=== PATIENT | female | born 1950 | race Caucasian/White ===

== ENCOUNTER 2016-10-03 21:43 | Inpatient (IN) | payer MEDICARE, MEDICAID ==
--- NOTE | 2016-10-03 21:50 | ED Physician Chart ---
Chief Complaint/HPI - Patient Information Date Seen:: 10/03/16 Time Seen:: 21:46 Chief Complaint:: congestion History of Present Illness:: 65-year-old female brought in by EMS with apparent worsening, constant, moderate to severe, respiratory congestion with associated shortness of breath 2 days. Historian:: Patient, EMS Review:: Nurse's Note Reviewed, EMS run form Reviewed Review of Systems - Review of Systems Other: Complete system review otherwise unremarkable except as noted in HPI. Past Medical History - Past Medical History Past Medical History: Asthma/COPD Family History: None Social History: Non Smoker, No Alcohol, No Drug Use, Care Facility Psychiatricy History: Schizophrenia Medication: Reviewed Physical Exam - Physical Examination Other:: INITIAL VITAL SIGNS: Reviewed by me GENERAL: Alert and interactive. No acute distress HEAD: Head is normocephalic and atraumatic EYES: EOMI. . No scleral icterus. No conjunctival injection ENT: Moist mucous membranes. NECK: Supple. No masses. Full range of motion RESPIRATORY: Slight tachypnea. Bibasilar rales and bilateral wheezing. CV: Regular rate and rhythm. No murmurs, rubs, or gallops ABDOMEN: Soft, non-distended, non-tender. No guarding. No rebound. No masses. EXTREMITIES: No deformity. No cyanosis. No edema. SKIN: Warm and dry. No obvious rashes. NEUROLOGIC: Alert and oriented. Face is symmetric. Speech is normal. Moves all extremities equally. Motor and sensory distally intact. Labs/Radiology/EKG Results - Lab Results Results: Lab Results 10/03/16 10/03/16 10/03/16 Range/Units 22:25 22:25 22:25 WBC 8.2 (4.8-10.8) Th/cmm RBC 4.03 (3.80-5.10) Mil/cmm Hgb 12.9 (11.7-15.5) gm/dL Hct 36.9 (35.0-45.0) % MCV 91.6 (81-100) fl MCH 31.9 H (27.0-31.0) pg MCHC Differential 34.9 (28.0-36.0) pg RDW 13.0 (11.5-20.0) % Plt Count 201 (150-400) Th/cmm MPV 7.1 fl PT 9.2 L (9.5-11.5) SECONDS INR 0.93 (0.5-1.4) PTT (Actin FS) 22.0 L (26.0-38.0) SECONDS Sodium 128 L (136-145) mEq/L Potassium 3.7 (3.5-5.1) mEq/L Chloride 92 L (98-107) mEq/L Carbon Dioxide 29.2 (21.0-31.0) mEq/L Anion Gap 10.5 (7.0-16.0) BUN 9 (7-25) mg/dL Creatinine 0.7 (0.6-1.2) mg/dL Est GFR ( Amer) > 60.0 (>90) ml/min Est GFR (Non-Af Amer) > 60.0 ml/min BUN/Creatinine Ratio 12.9 Glucose 167 H (70-105) mg/dL Whole Bld Lactic Acid (0.60-2.00) mmol/L Calcium 9.1 (8.6-10.3) mg/dL Total Bilirubin 0.4 (0.3-1.0) mg/dL AST 13 (13-39) U/L ALT 16 (7-52) U/L Alkaline Phosphatase 65 (34-104) U/L Total Protein 6.5 (6.0-8.3) gm/dL Albumin 4.0 (3.7-5.3) gm/dL Globulin 2.5 gm/dL Albumin/Globulin Ratio 1.6 (1.0-1.8) 10/03/ Range/Units 22:25 WBC (4.8-10.8) Th/cmm RBC (3.80-5.10) Mil/cmm Hgb (11.7-15.5) gm/dL Hct (35.0-45.0) % MCV (81-100) fl MCH (27.0-31.0) pg MCHC Differential (28.0-36.0) pg RDW (11.5-20.0) % Plt Count (150-400) Th/cmm MPV fl PT (9.5-11.5) SECONDS INR (0.5-1.4) PTT (Actin FS) (26.0-38.0) SECONDS Sodium (136-145) mEq/L Potassium (3.5-5.1) mEq/L Chloride (98-107) mEq/L Carbon Dioxide (21.0-31.0) mEq/L Anion Gap (7.0-16.0) BUN (7-25) mg/dL Creatinine (0.6-1.2) mg/dL Est GFR ( Amer) (>90) ml/min Est GFR (Non-Af Amer) ml/min BUN/Creatinine Ratio Glucose (70-105) mg/dL Whole Bld Lactic Acid 2.97 H* (0.60-2.00) mmol/L Calcium (8.6-10.3) mg/dL Total Bilirubin (0.3-1.0) mg/dL AST (13-39) U/L ALT (7-52) U/L Alkaline Phosphatase (34-104) U/L Total Protein (6.0-8.3) gm/dL Albumin (3.7-5.3) gm/dL Globulin gm/dL Albumin/Globulin Ratio (1.0-1.8) - Radiology Results Results: Single AP VIEW Portable Chest X-ray was interpreted independently and contemporaneously by Hannah Candelaria MD: No cardiomegaly Normal mediastinum Bilateral lower lobe infiltrates No pneumothorax No soft tissue or bony abnormalities - EKG Interpretations Comments:: 12-lead EKG Interpretation by Hannah Candelaria MD: Normal Sinus Rhythm with ventricular rate of 97 beats per minute Normal axis Normal intervals No acute ST or T wave changes. No obvious STEMI Assessment - Assessment General Assessment: Critical Care Time: 30 minutes Treatments/Evaluations: Close monitoring and treatment of unstable vital signs, cardiorespiratory, and neurologic status, while maintaining tight balance of fluid, respiratory, and cardiac interventions. This time includes discussing the case with the patient and the patient's family. This time does not include all procedures stated elsewhere in this record. This time also includes reviewing old records, labs and radiological studies. This time includes examining and re-examining the patient. Additionally, this time also includes arranging care with admitting and consulting physicians. Critical Care Time: 30 minutes Excludes all billable procedures: Yes This condition life threatening/high prob of deterioration: Yes ED Septic Shock - . Is Septic Shock (SBP<90, OR Lactate>4 mmol\L) present?: No Reassessment (Disposition) - Reassessment Reassessment:: Patient has sepsis with bilateral lower lobe pneumonia. She arrived tachypneic And with bibasilar rales and bilateral wheezing. There was critical care time on this patient of 30 minutes. This does not include any billable procedures. Patient was placed on continuous albuterol nebulizer. Work of breathing did improve. She received IV Solu-Medrol as well. Respiration rate improved greatly. Discussed the case with the admitting physician who presents to good understanding of the case and will admit the patient for further workup and treatment. Reassessment Condition:: Improved - Diagnosis Diagnosis:: Sepsis, COPD exacerbation - Patient Disposition Discharge/Transfer:: Acute Care w/in this hosp Admitting Medical Physician:: Ollie Pate Time:: 23:12 Condition at Disposition:: Stable ED Discharge Plan - Patient Disposition Admit/Discharge/Transfer: Acute Care w/in this hosp Condition at Disposition: Stable
[2016-10-03] MEDS ORDERED: Sodium Chloride 0.9% 1,000 ML IV ONE (21:54)
[2016-10-03] MEDS ORDERED: Albuterol/Ipratropium Neb 3 ML AERS HHN ONE ×2 (21:54→22:12)
[2016-10-03] MEDS ORDERED: Azithromycin 500 MG in Sodium Chloride 0.9% 250 ML IV ONE (21:54)
[2016-10-03] MEDS ORDERED: cefTRIAXone 1 GM in Sodium Chloride 0.9% 50 ML IV ONE (21:54)
[2016-10-03 22:45] LABS: HEMATOCRIT 36.9 % (35.0-45.0); HEMOGLOBIN 12.9 gm/dL (11.7-15.5); MEAN CELL VOLUME 91.6 fl (81-100); MEAN CORPUSCULAR HEMOGLOBIN 31.9 pg (27.0-31.0); MEAN CORPUSCULAR HGB CONC 34.9 pg (28.0-36.0); MEAN PLATELET VOLUME 7.1 fl; PLATELET COUNT 201 Th/cmm (150-400); RED BLOOD COUNT 4.03 Mil/cmm (3.80-5.10); WHITE BLOOD COUNT 8.2 Th/cmm (4.8-10.8)
[2016-10-03] MEDS ORDERED: Albuterol Nebulizer 2.5mg/3mL HHN STA (22:46)
[2016-10-03 22:50] LABS: INR 0.93 (0.5-1.4); PROTHROMBIN TIME (TEST) 9.2 SECONDS (9.5-11.5)
[2016-10-03] MEDS ORDERED: Albuterol Nebulizer 2.5mg/3mL HHN ONE (22:51)
[2016-10-03 22:54] LABS: ALB/GLOB RATIO 1.6 (1.0-1.8); ALKALINE PHOSPHATASE 65 U/L (34-104); ANION GAP 10.5 (7.0-16.0); BILIRUBIN,TOTAL 0.4 mg/dL (0.3-1.0); BUN - UREA NITROGEN 9 mg/dL (7-25); BUN/CREATININE RATIO 12.9; CALCIUM SERUM 9.1 mg/dL (8.6-10.3); CARBON DIOXIDE 29.2 mEq/L (21.0-31.0); CHLORIDE 92 mEq/L (98-107); CREATININE - SERUM 0.7 mg/dL (0.6-1.2); GLUCOSE 167 mg/dL (70-105); POTASSIUM SERUM 3.7 mEq/L (3.5-5.1); SGOT 13 U/L (13-39); SGPT/ALT 16 U/L (7-52); SODIUM SERUM 128 mEq/L (136-145)
[2016-10-03] MEDS ORDERED: HYDROmorphone 1 mg/mL 1mL Syr IVP STA (23:29)
[2016-10-03] MEDS ORDERED: HYDROmorphone 1 mg/mL 1mL Syr ONE (23:30)
[2016-10-04 01:15] LABS: BAND NEUTROPHILE 4 % (0-10); EOSINOPHIL 1 % (0-5); NEUTROPHILS 83 % (40-80); PLATELET ESTIMATE ADEQUATE (NORMAL); TOTAL CELLS COUNTED 100
[2016-10-04 01:41] LABS: URINE BILIRUBIN NEGATIVE (NEGATIVE); URINE BLOOD NEGATIVE (NEGATIVE); URINE COLOR YELLOW; URINE GLUCOSE (UA) 100 mg/dL (NEGATIVE); URINE KETONE NEGATIVE (NEGATIVE); URINE PROTEIN NEGATIVE (NEGATIVE); URINE UROBILINOGEN 0.2 E.U./dL (0.2 - 1.0)
[2016-10-04 01:43] LABS: URINE BACTERIA NONE SEEN /hpf (NONE SEEN); URINE EPITHELIAL CELLS NONE SEEN /lpf (FEW); URINE RBC 0-2 /hpf (0-5); URINE WBC 0-2 /hpf (0-5)
[2016-10-04] MEDS: D5-0.9%NS 1,000 ML IV SCH ×2 (01:55→21:09)
[2016-10-04] MEDS: Ipratropium Neb 0.5 mg/2.5 mL UD IH PRN ×4 (02:04→23:33)
[2016-10-04] MEDS: Albuterol Nebulizer 2.5mg/3mL IH PRN ×4 (02:04→23:33)
--- NOTE | 2016-10-04 02:06 | Admit Criteria Form ---
Admit Criteria Forms - Admit Criteria Diagnosis: SEPSIS and OTHER FEBRILE ILLNESS, W/O FOCAL INFECTION Clinical Indications for Admission to Inpatient Care ( Place 'X' for any and all applicable criteria): Admission is indicated for ANY ONE of the following (1)(2)(3)(4): [ ] I. Bacteremia [ X]II. Suspected or identified specific infection requiring hospitalization (eg, meningitis, endocarditis) [ ]III. Hemodynamic instability [ ]IV. Altered mental status [ ]V. Failure or unavailability of outpatient antimicrobial treatment [ ]. Hypoxemia [ ]VII. Seizures [ ]VIII. High-risk febrile neutropenia [ ]IX. Need for parenteral antibiotic in patient who is likely to abuse vascular access device (eg, injection drug user) [A](7) [ ]X. Temperature greater than 104.9 degrees F (40.5 degrees C) (oral) [ ]XI. Inpatient admission required rather than observation care because of ANY ONE of the following: [ ]1) Specific infection identified that is too severe for outpatient treatment or observation care trial [ ]2) Metabolic disorder (eg, hypoglycemia, hyperglycemia, metabolic acidosis) that is severe or persistent [ ]3) Temperature greater than 103.1 degrees F (39.5 degrees C) ( oral) that is not responsive to observation care treatment [ ]4) IV fluid to replace significant ongoing (eg, for over 24 hours) losses (> 3 L/m2 per day) [ ]5) Supplemental oxygen or respiratory treatments for over 24 hours that is performable only in acute inpatient setting [ ]6) Parenteral nutrition regimen need that must be implemented on inpatient basis [ ]7) Strict or protective (eg, laminar flow) isolation [ ]8) Other condition, treatment or monitoring requiring inpatient admission Extended stay beyond goal length of stay may be needed for(1)(3) [ ]a) Sepsis or septic shock(22) [ ]b) Positive blood cultures [ ]c) Insufficient oral intake [ ]d) High-risk febrile neutropenia(29)(30) [ ]e) Continued fever and clinical instability [ ]f) Clinically active comorbid illness (e.g,heart failure, renal failure , diabetes) The original [facility] content created by Yvette Adams has been revised. The portions of the content which have been revised are identified through the use of italic text or in bold, and [employer] has neither reviewed nor approved the modified material. All other unmodified content is copyright [facility]. Please see references footnoted in the original [facility] edition 2016 Admit Criteria Met?: Yes
[2016-10-04] MEDS: methylPREDNISolone SS 40 mg Vial IVP SCH ×3 (04:55→20:28)
[2016-10-04] MEDS ORDERED: Ipratropium Neb 0.5 mg/2.5 mL UD IH SCH (09:00)
[2016-10-04] MEDS ORDERED: Albuterol Nebulizer 2.5mg/3mL IH SCH (09:00)
[2016-10-04] MEDS: Pantoprazole 40 mg EC Tab PO SCH ×2 (09:18→16:05)
--- NOTE | 2016-10-04 09:42 | Diagnostic Imaging Report ---
CHEST X-RAY: AP view INDICATION: pain COMPARISON: None FINDINGS: Chronic COPD lung changes are seen with no focal consolidation pleural effusions. Heart size is normal. There is probable minimal atherosclerosis of the aortic arch. Postsurgical changes of the lower cervical spine are noted. IMPRESSION: Chronic COPD lung changes with no focal consolidation identified.
[2016-10-04] MEDS: Albuterol Nebulizer 2.5mg/3mL HHN SCH ×3 (10:49→18:28)
[2016-10-04] MEDS: Ipratropium Neb 0.5 mg/2.5 mL UD HHN SCH ×3 (10:49→18:28)
--- NOTE | 2016-10-04 13:53 | Diagnostic Imaging Report ---
CT Chest without IV contrast HISTORY: Mass COMPARISON: Chest x-ray 10/03/2016. Technique: Axial images were obtained from the base of the neck to the upper abdomen without IV contrast. Multiplanar reconstructions were made. Total DLP to 25 CTD I 6.2 Findings: Postsurgical changes of lower cervical spine are noted. Assessment of the mediastinum is limited due to lack of IV contrast. No evidence of mediastinal lymphadenopathy. The ascending aorta measures up to 3.2 cm. No evidence of an aneurysm. Heart size is normal. Mild atherosclerosis is noted. Trace pericardial fluid is noted. A small hiatal hernia is noted. The lung charles demonstrate mild chronic lung changes with atelectatic changes of the right lung right lower lobe including passive atelectasis and minimal consolidation in the right lung base. Focal consolidative changes of the lingula are also seen with areas of bronchiectasis. Scarring of the lung apices is noted. No discrete mass lesion identified. The upper abdomen demonstrates evidence of prior cholecystectomy. Mild degenerative changes of the spine are noted. IMPRESSION: Mild chronic lung changes and possible COPD. There is focal consolidative change and bronchiectasis involving the left lingula. Findings may be due to atelectasis versus pneumonia versus chronic inflammatory process. Neoplastic process is less likely. Short-term 3 month follow-up may be obtained for further assessment/monitoring. Additional right basal atelectatic changes including passive right basal atelectasis. Small hiatal hernia. Postsurgical changes of the lower cervical spine.
[2016-10-04] MEDS: guaiFENesin 200 MG/10 ML UDC PO PRN (14:40)
[2016-10-04] MEDS ORDERED: Magnesium Hydroxide (MOM) 30 mL UDC PO PRN (15:31)
[2016-10-04] MEDS ORDERED: DEXTROMETHORPHAN HBR PO PRN (15:31)
[2016-10-04] MEDS ORDERED: Maalox 30 mL Cup PO PRN (15:31)
[2016-10-04] MEDS ORDERED: Non-Formulary Item 1 EA (Melatonin [Melatonin] 6 MG) PO PRN (15:31)
[2016-10-04] MEDS: Hydrocodone/APAP 5mg/325mg Tab PO PRN (16:05)
[2016-10-04] MEDS ORDERED: [UNRECOGNIZED DRUG - OTHER] INH SCH (21:00)
[2016-10-04] MEDS ORDERED: BUDESONIDE INH SCH (21:00)
[2016-10-04] MEDS ORDERED: FORMOTEROL FUMARATE INH SCH (21:00)
[2016-10-05] MEDS: Hydrocodone/APAP 5mg/325mg Tab PO PRN ×4 (02:12→21:11)
[2016-10-05] MEDS: Ipratropium Neb 0.5 mg/2.5 mL UD IH PRN (03:10)
[2016-10-05] MEDS: Albuterol Nebulizer 2.5mg/3mL IH PRN ×2 (03:10→08:44)
[2016-10-05] MEDS: Albuterol Nebulizer 2.5mg/3mL HHN SCH ×4 (06:39→19:07)
[2016-10-05] MEDS: Ipratropium Neb 0.5 mg/2.5 mL UD HHN SCH ×4 (06:40→19:07)
--- NOTE | 2016-10-05 07:27 | History & Physical ---
CHIEF COMPLAINT: Increasing shortness of breath and wheezing. HISTORY OF PRESENT ILLNESS: This is a 65-year-old female with history of COPD, mental illness, obesity, schizoaffective disorder, noncompliance, chronic low back pain, who was admitted from nursing facility secondary to increasing shortness of breath. The patient was just recently discharged from ____ acute care, but complaining now of difficulty breathing. The patient was seen in the ER and admitted for further management. PAST MEDICAL HISTORY: As mentioned in the History of Present Illness. PAST SURGICAL HISTORY: Status post neck surgery. ALLERGIES: LEVAQUIN, ____ PENICILLIN. MEDICATIONS: Dextromethorphan, Tylenol, Soma, MS Contin, Paragon, Colace, lorazepam, ____, Singulair, Protonix, Ambien, prednisone, ____. FAMILY HISTORY: Noncontributory. SOCIAL HISTORY: The patient is an avid smoker, nondrinker and no intravenous drug use. The patient is from care home. REVIEW OF SYSTEMS: GENERAL: The patient is complaining of not feeling well. HEENT: No blurred vision. LUNGS: The patient has COPD. Denies asthma. The patient is a chronic smoker. HEART: No hypertension or coronary artery disease. ABDOMEN: No nausea, vomiting or abdominal pain. GENITOURINARY: The patient denies any increased frequency or dysuria. NEUROLOGIC: No headache, seizure or syncope. EXTREMITIES: Complaining of back pain. PSYCHIATRIC: Stable. PHYSICAL EXAMINATION: VITAL SIGNS: Blood pressure 146/____, ____, pulse 105, respirations 17. GENERAL: An elderly female, appears her stated age. NECK: Supple. No mass. LUNGS: Equal breath sounds with few rhonchi and wheezing. HEART: Regular rate and rhythm without appreciable murmur. ABDOMEN: Soft and nontender. EXTREMITIES: No clubbing, cyanosis or edema. NEUROLOGIC: Limited, moving all 4 extremities. LABORATORY DATA: WBC 8____, hemoglobin 12, platelets ____, INR 0.93. Sodium 138, potassium 3.5, BUN 9, creatinine 0.7, lactic acid 3.07 and 2.9. Blood sugar 167. Urine negative. ASSESSMENT: 1. Sepsis. 2. Acute chronic obstructive pulmonary disease exacerbation. 3. Pneumonia. 4. Schizoaffective disorder. 5. Obesity. 6. Chronic low back pain. 7. Elevated lactic acid. PLAN: We will continue the patient on oxygen and bronchodilator treatments and IV Solu-Medrol. Pulmonary has been consulted. We will reconcile the patient's medication. We will continue to monitor the patient closely. ____ has been ordered as well as blood culture. JOB# [id number]
[2016-10-05] MEDS: Pantoprazole 40 mg EC Tab PO SCH ×2 (08:36→17:08)
[2016-10-05] MEDS ORDERED: Pantoprazole 40 mg EC Tab PO SCH (09:00)
[2016-10-05 09:29] LABS: HCO3 33.5 mmol/L (20.0-26.0); pH 7.51 (7.35-7.45)
[2016-10-05 09:30] LABS: ABG SOURCE Arterial; ALLEN TEST YES; BE(B) 9.5 mmol/L (-3.0-3.0); FIO2 32
--- NOTE | 2016-10-05 12:22 | Internal Medicine Prog Note ---
Internal Medicine Subjective - Subjective Service Date: 10/05/16 (patient c/o difficulty expectorating phlegm she states its too thick to expectorate. ) Patient seen and examined:: with staff Patient is:: awake Per staff patient is:: no adverse event Internal Medicine Objective - Results Result Diagrams: 10/03/16 22:25 10/03/16 22:25 Recent Labs: Laboratory Last Values WBC 8.2 Th/cmm (4.8-10.8) 10/03/16 22: RBC 4.03 Mil/cmm (3.80-5.10) 10/03/16 22: Hgb 12.9 gm/dL (11.7-15.5) 10/03/16: Hct 36.9 % (35.0-45.0) 10/03/16 22: MCV 91.6 fl (81-100) 10/03/16 22: MCH 31.9 pg (27.0-31.0) H 10/03/16: MCHC Differential 34.9 pg (28.0-36.0) 10/03/16 22: RDW 13.0 % (11.5-20.0) 10/03/16 22: Plt Count 201 Th/cmm (150-400) 10/03/16 22: MPV 7.1 fl 10/03/16 22:25 Band Neutrophils % 4 % (0-10) 10/03/16 22: Neutrophils (Manual) 83 % (40-80) H 10/03/16 22:25 Lymphocytes 8 % (20-50) L 10/03/16 22:25 Monocytes 4 % (2-10) 10/03/16 22:25 Eosinophils 1 % (0-5) 10/03/16 22:25 Platelet Estimate ADEQUATE (NORMAL) 10/03/16 22: PT 9.2 SECONDS (9.5-11.5) L 10/03/16 22:25 INR 0.93 (0.5-1.4) 10/03/16 22:25 PTT (Actin FS) 22.0 SECONDS (26.0-38.0) L 10/03/16 22:25 Specimen Source Arterial 10/05/16 09:10 Sample Site Right Radial 10/05/16 09:10 pH 7.51 (7.35-7.45) H 10/05/16 09:10 pCO2 42.0 mmHg (35.0-45.0) 10/05/16 09:10 pO2 72.0 mmHg (80.0-100.0) L 10/05/16 09:10 HCO3 33.5 mmol/L (20.0-26.0) H 10/05/16 09:10 Base Excess 9.5 mmol/L (-3.0-3.0) H 10/05/16 09:10 O2 Saturation 96.0 % (92.0-100.0) 10/05/16 09:10 Evan Test YES 10/05/16 09:10 Vent Rate NA 10/05/16 09:10 Inspired O2 32 10/05/16 09:10 Tidal Volume NA 10/05/16 09:10 PEEP NA 10/05/16 09:10 Pressure (ins/psv/peep) NA 10/05/16 09:10 Critical Value E.SHEPARD 10/05/16 09:10 Sodium 128 mEq/L (136-145) L 10/03/16 22:25 Potassium 3.7 mEq/L (3.5-5.1) 10/03/16 22:25 Chloride 92 mEq/L (98-107) L 10/03/16 22:25 Carbon Dioxide 29.2 mEq/L (21.0-31.0) 10/03/16 22:25 Anion Gap 10.5 (7.0-16.0) 10/03/16 22:25 BUN 9 mg/dL (7-25) 10/03/16 22:25 Creatinine 0.7 mg/dL (0.6-1.2) 10/03/16 22:25 Est GFR ( Amer) > 60.0 ml/min (>90) 10/03/16 22:25 Est GFR (Non-Af Amer) > 60.0 ml/min 10/03/16 22:25 BUN/Creatinine Ratio 12.9 10/03/16 22:25 Glucose 167 mg/dL (70-105) H 10/03/16 22:25 Whole Bld Lactic Acid 3.07 mmol/L (0.60-2.00) H* 10/04/16 01:40 Calcium 9.1 mg/dL (8.6-10.3) 10/03/16 22:25 Total Bilirubin 0.4 mg/dL (0.3-1.0) 10/03/16 22:25 AST 13 U/L (13-39) 10/03/16 22:25 ALT 16 U/L (7-52) 10/03/16 22:25 Alkaline Phosphatase 65 U/L (34-104) 10/03/16 22:25 B-Natriuretic Peptide 11.7 pg/mL (5.0-100.0) 10/03/16 22:25 Total Protein 6.5 gm/dL (6.0-8.3) 10/03/16 22:25 Albumin 4.0 gm/dL (3.7-5.3) 10/03/16 22:25 Globulin 2.5 gm/dL 10/03/16 22:25 Albumin/Globulin Ratio 1.6 (1.0-1.8) 10/03/16 22:25 Urine Source CLEAN CATCH 10/04/16 00:30 Urine Color YELLOW 10/04/16 00:30 Urine Clarity CLEAR (CLEAR) 10/04/16 00:30 Urine pH 6.0 10/04/16 00:30 Ur Specific Halls 1.78230 (1.005-1.030) L 10/04/16 00:30 Urine Protein NEGATIVE mg/dL (NEGATIVE) 10/04/16 00:30 Urine Glucose (UA) 100 mg/dL (NEGATIVE) H 10/04/16 00:30 Urine Ketones NEGATIVE mg/dL (NEGATIVE) 10/04/16 00:30 Urine Blood NEGATIVE (NEGATIVE) 10/04/16 00:30 Urine Nitrate NEGATIVE (NEGATIVE) 10/04/16 00:30 Urine Bilirubin NEGATIVE (NEGATIVE) 10/04/16 00:30 Urine Urobilinogen 0.2 E.U./dL (0.2 - 1.0) 10/04/16 00:30 Ur Leukocyte Esterase NEGATIVE (NEGATIVE) 10/04/16 00:30 Urine RBC 0-2 /hpf (0-5) 10/04/16 00:30 Urine WBC 0-2 /hpf (0-5) 10/04/16 00:30 Ur Epithelial Cells NONE SEEN /lpf (FEW) 10/04/16 00:30 Urine Bacteria NONE SEEN /hpf (NONE SEEN) 10/04/16 00:30 - Physical Exam Vitals and I&O: Vital Signs Temp 98.5 F 10/05/16 12:08 Pulse 99 10/05/16 12:08 Resp 20 10/05/16 12:08 BP 136/66 10/05/16 12:08 Pulse Ox 99 10/05/16 12:08 Intake & Output 10/04/16 10/05/16 10/05/16 18:59 06:59 18:59 Intake Total 1500 600 Balance 1500 600 Intake: Intake, IV Amount 1000 D5-0.9%Ns 1,000 ml @ 80 1000 mls/hr IV .[id number] [facility] Rx #:[id number] Oral 500 600 Other: # Voids 4 2 # Bowel Movements 1 Stool Characteristics Soft Formed Active Medications: Current Medications Acetaminophen (Tylenol) 650 mg PO Q4HR PRN PRN Reason: Fever >101 Stop: 12/03/16 15:30 Acetaminophen/Hydrocodone Bitart (Tracy 5mg/325mg) 1 tab PO QID PRN PRN Reason: Pain (Moderate) Stop: 12/03/16 16:59 Last Admin: 10/05/16 06:59 Dose: 1 tab Al Hydrox/Mg Hydrox/Simethicone (Maalox) 30 ml PO Q4HR PRN PRN Reason: GI DISTRESS Stop: 12/03/16 15:30 Albuterol Sulfate (Albuterol 2.5mg/3ml Neb Ud) 2.5 mg IH Q2HR PRN PRN Reason: Shortness of Breath or Wheeze Stop: 12/02/16 23:28 Last Admin: 10/05/16 08:44 Dose: 2.5 mg Albuterol Sulfate (Albuterol 2.5mg/3ml Neb Ud) 2.5 mg HHN QIDRT [facility] Stop: 12/03/16 10:59 Last Admin: 10/05/16 11:47 Dose: 2.5 mg Carisoprodol (Soma) 350 mg PO Q12HR PRN PRN Reason: Spasms Stop: 12/03/16 20:59 Last Admin: 10/05/16 08:36 Dose: 350 mg Cholecalciferol (Vitamin D3) 1,000 iu PO DAILY [facility] Stop: 12/04/16 08:59 Last Admin: 10/05/16 08:36 Dose: 1,000 iu Citalopram Hydrobromide (Celexa) 20 mg PO DAILY JOSEE PRN Reason: Protocol Stop: 12/04/16 08:59 Last Admin: 10/05/16 08:36 Dose: 20 mg Docusate Sodium (Colace) 250 mg PO DAILY [facility] Stop: 12/04/16 08:59 Last Admin: 10/05/16 08:36 Dose: 250 mg Gabapentin (Neurontin) 400 mg PO TID [facility] Stop: 12/03/16 20:59 Guaifenesin (Robitussin) 200 mg PO Q4HR PRN PRN Reason: Cough or Congestion Stop: 12/02/16 23:26 Last Admin: 10/04/16 14:40 Dose: 200 mg Heparin Sodium (Porcine) (Heparin) 5,000 units SUBQ Q12HR [facility] Stop: 12/03/16 08:59 Last Admin: 10/05/16 08:37 Dose: 5,000 units Dextrose/Sodium Chloride (D5-0.9%Ns) 1,000 mls @ 80 mls/hr IV .[id number] [facility] Stop: 12/02/16 23:29 Last Admin: 10/04/16 21:09 Dose: 80 mls/hr Ipratropium Manteo (Atrovent Neb 0.5mg/2.5ml) 0.5 mg IH Q2HR PRN PRN Reason: Shortness of Breath or Wheeze Stop: 12/02/16 23:28 Last Admin: 10/05/16 03:10 Dose: 0.5 mg Ipratropium [place] (Atrovent Neb 0.5mg/2.5ml) 0.5 mg HHN QIDRT [facility] Stop: 12/03/16 10:59 Last Admin: 10/05/16 11:48 Dose: 0.5 mg Lorazepam (Ativan) 1 mg PO Q6HR PRN; Protocol PRN Reason: Anxiety Stop: 12/03/16 15:30 Last Admin: 10/05/16 08:38 Dose: 1 mg Magnesium Hydroxide (Milk Of Magnesia) 30 ml PO HS PRN PRN Reason: Constipation Stop: 12/03/16 15:30 Methocarbamol (Robaxin) 500 mg PO BID [facility] Stop: 12/03/16 16:59 Last Admin: 10/05/16 08:37 Dose: 500 mg Methylprednisolone Sodium Succinate (Solu-Medrol) 80 mg IVP Q8HR [facility] Stop: 12/03/16 04:59 Last Admin: 10/04/16 20:28 Dose: 80 mg Montelukast Sodium (Singulair) 10 mg PO DAILY [facility] Stop: 12/03/16 08:59 Last Admin: 10/05/16 08:36 Dose: 10 mg Morphine Sulfate (Ms-Contin) 15 mg PO Q12HR [facility] Stop: 12/03/16 20:59 Last Admin: 10/05/16 08:36 Dose: 15 mg Nitroglycerin (Nitrostat) 0.4 mg SL Q5MIN [facility] Stop: 12/03/16 15:44 Ondansetron HCl (Zofran) 4 mg IV Q8H PRN PRN Reason: Nausea / Vomiting Stop: 12/02/16 23:26 Pantoprazole Sodium (Protonix) 40 mg PO BID [facility] Stop: 12/03/16 08:59 Last Admin: 10/05/16 08:36 Dose: 40 mg Prazosin HCl (Minipress) 1 mg PO HS [facility] Stop: 12/03/16 20:59 Last Admin: 10/04/16 20:27 Dose: 1 mg Pseudoephedrine HCl (Sudafed) 30 mg PO Q6HR PRN PRN Reason: Congestion Stop: 12/03/16 15:30 Risperidone (Risperdal) 3 mg PO BID [facility] PRN Reason: Protocol Stop: 12/03/16 16:59 Last Admin: 10/05/16 08:36 Dose: 3 mg Zolpidem Tartrate (Ambien) 10 mg PO HS PRN PRN Reason: Insomnia Stop: 12/02/16 23:25 Last Admin: 10/04/16 20:28 Dose: 10 mg General: alert HEENT: NC/AT, PERRLA Neck: Supple Lungs: congested, ronchi Cardiovascular: RRR, Normal S1, without murmur Abdomen: soft non-tender, non-distended Extremities: clear - Procedures Procedures: Procedures Procedure Code Date ANESTH INJEC PERIPH NERV 04.81 12/04/10 ANESTH INJECT-SPIN CANAL 03.91 02/21/12 CERVICAL SPINE X-RAY NEC 87.22 02/28/11 EPIDUROGRAPHY 61561 02/21/12 INJ FORAMEN EPIDURAL L/S 96405 12/04/10 INJ PARAVERT F JNT C/T 1 LEV 22009 02/28/11 INJ PARAVERT F JNT C/T 2 LEV 27199 02/28/11 INJ PARAVERT F JNT C/T 3 LEV 81155 02/28/11 INJECT SPINE CERV/THORACIC 89988 05/30/11 INJECT SPINE LUMBAR/SACRAL 03910 02/21/12 INJECT STEROID 99.23 02/21/12 INJECT/INFUSE NEC 99.29 02/28/11 INJECTION INTO JOINT 81.92 02/28/11 LUMBOSAC SPINE X-RAY NEC 87.24 02/21/12 MYELOGRAPHY NECK SPINE 45348 05/30/11 PERIPH NERVE INJECT NEC 04.89 12/04/10 SPINAL CANAL INJECT NEC 03.92 02/21/12 Internal Medicine Assmt/Plan - Assessment Assessment: 1. sepsis 2. acute copd exacerbation 3. pna 4. schizoaffective disorder 5. obesity 6. chronic low back pain 7. elevated lactic acid. - Plan Plan: continue ivabx add mucomyst bronchodilators cpt smoking cessation cbc/bmp in am monitor for fever
[2016-10-05] MEDS: methylPREDNISolone SS 40 mg Vial IVP SCH (13:09)
[2016-10-05] MEDS: Nicotine 21 mg/24 hr Tdm TD SCH (14:05)
[2016-10-05] MEDS ORDERED: HYDROmorphone 1 mg/mL 1mL Syr IVP ONE (14:48)
--- NOTE | 2016-10-05 15:03 | Consultation ---
Thank you very much Rio for this consultation. HISTORY OF PRESENT ILLNESS: This is a 65-year-old female with history of COPD, poor compliance, nicotine dependent. She was admitted recently and discharged from [facility]. The patient apparently continues to smoke, went back to nursing facility and came back for short of breath, congestion and wheezing. The patient continues to smoke while she was in the hospital despite multiple attempts to prevent her from smoking. The patient feels little bit better now. PAST MEDICAL HISTORY: As above. SOCIAL HISTORY: Again, smoking for over 40 years. REVIEW OF SYSTEMS: GENERAL: No weakness or fatigue. CARDIOVASCULAR: No chest pain. RESPIRATORY: Shortness of breath, cough, wheezing. PHYSICAL EXAMINATION: GENERAL: Awake, alert, not in acute distress. VITAL SIGNS: Temperature is 98.7, pulse 105, respirations 20, blood pressure 146/71, saturation 95%. HEENT: Atraumatic, normocephalic. Pupils are reactive to light and accommodation. Ears, nose and throat normal. NECK: Supple. No JVD. CHEST: Bilateral diffuse wheezing and rhonchi. HEART: Regular rate and rhythm. No murmurs. ABDOMEN: Soft. No tenderness. EXTREMITIES: No edema. CT, some atelectatic changes and chronic changes. LABORATORY DATA: WBC is 8.2, hemoglobin 12.9. Sodium is 128, potassium 3.7, creatinine 0.7. IMPRESSION: This is a 65-year-old female with chronic obstructive pulmonary disease exacerbation, acute bronchitis, early pneumonia. PLAN: 1. IV antibiotics. 2. Nebulizer treatment. 3. Pulmonary toilet. 4. The patient again advised to quit smoking completely, otherwise, her ____ deteriorate every time she comes back here. Thank you very much for this consultation. I will follow the patient with you. JOB# [id number]
[2016-10-06] MEDS: Hydrocodone/APAP 5mg/325mg Tab PO PRN ×3 (04:52→17:28)
[2016-10-06] MEDS: Albuterol Nebulizer 2.5mg/3mL HHN SCH ×4 (06:42→19:08)
[2016-10-06] MEDS: Ipratropium Neb 0.5 mg/2.5 mL UD HHN SCH ×4 (06:43→19:09)
[2016-10-06 07:08] LABS: HEMATOCRIT 34.9 % (35.0-45.0); HEMOGLOBIN 12.4 gm/dL (11.7-15.5); MEAN CORPUSCULAR HEMOGLOBIN 32.2 pg (27.0-31.0); MEAN CORPUSCULAR HGB CONC 35.4 pg (28.0-36.0); MEAN PLATELET VOLUME 7.2 fl; PLATELET COUNT 215 Th/cmm (150-400); RED BLOOD COUNT 3.84 Mil/cmm (3.80-5.10); RED CELL DISTRIBUTION WIDTH 13.1 % (11.5-20.0)
[2016-10-06 07:16] LABS: WHITE BLOOD COUNT 6.5 Th/cmm (4.8-10.8)
[2016-10-06 07:26] LABS: ANION GAP 7.2 (7.0-16.0); BUN - UREA NITROGEN 10 mg/dL (7-25); CALCIUM SERUM 9.4 mg/dL (8.6-10.3); CARBON DIOXIDE 30.7 mEq/L (21.0-31.0); CHLORIDE 101 mEq/L (98-107); CREATININE - SERUM 0.5 mg/dL (0.6-1.2); GLUCOSE 129 mg/dL (70-105); POTASSIUM SERUM 3.9 mEq/L (3.5-5.1); SODIUM SERUM 135 mEq/L (136-145)
[2016-10-06] MEDS: Pantoprazole 40 mg EC Tab PO SCH ×2 (08:57→16:24)
[2016-10-06] MEDS: Nicotine 21 mg/24 hr Tdm TD SCH (08:59)
[2016-10-06 09:07] LABS: BAND NEUTROPHILE 3 % (0-10); NEUTROPHILS 90 % (40-80); TOTAL CELLS COUNTED 100
[2016-10-06 09:08] LABS: PLATELET ESTIMATE ADEQUATE (NORMAL); PLATELET MORPHOLOGY NORMAL (NORMAL)
[2016-10-06] MEDS: guaiFENesin 200 MG/10 ML UDC PO PRN ×2 (11:15→21:04)
--- NOTE | 2016-10-06 14:46 | Internal Medicine Prog Note ---
Internal Medicine Subjective - Subjective Service Date: 10/06/16 Patient seen and examined:: with staff Patient is:: awake Patient Complaints of:: congestion Internal Medicine Objective - Results Result Diagrams: 10/06/16 06:15 10/06/16 06:15 Recent Labs: Laboratory Last Values WBC 6.5 Th/cmm (4.8-10.8) D 10/06/16 06:15 RBC 3.84 Mil/cmm (3.80-5.10) 10/06/16 06:15 Hgb 12.4 gm/dL (11.7-15.5) 10/06/16 06:15 Hct 34.9 % (35.0-45.0) L 10/06/16 06:15 MCV 91.0 fl (81-100) 10/06/16 06:15 MCH 32.2 pg (27.0-31.0) H 10/06/16 06:15 MCHC Differential 35.4 pg (28.0-36.0) 10/06/16 06:15 RDW 13.1 % (11.5-20.0) 10/06/16 06:15 Plt Count 215 Th/cmm (150-400) 10/06/16 06:15 MPV 7.2 fl 10/06/16 06:15 Band Neutrophils % 3 % (0-10) 10/06/16 06:15 Neutrophils (Manual) 90 % (40-80) H 10/06/16 06:15 Lymphocytes 4 % (20-50) L 10/06/16 06:15 Monocytes 3 % (2-10) 10/06/16 06:15 Eosinophils 1 % (0-5) 10/03/16 22:25 Platelet Estimate ADEQUATE (NORMAL) 10/06/16 06:15 Platelet Morphology NORMAL (NORMAL) 10/06/16 06:15 RBC Morph Micro Appear NORMAL (NORMAL) 10/06/16 06:15 PT 9.2 SECONDS (9.5-11.5) L 10/03/16 22:25 INR 0.93 (0.5-1.4) 10/03/16 22:25 PTT (Actin FS) 22.0 SECONDS (26.0-38.0) L 10/03/16 22:25 Specimen Source Arterial 10/05/16 09:10 Sample Site Right Radial 10/05/16 09:10 pH 7.51 (7.35-7.45) H 10/05/16 09:10 pCO2 42.0 mmHg (35.0-45.0) 10/05/16 09:10 pO2 72.0 mmHg (80.0-100.0) L 10/05/16 09:10 HCO3 33.5 mmol/L (20.0-26.0) H 10/05/16 09:10 Base Excess 9.5 mmol/L (-3.0-3.0) H 10/05/16 09:10 O2 Saturation 96.0 % (92.0-100.0) 10/05/16 09:10 Evan Test YES 10/05/16 09:10 Vent Rate NA 10/05/16 09:10 Inspired O2 32 10/05/16 09:10 Tidal Volume NA 10/05/16 09:10 PEEP NA 10/05/16 09:10 Pressure (ins/psv/peep) NA 10/05/16 09:10 Critical Value E.SHEPARD 10/05/16 09:10 Sodium 135 mEq/L (136-145) L 10/06/16 06:15 Potassium 3.9 mEq/L (3.5-5.1) 10/06/16 06:15 Chloride 101 mEq/L (98-107) 10/06/16 06:15 Carbon Dioxide 30.7 mEq/L (21.0-31.0) 10/06/16 06:15 Anion Gap 7.2 (7.0-16.0) 10/06/16 06:15 BUN 10 mg/dL (7-25) 10/06/16 06:15 Creatinine 0.5 mg/dL (0.6-1.2) L 10/06/16 06:15 Est GFR ( Amer) > 60.0 ml/min (>90) 10/06/16 06:15 Est GFR (Non-Af Amer) > 60.0 ml/min 10/06/16 06:15 BUN/Creatinine Ratio 20.0 10/06/16 06:15 Glucose 129 mg/dL (70-105) H 10/06/16 06:15 Whole Bld Lactic Acid 3.07 mmol/L (0.60-2.00) H* 10/04/16 01:40 Calcium 9.4 mg/dL (8.6-10.3) 10/06/16 06:15 Total Bilirubin 0.4 mg/dL (0.3-1.0) 10/03/16 22:25 AST 13 U/L (13-39) 10/03/16 22:25 ALT 16 U/L (7-52) 10/03/16 22:25 Alkaline Phosphatase 65 U/L (34-104) 10/03/16 22:25 B-Natriuretic Peptide 11.7 pg/mL (5.0-100.0) 10/03/16 22:25 Total Protein 6.5 gm/dL (6.0-8.3) 10/03/16 22:25 Albumin 4.0 gm/dL (3.7-5.3) 10/03/16 22:25 Globulin 2.5 gm/dL 10/03/16 22:25 Albumin/Globulin Ratio 1.6 (1.0-1.8) 10/03/16 22:25 Urine Source CLEAN CATCH 10/04/16 00:30 Urine Color YELLOW 10/04/16 00:30 Urine Clarity CLEAR (CLEAR) 10/04/16 00:30 Urine pH 6.0 10/04/16 00:30 Ur Specific [place] 1.49377 (1.005-1.030) L 10/04/16 00:30 Urine Protein NEGATIVE mg/dL (NEGATIVE) 10/04/16 00:30 Urine Glucose (UA) 100 mg/dL (NEGATIVE) H 10/04/16 00:30 Urine Ketones NEGATIVE mg/dL (NEGATIVE) 10/04/16 00:30 Urine Blood NEGATIVE (NEGATIVE) 10/04/16 00:30 Urine Nitrate NEGATIVE (NEGATIVE) 10/04/16 00:30 Urine Bilirubin NEGATIVE (NEGATIVE) 10/04/16 00:30 Urine Urobilinogen 0.2 E.U./dL (0.2 - 1.0) 10/04/16 00:30 Ur Leukocyte Esterase NEGATIVE (NEGATIVE) 10/04/16 00:30 Urine RBC 0-2 /hpf (0-5) 10/04/16 00:30 Urine WBC 0-2 /hpf (0-5) 10/04/16 00:30 Ur Epithelial Cells NONE SEEN /lpf (FEW) 10/04/16 00:30 Urine Bacteria NONE SEEN /hpf (NONE SEEN) 10/04/16 00:30 - Physical Exam Vitals and I&O: Vital Signs Temp 98.1 F 10/06/16 07:34 Pulse 74 10/06/16 11:19 Resp 20 10/06/16 11:19 BP 160/83 10/06/16 07:34 Pulse Ox 97 10/06/16 11:19 Intake & Output 10/05/16 10/06/16 10/06/16 18:59 06:59 18:59 Intake Total 1300 500 Balance 1300 500 Weight (lbs) 160 lb Intake: Oral 1300 500 Other: # Voids 4 3 # Bowel Movements 0 Active Medications: Current Medications Acetaminophen (Tylenol) 650 mg PO Q4HR PRN PRN Reason: Fever >101 Stop: 12/03/16 15:30 Acetaminophen/Hydrocodone Bitart ([place] 5mg/325mg) 1 tab PO QID PRN PRN Reason: Pain (Moderate) Stop: 12/03/16 16:59 Last Admin: 10/06/16 14:14 Dose: 1 tab Acetylcysteine (Mucomyst 10%) 2 ml HHN Q4HRT COUNTS INCLUDE 234 BEDS AT THE [facility] Stop: 12/04/16 14:59 Last Admin: 10/06/16 03:05 Dose: 2 ml Al Hydrox/Mg Hydrox/Simethicone (Maalox) 30 ml PO Q4HR PRN PRN Reason: GI DISTRESS Stop: 12/03/16 15:30 Albuterol Sulfate (Albuterol 2.5mg/3ml Neb Ud) 2.5 mg IH Q2HR PRN PRN Reason: Shortness of Breath or Wheeze Stop: 12/02/16 23:28 Last Admin: 10/05/16 08:44 Dose: 2.5 mg Albuterol Sulfate (Albuterol 2.5mg/3ml Neb Ud) 2.5 mg HHN QIDRT COUNTS INCLUDE 234 BEDS AT [facility] Stop: 12/03/16 10:59 Last Admin: 10/06/16 11:19 Dose: 2.5 mg Carisoprodol (Soma) 350 mg PO Q12HR PRN PRN Reason: Spasms Stop: 12/03/16 20:59 Last Admin: 10/06/16 08:58 Dose: 350 mg Cholecalciferol (Vitamin D3) 1,000 iu PO DAILY COUNTS INCLUDE 234 BEDS AT [facility] Stop: 12/04/16 08:59 Last Admin: 10/06/16 08:58 Dose: 1,000 iu Citalopram Hydrobromide (Celexa) 20 mg PO DAILY JOSEE PRN Reason: Protocol Stop: 12/04/16 08:59 Last Admin: 10/06/16 08:57 Dose: 20 mg Docusate Sodium (Colace) 250 mg PO DAILY COUNTS INCLUDE 234 BEDS AT [facility] Stop: 12/04/16 08:59 Last Admin: 10/06/16 08:57 Dose: 250 mg Gabapentin (Neurontin) 400 mg PO TID COUNTS INCLUDE 234 BEDS AT [facility] Stop: 12/03/16 20:59 Last Admin: 10/06/16 14:15 Dose: 400 mg Guaifenesin (Robitussin) 200 mg PO Q4HR PRN PRN Reason: Cough or Congestion Stop: 12/02/16 23:26 Last Admin: 10/06/16 11:15 Dose: 200 mg Heparin Sodium (Porcine) (Heparin) 5,000 units SUBQ Q12HR COUNTS INCLUDE 234 BEDS AT [facility] Stop: 12/03/16 08:59 Last Admin: 10/06/16 08:58 Dose: 5,000 units Ipratropium [place] (Atrovent Neb 0.5mg/2.5ml) 0.5 mg IH Q2HR PRN PRN Reason: Shortness of Breath or Wheeze Stop: 12/02/16 23:28 Last Admin: 10/05/16 03:10 Dose: 0.5 mg Ipratropium [place] (Atrovent Neb 0.5mg/2.5ml) 0.5 mg HHN QIDRT COUNTS INCLUDE 234 BEDS AT [facility] Stop: 12/03/16 10:59 Last Admin: 10/06/16 11:19 Dose: 0.5 mg Lorazepam (Ativan) 1 mg PO Q6HR PRN; Protocol PRN Reason: Anxiety Stop: 12/03/16 15:30 Last Admin: 10/06/16 11:15 Dose: 1 mg Magnesium Hydroxide (Milk Of Magnesia) 30 ml PO HS PRN PRN Reason: Constipation Stop: 12/03/16 15:30 Methocarbamol (Robaxin) 500 mg PO BID COUNTS INCLUDE 234 BEDS AT [facility] Stop: 12/03/16 16:59 Last Admin: 10/06/16 08:57 Dose: 500 mg Methylprednisolone Sodium Succinate (Solu-Medrol) 80 mg IVP Q6H COUNTS INCLUDE 234 BEDS AT [facility] Stop: 12/04/16 20:59 Last Admin: 10/06/16 11:15 Dose: 80 mg Montelukast Sodium (Singulair) 10 mg PO DAILY COUNTS INCLUDE 234 BEDS AT [facility] Stop: 12/03/16 08:59 Last Admin: 10/06/16 08:58 Dose: 10 mg Morphine Sulfate (Ms-Contin) 15 mg PO Q12HR COUNTS INCLUDE 234 BEDS AT [facility] Stop: 12/03/16 20:59 Last Admin: 10/06/16 08:58 Dose: 15 mg Nicotine (Nicotine Transdermal System) 21 mg TD DAILY COUNTS INCLUDE 234 BEDS AT [facility] Stop: 12/04/16 13:59 Last Admin: 10/06/16 08:59 Dose: 21 mg Nitroglycerin (Nitrostat) 0.4 mg SL Q5MIN COUNTS INCLUDE 234 BEDS AT [facility] Stop: 12/03/16 15:44 Ondansetron HCl (Zofran) 4 mg IV Q8H PRN PRN Reason: Nausea / Vomiting Stop: 12/02/16 23:26 Pantoprazole Sodium (Protonix) 40 mg PO BID COUNTS INCLUDE 234 BEDS AT [facility] Stop: 12/03/16 08:59 Last Admin: 10/06/16 08:57 Dose: 40 mg Prazosin HCl (Minipress) 1 mg PO HS COUNTS INCLUDE 234 BEDS AT [facility] Stop: 12/03/16 20:59 Last Admin: 10/05/16 20:24 Dose: 1 mg Pseudoephedrine HCl (Sudafed) 30 mg PO Q6HR PRN PRN Reason: Congestion Stop: 12/03/16 15:30 Risperidone (Risperdal) 3 mg PO BID COUNTS INCLUDE 234 BEDS AT [facility] PRN Reason: Protocol Stop: 12/03/16 16:59 Last Admin: 10/06/16 08:58 Dose: 3 mg Zolpidem Tartrate (Ambien) 10 mg PO HS PRN PRN Reason: Insomnia Stop: 12/02/16 23:25 Last Admin: 10/05/16 21:11 Dose: 10 mg General: alert HEENT: NC/AT, PERRLA Neck: Supple Lungs: wheezing, ronchi Cardiovascular: RRR, Normal S1, Normal S2, without murmur Abdomen: soft non-tender, non-distended, positive bowel sound Extremities: clear Neurological: no change - Procedures Procedures: Procedures Procedure Code Date ANESTH INJEC PERIPH NERV 04.81 12/04/10 ANESTH INJECT-SPIN CANAL 03.91 02/21/12 CERVICAL SPINE X-RAY NEC 87.22 02/28/11 EPIDUROGRAPHY 89340 02/21/12 INJ FORAMEN EPIDURAL L/S 48631 12/04/10 INJ PARAVERT F JNT C/T 1 LEV 56709 02/28/11 INJ PARAVERT F JNT C/T 2 LEV 68908 02/28/11 INJ PARAVERT F JNT C/T 3 LEV 03671 02/28/11 INJECT SPINE CERV/THORACIC 89186 05/30/11 INJECT SPINE LUMBAR/SACRAL 76269 02/21/12 INJECT STEROID 99.23 02/21/12 INJECT/INFUSE NEC 99.29 02/28/11 INJECTION INTO JOINT 81.92 02/28/11 LUMBOSAC SPINE X-RAY NEC 87.24 02/21/12 MYELOGRAPHY NECK SPINE 54329 05/30/11 PERIPH NERVE INJECT NEC 04.89 12/04/10 SPINAL CANAL INJECT NEC 03.92 02/21/12 Internal Medicine Assmt/Plan - Assessment Assessment: 1. sepsis 2. acute copd exacerbation 3. pna 4. schizoaffective disorder 5. obesity 6. chronic low back pain 7. elevated lactic acid. - Plan Plan: continue ivabx bronchodilators cpt smoking cessation f/u cxr monitor for fever
[2016-10-06] MEDS: Albuterol Nebulizer 2.5mg/3mL IH PRN (22:29)
[2016-10-06] MEDS: Ipratropium Neb 0.5 mg/2.5 mL UD IH PRN (22:30)
[2016-10-07] MEDS: Hydrocodone/APAP 5mg/325mg Tab PO PRN ×4 (00:57→17:04)
[2016-10-07] MEDS: Albuterol Nebulizer 2.5mg/3mL IH PRN ×3 (03:08→22:44)
[2016-10-07] MEDS: Ipratropium Neb 0.5 mg/2.5 mL UD IH PRN ×3 (03:09→22:45)
[2016-10-07] MEDS: guaiFENesin 200 MG/10 ML UDC PO PRN ×2 (05:42→17:04)
[2016-10-07] MEDS: Albuterol Nebulizer 2.5mg/3mL HHN SCH ×4 (06:33→19:22)
[2016-10-07] MEDS: Ipratropium Neb 0.5 mg/2.5 mL UD HHN SCH ×4 (06:33→19:23)
[2016-10-07 07:08] LABS: HEMOGLOBIN 12.6 gm/dL (11.7-15.5); MEAN CELL VOLUME 92.6 fl (81-100); MEAN CORPUSCULAR HEMOGLOBIN 32.3 pg (27.0-31.0); MEAN CORPUSCULAR HGB CONC 34.9 pg (28.0-36.0); MEAN PLATELET VOLUME 7.2 fl; PLATELET COUNT 232 Th/cmm (150-400); RED BLOOD COUNT 3.89 Mil/cmm (3.80-5.10)
[2016-10-07 07:32] LABS: ANION GAP 9.1 (7.0-16.0); BUN - UREA NITROGEN 15 mg/dL (7-25); CALCIUM SERUM 9.4 mg/dL (8.6-10.3); CARBON DIOXIDE 29.2 mEq/L (21.0-31.0); CHLORIDE 99 mEq/L (98-107); CREATININE - SERUM 0.6 mg/dL (0.6-1.2); GLUCOSE 132 mg/dL (70-105); POTASSIUM SERUM 3.3 mEq/L (3.5-5.1); SODIUM SERUM 134 mEq/L (136-145)
[2016-10-07] MEDS: Nicotine 21 mg/24 hr Tdm TD SCH (08:35)
[2016-10-07] MEDS: Pantoprazole 40 mg EC Tab PO SCH ×2 (08:38→17:04)
[2016-10-07 10:26] LABS: BAND NEUTROPHILE 4 % (0-10); NEUTROPHILS 86 % (40-80); TOTAL CELLS COUNTED 100
[2016-10-07 10:27] LABS: PLATELET ESTIMATE ADEQUATE (NORMAL); PLATELET MORPHOLOGY NORMAL (NORMAL)
--- NOTE | 2016-10-07 10:48 | Diagnostic Imaging Report ---
History: Chest pain and cough Comparison: 10/03/2016 Findings: Heart size is borderline. The aorta is tortuous. There is infiltrate in the right lower lung zone. Impression: Compared to previous exam there is some infiltrate developing in the right lower lobe.
--- NOTE | 2016-10-07 17:39 | Internal Medicine Prog Note ---
Internal Medicine Subjective - Subjective Service Date: 10/07/16 Patient seen and examined:: with staff Patient is:: awake Per staff patient is:: no adverse event Internal Medicine Objective - Results Result Diagrams: 10/07/16 06:15 10/07/16 06:15 Recent Labs: Laboratory Last Values WBC 14.0 Th/cmm (4.8-10.8) H D 10/07/16 06:15 RBC 3.89 Mil/cmm (3.80-5.10) 10/07/16 06:15 Hgb 12.6 gm/dL (11.7-15.5) 10/07/16 06:15 Hct 36.0 % (35.0-45.0) 10/07/16 06:15 MCV 92.6 fl (81-100) 10/07/16 06:15 MCH 32.3 pg (27.0-31.0) H 10/07/16 06:15 MCHC Differential 34.9 pg (28.0-36.0) 10/07/16 06:15 RDW 13.0 % (11.5-20.0) 10/07/16 06:15 Plt Count 232 Th/cmm (150-400) 10/07/16 06:15 MPV 7.2 fl 10/07/16 06:15 Band Neutrophils % 4 % (0-10) 10/07/16 06:15 Neutrophils (Manual) 86 % (40-80) H 10/07/16 06:15 Lymphocytes 5 % (20-50) L 10/07/16 06:15 Monocytes 5 % (2-10) 10/07/16 06:15 Eosinophils 1 % (0-5) 10/03/16 22:25 Platelet Estimate ADEQUATE (NORMAL) 10/07/16 06:15 Platelet Morphology NORMAL (NORMAL) 10/07/16 06:15 RBC Morph Micro Appear NORMAL (NORMAL) 10/07/16 06:15 PT 9.2 SECONDS (9.5-11.5) L 10/03/16 22:25 INR 0.93 (0.5-1.4) 10/03/16 22:25 PTT (Actin FS) 22.0 SECONDS (26.0-38.0) L 10/03/16 22:25 Specimen Source Arterial 10/05/16 09:10 Sample Site Right Radial 10/05/16 09:10 pH 7.51 (7.35-7.45) H 10/05/16 09:10 pCO2 42.0 mmHg (35.0-45.0) 10/05/16 09:10 pO2 72.0 mmHg (80.0-100.0) L 10/05/16 09:10 HCO3 33.5 mmol/L (20.0-26.0) H 10/05/16 09:10 Base Excess 9.5 mmol/L (-3.0-3.0) H 10/05/16 09:10 O2 Saturation 96.0 % (92.0-100.0) 10/05/16 09:10 Evan Test YES 10/05/16 09:10 Vent Rate NA 10/05/16 09:10 Inspired O2 32 10/05/16 09:10 Tidal Volume NA 10/05/16 09:10 PEEP NA 10/05/16 09:10 Pressure (ins/psv/peep) NA 10/05/16 09:10 Critical Value E.SHEPARD 10/05/16 09:10 Sodium 134 mEq/L (136-145) L 10/07/16 06:15 Potassium 3.3 mEq/L (3.5-5.1) L 10/07/16 06:15 Chloride 99 mEq/L (98-107) 10/07/16 06:15 Carbon Dioxide 29.2 mEq/L (21.0-31.0) 10/07/16 06:15 Anion Gap 9.1 (7.0-16.0) 10/07/16 06:15 BUN 15 mg/dL (7-25) 10/07/16 06:15 Creatinine 0.6 mg/dL (0.6-1.2) 10/07/16 06:15 Est GFR ( Amer) > 60.0 ml/min (>90) 10/07/16 06:15 Est GFR (Non-Af Amer) > 60.0 ml/min 10/07/16 06:15 BUN/Creatinine Ratio 25.0 10/07/16 06:15 Glucose 132 mg/dL (70-105) H 10/07/16 06:15 Whole Bld Lactic Acid 0.80 mmol/L (0.60-2.00) 10/07/16 06:15 Calcium 9.4 mg/dL (8.6-10.3) 10/07/16 06:15 Total Bilirubin 0.4 mg/dL (0.3-1.0) 10/03/16 22:25 AST 13 U/L (13-39) 10/03/16 22:25 ALT 16 U/L (7-52) 10/03/16 22:25 Alkaline Phosphatase 65 U/L (34-104) 10/03/16 22:25 B-Natriuretic Peptide 11.7 pg/mL (5.0-100.0) 10/03/16 22:25 Total Protein 6.5 gm/dL (6.0-8.3) 10/03/16 22:25 Albumin 4.0 gm/dL (3.7-5.3) 10/03/16 22:25 Globulin 2.5 gm/dL 10/03/16 22:25 Albumin/Globulin Ratio 1.6 (1.0-1.8) 10/03/16 22:25 Urine Source CLEAN CATCH 10/04/16 00:30 Urine Color YELLOW 10/04/16 00:30 Urine Clarity CLEAR (CLEAR) 10/04/16 00:30 Urine pH 6.0 10/04/16 00:30 Ur Specific [place] 1.52954 (1.005-1.030) L 10/04/16 00:30 Urine Protein NEGATIVE mg/dL (NEGATIVE) 10/04/16 00:30 Urine Glucose (UA) 100 mg/dL (NEGATIVE) H 10/04/16 00:30 Urine Ketones NEGATIVE mg/dL (NEGATIVE) 10/04/16 00:30 Urine Blood NEGATIVE (NEGATIVE) 10/04/16 00:30 Urine Nitrate NEGATIVE (NEGATIVE) 10/04/16 00:30 Urine Bilirubin NEGATIVE (NEGATIVE) 10/04/16 00:30 Urine Urobilinogen 0.2 E.U./dL (0.2 - 1.0) 10/04/16 00:30 Ur Leukocyte Esterase NEGATIVE (NEGATIVE) 10/04/16 00:30 Urine RBC 0-2 /hpf (0-5) 10/04/16 00:30 Urine WBC 0-2 /hpf (0-5) 10/04/16 00:30 Ur Epithelial Cells NONE SEEN /lpf (FEW) 10/04/16 00:30 Urine Bacteria NONE SEEN /hpf (NONE SEEN) 10/04/16 00:30 - Physical Exam Vitals and I&O: Vital Signs Temp 97.3 F 10/07/16 16:00 Pulse 79 10/07/16 17:03 Resp 17 10/07/16 16:00 BP 130/78 10/07/16 17:03 Pulse Ox 96 10/07/16 16:00 Intake & Output 10/06/16 10/07/16 10/07/16 18:59 06:59 18:59 Intake Total 500 Balance 500 Weight (lbs) 160 lb Intake: Oral 500 Other: # Voids 3 Stool Characteristics Soft Formed Active Medications: Current Medications Acetaminophen (Tylenol) 650 mg PO Q4HR PRN PRN Reason: Fever >101 Stop: 12/03/16 15:30 Last Admin: 10/07/16 07:01 Dose: 650 mg Acetaminophen/Hydrocodone Bitart ([place] 5mg/325mg) 1 tab PO QID PRN PRN Reason: Pain (Moderate) Stop: 12/03/16 16:59 Last Admin: 10/07/16 17:04 Dose: 1 tab Acetylcysteine (Mucomyst 10%) 2 ml HHN Q4HRT JOSEE Stop: 12/04/16 14:59 Last Admin: 10/07/16 15:35 Dose: 2 ml Al Hydrox/Mg Hydrox/Simethicone (Maalox) 30 ml PO Q4HR PRN PRN Reason: GI DISTRESS Stop: 12/03/16 15:30 Albuterol Sulfate (Albuterol 2.5mg/3ml Neb Ud) 2.5 mg IH Q2HR PRN PRN Reason: Shortness of Breath or Wheeze Stop: 12/02/16 23:28 Last Admin: 10/07/16 09:29 Dose: 2.5 mg Albuterol Sulfate (Albuterol 2.5mg/3ml Neb Ud) 2.5 mg HHN QIDRT [facility] Stop: 12/03/16 10:59 Last Admin: 10/07/16 15:30 Dose: 2.5 mg Carisoprodol (Soma) 350 mg PO Q12HR PRN PRN Reason: Spasms Stop: 12/03/16 20:59 Last Admin: 10/07/16 08:58 Dose: 350 mg Cholecalciferol (Vitamin D3) 1,000 iu PO DAILY [facility] Stop: 12/04/16 08:59 Last Admin: 10/07/16 08:38 Dose: 1,000 iu Citalopram Hydrobromide (Celexa) 20 mg PO DAILY JOSEE PRN Reason: Protocol Stop: 12/04/16 08:59 Last Admin: 10/07/16 08:38 Dose: 20 mg Docusate Sodium (Colace) 250 mg PO DAILY [facility] Stop: 12/04/16 08:59 Last Admin: 10/07/16 08:38 Dose: 250 mg Gabapentin (Neurontin) 400 mg PO TID [facility] Stop: 12/03/16 20:59 Last Admin: 10/07/16 14:27 Dose: 400 mg Guaifenesin (Robitussin) 200 mg PO Q4HR PRN PRN Reason: Cough or Congestion Stop: 12/02/16 23:26 Last Admin: 10/07/16 17:04 Dose: 200 mg Heparin Sodium (Porcine) (Heparin) 5,000 units SUBQ Q12HR [facility] Stop: 12/03/16 08:59 Last Admin: 10/07/16 08:40 Dose: 5,000 units Ipratropium [place] (Atrovent Neb 0.5mg/2.5ml) 0.5 mg IH Q2HR PRN PRN Reason: Shortness of Breath or Wheeze Stop: 12/02/16 23:28 Last Admin: 10/07/16 09:29 Dose: 0.5 mg Ipratropium [place] (Atrovent Neb 0.5mg/2.5ml) 0.5 mg HHN QIDRT [facility] Stop: 12/03/16 10:59 Last Admin: 10/07/16 15:30 Dose: 0.5 mg Lorazepam (Ativan) 1 mg PO Q6HR PRN; Protocol PRN Reason: Anxiety Stop: 12/03/16 15:30 Last Admin: 10/07/16 12:05 Dose: 1 mg Magnesium Hydroxide (Milk Of Magnesia) 30 ml PO HS PRN PRN Reason: Constipation Stop: 12/03/16 15:30 Methocarbamol (Robaxin) 500 mg PO BID [facility] Stop: 12/03/16 16:59 Last Admin: 10/07/16 17:04 Dose: 500 mg Methylprednisolone Sodium Succinate (Solu-Medrol) 80 mg IVP Q6H [facility] Stop: 12/04/16 20:59 Last Admin: 10/07/16 17:06 Dose: 80 mg Montelukast Sodium (Singulair) 10 mg PO DAILY [facility] Stop: 12/03/16 08:59 Last Admin: 10/07/16 08:38 Dose: 10 mg Morphine Sulfate (Ms-Contin) 15 mg PO Q12HR [facility] Stop: 12/03/16 20:59 Last Admin: 10/07/16 08:37 Dose: 15 mg Nicotine (Nicotine Transdermal System) 21 mg TD DAILY [facility] Stop: 12/04/16 13:59 Last Admin: 10/07/16 08:35 Dose: 21 mg Nitroglycerin (Nitrostat) 0.4 mg SL Q5MIN [facility] Stop: 12/03/16 15:44 Last Admin: 10/07/16 17:03 Dose: Not Given Ondansetron HCl (Zofran) 4 mg IV Q8H PRN PRN Reason: Nausea / Vomiting Stop: 12/02/16 23:26 Pantoprazole Sodium (Protonix) 40 mg PO BID [facility] Stop: 12/03/16 08:59 Last Admin: 10/07/16 17:04 Dose: 40 mg Prazosin HCl (Minipress) 1 mg PO HS [facility] Stop: 12/03/16 20:59 Last Admin: 10/06/16 20:24 Dose: 1 mg Pseudoephedrine HCl (Sudafed) 30 mg PO Q6HR PRN PRN Reason: Congestion Stop: 12/03/16 15:30 Last Admin: 10/07/16 05:41 Dose: 30 mg Risperidone (Risperdal) 3 mg PO BID [facility] PRN Reason: Protocol Stop: 12/03/16 16:59 Last Admin: 10/07/16 17:04 Dose: 3 mg Zolpidem Tartrate (Ambien) 10 mg PO HS PRN PRN Reason: Insomnia Stop: 12/02/16 23:25 Last Admin: 10/06/16 21:04 Dose: 10 mg General: alert HEENT: NC/AT, PERRLA Neck: Supple Lungs: congested Cardiovascular: Normal S1, Normal S2, without murmur Abdomen: soft non-tender, non-distended Extremities: clear - Procedures Procedures: Procedures Procedure Code Date ANESTH INJEC PERIPH NERV 81 12/04/10 ANESTH INJECT-SPIN CANAL 03.91 02/21/12 CERVICAL SPINE X-RAY NEC 87.22 02/28/11 EPIDUROGRAPHY 55388 02/21/12 INJ FORAMEN EPIDURAL L/S 20372 12/04/10 INJ PARAVERT F JNT C/T 1 LEV 95626 02/28/11 INJ PARAVERT F JNT C/T 2 LEV 06501 02/28/11 INJ PARAVERT F JNT C/T 3 LEV 54466 02/28/11 INJECT SPINE CERV/THORACIC 87509 05/30/11 INJECT SPINE LUMBAR/SACRAL 07801 02/21/12 INJECT STEROID 99.23 02/21/12 INJECT/INFUSE NEC 99.29 02/28/11 INJECTION INTO JOINT 81.92 02/28/11 LUMBOSAC SPINE X-RAY NEC 87.24 02/21/12 MYELOGRAPHY NECK SPINE 68014 05/30/11 PERIPH NERVE INJECT NEC 04.89 12/04/10 SPINAL CANAL INJECT NEC 03.92 02/21/12 Internal Medicine Assmt/Plan - Assessment Assessment: 1. sepsis 2. acute copd exacerbation 3. pna 4. schizoaffective disorder 5. obesity 6. chronic low back pain 7. elevated lactic acid. - Plan Plan: continue ivabx bronchodilators cpt smoking cessation monitor for fever
--- NOTE | 2016-10-08 01:23 | Admit Criteria Form ---
Admit Criteria Forms - Admit Criteria Admit Criteria Met?: Yes
[2016-10-08] MEDS: Ipratropium Neb 0.5 mg/2.5 mL UD IH PRN (02:32)
[2016-10-08] MEDS: Albuterol Nebulizer 2.5mg/3mL IH PRN (02:32)
[2016-10-08] MEDS: Hydrocodone/APAP 5mg/325mg Tab PO PRN ×2 (06:16→12:43)
[2016-10-08] MEDS: Albuterol Nebulizer 2.5mg/3mL HHN SCH ×2 (06:54→11:15)
[2016-10-08] MEDS: Ipratropium Neb 0.5 mg/2.5 mL UD HHN SCH ×2 (06:54→11:15)
[2016-10-08] MEDS: Nicotine 21 mg/24 hr Tdm TD SCH (08:22)
[2016-10-08] MEDS: Pantoprazole 40 mg EC Tab PO SCH (08:24)
[2016-10-08] MEDS ORDERED: Potassium Chloride 20 mEq ER Tab PO ONE (11:47)
--- NOTE | 2016-10-08 11:55 | Internal Medicine Prog Note ---
Internal Medicine Subjective - Subjective Service Date: 10/08/16 (dc summary [id number]) Internal Medicine Objective - Results Result Diagrams: 10/07/16 06:15 10/07/16 06:15 Recent Labs: Laboratory Last Values WBC 14.0 Th/cmm (4.8-10.8) H D 10/07/16 06:15 RBC 3.89 Mil/cmm (3.80-5.10) 10/07/16 06:15 Hgb 12.6 gm/dL (11.7-15.5) 10/07/16 06:15 Hct 36.0 % (35.0-45.0) 10/07/16 06:15 MCV 92.6 fl (81-100) 10/07/16 06:15 MCH 32.3 pg (27.0-31.0) H 10/07/16 06:15 MCHC Differential 34.9 pg (28.0-36.0) 10/07/16 06:15 RDW 13.0 % (11.5-20.0) 10/07/16 06:15 Plt Count 232 Th/cmm (150-400) 10/07/16 06:15 MPV 7.2 fl 10/07/16 06:15 Band Neutrophils % 4 % (0-10) 10/07/16 06:15 Neutrophils (Manual) 86 % (40-80) H 10/07/16 06:15 Lymphocytes 5 % (20-50) L 10/07/16 06:15 Monocytes 5 % (2-10) 10/07/16 06:15 Eosinophils 1 % (0-5) 10/03/16 22:25 Platelet Estimate ADEQUATE (NORMAL) 10/07/16 06:15 Platelet Morphology NORMAL (NORMAL) 10/07/16 06:15 RBC Morph Micro Appear NORMAL (NORMAL) 10/07/16 06:15 PT 9.2 SECONDS (9.5-11.5) L 10/03/16 22:25 INR 0.93 (0.5-1.4) 10/03/16 22:25 PTT (Actin FS) 22.0 SECONDS (26.0-38.0) L 10/03/16 22:25 Specimen Source Arterial 10/05/16 09:10 Sample Site Right Radial 10/05/16 09:10 pH 7.51 (7.35-7.45) H 10/05/16 09:10 pCO2 42.0 mmHg (35.0-45.0) 10/05/16 09:10 pO2 72.0 mmHg (80.0-100.0) L 10/05/16 09:10 HCO3 33.5 mmol/L (20.0-26.0) H 10/05/16 09:10 Base Excess 9.5 mmol/L (-3.0-3.0) H 10/05/16 09:10 O2 Saturation 96.0 % (92.0-100.0) 10/05/16 09:10 Evan Test YES 10/05/16 09:10 Vent Rate NA 10/05/16 09:10 Inspired O2 32 10/05/16 09:10 Tidal Volume NA 10/05/16 09:10 PEEP NA 10/05/16 09:10 Pressure (ins/psv/peep) NA 10/05/16 09:10 Critical Value E.SHEPARD 10/05/16 09:10 Sodium 134 mEq/L (136-145) L 10/07/16 06:15 Potassium 3.3 mEq/L (3.5-5.1) L 10/07/16 06:15 Chloride 99 mEq/L (98-107) 10/07/16 06:15 Carbon Dioxide 29.2 mEq/L (21.0-31.0) 10/07/16 06:15 Anion Gap 9.1 (7.0-16.0) 10/07/16 06:15 BUN 15 mg/dL (7-25) 10/07/16 06:15 Creatinine 0.6 mg/dL (0.6-1.2) 10/07/16 06:15 Est GFR ( Amer) > 60.0 ml/min (>90) 10/07/16 06:15 Est GFR (Non-Af Amer) > 60.0 ml/min 10/07/16 06:15 BUN/Creatinine Ratio 25.0 10/07/16 06:15 Glucose 132 mg/dL (70-105) H 10/07/16 06:15 Whole Bld Lactic Acid 0.80 mmol/L (0.60-2.00) 10/07/16 06:15 Calcium 9.4 mg/dL (8.6-10.3) 10/07/16 06:15 Total Bilirubin 0.4 mg/dL (0.3-1.0) 10/03/16 22:25 AST 13 U/L (13-39) 10/03/16 22:25 ALT 16 U/L (7-52) 10/03/16 22:25 Alkaline Phosphatase 65 U/L (34-104) 10/03/16 22:25 B-Natriuretic Peptide 11.7 pg/mL (5.0-100.0) 10/03/16 22:25 Total Protein 6.5 gm/dL (6.0-8.3) 10/03/16 22:25 Albumin 4.0 gm/dL (3.7-5.3) 10/03/16 22:25 Globulin 2.5 gm/dL 10/03/16 22:25 Albumin/Globulin Ratio 1.6 (1.0-1.8) 10/03/16 22:25 Urine Source CLEAN CATCH 10/04/16 00:30 Urine Color YELLOW 10/04/16 00:30 Urine Clarity CLEAR (CLEAR) 10/04/16 00:30 Urine pH 6.0 10/04/16 00:30 Ur Specific [place] 1.80298 (1.005-1.030) L 10/04/16 00:30 Urine Protein NEGATIVE mg/dL (NEGATIVE) 10/04/16 00:30 Urine Glucose (UA) 100 mg/dL (NEGATIVE) H 10/04/16 00:30 Urine Ketones NEGATIVE mg/dL (NEGATIVE) 10/04/16 00:30 Urine Blood NEGATIVE (NEGATIVE) 10/04/16 00:30 Urine Nitrate NEGATIVE (NEGATIVE) 10/04/16 00:30 Urine Bilirubin NEGATIVE (NEGATIVE) 10/04/16 00:30 Urine Urobilinogen 0.2 E.U./dL (0.2 - 1.0) 10/04/16 00:30 Ur Leukocyte Esterase NEGATIVE (NEGATIVE) 10/04/16 00:30 Urine RBC 0-2 /hpf (0-5) 10/04/16 00:30 Urine WBC 0-2 /hpf (0-5) 10/04/16 00:30 Ur Epithelial Cells NONE SEEN /lpf (FEW) 10/04/16 00:30 Urine Bacteria NONE SEEN /hpf (NONE SEEN) 10/04/16 00:30 - Physical Exam Vitals and I&O: Vital Signs Temp 97.4 F 10/08/16 04:00 Pulse 94 10/08/16 11:15 Resp 18 10/08/16 11:15 BP 121/67 10/08/16 04:00 Pulse Ox 93 10/08/16 11:15 Intake & Output 10/07/16 10/08/16 10/08/16 18:59 06:59 18:59 Intake Total 600 240 Balance 600 240 Intake: Oral 600 240 Other: # Voids 3 4 # Bowel Movements 1 Stool Characteristics Soft Formed Active Medications: Current Medications Acetaminophen (Tylenol) 650 mg PO Q4HR PRN PRN Reason: Fever >101 Stop: 12/03/16 15:30 Last Admin: 10/07/16 07:01 Dose: 650 mg Acetaminophen/Hydrocodone Bitart ([place] 5mg/325mg) 1 tab PO QID PRN PRN Reason: Pain (Moderate) Stop: 12/03/16 16:59 Last Admin: 10/08/16 06:16 Dose: 1 tab Acetylcysteine (Mucomyst 10%) 2 ml HHN Q4HRT [facility] Stop: 12/04/16 14:59 Last Admin: 10/08/16 11:15 Dose: 2 ml Al Hydrox/Mg Hydrox/Simethicone (Maalox) 30 ml PO Q4HR PRN PRN Reason: GI DISTRESS Stop: 12/03/16 15:30 Albuterol Sulfate (Albuterol 2.5mg/3ml Neb Ud) 2.5 mg IH Q2HR PRN PRN Reason: Shortness of Breath or Wheeze Stop: 12/02/16 23:28 Last Admin: 10/08/16 02:32 Dose: 2.5 mg Albuterol Sulfate (Albuterol 2.5mg/3ml Neb Ud) 2.5 mg HHN QIDRT [facility] Stop: 12/03/16 10:59 Last Admin: 10/08/16 11:15 Dose: 2.5 mg Carisoprodol (Soma) 350 mg PO Q12HR PRN PRN Reason: Spasms Stop: 12/03/16 20:59 Last Admin: 10/07/16 23:23 Dose: 350 mg Cholecalciferol (Vitamin D3) 1,000 iu PO DAILY [facility] Stop: 12/04/16 08:59 Last Admin: 10/08/16 08:24 Dose: 1,000 iu Citalopram Hydrobromide (Celexa) 20 mg PO DAILY JOSEE PRN Reason: Protocol Stop: 12/04/16 08:59 Last Admin: 10/08/16 08:24 Dose: 20 mg Docusate Sodium (Colace) 250 mg PO DAILY [facility] Stop: 12/04/16 08:59 Last Admin: 10/08/16 08:24 Dose: 250 mg Gabapentin (Neurontin) 400 mg PO TID [facility] Stop: 12/03/16 20:59 Last Admin: 10/08/16 08:24 Dose: 400 mg Guaifenesin (Robitussin) 200 mg PO Q4HR PRN PRN Reason: Cough or Congestion Stop: 12/02/16 23:26 Last Admin: 10/07/16 17:04 Dose: 200 mg Heparin Sodium (Porcine) (Heparin) 5,000 units SUBQ Q12HR [facility] Stop: 12/03/16 08:59 Last Admin: 10/08/16 08:25 Dose: 5,000 units Ipratropium [place] (Atrovent Neb 0.5mg/2.5ml) 0.5 mg IH Q2HR PRN PRN Reason: Shortness of Breath or Wheeze Stop: 12/02/16 23:28 Last Admin: 10/08/16 02:32 Dose: 0.5 mg Ipratropium [place] (Atrovent Neb 0.5mg/2.5ml) 0.5 mg HHN QIDRT [facility] Stop: 12/03/16 10:59 Last Admin: 10/08/16 11:15 Dose: 0.5 mg Lorazepam (Ativan) 1 mg PO Q6HR PRN; Protocol PRN Reason: Anxiety Stop: 12/03/16 15:30 Last Admin: 10/08/16 10:31 Dose: 1 mg Magnesium Hydroxide (Milk Of Magnesia) 30 ml PO HS PRN PRN Reason: Constipation Stop: 12/03/16 15:30 Methocarbamol (Robaxin) 500 mg PO BID [facility] Stop: 12/03/16 16:59 Last Admin: 10/08/16 08:25 Dose: 500 mg Methylprednisolone Sodium Succinate (Solu-Medrol) 80 mg IVP Q6H [facility] Stop: 12/04/16 20:59 Last Admin: 10/08/16 08:32 Dose: 80 mg Montelukast Sodium (Singulair) 10 mg PO DAILY [facility] Stop: 12/03/16 08:59 Last Admin: 10/08/16 08:24 Dose: 10 mg Morphine Sulfate (Ms-Contin) 15 mg PO Q12HR JOSEE Stop: 12/03/16 20:59 Last Admin: 10/08/16 08:24 Dose: 15 mg Nicotine (Nicotine Transdermal System) 21 mg TD DAILY [facility] Stop: 12/04/16 13:59 Last Admin: 10/08/16 08:22 Dose: 21 mg Nitroglycerin (Nitrostat) 0.4 mg SL Q5MIN JOSEE Stop: 12/03/16 15:44 Last Admin: 10/07/16 17:03 Dose: Not Given Ondansetron HCl (Zofran) 4 mg IV Q8H PRN PRN Reason: Nausea / Vomiting Stop: 12/02/16 23:26 Pantoprazole Sodium (Protonix) 40 mg PO BID [facility] Stop: 12/03/16 08:59 Last Admin: 10/08/16 08:24 Dose: 40 mg Potassium Chloride (Klor-Con) 40 meq PO X1 ONE Stop: 10/08/16 11:48 Prazosin HCl (Minipress) 1 mg PO HS [facility] Stop: 12/03/16 20:59 Last Admin: 10/07/16 21:07 Dose: 1 mg Pseudoephedrine HCl (Sudafed) 30 mg PO Q6HR PRN PRN Reason: Congestion Stop: 12/03/16 15:30 Last Admin: 10/08/16 08:51 Dose: 30 mg Risperidone (Risperdal) 3 mg PO BID JOSEE PRN Reason: Protocol Stop: 12/03/16 16:59 Last Admin: 10/08/16 08:24 Dose: 3 mg Zolpidem Tartrate (Ambien) 10 mg PO HS PRN PRN Reason: Insomnia Stop: 12/02/16 23:25 Last Admin: 10/07/16 21:07 Dose: 10 mg - Procedures Procedures: Procedures Procedure Code Date ANESTH INJEC PERIPH NERV 04.81 12/04/10 ANESTH INJECT-SPIN CANAL 03.91 02/21/12 CERVICAL SPINE X-RAY NEC 87.22 02/28/11 EPIDUROGRAPHY 63156 02/21/12 INJ FORAMEN EPIDURAL L/S 10427 12/04/10 INJ PARAVERT F JNT C/T 1 LEV 53297 02/28/11 INJ PARAVERT F JNT C/T 2 LEV 78075 02/28/11 INJ PARAVERT F JNT C/T 3 LEV 31163 02/28/11 INJECT SPINE CERV/THORACIC 61818 05/30/11 INJECT SPINE LUMBAR/SACRAL 99220 02/21/12 INJECT STEROID 99.23 02/21/12 INJECT/INFUSE NEC 99.29 02/28/11 INJECTION INTO JOINT 81.92 02/28/11 LUMBOSAC SPINE X-RAY NEC 87.24 02/21/12 MYELOGRAPHY NECK SPINE 63132 05/30/11 PERIPH NERVE INJECT NEC 04.89 12/04/10 SPINAL CANAL INJECT NEC 03.92 02/21/12 Internal Medicine Assmt/Plan - Assessment Assessment: 1. sepsis 2. acute copd exacerbation 3. pna 4. schizoaffective disorder 5. obesity 6. chronic low back pain 7. elevated lactic acid.
[2016-10-08] MEDS ORDERED: Ipratropium Neb 0.5 mg/2.5 mL UD HHN SCH (15:00)
[2016-10-08] MEDS ORDERED: Albuterol Nebulizer 2.5mg/3mL HHN SCH (15:00)
--- NOTE | 2016-10-08 15:03 | Discharge Summary ---
FINAL DIAGNOSES: Sepsis, resolved, acute chronic obstructive pulmonary disease exacerbation, pneumonia, schizoaffective disorder, obesity, chronic low back pain, elevated lactic acid, improved. HISTORY OF PRESENT ILLNESS: This is a 65-year-old female with history of COPD, mental illness, obesity, schizoaffective disorder, noncompliance, chronic low back pain, who was admitted from nursing facility secondary to increasing of shortness of breath. PHYSICAL EXAMINATION: VITAL SIGNS: Stable. HEENT: Head: Normocephalic, atraumatic. NECK: Supple. No mass. LUNGS: Few wheezes bilaterally upon auscultation. CARDIOVASCULAR: Regular rhythm. No murmurs or gallops. SKIN: Intact, warm and dry to touch. ABDOMEN: Soft, nontender, ____. Positive bowel sounds in all 4 quadrants. During the hospital stay, the patient was admitted to the med/surg unit. The patient had a consultation with Dr. Mercedes. The patient was kept on IV Solu-Medrol and bronchodilators as well. The patient was on IV antibiotics and the patient was on nicotine patch as well. The patient later then stabilized and was stable for discharge. The patient had a chest x-ray done repeat on 10/07/2016 and compared to previous exam, there is some infiltrate developed in the right lower lobe. The patient also had a CT of the chest on 10/04/2016 and the impression is mild chronic lung changes, possible COPD. There are focal consolidation changes, bronchiectasis involving the left lingula. CONDITION UPON DISCHARGE: Fair. DISPOSITION: The patient is going to [facility]. [facility]# [id number]
[2016-10-08] MEDS ORDERED: Amoxicillin/Clavulanat 875/125 Tab PO SCH (17:00)
== END 2016-10-08 19:00 | DRG 871 ==
LOC: ER 21:43 → TELE 23:10
PROVIDERS: ADMIT Internal Medicine; ATTEND Internal Medicine
PROC: 5A09457 Assistance with Respiratory Ventilation, 24-96 Consecutive Hours, Continuous Positive Airway Pressure (ICD-10-PCS; principal; 2016-10-04)
DX: A41.9 Sepsis, unspecified organism (principal); J18.9 Pneumonia, unspecified organism; J44.1 Chronic obstructive pulmonary disease with (acute) exacerbation; J44.0 Chronic obstructive pulmonary disease with (acute) lower respiratory infection; F25.9 Schizoaffective disorder, unspecified; E66.9 Obesity, unspecified; G89.29 Other chronic pain; F17.210 Nicotine dependence, cigarettes, uncomplicated; J20.9 Acute bronchitis, unspecified; Z88.1 Allergy status to other antibiotic agents; Z88.6 Allergy status to analgesic agent; Z91.14 Patient's other noncompliance with medication regimen; Z88.0 Allergy status to penicillin; Z68.26 Body mass index [BMI] 26.0-26.9, adult; Z98.890 Other specified postprocedural states
CPT/HCPCS: 36415-UA; 71010-TC; 71250-TC; 80048-TC; 80053-TC; 81001-TC; 82803-TC; 83605; 83880-TC; 85007-TC; 85027-TC; 85610-TC; 85730-TC; 87070; 90779; 93005; 94640; 94660; 94667; 94668; 94760; 96375; J0456; J0696; J1170; J1644; J2405; J2920; J2930; J7030; J7040; J7042; J7613; Z7502; Z7610

== ENCOUNTER 2017-04-02 11:27 | Inpatient (IN) | payer MEDICAID, MEDICARE ==
--- NOTE | 2017-04-02 11:40 | ED Physician Chart ---
Chief Complaint/HPI - Patient Information Date Seen:: 04/02/17 Time Seen:: 11:34 Chief Complaint:: MUÑOZ History of Present Illness:: pt here for MUÑOZ x months on/off. her pain is MUÑOZ w neck pain anad rad of pain to lue. no weakness. no incoordination. pt is difficult historian..often ignores my questions and instead goes on long irrelevant tangential stories...seems capable of better history. pt has long hx of back pain. had spinal sx cervical in 2002 and 1986 also. pt s/p epidural yesterday. MUÑOZ is same..not worse today. no fever. no rash. no stiff neck. bp ok today. pt cannot recall the last time she has had mri/ct ect studies on neck/head etc.. Allergies:: Allergies Allergy/AdvReac Type Severity Reaction Status Date / Time levofloxacin [From Levaquin] Allergy Verified 10/03/16 22:18 NSAIDS (Non-Steroidal Allergy Verified 10/03/16 22:19 Anti-Inflamma Penicillins [PCN] Allergy Verified 10/03/16 22:18 prochlorperazine Allergy Verified 10/03/16 22:20 Quinolones Allergy Verified 10/03/16 22:19 Historian:: Patient Review:: Transfer documents Reviewed Review of Systems - Review of Systems General/Constitutional: No fever, No chills, No weight loss, No weakness, No diaphoresis, No edema, No loss of appetite Skin: No skin lesions, No rash, No bruising Head: Headache, No light-headedness Eyes: No loss of vision, No pain, No diplopia ENT: No earache, No nasal drainage, No sore throat, No tinnitus Neck: Neck pain, No swelling, No thyromegaly, No stiffness, No mass noted Cardio Vascular: No chest pain, No palpitations, No PND, No orthopnea, No edema Pulmonary: No SOB, No cough, No sputum, No wheezing GI: No nausea, No vomiting, No diarrhea, No pain, No melena, No hematochezia, No constipation, No hematemesis G/U: No dysuria, No frequency, No hematuria Musculoskeletal: No bone or joint pain, No back pain, No muscle pain Endocrine: No polyuria, No polydipsia Psychiatric: No prior psych history, No depression, No anxiety, No suicidal ideation Hematopoietic: No bruising, No lymphadenopathy Allergic/Immuno: No urticaria, No angioedema Neurological: No syncope, No focal symptoms, No weakness, No paresthesia, No headache, No seizure, No dizziness, No confusion, No vertigo Past Medical History - Past Medical History Past Medical History: Other (chronic neck/back pain) Social History: Care Facility Surgical History: other (neck sx x 2) Medication: Reviewed Family Medical History - Family Member Mother History Unknown: Yes Physical Exam - Physical Examination General/Constitutional: Awake, Well-developed, well-nourished, Alert, No distress, GCS 15, Non-toxic appearing, Ambulatory Other Gen/Cons comments:: mild obese. seems in nad. wn/wh. moves all extr w nrml str/sens. cn 2-12 wnl. eomi. perrrl Head: Atraumatic Eyes: Lids, conjuctiva normal, PERRL, EOMI Skin: Nl inspection, No rash, No skin lesions, No ecchymosis, Well hydrated, No lymphadenopathy ENMT: External ears, nose nl, Nasal exam nl, Lips, teeth, gums nl Neck: Nontender, Full ROM w/o pain, No JVD, No nuchal rigidity, No bruit, No mass, No stridor Other Neck comments:: no stiffness Respiratory: Nl effort/Exclusion, Clear to Auscultation, No Wheeze/Rhonchi/Rales Cardio Vascular: RRR, No murmur, gallop, rubs, NL S1 S2 GI: No tenderness/rebounding/guarding, No organomegaly, No hernia, Normal BS's, Nondistended, No mass/bruits, No McBurney tenderness : No CVA tenderness Extremities: No tenderness or effusion, Full ROM, normal strength in all extremities, No edema, Normal digits & nails Neuro/Psych: Alert/oriented, DTR's symmetric, Normal sensory exam, Normal motor strength, Judgement/insight normal, Mood normal, Normal gait, No focal deficits Misc: normal gait, Normal back, No paraspinal tenderness Labs/Radiology/EKG Results - Lab Results Results: Laboratory Tests 04/02/17 04/02/17 04/02/17 12:20 12:20 12:20 WBC 4.4 L D RBC 3.89 Hgb 11.9 Hct 35.2 MCV 90.4 MCH 30.6 MCHC Differential 33.9 RDW 13.6 Plt Count 272 MPV 7.0 Neutrophils % 78.0 Lymphocytes % 13.8 L Monocytes % 7.2 Eosinophils % 0.2 Basophils % 0.8 Sodium 119 L* Potassium 4.4 Chloride 90 L Carbon Dioxide 21.3 Anion Gap 12.1 BUN 11 Creatinine 0.7 Est GFR ( Amer) > 60.0 Est GFR (Non-Af Amer) > 60.0 BUN/Creatinine Ratio 15.7 Glucose 113 H Calcium 9.8 Total Bilirubin 0.6 AST 13 ALT 10 Alkaline Phosphatase 44 Troponin I < 0.01 L Total Protein 6.8 Albumin 4.6 Globulin 2.2 Albumin/Globulin Ratio 2.1 H - Radiology Results Results: ct head no acut ebleed ct c-spine- hardware in place ok , no fx. nad. djd - EKG Interpretations EKG Time:: 12:55 Rate & Rhythm: nsr 80 [place]: 39 Intervals: nrml ED Septic Shock - . Is Septic Shock (SBP<90, OR Lactate>4 mmol\L) present?: No Reassessment (Disposition) - Reassessment Reassessment:: case dw dr alcaraz..will admit pt reports MUÑOZ pain persists after mult dose MS Reassessment Condition:: Improved - Diagnosis Diagnosis:: intractable headache pain - Patient Disposition Admitted to:: Med/Surg Condition at Disposition:: Improved
[2017-04-02] MEDS ORDERED: Morphine Sulfate 4 mg/mL 1mL Syr IVP STA ×2 (11:46→13:11)
[2017-04-02 12:28] LABS: % BASOPHILS 0.8 % (0.0-2.0); % EOSINOPHILS 0.2 % (0.0-5.0); % LYMPHOCYTES 13.8 % (20.0-50.0); % MONOCYTES 7.2 % (2.0-10.0); HEMATOCRIT 35.2 % (35.0-45.0); HEMOGLOBIN 11.9 gm/dL (11.7-15.5); MEAN CELL VOLUME 90.4 fl (81-100); MEAN CORPUSCULAR HEMOGLOBIN 30.6 pg (27.0-31.0); MEAN CORPUSCULAR HGB CONC 33.9 pg (28.0-36.0); NEUTROPHILE ABSOLUTE 3.5 Th/cmm (1.8-8.0); PLATELET COUNT 272 Th/cmm (150-400); RED BLOOD COUNT 3.89 Mil/cmm (3.80-5.10); RED CELL DISTRIBUTION WIDTH 13.6 % (11.5-20.0)
[2017-04-02] MEDS ORDERED: Morphine Sulfate 4 mg/mL 1mL Syr ONE ×2 (12:28→13:20)
[2017-04-02 12:29] LABS: WHITE BLOOD COUNT 4.4 Th/cmm (4.8-10.8)
[2017-04-02 12:46] LABS: ALB/GLOB RATIO 2.1 (1.0-1.8); ALKALINE PHOSPHATASE 44 U/L (34-104); ANION GAP 12.1 (7.0-16.0); BILIRUBIN,TOTAL 0.6 mg/dL (0.3-1.0); BUN - UREA NITROGEN 11 mg/dL (7-25); BUN/CREATININE RATIO 15.7; CALCIUM SERUM 9.8 mg/dL (8.6-10.3); CARBON DIOXIDE 21.3 mEq/L (21.0-31.0); CHLORIDE 90 mEq/L (98-107); CREATININE - SERUM 0.7 mg/dL (0.6-1.2); GLUCOSE 113 mg/dL (70-105); POTASSIUM SERUM 4.4 mEq/L (3.5-5.1); SGOT 13 U/L (13-39); SGPT/ALT 10 U/L (7-52)
[2017-04-02 12:49] LABS: SODIUM SERUM 119 mEq/L (136-145)
[2017-04-02] MEDS ORDERED: Sodium Chloride 0.9% 1,000 ML IV ONE (13:08)
--- NOTE | 2017-04-02 13:13 | Diagnostic Imaging Report ---
Head CT without intravenous contrast Indication: Headache, neck ache, status post epidural procedure Comparison: None Technique: Axial images were obtained from the vertex to the skull base without IV contrast. Coronal reconstructions were made. Total DLP: 674, CTDI36.4 FINDINGS: Images of the brain obtained without contrast demonstrate no acute hemorrhage. No mass lesions identified. The ventricles and basal cisterns are patent. Atrophy is noted. Mild white matter disease is noted.. There is no mass effect or midline shift. No skull fractures identified. No soft tissue swelling. The paranasal sinuses are clear. IMPRESSION: No evidence of acute intracranial hemorrhage. Atrophy. Mild supratentorial white matter disease which is nonspecific and may be due to chronic microvessel ischemia.
--- NOTE | 2017-04-02 13:18 | Diagnostic Imaging Report ---
CT cervical spine without IV contrast HISTORY: Headache, pain, status post recent epidural procedure COMPARISON: None Technique: Axial images were obtained from the skull base to the upper thoracic spine without IV contrast. Multiplanar reconstructions were made. Total DLP: 407, CTDI17.4 FINDINGS: Images of the cervical spine obtained without contrast demonstrate extensive postsurgical changes including evidence of posterior fusion extending from C3 through T1 with interpedicular screws and vertical rods. There is also evidence of anterior fusion of C4-C7. No evidence of hardware loosening. Streak artifact from the hardware limits the exam including limiting evaluation of the spinal canal. No evidence of acute fracture or subluxation. Disc spacers also seen extending from C4 through C7. Moderate to advanced generalized degenerative changes are noted. Degenerative changes of the atlantodental articulation is also noted. Scarring of the lung apices are noted. IMPRESSION: Extensive postsurgical changes including evidence of posterior fusion of C3-T1 anterior fusion of C4-T7. No evidence of an acute fracture No evidence of hardware loosening. Degenerative changes. Consider follow up exams, if symptoms persist.
[2017-04-02] MEDS ORDERED: Albuterol/Ipratropium Neb 3 ML AERS HHN ONE ×2 (14:12→14:17)
[2017-04-02] MEDS ORDERED: Maalox 30 mL Cup PO PRN ×2 (14:55→14:58)
[2017-04-02] MEDS ORDERED: guaiFENesin 200 MG/10 ML UDC PO PRN (14:55)
[2017-04-02] MEDS ORDERED: Lactulose 10 Gm/15 mL 30mL UDC PO PRN (14:55)
[2017-04-02] MEDS ORDERED: Albuterol/Ipratropium Neb 3 ML AERS HHN PRN (14:55)
[2017-04-02] MEDS ORDERED: Ipratropium Neb 0.5 mg/2.5 mL UD IH SCH (15:00)
[2017-04-02] MEDS ORDERED: Ipratropium Neb 0.5 mg/2.5 mL UD HHN PRN (15:00)
--- NOTE | 2017-04-02 15:04 | History and Physical ---
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: Report: Migraine GI: Report: Constipation Psych: Report: Anxiety, Bipolar, Depression, Psychosis Musculoskeletal: Report: Low Back Pain, Weakness, Stiffness Infectious Disease: Report: No Pertinent Hx Renal/: Report: No Pertinent Hx Endocrine: Report: No Pertinent Hx Dermatology: Report: No Pertinent Hx - Past Surgical History Past Surgical History: Other (back an d neck sx) Family Medical History - Family Member Mother History Unknown: Yes Hx Family Cancer: No Hx Family Coronary Artery Disease: No Hx Family Congestive Heart Failure: No Hx Family Hypertension: No Hx Family Stroke: No Hx Family Diabetes: No Hx Family Seizures: No Hx Family Dementia: No Hx Family AIDS: No Hx Family HIV: No Hx Family COPD: No Hx Family Hepatitis: No Hx Family Psychiatric Problems: No Social History Smoke: 1 pack per day Alcohol: Occassional Drugs: None Lives: Care Home Domestic Violence: Negative - Medications Home Medications: Home Medication Medication Instructions Recorded Type Citalopram Hydrobromide [celeXA] 20 mg PO DAILY #0 tab 10/08/16 Rx Gabapentin [Neurontin] 400 mg PO TID #0 cap 10/08/16 Rx Lorazepam [Ativan] 1 mg PO Q6HR PRN #0 tab 10/08/16 Rx Methocarbamol [Robaxin] 500 mg PO BID #0 tab 10/08/16 Rx Albuterol/Ipratropium Neb [Duoneb 3 ml HHN Q6HR PRN 01/30/17 History Neb] Clonazepam [Klonopin] 0.5 mg PO BID 01/30/17 History Docusate Sodium [Colace] 200 mg PO DAILY 01/30/17 History Mylanta 30 ml PO Q4H PRN 01/30/17 History Nitroglycerin [Nitrostat*] 0.4 mg SL Q5MIN PRN 01/30/17 History Pantoprazole [Protonix] 40 mg PO DAILY 01/30/17 History risperiDONE [RisperDAL] 3 mg PO Q12H 01/30/17 History Nitroglycerin [Nitrostat*] 0.4 mg SL Q5MIN PRN tab 02/06/17 Rx Zolpidem Tartrate [Ambien] 10 mg PO HS PRN tab 02/06/17 Rx guaiFENesin [Robitussin] 200 mg PO Q4HR PRN udc 02/06/17 Rx risperiDONE [RisperDAL] 3 mg PO Q12H tab 02/06/17 Rx Fluticasone/Salmeterol [Advair 1 puff IH BID 04/02/17 History 250-50 Diskus] Hydrocodone/APAP 5mg/325mg [[place] 1 tab PO Q6H PRN 04/02/17 History 5mg/325mg] Ibuprofen [Motrin*] 1 tab PO Q6H PRN 04/02/17 History Ipratropium Neb 0.5 mg/2.5 mL 3 ml IH Q2H PRN 04/02/17 History [Atrovent Neb 0.5MG/2.5ML] Lactulose 20 gm PO Q4H PRN 04/02/17 History Magnesium Oxide [Magox 400] 1 tab PO DAILY 04/02/17 History Mylanta 30 ml PO Q4H PRN 04/02/17 History Roflumilast [Daliresp] 500 mcg PO DAILY 04/02/17 History Tiotropium [place] [Spiriva] 1 tab PO DAILY 04/02/17 History - Allergies Allergies/Adverse Reactions: Allergies Allergy/AdvReac Type Severity Reaction Status Date / Time levofloxacin [From Levaquin] Allergy Verified 10/03/16 22:18 NSAIDS (Non-Steroidal Allergy Verified 10/03/16 22:19 Anti-Inflamma Penicillins [PCN] Allergy Verified 10/03/16 22:18 prochlorperazine Allergy Verified 10/03/16 22:20 Quinolones Allergy Verified 10/03/16 22:19 Review of Systems - Review of Systems Constitutional: Report: Weakness Eyes: Report: Vision Change ENT: Report: No Significant Respiratory: Report: Cough, SOB with Excertion Cardiovascular: Report: Palpitations Gastrointestinal: Report: Nausea Genitourinary: Report: No Significant Musculoskeletal: Report: Neck Pain, Shoulder Pain, Back Pain Skin: Report: No Significant Neurological: Report: No Significant, Weakness Physical Exam - Physical Exam HEENT: Report: Ears Nose Throat within normal limits Neck: Report: Within normal limits Cardiovascular Systems: Report: +s1/s2 noted, Regular, Rate and Rhythm, no murmurs noted Respiratory: Report: Wheezing Abdomen: Report: Non-tender to palpation Back: Report: Inspection of back is within normal limits. Extremities: Report: Non-tender to palpation. Skin: Report: Color of skin is within normal limits Neuro/Psych: Report: Mood affect is within normal limits, A+Ox3, Depressed affect - Lab Results All Lab Results last 24 hours: Laboratory Last Values WBC 4.4 Th/cmm (4.8-10.8) L D 04/02/17 12:20 RBC 3.89 Mil/cmm (3.80-5.10) 04/02/17 12:20 Hgb 11.9 gm/dL (11.7-15.5) 04/02/17 12:20 Hct 35.2 % (35.0-45.0) 04/02/17 12:20 MCV 90.4 fl (81-100) 04/02/17 12:20 MCH 30.6 pg (27.0-31.0) 04/02/17 12:20 MCHC Differential 33.9 pg (28.0-36.0) 04/02/17 12:20 RDW 13.6 % (11.5-20.0) 04/02/17 12:20 Plt Count 272 Th/cmm (150-400) 04/02/17 12:20 MPV 7.0 fl 04/02/17 12:20 Neutrophils % 78.0 % (40.0-80.0) 04/02/17 12:20 Lymphocytes % 13.8 % (20.0-50.0) L 04/02/17 12:20 Monocytes % 7.2 % (2.0-10.0) 04/02/17 12:20 Eosinophils % 0.2 % (0.0-5.0) 04/02/17 12:20 Basophils % 0.8 % (0.0-2.0) 04/02/17 12:20 Sodium 119 mEq/L (136-145) L* 04/02/17 12:20 Potassium 4.4 mEq/L (3.5-5.1) 04/02/17 12:20 Chloride 90 mEq/L (98-107) L 04/02/17 12:20 Carbon Dioxide 21.3 mEq/L (21.0-31.0) 04/02/17 12:20 Anion Gap 12.1 (7.0-16.0) 04/02/17 12:20 BUN 11 mg/dL (7-25) 04/02/17 12:20 Creatinine 0.7 mg/dL (0.6-1.2) 04/02/17 12:20 Est GFR ( Amer) > 60.0 ml/min (>90) 04/02/17 12:20 Est GFR (Non-Af Amer) > 60.0 ml/min 04/02/17 12:20 BUN/Creatinine Ratio 15.7 04/02/17 12:20 Glucose 113 mg/dL (70-105) H 04/02/17 12:20 Calcium 9.8 mg/dL (8.6-10.3) 04/02/17 12:20 Total Bilirubin 0.6 mg/dL (0.3-1.0) 04/02/17 12:20 AST 13 U/L (13-39) 04/02/17 12:20 ALT 10 U/L (7-52) 04/02/17 12:20 Alkaline Phosphatase 44 U/L (34-104) 04/02/17 12:20 Troponin I < 0.01 ng/mL (0.01-0.05) L 04/02/17 12:20 Total Protein 6.8 gm/dL (6.0-8.3) 04/02/17 12:20 Albumin 4.6 gm/dL (3.7-5.3) 04/02/17 12:20 Globulin 2.2 gm/dL 04/02/17 12:20 Albumin/Globulin Ratio 2.1 (1.0-1.8) H 04/02/17 12:20 - Assessment Assessment: intractable headache sp epidural hyponatremia clbp obesity dad leukopenia - Plan Plan: cont on ivf will correct low na will refer to neuro will look at head and neck ct bernarda stewart
[2017-04-02] MEDS: D5-0.9%NS 1,000 ML IV SCH (15:50)
[2017-04-02] MEDS: Hydrocodone/APAP 5mg/325mg Tab PO PRN (15:55)
[2017-04-02] MEDS ORDERED: Non-Formulary Item 1 EA (Fluticasone/Salmeterol [Advair 250-50 Diskus] 1 PUFF) IH SCH (17:00)
[2017-04-02] MEDS: Morphine Sulfate 2 mg/mL 1mL Syr IVP PRN ×2 (17:10→21:14)
[2017-04-02] MEDS ORDERED: VTE Chemical Prophylaxis Screen/Admission MC PRN (17:28)
[2017-04-02] MEDS: Ipratropium Neb 0.5 mg/2.5 mL UD HHN SCH (21:08)
[2017-04-02] MEDS: Albuterol Nebulizer 2.5mg/3mL HHN SCH (21:08)
[2017-04-03] MEDS: Hydrocodone/APAP 5mg/325mg Tab PO PRN ×2 (00:25→08:59)
[2017-04-03] MEDS: Morphine Sulfate 2 mg/mL 1mL Syr IVP PRN ×5 (01:24→21:22)
--- NOTE | 2017-04-03 03:33 | Admit Criteria Form ---
Admit Criteria Forms - Admit Criteria Diagnosis: HEADACHES Clinical Indications for Admission to Inpatient Care (Place 'X' for any and all applicable criteria): Admission is indicated for ANY ONE of the following(1)(2)(3)(4): [X ]I. Inpatient admission required rather than observational care (Also use Headaches: Observation Care as appropriate) because of ANY ONE of the following: [ X]a) Severe pain requiring acute inpatient management [ ]b) Altered mental status that is severe or persistent [ ]c) Vomiting or dehydration that is severe or persistent [ ]d) New-onset focal neurologic deficit that is severe or persistent [ ]e) Hypertension requiring inpatient treatment [ ]f) Severe (new) neurologic findings requiring inpatient care as indicated by ANY ONE of following(9)(10): [ ]1) Papilledema [ ]2) Cerebral edema [ ]3) Mass effect on CT scan [ ]4) Cerebral bleeding, ischemia, or vasospasm(16) [ ]5) Hydrocephalus(17) [ ]6) Uncontrolled seizures [ ]g) IV infusion of anticoagulation, platelet inhibitors vasoactive, or antiarrhythmic medication. [ ]h) Cerebral bleeding, hydrocephalus, or vasospasm monitoring (16) [ ]i) Increased intracranial pressure or cerebral edema monitoring (17) [X ]j) Other condition, treatment or monitoring requiring inpatient admission [ ]II. Unruptured but threatening aneurysm or vascular malformation [ ]III. Venous sinus thrombosis [ ]IV. Increased intracranial pressure [ ]V. Cerebral spinal fluid leak with decreased intracranial pressure [ ]. Medication-overuse headache that has failed all outpatient management options [ ]VII. Vasculitis (eg, giant cell (temporal) arteritis, central nervous system vasculitis) requiring IV corticosteroids, IV antithrombotic therapy, or inpatient monitoring (eg, visual symptoms or findings, other ischemic manifestations)[A](10)(11) Extended stay beyond goal length of stay may be needed for (27): [ ]a) Intractable migraine [ ]b) Subarachnoid or intracranial hemorrhage [ ]c) Malignant hypertension [ ]d) Detoxification from drug withdrawal in medication-overuse headache (29) The original [facility] content created by Yvette Adams has been revised. The portions of the content which have been revised are identified through the use of italic text or in bold, and Yvette Adams has neither reviewed nor approved the modified material.All other unmodified content is copyright [facility]. Please see references footnoted in the original [facility] edition 2016 Admit Criteria Met?: Yes
[2017-04-03] MEDS: D5-0.9%NS 1,000 ML IV SCH (04:51)
[2017-04-03 07:11] LABS: % BASOPHILS 0.6 % (0.0-2.0); % EOSINOPHILS 0.2 % (0.0-5.0); % LYMPHOCYTES 24.2 % (20.0-50.0); % MONOCYTES 7.5 % (2.0-10.0); % NEUTROPHILS 67.5 % (40.0-80.0); HEMATOCRIT 35.6 % (35.0-45.0); HEMOGLOBIN 12.3 gm/dL (11.7-15.5); MEAN CELL VOLUME 91.2 fl (81-100); MEAN CORPUSCULAR HEMOGLOBIN 31.6 pg (27.0-31.0); MEAN CORPUSCULAR HGB CONC 34.7 pg (28.0-36.0); MEAN PLATELET VOLUME 7.4 fl; NEUTROPHILE ABSOLUTE 4.2 Th/cmm (1.8-8.0); PLATELET COUNT 308 Th/cmm (150-400); RED BLOOD COUNT 3.91 Mil/cmm (3.80-5.10); RED CELL DISTRIBUTION WIDTH 14.2 % (11.5-20.0)
[2017-04-03 07:23] LABS: WHITE BLOOD COUNT 6.2 Th/cmm (4.8-10.8)
[2017-04-03 07:35] LABS: ANION GAP 10.1 (7.0-16.0); BUN - UREA NITROGEN 8 mg/dL (7-25); BUN/CREATININE RATIO 11.4; CALCIUM SERUM 9.7 mg/dL (8.6-10.3); CHLORIDE 103 mEq/L (98-107); CREATININE - SERUM 0.7 mg/dL (0.6-1.2); GLUCOSE 92 mg/dL (70-105); POTASSIUM SERUM 4.1 mEq/L (3.5-5.1)
[2017-04-03 07:37] LABS: SODIUM SERUM 133 mEq/L (136-145)
[2017-04-03] MEDS: Albuterol Nebulizer 2.5mg/3mL HHN SCH ×4 (07:37→20:01)
[2017-04-03] MEDS: Ipratropium Neb 0.5 mg/2.5 mL UD HHN SCH ×4 (07:38→20:01)
[2017-04-03 08:07] LABS: TSH 1.57 uIU/ml (0.34-5.60)
[2017-04-03] MEDS: Pantoprazole 40 mg EC Tab PO SCH (08:50)
[2017-04-03] MEDS ORDERED: ROFLUMILAST 500 MCG PO SCH (09:00)
--- NOTE | 2017-04-03 13:20 | Internal Medicine Prog Note ---
Internal Medicine Subjective - Subjective Service Date: 04/03/17 Patient seen and examined:: with staff Patient is:: awake Patient Complaints of:: headache, other (NECK AND BACK PAIN) Per staff patient has:: no adverse event Internal Medicine Objective - Results Result Diagrams: 04/03/17 06:45 04/03/17 06:45 Recent Labs: Laboratory Last Values WBC 6.2 Th/cmm (4.8-10.8) D 04/03/17 06:45 RBC 3.91 Mil/cmm (3.80-5.10) 04/03/17 06:45 Hgb 12.3 gm/dL (11.7-15.5) 04/03/17 06:45 Hct 35.6 % (35.0-45.0) 04/03/17 06:45 MCV 91.2 fl (81-100) 04/03/17 06:45 MCH 31.6 pg (27.0-31.0) H 04/03/17 06:45 MCHC Differential 34.7 pg (28.0-36.0) 04/03/17 06:45 RDW 14.2 % (11.5-20.0) 04/03/17 06:45 Plt Count 308 Th/cmm (150-400) 04/03/17 06:45 MPV 7.4 fl 04/03/17 06:45 Neutrophils % 67.5 % (40.0-80.0) 04/03/17 06:45 Lymphocytes % 24.2 % (20.0-50.0) 04/03/17 06:45 Monocytes % 7.5 % (2.0-10.0) 04/03/17 06:45 Eosinophils % 0.2 % (0.0-5.0) 04/03/17 06:45 Basophils % 0.6 % (0.0-2.0) 04/03/17 06:45 Sodium 133 mEq/L (136-145) L D 04/03/17 06:45 Potassium 4.1 mEq/L (3.5-5.1) 04/03/17 06:45 Chloride 103 mEq/L (98-107) 04/03/17 06:45 Carbon Dioxide 24.0 mEq/L (21.0-31.0) 04/03/17 06:45 Anion Gap 10.1 (7.0-16.0) 04/03/17 06:45 BUN 8 mg/dL (7-25) 04/03/17 06:45 Creatinine 0.7 mg/dL (0.6-1.2) 04/03/17 06:45 Est GFR ( Amer) > 60.0 ml/min (>90) 04/03/17 06:45 Est GFR (Non-Af Amer) > 60.0 ml/min 04/03/17 06:45 BUN/Creatinine Ratio 11.4 04/03/17 06:45 Glucose 92 mg/dL (70-105) 04/03/17 06:45 POC Glucose 113 MG/DL (70 - 105) H 04/02/17 15:43 Calcium 9.7 mg/dL (8.6-10.3) 04/03/17 06:45 Magnesium 2.0 mg/dL (1.9-2.7) 04/03/17 06:45 Total Bilirubin 0.6 mg/dL (0.3-1.0) 04/02/17 12:20 AST 13 U/L (13-39) 04/02/17 12:20 ALT 10 U/L (7-52) 04/02/17 12:20 Alkaline Phosphatase 44 U/L (34-104) 04/02/17 12:20 Ammonia 53 umol/L (16-53) 04/03/17 06:45 Troponin I < 0.01 ng/mL (0.01-0.05) L 04/02/17 12:20 Total Protein 6.8 gm/dL (6.0-8.3) 04/02/17 12:20 Albumin 4.6 gm/dL (3.7-5.3) 04/02/17 12:20 Globulin 2.2 gm/dL 04/02/17 12:20 Albumin/Globulin Ratio 2.1 (1.0-1.8) H 04/02/17 12:20 TSH 1.57 uIU/ml (0.34-5.60) 04/03/17 06:45 - Physical Exam Vitals and I&O: Vital Signs Temp 98.2 F 04/03/17 11:58 Pulse 82 04/03/17 11:58 Resp 19 04/03/17 11:58 BP 125/66 04/03/17 11:58 Pulse Ox 96 04/03/17 11:58 Intake & Output 04/02/17 04/03/17 04/03/17 18:59 06:59 18:59 Intake Total 1340 Balance 1340 Weight (lbs) 168 lb 6.4 oz Intake: Intake, IV Amount 1000 D5-0.9%Ns 1,000 ml @ 80 1000 mls/hr IV .[id number] [facility] Rx #:[id number] Oral 340 Other: # Voids 3 # Bowel Movements 0 Active Medications: Current Medications Acetaminophen (Tylenol) 650 mg PO Q4H PRN PRN Reason: Mild Pain Or Fever above 101 Stop: 06/01/17 14:57 Acetaminophen/Hydrocodone Bitart ([place] 5mg/325mg) 1 tab PO Q6H PRN PRN Reason: Pain (Severe) Stop: 06/01/17 14:54 Last Admin: 04/03/17 08:59 Dose: 1 tab Al Hydrox/Mg Hydrox/Simethicone (Maalox) 30 ml PO Q6H PRN PRN Reason: Dyspepsia Stop: 06/01/17 14:57 Albuterol Sulfate (Albuterol 2.5mg/3ml Neb Ud) 2.5 mg HHN QIDRT [facility] Stop: 06/01/17 14:59 Last Admin: 04/03/17 11:29 Dose: 2.5 mg Albuterol/Ipratropium (Duoneb Neb) 3 ml HHN Q6HR PRN PRN Reason: Shortness of Breath Stop: 06/01/17 14:54 Citalopram Hydrobromide (Celexa) 20 mg PO DAILY [facility] PRN Reason: Protocol Stop: 06/02/17 08:59 Clonazepam (Klonopin) 0.5 mg PO BID [facility] PRN Reason: Protocol Stop: 06/01/17 16:59 Last Admin: 04/03/17 08:53 Dose: 0.5 mg Docusate Sodium (Colace) 200 mg PO DAILY [facility] Stop: 06/02/17 08:59 Last Admin: 04/03/17 08:52 Dose: 200 mg Gabapentin (Neurontin) 400 mg PO TID [facility] Stop: 06/01/17 20:59 Last Admin: 04/03/17 08:50 Dose: 400 mg Guaifenesin (Robitussin) 200 mg PO Q4HR PRN PRN Reason: Cough or Congestion Stop: 06/01/17 14:54 Dextrose/Sodium Chloride (D5-0.9%Ns) 1,000 mls @ 80 mls/hr IV .[id number] [facility] Stop: 06/01/17 14:59 Last Admin: 04/03/17 04:51 Dose: 80 mls/hr Ibuprofen (Motrin) 800 mg PO Q6H PRN PRN Reason: Pain (Mild) Stop: 06/01/17 14:59 Ipratropium [place] (Atrovent Neb 0.5mg/2.5ml) 0.6 mg HHN Q2H PRN PRN Reason: sob/wheezing Stop: 06/01/17 14:59 Ipratropium [place] (Atrovent Neb 0.5mg/2.5ml) 0.5 mg HHN QIDRT [facility] Stop: 06/01/17 18:59 Last Admin: 04/03/17 11:29 Dose: 0.5 mg Lactulose (Cephulac) 20 gm PO Q4H PRN PRN Reason: Constipation Stop: 06/01/17 14:54 Lorazepam (Ativan) 1 mg PO Q6HR PRN; Protocol PRN Reason: Anxiety Stop: 06/01/17 14:54 Magnesium Oxide (Mag-Oxide) 400 mg PO DAILY [facility] Stop: 06/02/17 08:59 Last Admin: 04/03/17 08:51 Dose: 400 mg Methocarbamol (Robaxin) 500 mg PO BID [facility] Stop: 06/01/17 16:59 Last Admin: 04/03/17 08:51 Dose: 500 mg Miscellaneous (Fluticasone/Salmeterol [Advair 250-50 Diskus]) 1 puff IH BID [facility] Stop: 06/01/17 16:59 Miscellaneous (Roflumilast [Daliresp]) 500 mcg PO DAILY [facility] Stop: 06/02/17 08:59 Miscellaneous ([employer] Prophylaxis Screen/ Admission) 1 ea [facility] PRN PRN PRN Reason: PROTOCOL Stop: 06/01/17 17:27 Morphine Sulfate (Morphine) 2 mg IVP Q4H PRN PRN Reason: Pain (Severe) Stop: 06/01/17 14:57 Last Admin: 04/03/17 11:37 Dose: 2 mg Nitroglycerin (Nitrostat) 0.4 mg SL Q5MIN PRN PRN Reason: Chest Pain Stop: 06/01/17 14:54 Ondansetron HCl (Zofran) 4 mg IV Q8H PRN PRN Reason: Nausea / Vomiting Stop: 06/01/17 14:57 Last Admin: 04/02/17 17:07 Dose: 4 mg Pantoprazole Sodium (Protonix) 40 mg PO DAILY [facility] Stop: 06/02/17 08:59 Last Admin: 04/03/17 08:50 Dose: 40 mg Risperidone (Risperdal) 3 mg PO Q12H [facility] PRN Reason: Protocol Stop: 06/01/17 14:59 Zolpidem Tartrate (Ambien) 10 mg PO HS PRN PRN Reason: Insomnia Stop: 06/01/17 14:54 General: alert HEENT: NC/AT, PERRLA Neck: Supple Lungs: congested Cardiovascular: RRR, Normal S1, Normal S2, without murmur Abdomen: soft, non-tender, non-distended, positive bowel sound Extremities: pedal pulses Neurological: no change - Procedures Procedures: Procedures Procedure Code Date ANESTH INJEC PERIPH NERV 04.81 12/04/10 ANESTH INJECT-SPIN CANAL 03.91 02/21/12 ASSISTANCE WITH RESPIRATORY VENTILATION, 24-96 HRS, CPAP [id number] 10/03/16 CERVICAL SPINE X-RAY NEC 87.22 02/28/11 EPIDUROGRAPHY 09204 02/21/12 INJ FORAMEN EPIDURAL L/S 11465 12/04/10 INJ PARAVERT F JNT C/T 1 LEV 90665 02/28/11 INJ PARAVERT F JNT C/T 2 LEV 84176 02/28/11 INJ PARAVERT F JNT C/T 3 LEV 00073 02/28/11 INJECT SPINE CERV/THORACIC 30255 05/30/11 INJECT SPINE LUMBAR/SACRAL 56929 02/21/12 INJECT STEROID 99.23 02/21/12 INJECT/INFUSE NEC 99.29 02/28/11 INJECTION INTO JOINT 81.92 02/28/11 LUMBOSAC SPINE X-RAY NEC 87.24 02/21/12 MYELOGRAPHY NECK SPINE 96691 05/30/11 PERIPH NERVE INJECT NEC 04.89 12/04/10 POS AIRWAY PRESSURE CPAP 35902 10/03/16 SPINAL CANAL INJECT NEC 03.92 02/21/12 Internal Medicine Assmt/Plan - Assessment Assessment: intractable headache sp epidural hyponatremia clbp obesity dad leukopenia - Plan Plan: IVF FOR HYDRATION SUPPLEMENTAL O2 NEEDED AM LABS NEURO CONSULT AWAIT FOR CT HEAD WILL MONITOR PT CLOSELY.
[2017-04-03] MEDS ORDERED: Hydrocodone/APAP 10 mg/325 mg Tab PO PRN (14:15)
[2017-04-04] MEDS: D5-0.9%NS 1,000 ML IV SCH (01:13)
[2017-04-04] MEDS: Morphine Sulfate 2 mg/mL 1mL Syr IVP PRN ×2 (01:17→07:47)
--- NOTE | 2017-04-04 03:44 | Consultation ---
DATE OF CONSULTATION: 04/03/2017 HISTORY OF PRESENT ILLNESS: A 66-year-old female gives history that she has had ____ headaches bitemporal parietal going to the back of the head. She has had headaches for many years. She says it is somewhat worse now. She says she had an epidural done and developed headache after that. Seems to have headache both lying down and sitting up. When I saw her, she was actually sitting in bed, reasonably comfortable. The patient complains of neck pain and back pain. She has been followed by pain management for a long time. Takes lot of pain medications. PAST MEDICAL HISTORY: Hypertension, COPD, the patient has history of migraine and headaches. The patient has a history of anxiety, bipolar, psychosis. The patient had both back and neck pain. PAST SURGICAL HISTORY: The patient has surgery done to the neck, scar in the back of the neck. The patient has had lumbar surgery done. MEDICATIONS: Multiple as per reconciliation. Predominantly a lot of pain medications, sedatives. REVIEW OF SYSTEMS: Twelve point negative except for above. ALLERGIES: SHE IS ALLERGIC TO NONSTEROIDALS, PENICILLINS, PROCHLORPERAZINE, AND QUINOLONES. PHYSICAL EXAMINATION: VITAL SIGNS: Temperature 98.2, blood pressure 130/70, pulse is 74. NECK: Supple. No bruits. HEART: Heart sounds S1, S2. LUNGS: Clear. NEUROLOGIC: The patient is sitting up in bed now, some headache, but seems to be ____ comfortable, does not seem to be having a spinal headache. She is quite upright. The patient has scar in the back of the neck. Scar in the back of the lumbar area. The patient knew what day, what month. She is able to give me a history. CRANIAL NERVES: Pupils react to light. Full eye movement. No nystagmus. No facial weakness. MOTOR: She will lift both arms up. She will lift both legs up. Reflexes are about 1, difficult to get at the knees and ankles. INVESTIGATIONS: CT scan of the head, no acute process. CT cervical spine noted with extensive previous surgical changes. No fracture, no dislocation. IMPRESSION: 1. Headache. Combination of possible previous migraine, also muscle tension and postsurgical headaches in the neck posterior occipital area. 2. Neck pain. Cervical radiculopathy. 3. Lumbar pain, lumbar radiculopathy. 4. History of recent epidural, but does not seem to be having spinal headaches. 5. History of hypertension. 6. Bipolar depression. 7. History of chronic obstructive pulmonary disease. PLAN: Continue present management for the time being. JOB# [id number]
[2017-04-04] MEDS: Albuterol Nebulizer 2.5mg/3mL HHN SCH ×2 (06:58→11:20)
[2017-04-04] MEDS: Ipratropium Neb 0.5 mg/2.5 mL UD HHN SCH ×3 (06:59→14:04)
[2017-04-04 07:18] LABS: % BASOPHILS 0.4 % (0.0-2.0); % EOSINOPHILS 1.3 % (0.0-5.0); % LYMPHOCYTES 32.9 % (20.0-50.0); % MONOCYTES 6.5 % (2.0-10.0); % NEUTROPHILS 58.9 % (40.0-80.0); HEMATOCRIT 37.2 % (35.0-45.0); HEMOGLOBIN 12.6 gm/dL (11.7-15.5); MEAN CELL VOLUME 91.1 fl (81-100); MEAN CORPUSCULAR HEMOGLOBIN 30.8 pg (27.0-31.0); MEAN CORPUSCULAR HGB CONC 33.8 pg (28.0-36.0); MEAN PLATELET VOLUME 7.4 fl; NEUTROPHILE ABSOLUTE 4.1 Th/cmm (1.8-8.0); PLATELET COUNT 274 Th/cmm (150-400); RED BLOOD COUNT 4.08 Mil/cmm (3.80-5.10); RED CELL DISTRIBUTION WIDTH 14.1 % (11.5-20.0)
[2017-04-04 07:34] LABS: ANION GAP 10.3 (7.0-16.0); BUN - UREA NITROGEN 7 mg/dL (7-25); CALCIUM SERUM 9.6 mg/dL (8.6-10.3); CARBON DIOXIDE 23.5 mEq/L (21.0-31.0); CHLORIDE 102 mEq/L (98-107); CREATININE - SERUM 0.5 mg/dL (0.6-1.2); GLUCOSE 98 mg/dL (70-105); POTASSIUM SERUM 3.8 mEq/L (3.5-5.1); SODIUM SERUM 132 mEq/L (136-145)
[2017-04-04] MEDS: Pantoprazole 40 mg EC Tab PO SCH (09:35)
--- NOTE | 2017-04-04 12:24 | Internal Medicine Prog Note ---
Internal Medicine Subjective - Subjective Service Date: 04/04/17 (dictated [id number]) Patient is:: awake Patient Complaints of:: headache, other (NECK AND BACK PAIN) Per staff patient has:: no adverse event Internal Medicine Objective - Results Result Diagrams: 04/04/17 06:45 04/04/17 06:45 Recent Labs: Laboratory Last Values WBC 7.0 Th/cmm (4.8-10.8) 04/04/17 06:45 RBC 4.08 Mil/cmm (3.80-5.10) 04/04/17 06:45 Hgb 12.6 gm/dL (11.7-15.5) 04/04/17 06:45 Hct 37.2 % (35.0-45.0) 04/04/17 06:45 MCV 91.1 fl (81-100) 04/04/17 06:45 MCH 30.8 pg (27.0-31.0) 04/04/17 06:45 MCHC Differential 33.8 pg (28.0-36.0) 04/04/17 06:45 RDW 14.1 % (11.5-20.0) 04/04/17 06:45 Plt Count 274 Th/cmm (150-400) 04/04/17 06:45 MPV 7.4 fl 04/04/17 06:45 Neutrophils % 58.9 % (40.0-80.0) 04/04/17 06:45 Lymphocytes % 32.9 % (20.0-50.0) 04/04/17 06:45 Monocytes % 6.5 % (2.0-10.0) 04/04/17 06:45 Eosinophils % 1.3 % (0.0-5.0) 04/04/17 06:45 Basophils % 0.4 % (0.0-2.0) 04/04/17 06:45 Sodium 132 mEq/L (136-145) L 04/04/17 06:45 Potassium 3.8 mEq/L (3.5-5.1) 04/04/17 06:45 Chloride 102 mEq/L (98-107) 04/04/17 06:45 Carbon Dioxide 23.5 mEq/L (21.0-31.0) 04/04/17 06:45 Anion Gap 10.3 (7.0-16.0) 04/04/17 06:45 BUN 7 mg/dL (7-25) 04/04/17 06:45 Creatinine 0.5 mg/dL (0.6-1.2) L 04/04/17 06:45 Est GFR ( Amer) > 60.0 ml/min (>90) 04/04/17 06:45 Est GFR (Non-Af Amer) > 60.0 ml/min 04/04/17 06:45 BUN/Creatinine Ratio 14.0 04/04/17 06:45 Glucose 98 mg/dL (70-105) 04/04/17 06:45 POC Glucose 113 MG/DL (70 - 105) H 04/02/17 15:43 Calcium 9.6 mg/dL (8.6-10.3) 04/04/17 06:45 Magnesium 2.0 mg/dL (1.9-2.7) 04/03/17 06:45 Total Bilirubin 0.6 mg/dL (0.3-1.0) 04/02/17 12:20 AST 13 U/L (13-39) 04/02/17 12:20 ALT 10 U/L (7-52) 04/02/17 12:20 Alkaline Phosphatase 44 U/L (34-104) 04/02/17 12:20 Ammonia 53 umol/L (16-53) 04/03/17 06:45 Troponin I < 0.01 ng/mL (0.01-0.05) L 04/02/17 12:20 Total Protein 6.8 gm/dL (6.0-8.3) 04/02/17 12:20 Albumin 4.6 gm/dL (3.7-5.3) 04/02/17 12:20 Globulin 2.2 gm/dL 04/02/17 12:20 Albumin/Globulin Ratio 2.1 (1.0-1.8) H 04/02/17 12:20 TSH 1.57 uIU/ml (0.34-5.60) 04/03/17 06:45 - Physical Exam Vitals and I&O: Vital Signs Temp 97.9 F 04/04/17 11:57 Pulse 81 04/04/17 11:57 Resp 19 04/04/17 11:57 BP 155/80 04/04/17 11:57 Pulse Ox 96 04/04/17 11:57 Intake & Output 04/03/17 04/04/17 04/04/17 18:59 06:59 18:59 Intake Total 2500 Balance 2500 Weight (lbs) 168 lb 169 lb 169 lb Intake: Intake, IV Amount 1000 D5-0.9%Ns 1,000 ml @ 80 1000 mls/hr IV .[id number] [facility] Rx #:[id number] Oral 1500 Other: # Voids 3 0 # Bowel Movements 0 Active Medications: Current Medications Albuterol/Ipratropium (Duoneb Neb) 3 ml HHN Q6HR PRN PRN Reason: Shortness of Breath Stop: 06/01/17 14:54 Citalopram Hydrobromide (Celexa) 20 mg PO DAILY [facility] PRN Reason: Protocol Stop: 06/02/17 08:59 Last Admin: 04/04/17 09:36 Dose: 20 mg Clonazepam (Klonopin) 0.5 mg PO BID [facility] PRN Reason: Protocol Stop: 06/01/17 16:59 Last Admin: 04/04/17 09:36 Dose: 0.5 mg Docusate Sodium (Colace) 200 mg PO DAILY [facility] Stop: 06/02/17 08:59 Last Admin: 04/04/17 09:35 Dose: 200 mg Gabapentin (Neurontin) 400 mg PO TID [facility] Stop: 06/01/17 20:59 Last Admin: 04/04/17 09:35 Dose: 400 mg Guaifenesin (Robitussin) 200 mg PO Q4HR PRN PRN Reason: Cough or Congestion Stop: 06/01/17 14:54 Dextrose/Sodium Chloride (D5-0.9%Ns) 1,000 mls @ 80 mls/hr IV .[id number] [facility] Stop: 06/01/17 14:59 Last Admin: 04/04/17 01:13 Dose: 80 mls/hr Ibuprofen (Motrin) 800 mg PO Q6H PRN PRN Reason: Pain (Mild) Stop: 06/01/17 14:59 Ipratropium [place] (Atrovent Neb 0.5mg/2.5ml) 0.6 mg HHN Q2H PRN PRN Reason: sob/wheezing Stop: 06/01/17 14:59 Ipratropium [place] (Atrovent Neb 0.5mg/2.5ml) 0.5 mg HHN QIDRT [facility] Stop: 06/01/17 18:59 Last Admin: 04/04/17 11:20 Dose: 0.5 mg Lactulose (Cephulac) 20 gm PO Q4H PRN PRN Reason: Constipation Stop: 06/01/17 14:54 Lorazepam (Ativan) 1 mg PO Q6HR PRN; Protocol PRN Reason: Anxiety Stop: 06/01/17 14:54 Magnesium Oxide (Mag-Oxide) 400 mg PO DAILY [facility] Stop: 06/02/17 08:59 Last Admin: 04/04/17 09:36 Dose: 400 mg Methocarbamol (Robaxin) 500 mg PO BID [facility] Stop: 06/01/17 16:59 Last Admin: 04/04/17 09:36 Dose: 500 mg Miscellaneous (Fluticasone/Salmeterol [Advair 250-50 Diskus]) 1 puff IH BID [facility] Stop: 06/01/17 16:59 Miscellaneous (Roflumilast [Daliresp]) 500 mcg PO DAILY [facility] Stop: 06/02/17 08:59 Nitroglycerin (Nitrostat) 0.4 mg SL Q5MIN PRN PRN Reason: Chest Pain Stop: 06/01/17 14:54 Ondansetron HCl (Zofran) 4 mg IV Q8H PRN PRN Reason: Nausea / Vomiting Stop: 06/01/17 14:57 Last Admin: 04/02/17 17:07 Dose: 4 mg Pantoprazole Sodium (Protonix) 40 mg PO DAILY [facility] Stop: 06/02/17 08:59 Last Admin: 04/04/17 09:35 Dose: 40 mg Risperidone (Risperdal) 3 mg PO Q12H [facility] PRN Reason: Protocol Stop: 06/01/17 14:59 Zolpidem Tartrate (Ambien) 10 mg PO HS PRN PRN Reason: Insomnia Stop: 06/01/17 14:54 General: alert HEENT: NC/AT, PERRLA Neck: Supple Lungs: congested Cardiovascular: RRR, Normal S1, Normal S2, without murmur Abdomen: soft, non-tender, non-distended, positive bowel sound Extremities: pedal pulses Neurological: no change - Procedures Procedures: Procedures Procedure Code Date ANESTH INJEC PERIPH NERV 04.81 12/04/10 ANESTH INJECT-SPIN CANAL 03.91 02/21/12 ASSISTANCE WITH RESPIRATORY VENTILATION, 24-96 HRS, CPAP [id number] 10/03/16 CERVICAL SPINE X-RAY NEC 87.22 02/28/11 EPIDUROGRAPHY 36178 02/21/12 INJ FORAMEN EPIDURAL L/S 44131 12/04/10 INJ PARAVERT F JNT C/T 1 LEV 61804 02/28/11 INJ PARAVERT F JNT C/T 2 LEV 87098 02/28/11 INJ PARAVERT F JNT C/T 3 LEV 13061 02/28/11 INJECT SPINE CERV/THORACIC 42530 05/30/11 INJECT SPINE LUMBAR/SACRAL 65319 02/21/12 INJECT STEROID 99.23 02/21/12 INJECT/INFUSE NEC 99.29 02/28/11 INJECTION INTO JOINT 81.92 02/28/11 LUMBOSAC SPINE X-RAY NEC 87.24 02/21/12 MYELOGRAPHY NECK SPINE 02853 05/30/11 PERIPH NERVE INJECT NEC 04.89 12/04/10 POS AIRWAY PRESSURE CPAP [id number] 10/03/16 SPINAL CANAL INJECT NEC 03.92 02/21/12 Internal Medicine Assmt/Plan - Assessment Assessment: intractable headache sp epidural hyponatremia clbp obesity dad leukopenia - Plan Plan: IVF FOR HYDRATION SUPPLEMENTAL O2 NEEDED AM LABS NEURO CONSULT AWAIT FOR CT HEAD WILL MONITOR PT CLOSELY.
--- NOTE | 2017-04-04 19:20 | Discharge Summary ---
DATE OF DISCHARGE: 04/04/2017 Dictating for: Dr. Ollie Pate. DISCHARGE DIAGNOSES: Intractable headache, which has resolved; chronic low back pain; obesity; ; leukopenia. HISTORY OF PRESENT ILLNESS: This is a 66-year-old female with a history of COPD and psych disorder, seen in the ER secondary to headache worsening since epidural on 04/01/2017. PHYSICAL EXAMINATION: GENERAL: The patient is well developed, well nourished, in no acute distress. VITAL SIGNS: Stable. HEENT: Head is atraumatic and normocephalic. NECK: Supple. No mass. LUNGS: Clear bilaterally. CARDIOVASCULAR: Regular rate and rhythm. ABDOMEN: Soft, nontender. HOSPITAL COURSE: During the hospital stay, the patient was admitted to the med/surg unit. The patient had a consultation with Dr. Cotter and pain management was also being done. Dr. Cotter's plan of care for this patient was to continue present management. Headache was probably combination of previous migraine and also muscle tension. The patient had a CT of the head done and the impression is no evidence of acute intracranial hemorrhage. Also, a CT of the cervical spine was also done and the impression is extensive post surgical changes according evidence of posterior . No evidence of an acute fracture. For this reason, the patient was cleared for discharge. CONDITION UPON DISCHARGE: Fair. DISPOSITION: Sammy Bradley JOB# [id number]
== END 2017-04-04 15:05 | disposition home or self-care (01) | DRG 103 ==
LOC: ER 11:27 → MSI 13:41
PROVIDERS: ADMIT Internal Medicine; ATTEND Internal Medicine
DX: G43.919 Migraine, unspecified, intractable, without status migrainosus (principal); E87.1 Hypo-osmolality and hyponatremia; I10 Essential (primary) hypertension; E66.9 Obesity, unspecified; J44.9 Chronic obstructive pulmonary disease, unspecified; F31.9 Bipolar disorder, unspecified; M54.12 Radiculopathy, cervical region; M54.16 Radiculopathy, lumbar region; G89.29 Other chronic pain; F29 Unspecified psychosis not due to a substance or known physiological condition; Z79.899 Other long term (current) drug therapy; Z68.28 Body mass index [BMI] 28.0-28.9, adult; Z88.1 Allergy status to other antibiotic agents; Z88.0 Allergy status to penicillin; Z88.8 Allergy status to other drugs, medicaments and biological substances; F41.9 Anxiety disorder, unspecified; F32.9 Major depressive disorder, single episode, unspecified; Z98.890 Other specified postprocedural states; F17.210 Nicotine dependence, cigarettes, uncomplicated; D72.819 Decreased white blood cell count, unspecified
CPT/HCPCS: 36415-UA; 70450-TC; 72125-TC; 80048-TC; 80053-TC; 82140-TC; 82607-90; 82746-90; 82948-90; 83735-TC; 84443-TC; 84484-TC; 85025-TC; 90779; 93005; 94640; 94760; 96374; 96375; 96376; J2270; J2405; J7030; J7042; J7613; Z7610

== ENCOUNTER 2017-12-30 13:54 | Inpatient (IN) | payer MEDICARE, MEDICAID ==
--- NOTE | 2017-12-30 14:48 | ED Physician Chart ---
ED Chief Complaint/HPI - Patient Information Date Seen:: 12/30/17 Time Seen:: 14:00 Chief Complaint:: Fever History of Present Illness:: onset x 3 days of generalized weakness, fever, cough, and congestion; no report of trauma, H/As, S/T, neck pain, C/P, SOB, Abd. Pain, A/N/V/D/C, chills, or urinary s/s Allergies:: Allergies Allergy/AdvReac Type Severity Reaction Status Date / Time levofloxacin [From Levaquin] Allergy Verified 12/30/17 14:44 NSAIDS (Non-Steroidal Allergy Verified 10/03/16 22:19 Anti-Inflamma Penicillins [PCN] Allergy Verified 12/30/17 14:44 prochlorperazine Allergy Verified 12/30/17 14:44 Quinolones Allergy Verified 12/30/17 14:44 Vitals:: Vital Signs - 8 hr 12/30/17 14:00 Temp 98.0 F HR 62 RR 16 BP 118/64 O2 Sat % 94 Historian:: Patient, EMS Review:: Nurse's Note Reviewed, Old Chart Reviewed, EMS run form Reviewed ED Review of Systems - Review of Systems General/Constitutional: Fever, No chills, No weight loss, No weakness, No diaphoresis, No edema, No loss of appetite Skin: No skin lesions, No rash, No bruising Head: No headache, No light-headedness Eyes: No loss of vision, No pain, No diplopia ENT: No earache, Nasal drainage, No sore throat, No tinnitus Neck: No neck pain, No swelling, No thyromegaly, No stiffness, No mass noted Cardio Vascular: No chest pain, No palpitations, No PND, No orthopnea, No edema Pulmonary: SOB, Cough, No sputum, No wheezing GI: No nausea, No vomiting, No diarrhea, No pain, No melena, No hematochezia, No constipation, No hematemesis G/U: No dysuria, No frequency, No hematuria, No nacturia [employer]: No vaginal discharge, No abnormal vaginal bleed, No contraction Musculoskeletal: No bone or joint pain, No back pain, No muscle pain Endocrine: No polyuria, No polydipsia Psychiatric: No prior psych history, No depression, No anxiety, No suicidal ideation, No homicidal ideation, No auditory hallucination Hematopoietic: No bruising, No lymphadenopathy Allergic/Immuno: No urticaria, No angioedema Neurological: No syncope, No focal symptoms, No weakness, No paresthesia, No headache, No seizure, No dizziness, Confusion, No vertigo ED Past Medical History - Past Medical History Obtainable: Yes Past Medical History: HTN, DM, Asthma/COPD, Dyslipidemia, PUD/GERD, Dementia Family History: Diabetes Melitus, HTN Social History: Smoker, No Alcohol, No Drug Use, Single, Care Facility Surgical History: None Psychiatricy History: Dementia Medication: Reviewed Family Medical History - Family Member Mother History Unknown: Yes Hx Family Cancer: No Hx Family Coronary Artery Disease: No Hx Family Congestive Heart Failure: No Hx Family Hypertension: No Hx Family Stroke: No Hx Family Diabetes: No Hx Family Seizures: No Hx Family Dementia: No Hx Family AIDS: No Hx Family HIV: No Hx Family COPD: No Hx Family Hepatitis: No Hx Family Psychiatric Problems: No ED Physical Exam - Physical Examination General/Constitutional: Awake, Well-developed, well-nourished, Alert, No distress, GCS 15, Non-toxic appearing, Ambulatory Head: Atraumatic Eyes: Lids, conjuctiva normal, PERRL, EOMI Skin: Nl inspection, No rash, No skin lesions, No ecchymosis, Well hydrated, No lymphadenopathy ENMT: External ears, nose nl, TM canals nl, Nasal exam nl, Lips, teeth, gums nl , Oropharynx nl, Tonsils nl Neck: Nontender, Full ROM w/o pain, No JVD, No nuchal rigidity, No bruit, No mass, No stridor Respiratory: Nl effort/Exclusion Other Respiratory comments:: Lungs: + rales, Rhonchi, and Wheezes Cardio Vascular: RRR, No murmur, gallop, rubs, NL S1 S2, Carotid/Femoral/Distal pulses equal bilaterally GI: No tenderness/rebounding/guarding, No organomegaly, No hernia, Normal BS's, Nondistended, No mass/bruits, No McBurney tenderness, Rectum exam nl : No CVA tenderness Extremities: No tenderness or effusion, Full ROM, normal strength in all extremities, No edema, Normal digits & nails Neuro/Psych: Alert/oriented, DTR's symmetric, Normal sensory exam, Normal motor strength, Judgement/insight normal, Mood normal, Normal gait, No focal deficits Misc: Normal back, No paraspinal tenderness ED Labs/Radiology/EKG Results - Radiology Results Comments:: CXR: + RUL Haziness suggestive of early infiltrate - EKG Interpretations EKG Time:: 14:38 Rate & Rhythm: 69; NSR Comments:: non-specific st-t changes ED Septic Shock - . Is Septic Shock (SBP<90, OR Lactate>4 mmol\L) present?: No - <6hrs of presentation: Vital Signs: Vital Signs - 8 hr 12/30/17 14:00 Temp 98.0 F HR 62 RR 16 BP 118/64 O2 Sat % 94 ED Reassessment (Disposition) - Reassessment Reassessment Condition:: Improved - Diagnosis Diagnosis:: Dx; Cough; Wheezes; Congestion; Fever; PNA; Sepsis; Weakness - Aftercare/Follow up Instructions Aftercare/Follow-Up Instructions:: Counseled pt regarding lab results/diagnosis & need follow up, Counseled pt & family regarding lab results/diagnosis & need follow up - Patient Disposition Discharge/Transfer:: Acute Care w/in this hosp Accepting Physician:: Dr. Pate Time Called:: 1550 Time Responded:: 15:50 Admitted to:: Telemetry Spoke to:: Dr. Pate Admitting Medical Physician:: Dr. Pate Condition at Disposition:: Stable, Improved
[2017-12-30] MEDS ORDERED: Albuterol/Ipratropium Neb 3 ML AERS HHN ONE ×2 (15:23→15:38)
[2017-12-30 15:39] LABS: % BASOPHILS 1.1 % (0.0-2.0); % EOSINOPHILS 3.6 % (0.0-5.0); % LYMPHOCYTES 31.8 % (20.0-50.0); % MONOCYTES 8.4 % (2.0-10.0); % NEUTROPHILS 55.1 % (40.0-80.0); BASOPHILE ABSOLUTE 0.1 Th/cumm (0-0.2); EOSINOPHILE ABSOLUTE 0.2 Th/cmm (0.1-0.4); HEMATOCRIT 39.8 % (41.0-60); HEMOGLOBIN 13.3 gm/dL (12-16); LYMPHOCYTE ABSOLUTE 1.9 Th/cmm (1.5-3.0); MEAN CELL VOLUME 91.6 fl (81-100); MEAN CORPUSCULAR HEMOGLOBIN 30.5 pg (27.0-31.0); MEAN CORPUSCULAR HGB CONC 33.3 pg (28.0-36.0); MEAN PLATELET VOLUME 8.2 fl; MONOCYTE ABSOLUTE 0.5 Th/cmm (0.3-1.0); NEUTROPHILE ABSOLUTE 3.4 Th/cmm (1.8-8.0); PLATELET COUNT 204 Th/cmm (150-400); RED BLOOD COUNT 4.35 Mil/cmm (3.80-5.20); RED CELL DISTRIBUTION WIDTH 14.7 % (11.5-20.0); WHITE BLOOD COUNT 6.1 Th/cmm (4.8-10.8)
[2017-12-30 15:54] LABS: INR 1.01 (0.5-1.4); PROTHROMBIN TIME (TEST) 10.5 SECONDS (9.5-11.5)
[2017-12-30 15:57] LABS: ALKALINE PHOSPHATASE 45 U/L (34-104); ANION GAP 10.5 (7.0-16.0); BILIRUBIN,TOTAL 0.5 mg/dL (0.3-1.0); BUN - UREA NITROGEN 15 mg/dL (7-25); CALCIUM SERUM 9.8 mg/dL (8.6-10.3); CARBON DIOXIDE 29.5 mEq/L (21.0-31.0); CHLORIDE 103 mEq/L (98-107); CREATININE - SERUM 0.6 mg/dL (0.6-1.2); CREATININE KINASE 113 U/L (30-223); GFR AFRICAN-AMERICAN > 60.0 ml/min (>90); GFR NON AFRICAN-AMERICAN > 60.0 ml/min; GLUCOSE 85 mg/dL (70-105); SGOT 17 U/L (13-39); SGPT/ALT 11 U/L (7-52); SODIUM SERUM 139 mEq/L (136-145)
[2017-12-30 16:00] LABS: TROP I < 0.01 ng/mL (0.01-0.05)
[2017-12-30] MEDS ORDERED: Sodium Chloride 0.9% 1,000 ML IV ONE (17:04)
[2017-12-30] MEDS ORDERED: Pneumococcal Vaccine 0.5 mL Vial IM ONE (18:42)
[2017-12-30] MEDS ORDERED: guaiFENesin 200 MG/10 ML UDC PO PRN (18:48)
[2017-12-30] MEDS ORDERED: Lactulose 10 Gm/15 mL 30mL UDC PO PRN (18:48)
[2017-12-30] MEDS ORDERED: Ipratropium Neb 0.5 mg/2.5 mL UD HHN PRN (18:48)
[2017-12-30] MEDS ORDERED: Maalox 30 mL Cup PO PRN (18:48)
[2017-12-30] MEDS ORDERED: Albuterol/Ipratropium Neb 3 ML AERS HHN PRN (18:48)
[2017-12-30] MEDS ORDERED: Ipratropium Neb 0.5 mg/2.5 mL UD IH SCH (19:00)
[2017-12-30] MEDS: Albuterol Nebulizer 2.5mg/3mL HHN SCH (20:36)
[2017-12-30] MEDS: methylPREDNISolone SS 40 mg Vial IVP SCH (21:26)
[2017-12-30] MEDS: cefTRIAXone 1 GM in Sodium Chloride 0.9% 50 ML IV SCH (21:55)
[2017-12-30] MEDS: Hydrocodone/APAP 5mg/325mg Tab PO PRN (22:47)
[2017-12-31] MEDS: methylPREDNISolone SS 40 mg Vial IVP SCH ×3 (04:24→20:35)
[2017-12-31] MEDS: Albuterol Nebulizer 2.5mg/3mL HHN SCH (07:19)
--- NOTE | 2017-12-31 07:39 | Diagnostic Imaging Report ---
CHEST X-RAY: AP view INDICATION: Pneumonia COMPARISON: Chest x-ray 02/01/[address] chest on 10/04/2016 FINDINGS: The patient is rotated. No focal consolidation or effusions. Heart size is normal. Postsurgical changes of the cervical spine are noted. Prominent right paratracheal density is likely related to rotation and may be due to vessels. IMPRESSION: Chronic lung changes with no focal consolidation identified. Prominent right paratracheal density probably related to patient rotation and may be due to vessels. Follow-up x-rays in neutral view may be obtained if indicated. Postsurgical changes of the cervical spine.
[2017-12-31] MEDS ORDERED: ROFLUMILAST 500 MCG PO SCH (09:00)
[2017-12-31] MEDS ORDERED: ROFLUMILAST 500 MG PO SCH (09:00)
[2017-12-31] MEDS ORDERED: Non-Formulary Item 1 EA (Fluticasone/Salmeterol [Advair 250-50 Diskus] 1 PUFF) IH SCH (09:00)
[2017-12-31] MEDS: Pantoprazole 40 mg EC Tab PO SCH (09:20)
[2017-12-31] MEDS: Fluticasone Propionate 0.05mg/Actuation 16gm Nasal Spray NS SCH (09:22)
[2017-12-31] MEDS: Albuterol/Ipratropium Neb 3 ML AERS HHN SCH ×3 (11:23→18:51)
[2017-12-31] MEDS: Budesonide 0.5 Mg/2 mL Ud HHN SCH ×2 (11:31→18:51)
--- NOTE | 2017-12-31 11:35 | Internal Medicine Prog Note ---
Internal Medicine Subjective - Subjective Service Date: 12/31/17 ([id number] hnp dictated) Internal Medicine Objective - Results Result Diagrams: 12/30/17 15:25 12/30/17 15:25 Recent Labs: Laboratory Last Values WBC 6.1 Th/cmm (4.8-10.8) 12/30/17 15:25 RBC 4.35 Mil/cmm (3.80-5.20) 12/30/17 15:25 Hgb 13.3 gm/dL (12-16) 12/30/17 15:25 Hct 39.8 % (41.0-60) L 12/30/17 15:25 MCV 91.6 fl (81-100) 12/30/17 15:25 MCH 30.5 pg (27.0-31.0) 12/30/17 15: MCHC Differential 33.3 pg (28.0-36.0) 12/30/17 15:25 RDW 14.7 % (11.5-20.0) 12/30/17 15:25 Plt Count 204 Th/cmm (150-400) 12/30/17 15:25 MPV 8.2 fl 12/30/17 15:25 Neutrophils % 55.1 % (40.0-80.0) 12/30/17 15:25 Lymphocytes % 31.8 % (20.0-50.0) 12/30/17 15:25 Monocytes % 8.4 % (2.0-10.0) 12/30/17 15:25 Eosinophils % 3.6 % (0.0-5.0) 12/30/17 15:25 Basophils % 1.1 % (0.0-2.0) 12/30/17 15:25 PT 10.5 SECONDS (9.5-11.5) 12/30/17 15:25 INR 1.01 (0.5-1.4) 12/30/17 15:25 PTT (Actin FS) 24.6 SECONDS (26.0-38.0) L 12/30/17 15:25 Sodium 139 mEq/L (136-145) 12/30/17 15:25 Potassium 4.0 mEq/L (3.5-5.1) 12/30/17 15:25 Chloride 103 mEq/L (98-107) 12/30/17 15:25 Carbon Dioxide 29.5 mEq/L (21.0-31.0) 12/30/17 15:25 Anion Gap 10.5 (7.0-16.0) 12/30/17 15:25 BUN 15 mg/dL (7-25) 12/30/17 15:25 Creatinine 0.6 mg/dL (0.6-1.2) 12/30/17 15:25 Est GFR ( Amer) > 60.0 ml/min (>90) 12/30/17 15:25 Est GFR (Non-Af Amer) > 60.0 ml/min 12/30/17 15:25 BUN/Creatinine Ratio 25.0 12/30/17 15:25 Glucose 85 mg/dL (70-105) 12/30/17 15:25 Whole Bld Lactic Acid 0.59 mmol/L (0.60-1.99) L 12/30/17 15:25 Calcium 9.8 mg/dL (8.6-10.3) 12/30/17 15:25 Total Bilirubin 0.5 mg/dL (0.3-1.0) 12/30/17 15:25 AST 17 U/L (13-39) 12/30/17 15:25 ALT 11 U/L (7-52) 12/30/17 15:25 Alkaline Phosphatase 45 U/L (34-104) 12/30/17 15:25 Creatine Kinase 113 U/L (30-223) 12/30/17 15:25 Troponin I < 0.01 ng/mL (0.01-0.05) L 12/30/17 15:25 Total Protein 6.0 gm/dL (6.0-8.3) 12/30/17 15:25 Albumin 4.0 gm/dL (3.7-5.3) 12/30/17 15:25 Globulin 2.0 gm/dL 12/30/17 15:25 Albumin/Globulin Ratio 2.0 (1.0-1.8) H 12/30/17 15:25 - Physical Exam Vitals and I&O: Vital Signs Temp 98.1 F 12/31/17 07:58 Pulse 70 12/31/17 11:31 Resp 20 12/31/17 11:31 BP 144/72 12/31/17 07:58 Pulse Ox 99 12/31/17 11:31 Intake & Output 12/30/17 12/31/17 12/31/17 18:59 06:59 18:59 Intake Total 410 Balance 410 Weight (lbs) 140 lb Intake: Intake, IV Amount 50 cefTRIAXone 1 gm In 50 Sodium Chloride 0.9% 50 ml @ 100 mls/hr IV Q24HR [facility] Rx#:[id number] Oral 360 Other: # Voids 2 # Bowel Movements 0 Weight Source Bedscale Active Medications: Current Medications Acetaminophen/Hydrocodone Bitart ([place] 5mg/325mg) 1 tab PO Q6H PRN PRN Reason: Pain (Severe) Stop: 02/28/18 18:47 Last Admin: 12/30/17 22:47 Dose: 1 tab Al Hydrox/Mg Hydrox/Simethicone (Maalox) 30 ml PO Q4H PRN PRN Reason: gi distress Albuterol/Ipratropium (Duoneb Neb) 3 ml HHN Q6HRT PRN PRN Reason: Shortness of Breath Stop: 02/28/18 18:47 Last Admin: 12/30/17 20:27 Dose: 3 ml Albuterol/Ipratropium (Duoneb Neb) 3 ml HHN QIDRT [facility] Stop: 03/01/18 10:59 Last Admin: 12/31/17 11:23 Dose: 3 ml Budesonide (Pulmicort) 0.5 mg HHN Q12HRT [facility] Stop: 02/28/18 18:59 Last Admin: 12/31/17 11:31 Dose: 0.5 mg Citalopram Hydrobromide (Celexa) 20 mg PO DAILY [facility] PRN Reason: Protocol Stop: 03/01/18 08:59 Last Admin: 12/31/17 09:19 Dose: 20 mg Clonazepam (Klonopin) 1 mg PO BID [facility] Stop: 03/01/18 08:59 Divalproex Sodium (Depakote Dr) 500 mg PO BID [facility] PRN Reason: Protocol Stop: 03/01/18 08:59 Last Admin: 12/31/17 09:19 Dose: 500 mg Docusate Sodium (Colace) 200 mg PO DAILY [facility] Stop: 03/01/18 08:59 Last Admin: 12/31/17 09:19 Dose: 200 mg Fluticasone Propionate (Flonase) 2 spr NS DAILY [facility] Stop: 03/01/18 08:59 Last Admin: 12/31/17 09:22 Dose: 2 spr Gabapentin (Neurontin) 300 mg PO 1700 [facility] Stop: 03/01/18 16:59 Gabapentin (Neurontin) 300 mg PO 0900 [facility] Stop: 03/01/18 08:59 Last Admin: 12/31/17 09:19 Dose: 300 mg Gabapentin (Neurontin) 400 mg PO TID [facility] Stop: 02/28/18 20:59 Gabapentin (Neurontin) 600 mg PO HS [facility] Stop: 02/28/18 20:59 Guaifenesin (Robitussin) 200 mg PO Q4HR PRN PRN Reason: Cough or Congestion Stop: 02/28/18 18:47 Heparin Sodium (Porcine) (Heparin) 5,000 units SUBQ Q12HR [facility] Stop: 02/28/18 20:59 Last Admin: 12/31/17 09:22 Dose: 5,000 units Ceftriaxone Sodium 1 gm/ (Sodium Chloride) 50 mls @ 100 mls/hr IV Q24HR [facility] Stop: 02/28/18 20:59 Last Infusion: 12/30/17 22:25 Dose: Infused Ibuprofen (Motrin) 800 mg PO Q6H PRN PRN Reason: Pain (Mild) Stop: 02/28/18 18:47 Ipratropium [place] (Atrovent Neb 0.5mg/2.5ml) 0.6 mg HHN Q2H PRN PRN Reason: sob/wheezing Stop: 02/28/18 18:47 Lactulose (Cephulac) 20 gm PO Q4H PRN PRN Reason: Constipation Stop: 02/28/18 18:47 Lorazepam (Ativan) 1 mg PO Q6HR PRN; Protocol PRN Reason: Anxiety Stop: 02/28/18 18:47 Last Admin: 12/30/17 23:47 Dose: 1 mg Methocarbamol (Robaxin) 500 mg PO BID [facility] Stop: 03/01/18 08:59 Last Admin: 12/31/17 09:19 Dose: 500 mg Methylprednisolone Sodium Succinate (Solu-Medrol) 80 mg IVP Q8HR [facility] Stop: 02/28/18 20:59 Last Admin: 12/31/17 04:24 Dose: 80 mg Miscellaneous (Fluticasone/Salmeterol [Advair 250-50 Diskus]) 1 puff IH BID [facility] Stop: 03/01/18 08:59 Miscellaneous (Roflumilast [Daliresp]) 500 mcg PO DAILY [facility] Stop: 03/01/18 08:59 Morphine Sulfate (Ms-Contin) 15 mg PO DAILY [facility] Stop: 03/01/18 08:59 Last Admin: 12/31/17 09:20 Dose: 15 mg Nitroglycerin (Nitrostat) 0.4 mg SL Q5MIN PRN PRN Reason: Chest Pain Stop: 02/28/18 18:47 Ondansetron HCl (Zofran) 4 mg IV Q8H PRN PRN Reason: Nausea / Vomiting Stop: 02/28/18 18:54 Pantoprazole Sodium (Protonix) 40 mg PO DAILY [facility] Stop: 03/01/18 08:59 Last Admin: 12/31/17 09:20 Dose: 40 mg Risperidone (Risperdal) 3 mg PO Q12HR [facility] PRN Reason: Protocol Stop: 02/28/18 20:59 Last Admin: 12/31/17 09:20 Dose: 3 mg - Procedures Procedures: Procedures Procedure Code Date ANESTH INJEC PERIPH NERV 04.81 12/04/10 ANESTH INJECT-SPIN CANAL 03.91 02/21/12 ASSISTANCE WITH RESPIRATORY VENTILATION, 24-96 HRS, CPAP [id number] 10/03/16 CERVICAL SPINE X-RAY NEC 87.22 02/28/11 EPIDUROGRAPHY 19381 02/21/12 INJ FORAMEN EPIDURAL L/S 62521 12/04/10 INJ PARAVERT F JNT C/T 1 LEV 91223 02/28/11 INJ PARAVERT F JNT C/T 2 LEV 46000 02/28/11 INJ PARAVERT F JNT C/T 3 LEV 23790 02/28/11 INJECT SPINE CERV/THORACIC 99806 05/30/11 INJECT SPINE LUMBAR/SACRAL 90765 02/21/12 INJECT STEROID 99.23 02/21/12 INJECT/INFUSE NEC 99.29 02/28/11 INJECTION INTO JOINT 81.92 02/28/11 LUMBOSAC SPINE X-RAY NEC 87.24 02/21/12 MYELOGRAPHY NECK SPINE 53374 05/30/11 PERIPH NERVE INJECT NEC 04.89 12/04/10 POS AIRWAY PRESSURE CPAP 60495 10/03/16 SPINAL CANAL INJECT NEC 03.92 02/21/12
--- NOTE | 2017-12-31 12:06 | History & Physical ---
ADMIT DATE: 12/31/2017 DICTATING FOR: Dr. Ollie Pate. CHIEF COMPLAINT: Fever. HISTORY OF PRESENT ILLNESS: This is a 67-year-old female who is well known to me from [facility]. The patient presents to the ER with a 3-day history of generalized weakness, fever, productive cough and congestion. For further management, the patient is now admitted to the telemetry unit. PAST MEDICAL HISTORY: Hypertension, COPD, migraine, constipation, anxiety, bipolar, depression, psychosis. PAST SURGICAL HISTORY: Back and neck surgery. ALLERGIES: To LEVAQUIN, NSAIDS, PENICILLIN, PROCHLORPERAZINE and QUINOLONES. SOCIAL HISTORY: The patient is a [place] [facility] resident and the patient smokes a pack per day. MEDICATIONS: Celexa, gabapentin, Ativan, Robaxin, DuoNeb, Klonopin, Colace, Mylanta, Protonix, Risperdal. REVIEW OF SYSTEMS: GENERAL: Denies any fevers, any chills. CARDIOVASCULAR: Denies chest pain. RESPIRATORY: Denies any shortness of breath, but complains of productive cough. GASTROINTESTINAL: Denies nausea, vomiting, abdominal pain. GENITOURINARY: Denies increased frequency or dysuria. NEUROLOGIC: No headaches, seizures, or syncope. All other systems are reviewed and are negative. PHYSICAL EXAMINATION: GENERAL: Elderly female, awake, alert with some confusion. No apparent distress. VITAL SIGNS: Temperature 99.1, heart rate 65, blood pressure 144/72, respirations 18, O2 99%. HEENT: Normocephalic, atraumatic. NECK: Supple. No mass. LUNGS: Scattered rhonchi bilaterally. HEART: Regular rate and rhythm. ABDOMEN: Soft, nontender. LABORATORY DATA: WBC 6.1, H and H 13.3 and 39.8, platelet of 204. Sodium 139, potassium 4.0, chloride 103, BUN 15, creatinine 0.6. Albumin of 2.0. The patient had a chest x-ray done, impression is chronic lung changes with no focal consolidation identified. Prominent right paratracheal density, probably related to ___ rotation may be due to vessels, postsurgical changes of the cervical spine. ASSESSMENT: Chronic obstructive pulmonary disease exacerbation, possible pneumonia, mild protein-calorie malnutrition, hypertension, depression, psychosis, bipolar. PLAN: The patient to be admitted to the telemetry unit. Keep patient on supplemental oxygen as well as respiratory treatments. Keep patient on IV antibiotics of Rocephin 1 gram IV q.24 h. Monitor patient's CBC and BMP. We will have psychiatry consultation. We will continue to monitor this patient. We will also get a followup chest x-ray. JOB# [id number]
[2017-12-31 16:09] LABS: URINE MICROSCOPIC INDICATED? YES; URINE SOURCE CLEAN C
[2017-12-31 16:12] LABS: URINE BILIRUBIN SMALL (NEGATIVE); URINE BLOOD SMALL (NEGATIVE); URINE GLUCOSE (UA) 100 mg/dL (NEGATIVE); URINE KETONE >=80 mg/dL (NEGATIVE); URINE LEUKOCYTE ESTERASE NEGATIVE (NEGATIVE); URINE NITRATE NEGATIVE (NEGATIVE); URINE PROTEIN TRACE mg/dL (NEGATIVE); URINE UROBILINOGEN 0.2 E.U./dL (0.2 - 1.0)
[2017-12-31 16:36] LABS: URINE CLARITY HAZY (CLEAR); URINE COLOR YELLOW
[2017-12-31 16:37] LABS: URINE BACTERIA NONE SEEN /hpf (NONE SEEN); URINE EPITHELIAL CELLS FEW /lpf (FEW); URINE WBC 0-2 /hpf (0-5)
[2017-12-31] MEDS: cefTRIAXone 1 GM in Sodium Chloride 0.9% 50 ML IV SCH (20:34)
[2018-01-01] MEDS: Hydrocodone/APAP 5mg/325mg Tab PO PRN ×3 (04:03→20:42)
[2018-01-01] MEDS: methylPREDNISolone SS 40 mg Vial IVP SCH ×3 (04:11→20:44)
[2018-01-01 05:48] LABS: % EOSINOPHILS 0.2 % (0.0-5.0); % LYMPHOCYTES 15.9 % (20.0-50.0); % MONOCYTES 5.3 % (2.0-10.0); % NEUTROPHILS 78.6 % (40.0-80.0); HEMATOCRIT 44.7 % (41.0-60); HEMOGLOBIN 14.5 gm/dL (12-16); LYMPHOCYTE ABSOLUTE 0.7 Th/cmm (1.5-3.0); MEAN CELL VOLUME 91.6 fl (81-100); MEAN CORPUSCULAR HEMOGLOBIN 29.8 pg (27.0-31.0); MEAN CORPUSCULAR HGB CONC 32.5 pg (28.0-36.0); MEAN PLATELET VOLUME 8.8 fl; MONOCYTE ABSOLUTE 0.2 Th/cmm (0.3-1.0); NEUTROPHILE ABSOLUTE 3.5 Th/cmm (1.8-8.0); PLATELET COUNT 196 Th/cmm (150-400); RED BLOOD COUNT 4.88 Mil/cmm (3.80-5.20); WHITE BLOOD COUNT 4.4 Th/cmm (4.8-10.8)
[2018-01-01 06:01] LABS: ANION GAP 11.6 (7.0-16.0); BUN - UREA NITROGEN 20 mg/dL (7-25); CALCIUM SERUM 9.6 mg/dL (8.6-10.3); CARBON DIOXIDE 27.7 mEq/L (21.0-31.0); CHLORIDE 99 mEq/L (98-107); CREATININE - SERUM 0.5 mg/dL (0.6-1.2); GFR AFRICAN-AMERICAN > 60.0 ml/min (>90); GFR NON AFRICAN-AMERICAN > 60.0 ml/min; GLUCOSE 136 mg/dL (70-105); POTASSIUM SERUM 4.3 mEq/L (3.5-5.1); SODIUM SERUM 134 mEq/L (136-145)
[2018-01-01] MEDS: Albuterol/Ipratropium Neb 3 ML AERS HHN SCH ×4 (07:38→18:51)
[2018-01-01] MEDS: Budesonide 0.5 Mg/2 mL Ud HHN SCH ×2 (07:38→18:51)
[2018-01-01] MEDS: Pantoprazole 40 mg EC Tab PO SCH (09:22)
[2018-01-01] MEDS: Fluticasone Propionate 0.05mg/Actuation 16gm Nasal Spray NS SCH (09:23)
--- NOTE | 2018-01-01 14:12 | Internal Medicine Prog Note ---
Internal Medicine Subjective - Subjective Service Date: 01/01/18 Patient seen and examined:: with staff Patient is:: awake, verbal Per staff patient has:: tolerating meds Internal Medicine Objective - Results Result Diagrams: 01/01/18 05:09 01/01/18 05:09 Recent Labs: Laboratory Last Values WBC 4.4 Th/cmm (4.8-10.8) L 01/01/18 05:09 RBC 4.88 Mil/cmm (3.80-5.20) 01/01/18 05:09 Hgb 14.5 gm/dL (12-16) 01/01/18 05:09 Hct 44.7 % (41.0-60) 01/01/18 05:09 MCV 91.6 fl (81-100) 01/01/18 05:09 MCH 29.8 pg (27.0-31.0) 01/01/18 05:09 MCHC Differential 32.5 pg (28.0-36.0) 01/01/18 05:09 RDW 14.0 % (11.5-20.0) 01/01/18 05:09 Plt Count 196 Th/cmm (150-400) 01/01/18 05:09 MPV 8.8 fl 01/01/18 05:09 Neutrophils % 78.6 % (40.0-80.0) 01/01/18 05:09 Lymphocytes % 15.9 % (20.0-50.0) L 01/01/18 05:09 Monocytes % 5.3 % (2.0-10.0) 01/01/18 05:09 Eosinophils % 0.2 % (0.0-5.0) 01/01/18 05:09 Basophils % 0.0 % (0.0-2.0) 01/01/18 05:09 PT 10.5 SECONDS (9.5-11.5) 12/30/17 15:25 INR 1.01 (0.5-1.4) 12/30/17 15:25 PTT (Actin FS) 24.6 SECONDS (26.0-38.0) L 12/30/17 15:25 Sodium 134 mEq/L (136-145) L 01/01/18 05:09 Potassium 4.3 mEq/L (3.5-5.1) 01/01/18 05:09 Chloride 99 mEq/L (98-107) 01/01/18 05:09 Carbon Dioxide 27.7 mEq/L (21.0-31.0) 01/01/18 05:09 Anion Gap 11.6 (7.0-16.0) 01/01/18 05:09 BUN 20 mg/dL (7-25) 01/01/18 05:09 Creatinine 0.5 mg/dL (0.6-1.2) L 01/01/18 05:09 Est GFR ( Amer) > 60.0 ml/min (>90) 01/01/18 05:09 Est GFR (Non-Af Amer) > 60.0 ml/min 01/01/18 05:09 BUN/Creatinine Ratio 40.0 01/01/18 05:09 Glucose 136 mg/dL (70-105) H 01/01/18 05:09 Whole Bld Lactic Acid 0.59 mmol/L (0.60-1.99) L 12/30/17 15:25 Calcium 9.6 mg/dL (8.6-10.3) 01/01/18 05:09 Total Bilirubin 0.5 mg/dL (0.3-1.0) 12/30/17 15:25 AST 17 U/L (13-39) 12/30/17 15:25 ALT 11 U/L (7-52) 12/30/17 15:25 Alkaline Phosphatase 45 U/L (34-104) 12/30/17 15:25 Creatine Kinase 113 U/L (30-223) 12/30/17 15:25 Troponin I < 0.01 ng/mL (0.01-0.05) L 12/30/17 15:25 Total Protein 6.0 gm/dL (6.0-8.3) 12/30/17 15:25 Albumin 4.0 gm/dL (3.7-5.3) 12/30/17 15:25 Globulin 2.0 gm/dL 12/30/17 15:25 Albumin/Globulin Ratio 2.0 (1.0-1.8) H 12/30/17 15:25 Urine Source CLEAN C 12/31/17 16:00 Urine Color YELLOW 12/31/17 16:00 Urine Clarity HAZY (CLEAR) 12/31/17 16:00 Urine pH 6.0 (4.6 - 8.0) 12/31/17 16:00 Ur Specific [place] 1.025 (1.005-1.030) 12/31/17 16:00 Urine Protein TRACE mg/dL (NEGATIVE) 12/31/17 16:00 Urine Glucose (UA) 100 mg/dL (NEGATIVE) H 12/31/17 16:00 Urine Ketones >=80 mg/dL (NEGATIVE) H 12/31/17 16:00 Urine Blood SMALL (NEGATIVE) H 12/31/17 16:00 Urine Nitrate NEGATIVE (NEGATIVE) 12/31/17 16:00 Urine Bilirubin SMALL (NEGATIVE) H 12/31/17 16:00 Urine Urobilinogen 0.2 E.U./dL (0.2 - 1.0) 12/31/17 16:00 Ur Leukocyte Esterase NEGATIVE (NEGATIVE) 12/31/17 16:00 Urine RBC 2-5 /hpf (0-5) 12/31/17 16:00 Urine WBC 0-2 /hpf (0-5) 12/31/17 16:00 Ur Epithelial Cells FEW /lpf (FEW) 12/31/17 16:00 Urine Bacteria NONE SEEN /hpf (NONE SEEN) 12/31/17 16:00 Urine Test NEGATIVE 12/31/17 16:00 - Physical Exam Vitals and I&O: Vital Signs Temp 97.1 F 01/01/18 11:40 Pulse 71 01/01/18 11:40 Resp 20 01/01/18 11:40 BP 118/60 01/01/18 11:40 Pulse Ox 94 01/01/18 11:40 Intake & Output 12/31/17 01/01/18 01/01/18 18:59 06:59 18:59 Intake Total 550 50 Balance 550 50 Weight (lbs) 140 lb 3.2 oz 144 lb 4.8 oz Intake: Intake, IV Amount 50 cefTRIAXone 1 gm In 50 Sodium Chloride 0.9% 50 ml @ 100 mls/hr IV Q24HR [facility] Rx#:[id number] Oral 550 Other: # Voids 3 2 # Bowel Movements 1 0 Weight Source Bedscale Bedscale Active Medications: Current Medications Acetaminophen/Hydrocodone Bitart ([place] 5mg/325mg) 1 tab PO Q6H PRN PRN Reason: Pain (Severe) Stop: 02/28/18 18:47 Last Admin: 01/01/18 13:15 Dose: 1 tab Al Hydrox/Mg Hydrox/Simethicone (Maalox) 30 ml PO Q4H PRN PRN Reason: gi distress Albuterol/Ipratropium (Duoneb Neb) 3 ml HHN Q6HRT PRN PRN Reason: Shortness of Breath Stop: 02/28/18 18:47 Last Admin: 12/30/17 20:27 Dose: 3 ml Albuterol/Ipratropium (Duoneb Neb) 3 ml HHN QIDRT [facility] Stop: 03/01/18 10:59 Last Admin: 01/01/18 11:39 Dose: 3 ml Budesonide (Pulmicort) 0.5 mg HHN Q12HRT [facility] Stop: 02/28/18 18:59 Last Admin: 01/01/18 07:38 Dose: 0.5 mg Citalopram Hydrobromide (Celexa) 20 mg PO DAILY [facility] PRN Reason: Protocol Stop: 03/01/18 08:59 Last Admin: 01/01/18 09:21 Dose: 20 mg Clonazepam (Klonopin) 1 mg PO BID [facility] Stop: 03/01/18 08:59 Last Admin: 01/01/18 09:21 Dose: 1 mg Divalproex Sodium (Depakote Dr) 500 mg PO BID [facility] PRN Reason: Protocol Stop: 03/01/18 08:59 Last Admin: 01/01/18 09:22 Dose: 500 mg Docusate Sodium (Colace) 200 mg PO DAILY [facility] Stop: 03/01/18 08:59 Last Admin: 01/01/18 09:21 Dose: 200 mg Fluticasone Propionate (Flonase) 2 spr NS DAILY [facility] Stop: 03/01/18 08:59 Last Admin: 01/01/18 09:23 Dose: 2 spr Gabapentin (Neurontin) 300 mg PO 1700 [facility] Stop: 03/01/18 16:59 Gabapentin (Neurontin) 400 mg PO TID [facility] Stop: 03/01/18 14:59 Last Admin: 01/01/18 13:15 Dose: 400 mg Gabapentin (Neurontin) 600 mg PO HS [facility] Stop: 02/28/18 20:59 Guaifenesin (Robitussin) 200 mg PO Q4HR PRN PRN Reason: Cough or Congestion Stop: 02/28/18 18:47 Heparin Sodium (Porcine) (Heparin) 5,000 units SUBQ Q12HR [facility] Stop: 02/28/18 20:59 Last Admin: 01/01/18 09:23 Dose: 5,000 units Ceftriaxone Sodium 1 gm/ (Sodium Chloride) 50 mls @ 100 mls/hr IV Q24HR [facility] Stop: 02/28/18 20:59 Last Infusion: 12/31/17 21:04 Dose: Infused Ibuprofen (Motrin) 800 mg PO Q6H PRN PRN Reason: Pain (Mild) Stop: 02/28/18 18:47 Lactulose (Cephulac) 20 gm PO Q4H PRN PRN Reason: Constipation Stop: 02/28/18 18:47 Lorazepam (Ativan) 1 mg PO Q6HR PRN; Protocol PRN Reason: Anxiety Stop: 02/28/18 18:47 Last Admin: 12/30/17 23:47 Dose: 1 mg Methocarbamol (Robaxin) 500 mg PO BID [facility] Stop: 03/01/18 08:59 Last Admin: 01/01/18 09:21 Dose: 500 mg Methylprednisolone Sodium Succinate (Solu-Medrol) 80 mg IVP Q8HR [facility] Stop: 02/28/18 20:59 Last Admin: 01/01/18 13:15 Dose: 80 mg Miscellaneous (Fluticasone/Salmeterol [Advair 250-50 Diskus]) 1 puff IH BID [facility] Stop: 03/01/18 08:59 Miscellaneous (Roflumilast [Daliresp]) 500 mcg PO DAILY [facility] Stop: 03/01/18 08:59 Morphine Sulfate (Ms-Contin) 15 mg PO BID [facility] Stop: 03/02/18 16:59 Nitroglycerin (Nitrostat) 0.4 mg SL Q5MIN PRN PRN Reason: Chest Pain Stop: 02/28/18 18:47 Ondansetron HCl (Zofran) 4 mg IV Q8H PRN PRN Reason: Nausea / Vomiting Stop: 02/28/18 18:54 Pantoprazole Sodium (Protonix) 40 mg PO DAILY [facility] Stop: 03/01/18 08:59 Last Admin: 01/01/18 09:22 Dose: 40 mg Risperidone (Risperdal) 3 mg PO Q12HR JOSEE PRN Reason: Protocol Stop: 02/28/18 20:59 Last Admin: 01/01/18 09:21 Dose: 3 mg General: weak, alert HEENT: NC/AT, PERRLA Neck: Supple Lungs: ronchi Cardiovascular: RRR, without murmur Abdomen: soft, non-tender, non-distended Neurological: alert - Procedures Procedures: Procedures Procedure Code Date ANESTH INJEC PERIPH NERV 04.81 12/04/10 ANESTH INJECT-SPIN CANAL 03.91 02/21/12 ASSISTANCE WITH RESPIRATORY VENTILATION, 24-96 HRS, CPAP [id number] 10/03/16 CERVICAL SPINE X-RAY NEC 87.22 02/28/11 EPIDUROGRAPHY 98472 02/21/12 INJ FORAMEN EPIDURAL L/S 55110 12/04/10 INJ PARAVERT F JNT C/T 1 LEV 98536 02/28/11 INJ PARAVERT F JNT C/T 2 LEV 75548 02/28/11 INJ PARAVERT F JNT C/T 3 LEV 03186 02/28/11 INJECT SPINE CERV/THORACIC 23565 05/30/11 INJECT SPINE LUMBAR/SACRAL 72377 02/21/12 INJECT STEROID 99.23 02/21/12 INJECT/INFUSE NEC 99.29 02/28/11 INJECTION INTO JOINT 81.92 02/28/11 LUMBOSAC SPINE X-RAY NEC 87.24 02/21/12 MYELOGRAPHY NECK SPINE 78698 05/30/11 PERIPH NERVE INJECT NEC 04.89 12/04/10 POS AIRWAY PRESSURE CPAP 80649 10/03/16 SPINAL CANAL INJECT NEC 03.92 02/21/12 Internal Medicine Assmt/Plan - Assessment Assessment: ACUTE COPD EXACERBATION PNA MILD PROTEIN CALORIE MALNUTRITION HTN DEPRESSION PSYCHOSIS BIPOLAR - Plan Plan: continue with iv antibiotics inhalation treatments supplemental oxygen as needed continue current plan of care
[2018-01-01] MEDS: cefTRIAXone 1 GM in Sodium Chloride 0.9% 50 ML IV SCH (20:45)
[2018-01-02] MEDS: methylPREDNISolone SS 40 mg Vial IVP SCH ×3 (04:50→20:44)
[2018-01-02 06:09] LABS: % BASOPHILS 0.4 % (0.0-2.0); % EOSINOPHILS 0.1 % (0.0-5.0); % LYMPHOCYTES 17.9 % (20.0-50.0); % MONOCYTES 5.3 % (2.0-10.0); % NEUTROPHILS 76.3 % (40.0-80.0); HEMATOCRIT 36.4 % (41.0-60); HEMOGLOBIN 12.7 gm/dL (12-16); LYMPHOCYTE ABSOLUTE 1.1 Th/cmm (1.5-3.0); MEAN CELL VOLUME 90.1 fl (81-100); MEAN CORPUSCULAR HEMOGLOBIN 31.4 pg (27.0-31.0); MEAN CORPUSCULAR HGB CONC 34.9 pg (28.0-36.0); MEAN PLATELET VOLUME 8.3 fl; MONOCYTE ABSOLUTE 0.3 Th/cmm (0.3-1.0); NEUTROPHILE ABSOLUTE 4.7 Th/cmm (1.8-8.0); PLATELET COUNT 201 Th/cmm (150-400); RED BLOOD COUNT 4.04 Mil/cmm (3.80-5.20); RED CELL DISTRIBUTION WIDTH 14.2 % (11.5-20.0); WHITE BLOOD COUNT 6.1 Th/cmm (4.8-10.8)
[2018-01-02 06:20] LABS: ANION GAP 8.2 (7.0-16.0); BUN - UREA NITROGEN 25 mg/dL (7-25); CARBON DIOXIDE 30.4 mEq/L (21.0-31.0); CHLORIDE 103 mEq/L (98-107); CREATININE - SERUM 0.5 mg/dL (0.6-1.2); GFR AFRICAN-AMERICAN > 60.0 ml/min (>90); GFR NON AFRICAN-AMERICAN > 60.0 ml/min; GLUCOSE 111 mg/dL (70-105); POTASSIUM SERUM 4.6 mEq/L (3.5-5.1); SODIUM SERUM 137 mEq/L (136-145)
--- NOTE | 2018-01-02 07:57 | Diagnostic Imaging Report ---
CHEST X-RAY: AP view INDICATION: Pneumonia COMPARISON: 12/30/2017 FINDINGS: There is no focal consolidation or pleural effusions The heart is normal in size. Postsurgical changes of the cervical spine are noted. IMPRESSION: No focal airspace consolidation identified.
[2018-01-02] MEDS: Albuterol/Ipratropium Neb 3 ML AERS HHN SCH ×4 (08:34→19:08)
[2018-01-02] MEDS: Budesonide 0.5 Mg/2 mL Ud HHN SCH ×2 (08:34→19:08)
[2018-01-02] MEDS: Pantoprazole 40 mg EC Tab PO SCH (08:43)
[2018-01-02] MEDS: Fluticasone Propionate 0.05mg/Actuation 16gm Nasal Spray NS SCH (08:44)
--- NOTE | 2018-01-02 11:22 | Internal Medicine Prog Note ---
Internal Medicine Subjective - Subjective Service Date: 01/02/18 Patient seen and examined:: with staff Patient is:: awake, verbal Per staff patient has:: tolerating meds Internal Medicine Objective - Results Result Diagrams: 01/02/18 05:45 01/02/18 05:45 Recent Labs: Laboratory Last Values WBC 6.1 Th/cmm (4.8-10.8) 01/02/18 05:45 RBC 4.04 Mil/cmm (3.80-5.20) 01/02/18 05:45 Hgb 12.7 gm/dL (12-16) 01/02/18 05:45 Hct 36.4 % (41.0-60) L 01/02/18 05:45 MCV 90.1 fl (81-100) 01/02/18 05:45 MCH 31.4 pg (27.0-31.0) H 01/02/18 05:45 MCHC Differential 34.9 pg (28.0-36.0) 01/02/18 05:45 RDW 14.2 % (11.5-20.0) 01/02/18 05:45 Plt Count 201 Th/cmm (150-400) 01/02/18 05:45 MPV 8.3 fl 01/02/18 05:45 Neutrophils % 76.3 % (40.0-80.0) 01/02/18 05:45 Lymphocytes % 17.9 % (20.0-50.0) L 01/02/18 05:45 Monocytes % 5.3 % (2.0-10.0) 01/02/18 05:45 Eosinophils % 0.1 % (0.0-5.0) 01/02/18 05:45 Basophils % 0.4 % (0.0-2.0) 01/02/18 05:45 PT 10.5 SECONDS (9.5-11.5) 12/30/17 15:25 INR 1.01 (0.5-1.4) 12/30/17 15:25 PTT (Actin FS) 24.6 SECONDS (26.0-38.0) L 12/30/17 15:25 Sodium 137 mEq/L (136-145) 01/02/18 05:45 Potassium 4.6 mEq/L (3.5-5.1) 01/02/18 05:45 Chloride 103 mEq/L (98-107) 01/02/18 05:45 Carbon Dioxide 30.4 mEq/L (21.0-31.0) 01/02/18 05:45 Anion Gap 8.2 (7.0-16.0) 01/02/18 05:45 BUN 25 mg/dL (7-25) 01/02/18 05:45 Creatinine 0.5 mg/dL (0.6-1.2) L 01/02/18 05:45 Est GFR ( Amer) > 60.0 ml/min (>90) 01/02/18 05:45 Est GFR (Non-Af Amer) > 60.0 ml/min 01/02/18 05:45 BUN/Creatinine Ratio 50.0 01/02/18 05:45 Glucose 111 mg/dL (70-105) H 01/02/18 05:45 Whole Bld Lactic Acid 0.59 mmol/L (0.60-1.99) L 12/30/17 15:25 Calcium 9.0 mg/dL (8.6-10.3) 01/02/18 05:45 Total Bilirubin 0.5 mg/dL (0.3-1.0) 12/30/17 15:25 AST 17 U/L (13-39) 12/30/17 15:25 ALT 11 U/L (7-52) 12/30/17 15:25 Alkaline Phosphatase 45 U/L (34-104) 12/30/17 15:25 Creatine Kinase 113 U/L (30-223) 12/30/17 15:25 Troponin I < 0.01 ng/mL (0.01-0.05) L 12/30/17 15:25 Total Protein 6.0 gm/dL (6.0-8.3) 12/30/17 15:25 Albumin 4.0 gm/dL (3.7-5.3) 12/30/17 15:25 Globulin 2.0 gm/dL 12/30/17 15:25 Albumin/Globulin Ratio 2.0 (1.0-1.8) H 12/30/17 15:25 Urine Source CLEAN C 12/31/17 16:00 Urine Color YELLOW 12/31/17 16:00 Urine Clarity HAZY (CLEAR) 12/31/17 16:00 Urine pH 6.0 (4.6 - 8.0) 12/31/17 16:00 Ur Specific [place] 1.025 (1.005-1.030) 12/31/17 16:00 Urine Protein TRACE mg/dL (NEGATIVE) 12/31/17 16:00 Urine Glucose (UA) 100 mg/dL (NEGATIVE) H 12/31/17 16:00 Urine Ketones >=80 mg/dL (NEGATIVE) H 12/31/17 16:00 Urine Blood SMALL (NEGATIVE) H 12/31/17 16:00 Urine Nitrate NEGATIVE (NEGATIVE) 12/31/17 16:00 Urine Bilirubin SMALL (NEGATIVE) H 12/31/17 16:00 Urine Urobilinogen 0.2 E.U./dL (0.2 - 1.0) 12/31/17 16:00 Ur Leukocyte Esterase NEGATIVE (NEGATIVE) 12/31/17 16:00 Urine RBC 2-5 /hpf (0-5) 12/31/17 16:00 Urine WBC 0-2 /hpf (0-5) 12/31/17 16:00 Ur Epithelial Cells FEW /lpf (FEW) 12/31/17 16:00 Urine Bacteria NONE SEEN /hpf (NONE SEEN) 12/31/17 16:00 Urine Test NEGATIVE 12/31/17 16:00 - Physical Exam Vitals and I&O: Vital Signs Temp 96.9 F 01/02/18 08:00 Pulse 62 01/02/18 08:35 Resp 18 01/02/18 08:35 BP 132/63 01/02/18 08:00 Pulse Ox 96 01/02/18 08:35 Intake & Output 01/01/18 01/02/18 01/02/18 18:59 06:59 18:59 Intake Total 750 200 Balance 750 200 Weight (lbs) 144 lb 8 oz 145 lb 12.8 oz 145 lb 12.8 oz Intake: Intake, IV Amount 50 cefTRIAXone 1 gm In 50 Sodium Chloride 0.9% 50 ml @ 100 mls/hr IV Q24HR [facility] Rx#:[id number] Oral 750 150 Other: # Voids 3 2 # Bowel Movements 1 0 Weight Source Bedscale Bedscale Bedscale Active Medications: Current Medications Acetaminophen/Hydrocodone Bitart ([place] 5mg/325mg) 1 tab PO Q6H PRN PRN Reason: Pain (Severe) Stop: 02/28/18 18:47 Last Admin: 01/01/18 20:42 Dose: 1 tab Al Hydrox/Mg Hydrox/Simethicone (Maalox) 30 ml PO Q4H PRN PRN Reason: gi distress Albuterol/Ipratropium (Duoneb Neb) 3 ml HHN Q6HRT PRN PRN Reason: Shortness of Breath Stop: 02/28/18 18:47 Last Admin: 12/30/17 20:27 Dose: 3 ml Albuterol/Ipratropium (Duoneb Neb) 3 ml HHN QIDRT [facility] Stop: 03/01/18 10:59 Last Admin: 01/02/18 08:34 Dose: 3 ml Budesonide (Pulmicort) 0.5 mg HHN Q12HRT [facility] Stop: 02/28/18 18:59 Last Admin: 01/02/18 08:34 Dose: 0.5 mg Citalopram Hydrobromide (Celexa) 20 mg PO DAILY [facility] PRN Reason: Protocol Stop: 03/01/18 08:59 Last Admin: 01/02/18 08:43 Dose: 20 mg Clonazepam (Klonopin) 1 mg PO BID [facility] Stop: 03/01/18 08:59 Last Admin: 01/02/18 08:44 Dose: 1 mg Divalproex Sodium (Depakote Dr) 500 mg PO BID [facility] PRN Reason: Protocol Stop: 03/01/18 08:59 Last Admin: 01/02/18 08:44 Dose: 500 mg Docusate Sodium (Colace) 200 mg PO DAILY [facility] Stop: 03/01/18 08:59 Last Admin: 01/02/18 08:42 Dose: 200 mg Fluticasone Propionate (Flonase) 2 spr NS DAILY [facility] Stop: 03/01/18 08:59 Last Admin: 01/02/18 08:44 Dose: 2 spr Gabapentin (Neurontin) 300 mg PO 1700 [facility] Stop: 03/01/18 16:59 Gabapentin (Neurontin) 400 mg PO TID [facility] Stop: 03/01/18 14:59 Last Admin: 01/02/18 08:43 Dose: 400 mg Gabapentin (Neurontin) 600 mg PO HS [facility] Stop: 02/28/18 20:59 Last Admin: 01/02/18 07:51 Dose: Not Given Guaifenesin (Robitussin) 200 mg PO Q4HR PRN PRN Reason: Cough or Congestion Stop: 02/28/18 18:47 Heparin Sodium (Porcine) (Heparin) 5,000 units SUBQ Q12HR [facility] Stop: 02/28/18 20:59 Last Admin: 01/02/18 08:44 Dose: 5,000 units Ceftriaxone Sodium 1 gm/ (Sodium Chloride) 50 mls @ 100 mls/hr IV Q24HR [facility] Stop: 02/28/18 20:59 Last Infusion: 01/01/18 21:15 Dose: Infused Ibuprofen (Motrin) 800 mg PO Q6H PRN PRN Reason: Pain (Mild) Stop: 02/28/18 18:47 Last Admin: 01/02/18 01:39 Dose: 800 mg Lactulose (Cephulac) 20 gm PO Q4H PRN PRN Reason: Constipation Stop: 02/28/18 18:47 Lorazepam (Ativan) 1 mg PO Q6HR PRN; Protocol PRN Reason: Anxiety Stop: 02/28/18 18:47 Last Admin: 12/30/17 23:47 Dose: 1 mg Methocarbamol (Robaxin) 500 mg PO BID [facility] Stop: 03/01/18 08:59 Last Admin: 01/02/18 08:43 Dose: 500 mg Methylprednisolone Sodium Succinate (Solu-Medrol) 80 mg IVP Q8HR [facility] Stop: 02/28/18 20:59 Last Admin: 01/02/18 04:50 Dose: 80 mg Miscellaneous (Roflumilast [Daliresp]) 500 mcg PO DAILY [facility] Stop: 03/01/18 08:59 Morphine Sulfate (Ms-Contin) 15 mg PO BID [facility] Stop: 03/02/18 16:59 Last Admin: 01/02/18 08:43 Dose: 15 mg Nitroglycerin (Nitrostat) 0.4 mg SL Q5MIN PRN PRN Reason: Chest Pain Stop: 02/28/18 18:47 Ondansetron HCl (Zofran) 4 mg IV Q8H PRN PRN Reason: Nausea / Vomiting Stop: 02/28/18 18:54 Pantoprazole Sodium (Protonix) 40 mg PO DAILY [facility] Stop: 06/23/18 08:59 Last Admin: 01/02/18 08:43 Dose: 40 mg Risperidone (Risperdal) 3 mg PO Q12HR [facility] PRN Reason: Protocol Stop: 02/28/18 20:59 Last Admin: 01/02/18 08:43 Dose: 3 mg General: weak, alert HEENT: NC/AT, PERRLA Neck: Supple Lungs: ronchi Cardiovascular: RRR, without murmur Abdomen: soft, non-tender, non-distended Neurological: alert - Procedures Procedures: Procedures Procedure Code Date ANESTH INJEC PERIPH NERV 04.81 12/04/10 ANESTH INJECT-SPIN CANAL 03.91 02/21/12 ASSISTANCE WITH RESPIRATORY VENTILATION, 24-96 HRS, CPAP [id number] 10/03/16 CERVICAL SPINE X-RAY NEC 87.22 02/28/11 EPIDUROGRAPHY 12837 02/21/12 INJ FORAMEN EPIDURAL L/S 52831 12/04/10 INJ PARAVERT F JNT C/T 1 LEV 99669 02/28/11 INJ PARAVERT F JNT C/T 2 LEV 49574 02/28/11 INJ PARAVERT F JNT C/T 3 LEV 91342 02/28/11 INJECT SPINE CERV/THORACIC 91784 05/30/11 INJECT SPINE LUMBAR/SACRAL 82076 02/21/12 INJECT STEROID 99.23 02/21/12 INJECT/INFUSE NEC 99.29 02/28/11 INJECTION INTO JOINT 81.92 02/28/11 LUMBOSAC SPINE X-RAY NEC 87.24 02/21/12 MYELOGRAPHY NECK SPINE 92159 05/30/11 PERIPH NERVE INJECT NEC 04.89 12/04/10 POS AIRWAY PRESSURE CPAP 63606 10/03/16 SPINAL CANAL INJECT NEC 03.92 02/21/12 Internal Medicine Assmt/Plan - Assessment Assessment: ACUTE COPD EXACERBATION PNA MILD PROTEIN CALORIE MALNUTRITION HTN DEPRESSION PSYCHOSIS BIPOLAR - Plan Plan: continue with iv antibiotics inhalation treatments supplemental oxygen as needed continue current plan of care
[2018-01-02] MEDS: Hydrocodone/APAP 5mg/325mg Tab PO PRN ×2 (14:47→23:46)
[2018-01-02] MEDS ORDERED: ROFLUMILAST 500 MCG PO SCH (15:30)
[2018-01-02] MEDS: cefTRIAXone 1 GM in Sodium Chloride 0.9% 50 ML IV SCH (20:43)
[2018-01-03] MEDS: methylPREDNISolone SS 40 mg Vial IVP SCH (05:13)
[2018-01-03] MEDS: Budesonide 0.5 Mg/2 mL Ud HHN SCH (07:52)
[2018-01-03] MEDS: Albuterol/Ipratropium Neb 3 ML AERS HHN SCH (07:53)
[2018-01-03] MEDS: Pantoprazole 40 mg EC Tab PO SCH (08:38)
[2018-01-03] MEDS: Fluticasone Propionate 0.05mg/Actuation 16gm Nasal Spray NS SCH (08:40)
== END 2018-01-03 10:16 | DRG 871 ==
LOC: ER 13:54 → TELE 16:44 → UNDODISIN 01-02 15:20
PROVIDERS: ADMIT Internal Medicine; ATTEND Internal Medicine
DX: A41.9 Sepsis, unspecified organism (principal); J18.9 Pneumonia, unspecified organism; J44.1 Chronic obstructive pulmonary disease with (acute) exacerbation; E44.1 Mild protein-calorie malnutrition; F33.9 Major depressive disorder, recurrent, unspecified; J44.0 Chronic obstructive pulmonary disease with (acute) lower respiratory infection; I10 Essential (primary) hypertension; F29 Unspecified psychosis not due to a substance or known physiological condition; K59.00 Constipation, unspecified; F17.210 Nicotine dependence, cigarettes, uncomplicated; Z68.23 Body mass index [BMI] 23.0-23.9, adult; Z88.8 Allergy status to other drugs, medicaments and biological substances; E11.9 Type 2 diabetes mellitus without complications; E78.5 Hyperlipidemia, unspecified; K21.9 Gastro-esophageal reflux disease without esophagitis; F03.90 Unspecified dementia, unspecified severity, without behavioral disturbance, psychotic disturbance, mood disturbance, and anxiety; Z83.3 Family history of diabetes mellitus; Z82.49 Family history of ischemic heart disease and other diseases of the circulatory system; G43.909 Migraine, unspecified, not intractable, without status migrainosus; Z23 Encounter for immunization
CPT/HCPCS: 36415-UA; 71045-TC; 80048-TC; 80053-TC; 81001-TC; 81025-TC; 82550-TC; 83605; 84484-TC; 85025-TC; 85610-TC; 85730-TC; 87070; 93005; 94640; 94760; J0696; J1644; J2920; J3370; J7030; J7613; Z7610

== ENCOUNTER 2018-01-03 10:17 | Inpatient (IN) | payer MEDICARE, MEDICAID ==
[2018-01-03 11:00] VITALS: BP 122/69
[2018-01-03] MEDS ORDERED: Lactulose 10 Gm/15 mL 30mL UDC PO PRN (11:12)
[2018-01-03] MEDS ORDERED: Albuterol/Ipratropium Neb 3 ML AERS HHN PRN (11:12)
[2018-01-03] MEDS ORDERED: guaiFENesin 200 MG/10 ML UDC PO PRN (11:12)
--- NOTE | 2018-01-03 12:44 | Internal Medicine Prog Note ---
Internal Medicine Subjective - Subjective Patient seen and examined:: with staff, chart reviewed Patient is:: awake, verbal, interactive, in bed, denies any new complaints, agitated Patient Complaints of:: congestion Per staff patient has:: no adverse event, no episodes of fall, tolerating meds Internal Medicine Objective - Physical Exam Vitals and I&O: Vital Signs Temp Pulse Resp BP 122/69 01/03/18 10:59 Pulse Ox Intake & Output 01/02/18 01/03/18 01/03/18 18:59 06:59 18:59 Weight (lbs) 66.814 kg Other: Weight Source Bedscale Active Medications: Current Medications Acetaminophen/Hydrocodone Bitart ([place] 5mg/325mg) 1 tab PO Q6H PRN PRN Reason: Pain (Severe) Stop: 03/04/18 11:11 Al Hydrox/Mg Hydrox/Simethicone (Maalox) 30 ml PO Q4HR PRN PRN Reason: GI DISTRESS Stop: 03/04/18 11:08 Albuterol/Ipratropium (Duoneb Neb) 3 ml HHN Q6HRT [facility] Stop: 03/04/18 12:59 Albuterol/Ipratropium (Duoneb Neb) 3 ml HHN Q6HR PRN PRN Reason: Shortness of Breath Stop: 03/04/18 11:11 Citalopram Hydrobromide (Celexa) 20 mg PO DAILY [facility] PRN Reason: Protocol Stop: 03/05/18 08:59 Clonazepam (Klonopin) 1 mg PO BID [facility] PRN Reason: Protocol Stop: 03/04/18 16:59 Divalproex Sodium (Depakote Dr) mg PO BID [facility] PRN Reason: Protocol Stop: 03/04/18 16:59 Docusate Sodium (Colace) 200 mg PO DAILY [facility] Stop: 03/05/18 08:59 Fluticasone Propionate (Flonase) 2 spr NS DAILY [facility] Stop: 03/05/18 08:59 Gabapentin (Neurontin) 400 mg PO TID [facility] Stop: 03/04/18 13:59 Gabapentin (Neurontin) 300 mg PO 1700 [facility] Stop: 03/04/18 16:59 Gabapentin (Neurontin) 600 mg PO HS [facility] Stop: 03/04/18 20:59 Guaifenesin (Robitussin) 200 mg PO Q4HR PRN PRN Reason: Cough or Congestion Stop: 03/04/18 11:11 Heparin Sodium (Porcine) (Heparin) 5,000 units SUBQ Q12HR [facility] Stop: 03/04/18 20:59 Ibuprofen (Motrin) 800 mg PO Q6H PRN PRN Reason: Pain (Mild) Stop: 03/04/18 11:11 Lactulose (Cephulac) 20 gm PO Q4H PRN PRN Reason: Constipation Stop: 03/04/18 11:11 Methocarbamol (Robaxin) 500 mg PO BID [facility] Stop: 03/04/18 16:59 Nitroglycerin (Nitrostat) 0.4 mg SL Q5MIN PRN PRN Reason: Chest Pain Stop: 03/04/18 11:11 Pantoprazole Sodium (Protonix) 40 mg PO QDAC [facility] Stop: 03/05/18 07:29 Risperidone (Risperdal) 3 mg PO Q12H [facility] PRN Reason: Protocol Stop: 03/04/18 20:59 General: congested HEENT: NC/AT, PERRLA, EOMI, thinning hair, poor dentition Neck: Supple, No JVD Lungs: congested, wheezing Cardiovascular: RRR, Normal S1, Normal S2 Abdomen: soft, non-tender, globular, non-distended Extremities: excoriation, deformity Neurological: no change, disorganized, unable to follow command - Procedures Procedures: Procedures Procedure Code Date ANESTH INJEC PERIPH NERV 04.81 12/04/10 ANESTH INJECT-SPIN CANAL 03.91 02/21/12 ASSISTANCE WITH RESPIRATORY VENTILATION, 24-96 HRS, CPAP [id number] 10/03/16 CERVICAL SPINE X-RAY NEC 87.22 02/28/11 EPIDUROGRAPHY 53844 02/21/12 INJ FORAMEN EPIDURAL L/S 58401 12/04/10 INJ PARAVERT F JNT C/T 1 LEV 88681 02/28/11 INJ PARAVERT F JNT C/T 2 LEV 50177 02/28/11 INJ PARAVERT F JNT C/T 3 LEV 71206 02/28/11 INJECT SPINE CERV/THORACIC 25428 05/30/11 INJECT SPINE LUMBAR/SACRAL 30130 02/21/12 INJECT STEROID 99.23 02/21/12 INJECT/INFUSE NEC 99.29 02/28/11 INJECTION INTO JOINT 81.92 02/28/11 LUMBOSAC SPINE X-RAY NEC 87.24 02/21/12 MYELOGRAPHY NECK SPINE 41894 05/30/11 PERIPH NERVE INJECT NEC 04.89 12/04/10 POS AIRWAY PRESSURE CPAP 73308 10/03/16 SPINAL CANAL INJECT NEC 03.92 02/21/12 Internal Medicine Assmt/Plan - Assessment Assessment: - Assessment Assessment: ACUTE COPD EXACERBATION PNA MILD PROTEIN CALORIE MALNUTRITION HTN DEPRESSION PSYCHOSIS BIPOLAR - Plan Plan: continue with iv antibiotics inhalation treatments supplemental oxygen as needed continue current plan of care - Plan Plan: will review meds add bactrim
[2018-01-03] MEDS: Albuterol/Ipratropium Neb 3 ML AERS HHN SCH ×2 (14:12→18:59)
[2018-01-03] MEDS ORDERED: Albuterol/Ipratropium Neb 3 ML AERS HHN SCH (15:00)
[2018-01-03] MEDS: Sulfamethoxazole/TMP 800/160mg Tab PO SCH (16:51)
[2018-01-03] MEDS: Hydrocodone/APAP 5mg/325mg Tab PO PRN (18:03)
--- NOTE | 2018-01-04 00:55 | Psychosocial Evaluation ---
DATE OF SERVICE: 01/03/2018 IDENTIFYING DATA: The patient is a 67-year-old woman, a resident of a [facility]. Information is obtained by directly interviewing the patient as well as reviewing the admission papers. JUSTIFICATION FOR HOSPITALIZATION: The patient is admitted here on a voluntary basis in view of the acute mood swings. CHIEF COMPLAINT: "I am okay, but I am sick now." HISTORY OF PRESENT ILLNESS: This is the first psychiatric hospitalization to [facility] for this patient who has been diagnosed to have bipolar disorder and is being followed up by Dr. Haro on an outpatient basis. Initially the patient was admitted to the med-surg unit for pneumonia and the patient has been medically cleared and transferred over here for further psychiatric care in view of her acute mood swings. PAST PSYCHIATRIC HISTORY: Please refer to the above. MEDICAL HISTORY AND PHYSICAL EXAMINATION: Requested to be done by Dr. Pate. SUBSTANCE ABUSE HISTORY: None. PHYSICAL OR SEXUAL ABUSE HISTORY: None. SOCIAL HISTORY: The patient is a resident of [facility]. MENTAL STATUS EXAMINATION: The patient is 67 years old, superficially cooperative. Eye contact is poor. Mood is irritable. Affect is constricted. The patient is stating that she is tired and frustrated and cannot give much of the information. The patient is very drowsy at this time and is not able to provide much of the information. I am not able to get the details of the cognitive testing at this time. The patient is reported to have been having mood swings earlier on the medical unit and hence the patient has to be transferred over here for further care. DIAGNOSTIC IMPRESSION: AXIS I: Bipolar disorder, mixed with psychotic symptoms, rule out schizoaffective disorder. AXIS II: None. AXIS III: As per Dr. Pate. IMMEDIATE TREATMENT PLAN: The patient is going to be closely monitored on the inpatient unit and provided with supportive psychotherapy. The patient is going to be encouraged to participate in the groups and verbalize the concerns. Once stabilized, the patient is going to be discharged to [facility] to be followed up on an outpatient basis. JOB# [id number]
[2018-01-04] MEDS: Albuterol/Ipratropium Neb 3 ML AERS HHN SCH ×4 (01:06→19:31)
[2018-01-04] MEDS: Pantoprazole 40 mg EC Tab PO SCH (06:46)
[2018-01-04] MEDS: Budesonide 0.5 Mg/2 mL Ud HHN SCH ×2 (06:50→19:31)
[2018-01-04] MEDS: Sulfamethoxazole/TMP 800/160mg Tab PO SCH ×2 (09:05→16:12)
[2018-01-04] MEDS: Fluticasone Propionate 0.05mg/Actuation 16gm Nasal Spray NS SCH (09:10)
--- NOTE | 2018-01-04 14:00 | Internal Medicine Prog Note ---
Internal Medicine Subjective - Subjective Service Date: 01/04/18 Patient is:: awake, verbal, interactive, in bed, denies any new complaints, agitated Patient Complaints of:: congestion Per staff patient has:: no adverse event, no episodes of fall, tolerating meds Internal Medicine Objective - Physical Exam Vitals and I&O: Vital Signs Temp 98.4 F 01/04/18 08:00 Pulse 70 01/04/18 12:07 Resp 16 01/04/18 12:07 BP 132/68 01/04/18 08:00 Pulse Ox 95 01/04/18 12:07 Intake & Output 01/03/18 01/04/18 01/04/18 18:59 06:59 18:59 Intake Total 600 360 240 Balance 600 360 240 Intake: Oral 600 360 240 Other: # Voids 2 1 2 Stool Characteristics Formed Weight Source Bedscale Active Medications: Current Medications Acetaminophen/Hydrocodone Bitart ([place] 5mg/325mg) 1 tab PO Q6H PRN PRN Reason: Pain (Severe) Stop: 03/04/18 11:11 Last Admin: 01/03/18 18:03 Dose: 1 tab Al Hydrox/Mg Hydrox/Simethicone (Maalox) 30 ml PO Q4HR PRN PRN Reason: GI DISTRESS Stop: 03/04/18 11:08 Albuterol/Ipratropium (Duoneb Neb) 3 ml HHN Q6HRT [facility] Stop: 03/04/18 12:59 Last Admin: 01/04/18 12:04 Dose: 3 ml Albuterol/Ipratropium (Duoneb Neb) 3 ml HHN Q6HR PRN PRN Reason: Shortness of Breath Stop: 03/04/18 11:11 Budesonide (Pulmicort) 0.5 mg HHN Q12HRT [facility] Stop: 03/04/18 18:59 Last Admin: 01/04/18 06:50 Dose: 0.5 mg Citalopram Hydrobromide (Celexa) 20 mg PO DAILY [facility] PRN Reason: Protocol Stop: 03/05/18 08:59 Last Admin: 01/04/18 09:05 Dose: 20 mg Divalproex Sodium (Depakote Dr) 500 mg PO DAILY [facility] PRN Reason: Protocol Stop: 03/05/18 08:59 Last Admin: 01/04/18 09:11 Dose: 500 mg Docusate Sodium (Colace) 200 mg PO DAILY [facility] Stop: 03/05/18 08:59 Last Admin: 01/04/18 09:05 Dose: Not Given Fluticasone Propionate (Flonase) 2 spr NS DAILY [facility] Stop: 03/05/18 08:59 Last Admin: 01/04/18 09:10 Dose: 2 spr Gabapentin (Neurontin) 400 mg PO TID [facility] Stop: 03/04/18 13:59 Last Admin: 01/04/18 13:45 Dose: Not Given Gabapentin (Neurontin) 300 mg PO 1700 [facility] Stop: 03/04/18 16:59 Last Admin: 01/03/18 16:51 Dose: 300 mg Gabapentin (Neurontin) 600 mg PO HS [facility] Stop: 03/04/18 20:59 Last Admin: 01/03/18 21:49 Dose: 600 mg Guaifenesin (Robitussin) 200 mg PO Q4HR PRN PRN Reason: Cough or Congestion Stop: 03/04/18 11:11 Heparin Sodium (Porcine) (Heparin) 5,000 units SUBQ Q12HR [facility] Stop: 03/04/18 20:59 Last Admin: 01/04/18 08:53 Dose: 5,000 units Ibuprofen (Motrin) 800 mg PO Q6H PRN PRN Reason: Pain (Mild) Stop: 03/04/18 11:11 Lactulose (Cephulac) 20 gm PO Q4H PRN PRN Reason: Constipation Stop: 03/04/18 11:11 Methocarbamol (Robaxin) 500 mg PO BID [facility] Stop: 03/04/18 16:59 Last Admin: 01/04/18 09:10 Dose: 500 mg Nitroglycerin (Nitrostat) 0.4 mg SL Q5MIN PRN PRN Reason: Chest Pain Stop: 03/04/18 11:11 Pantoprazole Sodium (Protonix) 40 mg PO QDAC [facility] Stop: 03/05/18 07:29 Last Admin: 01/04/18 06:46 Dose: 40 mg Trimethoprim/Sulfamethoxazole (Bactrim Ds) 1 tab PO BID [facility] Stop: 01/10/18 16:59 Last Admin: 01/04/18 09:05 Dose: 1 tab General: congested HEENT: NC/AT, PERRLA, EOMI, thinning hair, poor dentition Neck: Supple, No JVD Lungs: congested, wheezing Cardiovascular: RRR, Normal S1, Normal S2 Abdomen: soft, non-tender, globular, non-distended Extremities: excoriation, deformity Neurological: no change, disorganized, unable to follow command - Procedures Procedures: Procedures Procedure Code Date ANESTH INJEC PERIPH NERV 04.81 12/04/10 ANESTH INJECT-SPIN CANAL 03.91 02/21/12 ASSISTANCE WITH RESPIRATORY VENTILATION, 24-96 HRS, CPAP [id number] 10/03/16 CERVICAL SPINE X-RAY NEC 87.22 02/28/11 EPIDUROGRAPHY 61897 02/21/12 INJ FORAMEN EPIDURAL L/S 34206 12/04/10 INJ PARAVERT F JNT C/T 1 LEV 77142 02/28/11 INJ PARAVERT F JNT C/T 2 LEV 87289 02/28/11 INJ PARAVERT F JNT C/T 3 LEV 96159 02/28/11 INJECT SPINE CERV/THORACIC 16557 05/30/11 INJECT SPINE LUMBAR/SACRAL 52494 02/21/12 INJECT STEROID 99.23 02/21/12 INJECT/INFUSE NEC 99.29 02/28/11 INJECTION INTO JOINT 81.92 02/28/11 LUMBOSAC SPINE X-RAY NEC 87.24 02/21/12 MYELOGRAPHY NECK SPINE 58145 05/30/11 PERIPH NERVE INJECT NEC 04.89 12/04/10 POS AIRWAY PRESSURE CPAP 38224 10/03/16 SPINAL CANAL INJECT NEC 03.92 02/21/12 Internal Medicine Assmt/Plan - Assessment Assessment: COPD MILD PROTEIN CALORIE MALNUTRITION HTN DEPRESSION PSYCHOSIS BIPOLAR - Plan Plan: inhalation treatments supplemental oxygen as needed continue current plan of care
--- NOTE | 2018-01-05 00:19 | Progress Notes ---
DATE: 01/04/2018 SUBJECTIVE: Staff was spoken to. The patient is interviewed. Mood is noted to be irritable. Affect is constricted. The patient is stating that she has an acute pain and she wants more of the Dilaudid. Coping skills at this time are noted to be poor. The patient is currently on 20 mg of the citalopram and has been able to tolerate the medication. The patient is also on 500 mg twice a day of the Depakote. ASSESSMENT: The patient is still impulsive. The patient is ____. PLAN: The patient is taken off of the risperidone and lorazepam and the Depakote also has been majorly 500 mg in the morning. With these medications, the patient is going to be observed and the patient is going to be encouraged to participate in the groups and verbalize the concerns rather than to act out. JOB# [id number]
[2018-01-05] MEDS: Albuterol/Ipratropium Neb 3 ML AERS HHN SCH ×4 (01:06→18:52)
[2018-01-05] MEDS: Pantoprazole 40 mg EC Tab PO SCH (06:34)
[2018-01-05] MEDS: Budesonide 0.5 Mg/2 mL Ud HHN SCH ×2 (06:35→18:52)
[2018-01-05] MEDS: Fluticasone Propionate 0.05mg/Actuation 16gm Nasal Spray NS SCH (08:35)
[2018-01-05] MEDS: Sulfamethoxazole/TMP 800/160mg Tab PO SCH ×2 (08:35→18:21)
[2018-01-05] MEDS: Hydrocodone/APAP 5mg/325mg Tab PO PRN ×2 (10:44→20:40)
--- NOTE | 2018-01-05 15:59 | Internal Medicine Prog Note ---
Internal Medicine Subjective - Subjective Service Date: 01/05/18 Patient is:: awake, verbal, interactive, in bed, denies any new complaints, agitated Patient Complaints of:: congestion Per staff patient has:: no adverse event, no episodes of fall, tolerating meds Internal Medicine Objective - Physical Exam Vitals and I&O: Vital Signs Temp 97.6 F 01/05/18 15:46 Pulse 58 01/05/18 15:46 Resp 20 01/05/18 15:46 BP 105/52 01/05/18 15:46 Pulse Ox 95 01/05/18 15:46 Intake & Output 01/04/18 01/05/18 01/05/18 18:59 06:59 18:59 Intake Total 2140 360 Balance 2140 360 Intake: Oral 2140 360 Other: # Voids 3 1 # Bowel Movements 1 1 Active Medications: Current Medications Acetaminophen/Hydrocodone Bitart ([place] 5mg/325mg) 1 tab PO Q6H PRN PRN Reason: Pain (Severe) Stop: 03/04/18 11:11 Last Admin: 01/05/18 10:44 Dose: 1 tab Al Hydrox/Mg Hydrox/Simethicone (Maalox) 30 ml PO Q4HR PRN PRN Reason: GI DISTRESS Stop: 03/04/18 11:08 Albuterol/Ipratropium (Duoneb Neb) 3 ml HHN Q6HRT [facility] Stop: 03/04/18 12:59 Last Admin: 01/05/18 13:10 Dose: 3 ml Albuterol/Ipratropium (Duoneb Neb) 3 ml HHN Q6HR PRN PRN Reason: Shortness of Breath Stop: 03/04/18 11:11 Budesonide (Pulmicort) 0.5 mg HHN Q12HRT [facility] Stop: 03/04/18 18:59 Last Admin: 01/05/18 06:35 Dose: 0.5 mg Citalopram Hydrobromide (Celexa) 20 mg PO DAILY [facility] PRN Reason: Protocol Stop: 03/05/18 08:59 Last Admin: 01/05/18 08:34 Dose: 20 mg Divalproex Sodium (Depakote Dr) 500 mg PO DAILY [facility] PRN Reason: Protocol Stop: 03/05/18 08:59 Last Admin: 01/05/18 08:34 Dose: 500 mg Docusate Sodium (Colace) 200 mg PO DAILY [facility] Stop: 03/05/18 08:59 Last Admin: 01/05/18 08:34 Dose: 200 mg Fluticasone Propionate (Flonase) 2 spr NS DAILY [facility] Stop: 03/05/18 08:59 Last Admin: 01/05/18 08:35 Dose: 2 spr Gabapentin (Neurontin) 400 mg PO TID [facility] Stop: 03/04/18 13:59 Last Admin: 01/05/18 14:23 Dose: 400 mg Gabapentin (Neurontin) 300 mg PO 1700 [facility] Stop: 03/04/18 16:59 Last Admin: 01/04/18 16:12 Dose: 300 mg Gabapentin (Neurontin) 600 mg PO HS [facility] Stop: 03/04/18 20:59 Last Admin: 01/04/18 20:48 Dose: 600 mg Guaifenesin (Robitussin) 200 mg PO Q4HR PRN PRN Reason: Cough or Congestion Stop: 03/04/18 11:11 Heparin Sodium (Porcine) (Heparin) 5,000 units SUBQ Q12HR [facility] Stop: 03/04/18 20:59 Last Admin: 01/05/18 08:35 Dose: 5,000 units Ibuprofen (Motrin) 800 mg PO Q6H PRN PRN Reason: Pain (Mild) Stop: 03/04/18 11:11 Last Admin: 01/05/18 14:23 Dose: 800 mg Lactulose (Cephulac) 20 gm PO Q4H PRN PRN Reason: Constipation Stop: 03/04/18 11:11 Methocarbamol (Robaxin) 500 mg PO BID [facility] Stop: 03/04/18 16:59 Last Admin: 01/05/18 08:35 Dose: 500 mg Nitroglycerin (Nitrostat) 0.4 mg SL Q5MIN PRN PRN Reason: Chest Pain Stop: 03/04/18 11:11 Pantoprazole Sodium (Protonix) 40 mg PO QDAC [facility] Stop: 03/05/18 07:29 Last Admin: 01/05/18 06:34 Dose: 40 mg Trimethoprim/Sulfamethoxazole (Bactrim Ds) 1 tab PO BID [facility] Stop: 01/10/18 16:59 Last Admin: 01/05/18 08:35 Dose: 1 tab General: congested HEENT: NC/AT, PERRLA, EOMI, thinning hair, poor dentition Neck: Supple, No JVD Lungs: congested, wheezing Cardiovascular: RRR, Normal S1, Normal S2 Abdomen: soft, non-tender, globular, non-distended Extremities: excoriation, deformity Neurological: no change, disorganized, unable to follow command - Procedures Procedures: Procedures Procedure Code Date ANESTH INJEC PERIPH NERV 04.81 12/04/10 ANESTH INJECT-SPIN CANAL 03.91 02/21/12 ASSISTANCE WITH RESPIRATORY VENTILATION, 24-96 HRS, CPAP [id number] 10/03/16 CERVICAL SPINE X-RAY NEC 87.22 02/28/11 EPIDUROGRAPHY 76936 02/21/12 INJ FORAMEN EPIDURAL L/S 25026 12/04/10 INJ PARAVERT F JNT C/T 1 LEV 72194 02/28/11 INJ PARAVERT F JNT C/T 2 LEV 71075 02/28/11 INJ PARAVERT F JNT C/T 3 LEV 41704 02/28/11 INJECT SPINE CERV/THORACIC 98658 05/30/11 INJECT SPINE LUMBAR/SACRAL 84865 02/21/12 INJECT STEROID 99.23 02/21/12 INJECT/INFUSE NEC 99.29 02/28/11 INJECTION INTO JOINT 81.92 02/28/11 LUMBOSAC SPINE X-RAY NEC 87.24 02/21/12 MYELOGRAPHY NECK SPINE 70783 05/30/11 PERIPH NERVE INJECT NEC 04.89 12/04/10 POS AIRWAY PRESSURE CPAP [id number] 10/03/16 SPINAL CANAL INJECT NEC 03.92 02/21/12 Internal Medicine Assmt/Plan - Assessment Assessment: COPD MILD PROTEIN CALORIE MALNUTRITION HTN DEPRESSION PSYCHOSIS BIPOLAR - Plan Plan: inhalation treatments supplemental oxygen as needed continue current plan of care
--- NOTE | 2018-01-05 22:03 | Progress Notes ---
DATE: 01/05/2018 SUBJECTIVE: Staff was spoken to. The patient is interviewed. Mood is noted to be irritable. Affect is constricted. Insight and judgment are noted to be still impaired. Impulse control seems to be limited. The patient is stating that she is in too much of pain and she needs to be on pain medications. She has been asking for Dilaudid. The patient's coping skills are noted to be extremely poor at this time. Side effect to the medications are noted. ASSESSMENT: The patient is still impulsive and not ready to be discharged to a lower level of care yet. The patient has been getting easily agitated whenever she does not get her way. The patient is still depressed and irritable. PLAN: To continue the patient with the supportive therapy and followup compared to yesterday. The patient seems to be a little bit more alert and awake today. JOB# [id number]
[2018-01-06] MEDS: Albuterol/Ipratropium Neb 3 ML AERS HHN SCH ×4 (00:35→18:56)
--- NOTE | 2018-01-06 04:50 | Consultation ---
DATE OF CONSULTATION: 01/05/2018 REFERRING PHYSICIAN: Joon De Jesus MD. TYPE OF CONSULTATION: Psychology. HISTORY OF PRESENT ILLNESS: The patient is a 67-year-old female. The patient is a resident of [facility]. 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 The following is by review of the medical record as well as by patient's self report. The patient is being admitted due to acute mood swings. Upon interview, the patient states that she is feeling sick. The patient is stating that she is okay now and that she is not experiencing any mood fluctuations. The patient was initially admitted to the med-surg unit for pneumonia and was medically cleared and transferred here for further stabilization and care due to mood instability. PAST MEDICAL HISTORY: Please see history and physical by Dr. Pate. PAST PSYCHIATRIC HISTORY: The patient is under the care of Dr. Haro at [facility]. SUBSTANCE ABUSE HISTORY: The patient denied any history. PSYCHOSOCIAL HISTORY: The patient did not answer questions about occupational or educational history or jewish affiliation. The patient denied any physical or sexual abuse history. The patient denied any current legal problems. The patient is a resident of [facility] and will return to that facility. MENTAL STATUS EXAMINATION: The patient appears to be her stated age. The patient's attitude is superficially cooperative. Eye contact is fair to poor. Speech is delayed. Mood is irritable. Affect is constricted. Thought process shows to be somewhat confused. The patient stated that she is tired and does not want to respond to the clinical interview questions. The patient denied any suicidal ideation, plan or intention. The patient did not answer questions about hallucinations or delusions. The patient did not answer questions about her psychiatric history. The patient is unaware of her diagnosis and has poor insight into her illness. Concentration is poor. The patient appears to be fatigued. Impulse control is intact. Sensorium is alert and oriented to place and self only. The patient did not participate in the memory assessment. The patient acknowledges having mood swings while she was on the medical floor. The patient did not participate in the interpretation of proverbs. Insight is poor. Judgment is compromised. DIAGNOSTIC IMPRESSION: AXIS I: 1. Bipolar disorder mixed with psychotic symptoms. 2. Rule out schizoaffective disorder. AXIS II: Deferred. AXIS III: Per Dr. Pate. TREATMENT PLAN: The patient has been seen by Dr. De Jesus for psychiatric evaluation and for the management of the patient's psychotropic medications. The patient will be provided with supportive psychotherapy to include reality testing, reality orientation and reality integration. We will provide coping strategies for chronic long-term mental illness. We will provide coping strategies for phase of life issues. We will provide motivational enhancement for the patient to become compliant and stay compliant with all aspects of her care and treatment plan. The patient will be followed at her facility upon discharge. Thank you, Dr. De Jesus, for this consult and the opportunity to participate with you in this patient's care. JOB# [id number] BINA
[2018-01-06] MEDS: Budesonide 0.5 Mg/2 mL Ud HHN SCH ×2 (06:41→18:55)
[2018-01-06] MEDS: Pantoprazole 40 mg EC Tab PO SCH (06:43)
[2018-01-06] MEDS: Sulfamethoxazole/TMP 800/160mg Tab PO SCH ×2 (08:35→16:37)
[2018-01-06] MEDS: Fluticasone Propionate 0.05mg/Actuation 16gm Nasal Spray NS SCH (08:36)
--- NOTE | 2018-01-06 14:16 | Internal Medicine Prog Note ---
Internal Medicine Subjective - Subjective Service Date: 01/06/18 Patient is:: awake, verbal, interactive, in bed, denies any new complaints, agitated Patient Complaints of:: congestion Per staff patient has:: no adverse event, no episodes of fall, tolerating meds Internal Medicine Objective - Physical Exam Vitals and I&O: Vital Signs Temp 97.6 F 01/06/18 05:51 Pulse 65 01/06/18 12:10 Resp 16 01/06/18 12:10 BP 113/53 01/06/18 05:51 Pulse Ox 95 01/06/18 12:10 Intake & Output 01/05/18 01/06/18 01/06/18 18:59 06:59 18:59 Intake Total 800 480 Balance 800 480 Intake: Oral 800 480 Other: # Voids 4 1 # Bowel Movements 1 1 Active Medications: Current Medications Acetaminophen/Hydrocodone Bitart ([place] 5mg/325mg) 1 tab PO Q6H PRN PRN Reason: Pain (Severe) Stop: 03/04/18 11:11 Last Admin: 01/05/18 20:40 Dose: 1 tab Al Hydrox/Mg Hydrox/Simethicone (Maalox) 30 ml PO Q4HR PRN PRN Reason: GI DISTRESS Stop: 03/04/18 11:08 Albuterol/Ipratropium (Duoneb Neb) 3 ml HHN Q6HRT [facility] Stop: 03/04/18 12:59 Last Admin: 01/06/18 11:59 Dose: 3 ml Albuterol/Ipratropium (Duoneb Neb) 3 ml HHN Q6HR PRN PRN Reason: Shortness of Breath Stop: 03/04/18 11:11 Budesonide (Pulmicort) 0.5 mg HHN Q12HRT [facility] Stop: 03/04/18 18:59 Last Admin: 01/06/18 06:41 Dose: 0.5 mg Citalopram Hydrobromide (Celexa) 20 mg PO DAILY [facility] PRN Reason: Protocol Stop: 03/05/18 08:59 Last Admin: 01/06/18 08:35 Dose: 20 mg Divalproex Sodium (Depakote Dr) 500 mg PO DAILY [facility] PRN Reason: Protocol Stop: 03/05/18 08:59 Last Admin: 01/06/18 08:35 Dose: 500 mg Docusate Sodium (Colace) 200 mg PO DAILY [facility] Stop: 03/05/18 08:59 Last Admin: 01/06/18 08:35 Dose: 200 mg Fluticasone Propionate (Flonase) 2 spr NS DAILY [facility] Stop: 03/05/18 08:59 Last Admin: 01/06/18 08:36 Dose: 2 spr Gabapentin (Neurontin) 400 mg PO TID [facility] Stop: 03/04/18 13:59 Last Admin: 01/06/18 08:36 Dose: 400 mg Gabapentin (Neurontin) 300 mg PO 1700 [facility] Stop: 03/04/18 16:59 Last Admin: 01/05/18 18:22 Dose: 300 mg Gabapentin (Neurontin) 600 mg PO HS [facility] Stop: 03/04/18 20:59 Last Admin: 01/05/18 20:39 Dose: 600 mg Guaifenesin (Robitussin) 200 mg PO Q4HR PRN PRN Reason: Cough or Congestion Stop: 03/04/18 11:11 Heparin Sodium (Porcine) (Heparin) 5,000 units SUBQ Q12HR [facility] Stop: 03/04/18 20:59 Last Admin: 01/06/18 08:35 Dose: 5,000 units Ibuprofen (Motrin) 800 mg PO Q6H PRN PRN Reason: Pain (Mild) Stop: 03/04/18 11:11 Last Admin: 01/06/18 04:21 Dose: 800 mg Lactulose (Cephulac) 20 gm PO Q4H PRN PRN Reason: Constipation Stop: 03/04/18 11:11 Methocarbamol (Robaxin) 500 mg PO BID [facility] Stop: 03/04/18 16:59 Last Admin: 01/06/18 08:35 Dose: 500 mg Nitroglycerin (Nitrostat) 0.4 mg SL Q5MIN PRN PRN Reason: Chest Pain Stop: 03/04/18 11:11 Pantoprazole Sodium (Protonix) 40 mg PO QDAC [facility] Stop: 03/05/18 07:29 Last Admin: 01/06/18 06:43 Dose: 40 mg Trimethoprim/Sulfamethoxazole (Bactrim Ds) 1 tab PO BID [facility] Stop: 01/10/18 16:59 Last Admin: 01/06/18 08:35 Dose: 1 tab General: congested HEENT: NC/AT, PERRLA, EOMI, thinning hair, poor dentition Neck: Supple, No JVD Lungs: congested, wheezing Cardiovascular: RRR, Normal S1, Normal S2 Abdomen: soft, non-tender, globular, non-distended Extremities: excoriation, deformity Neurological: no change, disorganized, unable to follow command - Procedures Procedures: Procedures Procedure Code Date ANESTH INJEC PERIPH NERV 04.81 12/04/10 ANESTH INJECT-SPIN CANAL 03.91 02/21/12 ASSISTANCE WITH RESPIRATORY VENTILATION, 24-96 HRS, CPAP [id number] 10/03/16 CERVICAL SPINE X-RAY NEC 87.22 02/28/11 EPIDUROGRAPHY 03746 02/21/12 INJ FORAMEN EPIDURAL L/S 41002 12/04/10 INJ PARAVERT F JNT C/T 1 LEV 41600 02/28/11 INJ PARAVERT F JNT C/T 2 LEV 60642 02/28/11 INJ PARAVERT F JNT C/T 3 LEV 89698 02/28/11 INJECT SPINE CERV/THORACIC 20281 05/30/11 INJECT SPINE LUMBAR/SACRAL 41985 02/21/12 INJECT STEROID 99.23 02/21/12 INJECT/INFUSE NEC 99.29 02/28/11 INJECTION INTO JOINT 81.92 02/28/11 LUMBOSAC SPINE X-RAY NEC 87.24 02/21/12 MYELOGRAPHY NECK SPINE 49839 05/30/11 PERIPH NERVE INJECT NEC 04.89 12/04/10 POS AIRWAY PRESSURE CPAP 17676 10/03/16 SPINAL CANAL INJECT NEC 03.92 02/21/12 Internal Medicine Assmt/Plan - Assessment Assessment: COPD MILD PROTEIN CALORIE MALNUTRITION HTN DEPRESSION PSYCHOSIS BIPOLAR - Plan Plan: inhalation treatments supplemental oxygen as needed continue current plan of care
[2018-01-06] MEDS: Hydrocodone/APAP 5mg/325mg Tab PO PRN (20:21)
[2018-01-07] MEDS: Albuterol/Ipratropium Neb 3 ML AERS HHN SCH ×4 (00:14→19:53)
[2018-01-07] MEDS: Hydrocodone/APAP 5mg/325mg Tab PO PRN ×3 (02:00→20:47)
[2018-01-07] MEDS: Pantoprazole 40 mg EC Tab PO SCH (06:36)
[2018-01-07] MEDS: Budesonide 0.5 Mg/2 mL Ud HHN SCH ×2 (07:15→20:04)
[2018-01-07] MEDS: Sulfamethoxazole/TMP 800/160mg Tab PO SCH ×2 (08:41→16:51)
[2018-01-07] MEDS: Fluticasone Propionate 0.05mg/Actuation 16gm Nasal Spray NS SCH (08:42)
--- NOTE | 2018-01-07 11:58 | Progress Notes ---
DATE: 01/06/2018 SUBJECTIVE: Staff was spoken to. The patient is irritable and angry. The patient is stating that this is not the right place and patient is stating that she has been getting anxious and she is worrying about something bad is going to happen to her. The patient's coping skills are noted to be poor at this time. The patient is stating that she needs to be on the Dilaudid or hydrocodone and the patient has been on Depakote and gabapentin. At this time, the patient has been able to tolerate the medications. No side effects to the medications are noted. The patient is going to be placed on a lower dose of the Seroquel at this time because of the fact that she has been extremely anxious and paranoid. ASSESSMENT AND PLAN: The patient is going to be started on 12.5 mg of the Seroquel and followed up with the supportive psychotherapy. [facility]# [id number]
--- NOTE | 2018-01-07 14:07 | Internal Medicine Prog Note ---
Internal Medicine Subjective - Subjective Service Date: 01/07/18 Patient is:: awake, verbal, interactive, in bed, denies any new complaints, agitated Patient Complaints of:: congestion Per staff patient has:: no adverse event, no episodes of fall, tolerating meds Internal Medicine Objective - Physical Exam Vitals and I&O: Vital Signs Temp 97.5 F 01/07/18 06:29 Pulse 78 01/07/18 12:48 Resp 18 01/07/18 12:48 BP 112/61 01/07/18 06:29 Pulse Ox 95 01/07/18 12:48 Intake & Output 01/06/18 01/07/18 01/07/18 18:59 06:59 18:59 Intake Total 2640 480 Balance 2640 480 Intake: Oral 2640 480 Other: # Voids 4 2 # Bowel Movements 0 Active Medications: Current Medications Acetaminophen/Hydrocodone Bitart ([place] 5mg/325mg) 1 tab PO Q6H PRN PRN Reason: Pain (Severe) Stop: 03/04/18 11:11 Last Admin: 01/07/18 02:00 Dose: 1 tab Al Hydrox/Mg Hydrox/Simethicone (Maalox) 30 ml PO Q4HR PRN PRN Reason: GI DISTRESS Stop: 03/04/18 11:08 Albuterol/Ipratropium (Duoneb Neb) 3 ml HHN Q6HRT [facility] Stop: 03/04/18 12:59 Last Admin: 01/07/18 12:45 Dose: 3 ml Albuterol/Ipratropium (Duoneb Neb) 3 ml HHN Q6HR PRN PRN Reason: Shortness of Breath Stop: 03/04/18 11:11 Budesonide (Pulmicort) 0.5 mg HHN Q12HRT [facility] Stop: 03/04/18 18:59 Last Admin: 01/07/18 07:15 Dose: 0.5 mg Citalopram Hydrobromide (Celexa) 20 mg PO DAILY [facility] PRN Reason: Protocol Stop: 03/05/18 08:59 Last Admin: 01/07/18 08:41 Dose: 20 mg Docusate Sodium (Colace) 200 mg PO DAILY [facility] Stop: 03/05/18 08:59 Last Admin: 01/07/18 08:42 Dose: 200 mg Fluticasone Propionate (Flonase) 2 spr NS DAILY [facility] Stop: 03/05/18 08:59 Last Admin: 01/07/18 08:42 Dose: 2 spr Gabapentin (Neurontin) 400 mg PO TID [facility] Stop: 03/04/18 13:59 Last Admin: 01/07/18 08:41 Dose: 400 mg Gabapentin (Neurontin) 300 mg PO 1700 [facility] Stop: 03/04/18 16:59 Last Admin: 01/06/18 16:37 Dose: 300 mg Gabapentin (Neurontin) 600 mg PO HS [facility] Stop: 03/04/18 20:59 Last Admin: 01/06/18 20:19 Dose: 600 mg Guaifenesin (Robitussin) 200 mg PO Q4HR PRN PRN Reason: Cough or Congestion Stop: 03/04/18 11:11 Heparin Sodium (Porcine) (Heparin) 5,000 units SUBQ Q12HR [facility] Stop: 03/04/18 20:59 Last Admin: 01/07/18 08:42 Dose: Not Given Ibuprofen (Motrin) 800 mg PO Q6H PRN PRN Reason: Pain (Mild) Stop: 03/04/18 11:11 Last Admin: 01/06/18 04:21 Dose: 800 mg Lactulose (Cephulac) 20 gm PO Q4H PRN PRN Reason: Constipation Stop: 03/04/18 11:11 Methocarbamol (Robaxin) 500 mg PO BID [facility] Stop: 03/04/18 16:59 Last Admin: 01/07/18 08:41 Dose: 500 mg Nitroglycerin (Nitrostat) 0.4 mg SL Q5MIN PRN PRN Reason: Chest Pain Stop: 03/04/18 11:11 Pantoprazole Sodium (Protonix) 40 mg PO QDAC [facility] Stop: 03/05/18 07:29 Last Admin: 01/07/18 06:36 Dose: 40 mg Quetiapine Fumarate (Seroquel) 25 mg PO HS [facility] PRN Reason: Protocol Stop: 03/08/18 13:26 Trimethoprim/Sulfamethoxazole (Bactrim Ds) 1 tab PO BID [facility] Stop: 01/10/18 16:59 Last Admin: 01/07/18 08:41 Dose: 1 tab General: congested HEENT: NC/AT, PERRLA, EOMI, thinning hair, poor dentition Neck: Supple, No JVD Lungs: congested, wheezing Cardiovascular: RRR, Normal S1, Normal S2 Abdomen: soft, non-tender, globular, non-distended Extremities: excoriation, deformity Neurological: no change, disorganized, unable to follow command - Procedures Procedures: Procedures Procedure Code Date ANESTH INJEC PERIPH NERV 04.81 12/04/10 ANESTH INJECT-SPIN CANAL 03.91 02/21/12 ASSISTANCE WITH RESPIRATORY VENTILATION, 24-96 HRS, CPAP [id number] 10/03/16 CERVICAL SPINE X-RAY NEC 87.22 02/28/11 EPIDUROGRAPHY 17019 02/21/12 INJ FORAMEN EPIDURAL L/S 97214 12/04/10 INJ PARAVERT F JNT C/T 1 LEV 81499 02/28/11 INJ PARAVERT F JNT C/T 2 LEV 16510 02/28/11 INJ PARAVERT F JNT C/T 3 LEV 56834 02/28/11 INJECT SPINE CERV/THORACIC 31846 05/30/11 INJECT SPINE LUMBAR/SACRAL 14031 02/21/12 INJECT STEROID 99.23 02/21/12 INJECT/INFUSE NEC 99.29 02/28/11 INJECTION INTO JOINT 81.92 02/28/11 LUMBOSAC SPINE X-RAY NEC 87.24 02/21/12 MYELOGRAPHY NECK SPINE 57183 05/30/11 PERIPH NERVE INJECT NEC 04.89 12/04/10 POS AIRWAY PRESSURE CPAP 66791 10/03/16 SPINAL CANAL INJECT NEC 03.92 02/21/12 Internal Medicine Assmt/Plan - Assessment Assessment: COPD MILD PROTEIN CALORIE MALNUTRITION HTN DEPRESSION PSYCHOSIS BIPOLAR - Plan Plan: inhalation treatments supplemental oxygen as needed continue current plan of care
--- NOTE | 2018-01-07 19:10 | Progress Notes ---
DATE: 01/07/2018 PSYCHIATRIC PROGRESS NOTE Staff was spoken to. The patient is interviewed. Mood is noted to be irritable. Affect is constricted. The patient is stating that she has not been able to sleep last night. The patient is getting easily frustrated. Insight and judgment at this time are noted to be very much impaired. The patient continues to be paranoid. The patient has been stating that she is scared to be here in the hospital. The patient has no insight into her illness. Agitation and confusion are concerns and the patient is being closely monitored for any aggressive behavior at this time. In view of her psychosis, it is decided to increase the dose on the Seroquel to 25 mg at bedtime and the patient is going to be followed up. JOB# [id number]
[2018-01-07] MEDS: Maalox 30 mL Cup PO PRN (20:46)
[2018-01-08] MEDS: Albuterol/Ipratropium Neb 3 ML AERS HHN SCH ×4 (01:58→19:01)
[2018-01-08] MEDS: Hydrocodone/APAP 5mg/325mg Tab PO PRN ×2 (05:02→22:26)
[2018-01-08] MEDS: Maalox 30 mL Cup PO PRN ×4 (05:03→22:41)
[2018-01-08] MEDS: Pantoprazole 40 mg EC Tab PO SCH (06:42)
[2018-01-08] MEDS: Budesonide 0.5 Mg/2 mL Ud HHN SCH ×2 (07:38→19:01)
[2018-01-08] MEDS: Sulfamethoxazole/TMP 800/160mg Tab PO SCH ×2 (09:46→17:34)
[2018-01-08] MEDS: Fluticasone Propionate 0.05mg/Actuation 16gm Nasal Spray NS SCH (09:47)
--- NOTE | 2018-01-08 16:22 | Internal Medicine Prog Note ---
Internal Medicine Subjective - Subjective Service Date: 01/08/18 Patient is:: awake, verbal, interactive, in bed, denies any new complaints, agitated Patient Complaints of:: congestion Per staff patient has:: no adverse event, no episodes of fall, tolerating meds Internal Medicine Objective - Physical Exam Vitals and I&O: Vital Signs Temp 96.4 F 01/08/18 14:46 Pulse 70 01/08/18 14:46 Resp 20 01/08/18 14:46 BP 126/66 01/08/18 14:46 Pulse Ox 97 01/08/18 14:46 Intake & Output 01/07/18 01/08/18 01/08/18 18:59 06:59 18:59 Intake Total 1200 120 Balance 1200 120 Intake: Oral 1200 120 Other: # Voids 3 3 Active Medications: Current Medications Acetaminophen/Hydrocodone Bitart ([place] 5mg/325mg) 1 tab PO Q6H PRN PRN Reason: Pain (Severe) Stop: 03/04/18 11:11 Last Admin: 01/08/18 05:02 Dose: 1 tab Al Hydrox/Mg Hydrox/Simethicone (Maalox) 30 ml PO Q4HR PRN PRN Reason: GI DISTRESS Stop: 03/04/18 11:08 Last Admin: 01/08/18 14:19 Dose: 30 ml Albuterol/Ipratropium (Duoneb Neb) 3 ml HHN Q6HRT [facility] Stop: 03/04/18 12:59 Last Admin: 01/08/18 13:49 Dose: 3 ml Albuterol/Ipratropium (Duoneb Neb) 3 ml HHN Q6HR PRN PRN Reason: Shortness of Breath Stop: 03/04/18 11:11 Budesonide (Pulmicort) 0.5 mg HHN Q12HRT [facility] Stop: 03/04/18 18:59 Last Admin: 01/08/18 07:38 Dose: 0.5 mg Citalopram Hydrobromide (Celexa) 20 mg PO DAILY [facility] PRN Reason: Protocol Stop: 03/05/18 08:59 Last Admin: 01/08/18 09:46 Dose: 20 mg Docusate Sodium (Colace) 200 mg PO DAILY [facility] Stop: 03/05/18 08:59 Last Admin: 01/08/18 09:51 Dose: 200 mg Fluticasone Propionate (Flonase) 2 spr NS DAILY [facility] Stop: 03/05/18 08:59 Last Admin: 01/08/18 09:47 Dose: 2 spr Gabapentin (Neurontin) 400 mg PO TID [facility] Stop: 03/04/18 13:59 Last Admin: 01/08/18 14:19 Dose: 400 mg Gabapentin (Neurontin) 300 mg PO 1700 [facility] Stop: 03/04/18 16:59 Last Admin: 01/07/18 16:51 Dose: 300 mg Gabapentin (Neurontin) 600 mg PO HS [facility] Stop: 03/04/18 20:59 Last Admin: 01/07/18 20:46 Dose: 600 mg Guaifenesin (Robitussin) 200 mg PO Q4HR PRN PRN Reason: Cough or Congestion Stop: 03/04/18 11:11 Heparin Sodium (Porcine) (Heparin) 5,000 units SUBQ Q12HR [facility] Stop: 03/04/18 20:59 Last Admin: 01/08/18 09:38 Dose: 5,000 units Ibuprofen (Motrin) 800 mg PO Q6H PRN PRN Reason: Pain (Mild) Stop: 03/04/18 11:11 Last Admin: 01/08/18 11:56 Dose: 800 mg Lactulose (Cephulac) 20 gm PO Q4H PRN PRN Reason: Constipation Stop: 03/04/18 11:11 Methocarbamol (Robaxin) 500 mg PO BID [facility] Stop: 03/04/18 16:59 Last Admin: 01/08/18 09:45 Dose: 500 mg Nitroglycerin (Nitrostat) 0.4 mg SL Q5MIN PRN PRN Reason: Chest Pain Stop: 03/04/18 11:11 Pantoprazole Sodium (Protonix) 40 mg PO QDAC [facility] Stop: 03/05/18 07:29 Last Admin: 01/08/18 06:42 Dose: 40 mg Quetiapine Fumarate (Seroquel) 25 mg PO HS [facility] PRN Reason: Protocol Stop: 03/08/18 13:26 Last Admin: 01/07/18 21:05 Dose: 25 mg Trimethoprim/Sulfamethoxazole (Bactrim Ds) 1 tab PO BID [facility] Stop: 01/10/18 16:59 Last Admin: 01/08/18 09:46 Dose: 1 tab General: congested HEENT: NC/AT, PERRLA, EOMI, thinning hair, poor dentition Neck: Supple, No JVD Lungs: congested, wheezing Cardiovascular: RRR, Normal S1, Normal S2 Abdomen: soft, non-tender, globular, non-distended Extremities: excoriation, deformity Neurological: no change, disorganized, unable to follow command - Procedures Procedures: Procedures Procedure Code Date ANESTH INJEC PERIPH NERV 04.81 12/04/10 ANESTH INJECT-SPIN CANAL 03.91 02/21/12 ASSISTANCE WITH RESPIRATORY VENTILATION, 24-96 HRS, CPAP [id number] 10/03/16 CERVICAL SPINE X-RAY NEC 87.22 02/28/11 EPIDUROGRAPHY 01017 02/21/12 INJ FORAMEN EPIDURAL L/S 66761 12/04/10 INJ PARAVERT F JNT C/T 1 LEV 71627 02/28/11 INJ PARAVERT F JNT C/T 2 LEV 99615 02/28/11 INJ PARAVERT F JNT C/T 3 LEV 14691 02/28/11 INJECT SPINE CERV/THORACIC 15397 05/30/11 INJECT SPINE LUMBAR/SACRAL 40467 02/21/12 INJECT STEROID 99.23 02/21/12 INJECT/INFUSE NEC 99.29 02/28/11 INJECTION INTO JOINT 81.92 02/28/11 LUMBOSAC SPINE X-RAY NEC 87.24 02/21/12 MYELOGRAPHY NECK SPINE 26186 05/30/11 PERIPH NERVE INJECT NEC 04.89 12/04/10 POS AIRWAY PRESSURE CPAP 74656 10/03/16 SPINAL CANAL INJECT NEC 03.92 02/21/12 Internal Medicine Assmt/Plan - Assessment Assessment: COPD MILD PROTEIN CALORIE MALNUTRITION HTN DEPRESSION PSYCHOSIS BIPOLAR - Plan Plan: inhalation treatments supplemental oxygen as needed continue current plan of care
[2018-01-09] MEDS: Albuterol/Ipratropium Neb 3 ML AERS HHN SCH ×4 (00:45→19:47)
--- NOTE | 2018-01-09 01:02 | Progress Notes ---
DATE: 01/08/2018 SUBJECTIVE: Staff was spoken to. The patient is interviewed. Mood is noted to be irritable. Affect is constricted. Insight and judgment at this time are noted to be still impaired. Impulse control is noted to be limited. Coping skills are noted to be limited. The patient is stating that she is in acute pain and no one is paying any attention. The patient has been having difficult time to cope with the stress, getting easily agitated and the patient has paranoia and hence the patient has been started on low dose of Seroquel. ASSESSMENT: The patient is still having paranoia and mood swings. PLAN: To continue the patient on the current medications and follow up with the supportive therapy. JOB# [id number]
[2018-01-09] MEDS: Hydrocodone/APAP 5mg/325mg Tab PO PRN ×3 (06:06→23:54)
[2018-01-09] MEDS: Pantoprazole 40 mg EC Tab PO SCH (06:49)
[2018-01-09] MEDS: Budesonide 0.5 Mg/2 mL Ud HHN SCH ×2 (07:40→19:47)
[2018-01-09] MEDS: Sulfamethoxazole/TMP 800/160mg Tab PO SCH ×2 (08:25→17:02)
[2018-01-09] MEDS: Fluticasone Propionate 0.05mg/Actuation 16gm Nasal Spray NS SCH (09:02)
[2018-01-09] MEDS: Maalox 30 mL Cup PO PRN (12:30)
--- NOTE | 2018-01-09 15:39 | Internal Medicine Prog Note ---
Internal Medicine Subjective - Subjective Service Date: 01/09/18 Patient is:: awake, verbal, interactive, in bed, denies any new complaints, agitated Patient Complaints of:: congestion Per staff patient has:: no adverse event, no episodes of fall, tolerating meds Internal Medicine Objective - Physical Exam Vitals and I&O: Vital Signs Temp 97.6 F 01/09/18 14:46 Pulse 80 01/09/18 14:46 Resp 18 01/09/18 14:46 BP 134/57 01/09/18 14:46 Pulse Ox 97 01/09/18 14:46 Intake & Output 01/08/18 01/09/18 01/09/18 18:59 06:59 18:59 Intake Total 1200 120 Balance 1200 120 Intake: Oral 1200 120 Other: # Voids 3 3 Active Medications: Current Medications Acetaminophen/Hydrocodone Bitart ([place] 5mg/325mg) 1 tab PO Q6H PRN PRN Reason: Pain (Severe) Stop: 03/04/18 11:11 Last Admin: 01/09/18 12:30 Dose: 1 tab Al Hydrox/Mg Hydrox/Simethicone (Maalox) 30 ml PO Q4HR PRN PRN Reason: GI DISTRESS Stop: 03/04/18 11:08 Last Admin: 01/09/18 12:30 Dose: 30 ml Albuterol/Ipratropium (Duoneb Neb) 3 ml HHN Q6HRT [facility] Stop: 03/04/18 12:59 Last Admin: 01/09/18 15:22 Dose: 3 ml Albuterol/Ipratropium (Duoneb Neb) 3 ml HHN Q6HR PRN PRN Reason: Shortness of Breath Stop: 03/04/18 11:11 Budesonide (Pulmicort) 0.5 mg HHN Q12HRT [facility] Stop: 03/04/18 18:59 Last Admin: 01/09/18 07:40 Dose: 0.5 mg Citalopram Hydrobromide (Celexa) 20 mg PO DAILY [facility] PRN Reason: Protocol Stop: 03/05/18 08:59 Last Admin: 01/09/18 08:26 Dose: 20 mg Docusate Sodium (Colace) 200 mg PO DAILY [facility] Stop: 03/05/18 08:59 Last Admin: 01/09/18 08:26 Dose: 200 mg Fluticasone Propionate (Flonase) 2 spr NS DAILY [facility] Stop: 03/05/18 08:59 Last Admin: 01/09/18 09:02 Dose: 2 spr Gabapentin (Neurontin) 400 mg PO TID [facility] Stop: 03/04/18 13:59 Last Admin: 01/09/18 14:29 Dose: 400 mg Gabapentin (Neurontin) 300 mg PO 1700 [facility] Stop: 03/04/18 16:59 Last Admin: 01/08/18 17:34 Dose: 300 mg Gabapentin (Neurontin) 600 mg PO HS [facility] Stop: 03/04/18 20:59 Last Admin: 01/08/18 20:50 Dose: 600 mg Guaifenesin (Robitussin) 200 mg PO Q4HR PRN PRN Reason: Cough or Congestion Stop: 03/04/18 11:11 Heparin Sodium (Porcine) (Heparin) 5,000 units SUBQ Q12HR [facility] Stop: 03/04/18 20:59 Last Admin: 01/09/18 08:25 Dose: 5,000 units Ibuprofen (Motrin) 800 mg PO Q6H PRN PRN Reason: Pain (Mild) Stop: 03/04/18 11:11 Last Admin: 01/09/18 10:10 Dose: 800 mg Lactulose (Cephulac) 20 gm PO Q4H PRN PRN Reason: Constipation Stop: 03/04/18 11:11 Lorazepam (Ativan) 0.5 mg PO Q6HR PRN; Protocol PRN Reason: Anxiety Stop: 03/10/18 11:20 Last Admin: 01/09/18 14:29 Dose: 0.5 mg Methocarbamol (Robaxin) 500 mg PO BID [facility] Stop: 03/04/18 16:59 Last Admin: 01/09/18 08:26 Dose: 500 mg Nitroglycerin (Nitrostat) 0.4 mg SL Q5MIN PRN PRN Reason: Chest Pain Stop: 03/04/18 11:11 Pantoprazole Sodium (Protonix) 40 mg PO QDAC [facility] Stop: 03/05/18 07:29 Last Admin: 01/09/18 06:49 Dose: 40 mg Quetiapine Fumarate (Seroquel) 25 mg PO HS [facility] PRN Reason: Protocol Stop: 03/08/18 13:26 Last Admin: 01/08/18 20:51 Dose: 25 mg Trimethoprim/Sulfamethoxazole (Bactrim Ds) 1 tab PO BID [facility] Stop: 01/10/18 16:59 Last Admin: 01/09/18 08:25 Dose: 1 tab General: congested HEENT: NC/AT, PERRLA, EOMI, thinning hair, poor dentition Neck: Supple, No JVD Lungs: congested, wheezing Cardiovascular: RRR, Normal S1, Normal S2 Abdomen: soft, non-tender, globular, non-distended Extremities: excoriation, deformity Neurological: no change, disorganized, unable to follow command - Procedures Procedures: Procedures Procedure Code Date ANESTH INJEC PERIPH NERV 04.81 12/04/10 ANESTH INJECT-SPIN CANAL 03.02/21/12 ASSISTANCE WITH RESPIRATORY VENTILATION, 24-96 HRS, CPAP [id number] 10/03/16 CERVICAL SPINE X-RAY NEC 87.22 02/28/11 EPIDUROGRAPHY 68164 02/21/12 INJ FORAMEN EPIDURAL L/S 38528 12/04/10 INJ PARAVERT F JNT C/T 1 LEV 95408 02/28/11 INJ PARAVERT F JNT C/T 2 LEV 55692 02/28/11 INJ PARAVERT F JNT C/T 3 LEV 67650 02/28/11 INJECT SPINE CERV/THORACIC 39858 05/30/11 INJECT SPINE LUMBAR/SACRAL 84164 02/21/12 INJECT STEROID 99.23 02/21/12 INJECT/INFUSE NEC 99.29 02/28/11 INJECTION INTO JOINT 81.92 02/28/11 LUMBOSAC SPINE X-RAY NEC 87.24 02/21/12 MYELOGRAPHY NECK SPINE 39798 05/30/11 PERIPH NERVE INJECT NEC 04.89 12/04/10 POS AIRWAY PRESSURE CPAP [id number] 10/03/16 SPINAL CANAL INJECT NEC 03.92 02/21/12 Internal Medicine Assmt/Plan - Assessment Assessment: COPD MILD PROTEIN CALORIE MALNUTRITION HTN DEPRESSION PSYCHOSIS BIPOLAR - Plan Plan: PT EVAL inhalation treatments supplemental oxygen as needed continue current plan of care Nutritional Asmnt/Malnutr-PDOC - Dietary Evaluation Malnutrition Findings (Please click <Entered> for more info): Nutritional Asmnt/Malnutrition Start: 01/09/18 14: 02 Text: Status: Complete Freq: Document 01/09/18 14:02 [facility]AMILOG (Rec: 01/09/18 14:12 CAMILOG [email or web address]) Nutritional Asmnt/Malnutrition Patient General Information Nutritional Screening Low Risk Diagnosis psychosis Pertinent Medical Hx/Surgical Hx HTN, COPD, migraine, constipation, anxiety, bipolar , depression, psychosis Subjective Information Per EMR, PO intake 75-100% of meals. Current Diet Order/ Nutrition Support [facility] soft chopped, low sodium Pertinent Medications colace, protonix, seroquel Pertinent Labs no labs Nutritional Hx/Data Height 5 ft 6 in Height (Calculated Centimeters) 167.6 Current Weight (lbs) 147 lb Weight (Calculated Kilograms) 66.7 Weight (Calculated Grams) 69970.1 [place] Body Weight 130 Body Mass Index (BMI) 23.7 Weight Status Approriate GI Symptoms GI Symptoms None Last BM 01/06 Difficult in: None Skin Integrity/Comment: intact Current %PO Good (75-100%) Estimated Nutritional Goals BEE in Kcals: Using Current wt Calories/Kcals/Kg 25-30 Kcals Calculated 8220-9481 Protein: Using Current wt Protein g/k Protein Calculated 67 Fluid: ml 1675-2009ml (1ml/kcal) Nutritional Problem No current Nutrition Prob Problem N/A Malnutrition Alert Protein-Calorie Malnutrition N/A Is there a minimum of two criteria No selected? Query Text:Check all the applicable criteria. A minimum of two criteria are recommended for diagnosis of either severe or non-severe malnutrition. Intervention/Recommendation Comments 1. Continue with [facility] soft chopped low sodium diet as ordered. 2. Monitor PO intake, wt, labs and skin integrity 3. F/U as low risk in 7 days, 5/10 Expected Outcomes/Goals Expected Outcomes/Goals 1. PO intake to meet at least 75% of nutritional needs. 2. Wt stability, skin to remain intact, labs to approach WNL.
[2018-01-10] MEDS: Albuterol/Ipratropium Neb 3 ML AERS HHN SCH ×4 (01:09→19:18)
--- NOTE | 2018-01-10 05:03 | Progress Notes ---
DATE: 01/09/2018 SUBJECTIVE: Staff was spoken to. The patient is interviewed. Mood is noted to be depressed. Affect is constricted. The patient's coping skills are noted to be poor. The patient is ____ that she is not able to fall asleep, but the patient is taking naps during the daytime. No major behavioral problems are noted. The patient is currently on Seroquel 25 mg at bedtime and has been able to tolerate, but the patient's main concern seems to be pain. The patient is given the 20 mg of the citalopram for her depression. ASSESSMENT: The patient is still depressed. PLAN: To continue the patient with the supportive therapy and followup. [facility]# [id number]
[2018-01-10] MEDS: Pantoprazole 40 mg EC Tab PO SCH (06:34)
[2018-01-10] MEDS: Hydrocodone/APAP 5mg/325mg Tab PO PRN ×3 (06:55→21:31)
[2018-01-10] MEDS: Budesonide 0.5 Mg/2 mL Ud HHN SCH ×2 (07:51→19:18)
[2018-01-10] MEDS: Sulfamethoxazole/TMP 800/160mg Tab PO SCH (09:59)
[2018-01-10] MEDS: Fluticasone Propionate 0.05mg/Actuation 16gm Nasal Spray NS SCH (10:00)
--- NOTE | 2018-01-10 15:01 | Internal Medicine Prog Note ---
Internal Medicine Subjective - Subjective Service Date: 01/10/18 Patient is:: awake, verbal, interactive, in bed, denies any new complaints, agitated Patient Complaints of:: congestion Per staff patient has:: no adverse event, no episodes of fall, tolerating meds Internal Medicine Objective - Physical Exam Vitals and I&O: Vital Signs Temp 97.6 F 01/10/18 14:00 Pulse 77 01/10/18 14:00 Resp 20 01/10/18 14:00 BP 120/65 01/10/18 14:00 Pulse Ox 98 01/10/18 14:00 Intake & Output 01/09/18 01/10/18 01/10/18 18:59 06:59 18:59 Intake Total 1200 Balance 1200 Intake: Oral 1200 Other: # Voids 3 # Bowel Movements 1 Active Medications: Current Medications Acetaminophen/Hydrocodone Bitart ([place] 5mg/325mg) 1 tab PO Q6H PRN PRN Reason: Pain (Severe) Stop: 03/04/18 11:11 Last Admin: 01/10/18 14:38 Dose: 1 tab Al Hydrox/Mg Hydrox/Simethicone (Maalox) 30 ml PO Q4HR PRN PRN Reason: GI DISTRESS Stop: 03/04/18 11:08 Last Admin: 01/09/18 12:30 Dose: 30 ml Albuterol/Ipratropium (Duoneb Neb) 3 ml HHN Q6HRT [facility] Stop: 03/04/18 12:59 Last Admin: 01/10/18 13:28 Dose: 3 ml Albuterol/Ipratropium (Duoneb Neb) 3 ml HHN Q6HR PRN PRN Reason: Shortness of Breath Stop: 03/04/18 11:11 Budesonide (Pulmicort) 0.5 mg HHN Q12HRT [facility] Stop: 03/04/18 18:59 Last Admin: 01/10/18 07:51 Dose: 0.5 mg Citalopram Hydrobromide (Celexa) 20 mg PO DAILY [facility] PRN Reason: Protocol Stop: 03/05/18 08:59 Last Admin: 01/10/18 09:56 Dose: 20 mg Docusate Sodium (Colace) 200 mg PO DAILY [facility] Stop: 03/05/18 08:59 Last Admin: 01/10/18 11:49 Dose: Not Given Fluticasone Propionate (Flonase) 2 spr NS DAILY [facility] Stop: 03/05/18 08:59 Last Admin: 01/10/18 10:00 Dose: 2 spr Gabapentin (Neurontin) 400 mg PO TID [facility] Stop: 03/04/18 13:59 Last Admin: 01/10/18 13:10 Dose: 400 mg Gabapentin (Neurontin) 300 mg PO 1700 [facility] Stop: 03/04/18 16:59 Last Admin: 01/09/18 17:02 Dose: 300 mg Gabapentin (Neurontin) 600 mg PO HS [facility] Stop: 03/04/18 20:59 Last Admin: 01/09/18 20:52 Dose: 600 mg Guaifenesin (Robitussin) 200 mg PO Q4HR PRN PRN Reason: Cough or Congestion Stop: 03/04/18 11:11 Heparin Sodium (Porcine) (Heparin) 5,000 units SUBQ Q12HR [facility] Stop: 03/04/18 20:59 Last Admin: 01/10/18 09:55 Dose: 5,000 units Ibuprofen (Motrin) 800 mg PO Q6H PRN PRN Reason: Pain (Mild) Stop: 03/04/18 11:11 Last Admin: 01/09/18 17:02 Dose: 800 mg Lactulose (Cephulac) 20 gm PO Q4H PRN PRN Reason: Constipation Stop: 03/04/18 11:11 Lorazepam (Ativan) 0.5 mg PO Q6HR PRN; Protocol PRN Reason: Anxiety Stop: 03/10/18 11:20 Last Admin: 01/10/18 13:10 Dose: 0.5 mg Methocarbamol (Robaxin) 500 mg PO BID [facility] Stop: 03/04/18 16:59 Last Admin: 01/10/18 09:56 Dose: 500 mg Nitroglycerin (Nitrostat) 0.4 mg SL Q5MIN PRN PRN Reason: Chest Pain Stop: 03/04/18 11:11 Pantoprazole Sodium (Protonix) 40 mg PO QDAC [facility] Stop: 03/05/18 07:29 Last Admin: 01/10/18 06:34 Dose: 40 mg Quetiapine Fumarate (Seroquel) 25 mg PO HS [facility] PRN Reason: Protocol Stop: 03/08/18 13:26 Last Admin: 01/09/18 20:52 Dose: 25 mg General: congested HEENT: NC/AT, PERRLA, EOMI, thinning hair, poor dentition Neck: Supple, No JVD Lungs: congested, wheezing Cardiovascular: RRR, Normal S1, Normal S2 Abdomen: soft, non-tender, globular, non-distended Extremities: excoriation, deformity Neurological: no change, disorganized, unable to follow command - Procedures Procedures: Procedures Procedure Code Date ANESTH INJEC PERIPH NERV 04.81 12/04/10 ANESTH INJECT-SPIN CANAL 03.91 02/21/12 ASSISTANCE WITH RESPIRATORY VENTILATION, 24-96 HRS, CPAP [id number] 10/03/16 CERVICAL SPINE X-RAY NEC 87.22 02/28/11 EPIDUROGRAPHY 49994 02/21/12 INJ FORAMEN EPIDURAL L/S 67113 12/04/10 INJ PARAVERT F JNT C/T 1 LEV 74486 02/28/11 INJ PARAVERT F JNT C/T 2 LEV 39386 02/28/11 INJ PARAVERT F JNT C/T 3 LEV 31330 02/28/11 INJECT SPINE CERV/THORACIC 63987 05/30/11 INJECT SPINE LUMBAR/SACRAL 30273 02/21/12 INJECT STEROID 99.23 02/21/12 INJECT/INFUSE NEC 99.29 02/28/11 INJECTION INTO JOINT 81.92 02/28/11 LUMBOSAC SPINE X-RAY NEC 87.24 02/21/12 MYELOGRAPHY NECK SPINE 98828 05/30/11 PERIPH NERVE INJECT NEC 04.89 12/04/10 POS AIRWAY PRESSURE CPAP 27256 10/03/16 SPINAL CANAL INJECT NEC 03.92 02/21/12 Internal Medicine Assmt/Plan - Assessment Assessment: COPD MILD PROTEIN CALORIE MALNUTRITION HTN DEPRESSION PSYCHOSIS BIPOLAR - Plan Plan: PT EVAL inhalation treatments supplemental oxygen as needed continue current plan of care Nutritional Asmnt/Malnutr-PDOC - Dietary Evaluation Malnutrition Findings (Please click <Entered> for more info): Nutritional Asmnt/Malnutrition Start: 01/09/18 14: 02 Text: Status: Complete Freq: Document 01/09/18 14:02 ISAI (Rec: 01/09/18 14:12 [facility] Nutritional Asmnt/Malnutrition Patient General Information Nutritional Screening Low Risk Diagnosis psychosis Pertinent Medical Hx/Surgical Hx HTN, COPD, migraine, constipation, anxiety, bipolar , depression, psychosis Subjective Information Per EMR, PO intake 75-100% of meals. Current Diet Order/ Nutrition Support [facility] soft chopped, low sodium Pertinent Medications colace, protonix, seroquel Pertinent Labs no labs Nutritional Hx/Data Height 5 ft 6 in Height (Calculated Centimeters) 167.6 Current Weight (lbs) 147 lb Weight (Calculated Kilograms) 66.7 Weight (Calculated Grams) 78943.1 [place] Body Weight 130 Body Mass Index (BMI) 23.7 Weight Status Approriate GI Symptoms GI Symptoms None Last BM 01/06 Difficult in: None Skin Integrity/Comment: intact Current %PO Good (75-100%) Estimated Nutritional Goals BEE in Kcals: Using Current wt Calories/Kcals/Kg 25-30 Kcals Calculated 1194-3188 Protein: Using Current wt Protein g/k Protein Calculated 67 Fluid: ml 1674-2009ml (1ml/kcal) Nutritional Problem No current Nutrition Prob Problem N/A Malnutrition Alert Protein-Calorie Malnutrition N/A Is there a minimum of two criteria No selected? Query Text:Check all the applicable criteria. A minimum of two criteria are recommended for diagnosis of either severe or non-severe malnutrition. Intervention/Recommendation Comments 1. Continue with [facility] soft chopped low sodium diet as ordered. 2. Monitor PO intake, wt, labs and skin integrity 3. F/U as low risk in 7 days, 5/ Expected Outcomes/Goals Expected Outcomes/Goals 1. PO intake to meet at least 75% of nutritional needs. 2. Wt stability, skin to remain intact, labs to approach WNL.
[2018-01-11] MEDS: Albuterol/Ipratropium Neb 3 ML AERS HHN SCH ×4 (01:00→20:03)
--- NOTE | 2018-01-11 04:23 | Progress Notes ---
DATE: 01/10/2018 SUBJECTIVE: Staff was spoken to. The patient is interviewed. Mood is noted to be irritable. Affect is constricted. Coping skills are noted to be still poor. The patient is still isolative and withdrawn. No side effects to the medications are noted. The patient has paranoia, but denies any command hallucinations. The patient is currently on citalopram 20 mg and Seroquel 25 mg at bedtime and has been able to tolerate the medication. No side effects to the medications are noted. ASSESSMENT: The patient is still depressed and paranoid. PLAN: To continue the patient with supportive therapy and followup. JOB# [id number]
[2018-01-11] MEDS: Pantoprazole 40 mg EC Tab PO SCH (06:35)
[2018-01-11] MEDS: Budesonide 0.5 Mg/2 mL Ud HHN SCH ×2 (06:50→20:03)
[2018-01-11] MEDS: Fluticasone Propionate 0.05mg/Actuation 16gm Nasal Spray NS SCH (08:50)
--- NOTE | 2018-01-11 13:57 | Internal Medicine Prog Note ---
Internal Medicine Subjective - Subjective Service Date: 01/11/18 Patient is:: awake, verbal, interactive, in bed, denies any new complaints, agitated Patient Complaints of:: congestion Per staff patient has:: no adverse event, no episodes of fall, tolerating meds Internal Medicine Objective - Physical Exam Vitals and I&O: Vital Signs Temp 97.8 F 01/11/18 06:08 Pulse 72 01/11/18 12:15 Resp 16 01/11/18 12:15 BP 109/48 01/11/18 06:08 Pulse Ox 95 01/11/18 12:15 Intake & Output 01/10/18 01/11/18 01/11/18 18:59 06:59 18:59 Intake Total 950 480 Balance 950 480 Intake: Oral 950 480 Other: # Voids 5 2 # Bowel Movements 2 Active Medications: Current Medications Acetaminophen/Hydrocodone Bitart ([place] 5mg/325mg) 1 tab PO Q6H PRN PRN Reason: Pain (Severe) Stop: 03/04/18 11:11 Last Admin: 01/10/18 21:31 Dose: 1 tab Al Hydrox/Mg Hydrox/Simethicone (Maalox) 30 ml PO Q4HR PRN PRN Reason: GI DISTRESS Stop: 03/04/18 11:08 Last Admin: 01/09/18 12:30 Dose: 30 ml Albuterol/Ipratropium (Duoneb Neb) 3 ml HHN Q6HRT [facility] Stop: 03/04/18 12:59 Last Admin: 01/11/18 12:14 Dose: 3 ml Albuterol/Ipratropium (Duoneb Neb) 3 ml HHN Q6HR PRN PRN Reason: Shortness of Breath Stop: 03/04/18 11:11 Budesonide (Pulmicort) 0.5 mg HHN Q12HRT [facility] Stop: 03/04/18 18:59 Last Admin: 01/11/18 06:50 Dose: 0.5 mg Citalopram Hydrobromide (Celexa) 20 mg PO DAILY [facility] PRN Reason: Protocol Stop: 03/05/18 08:59 Last Admin: 01/11/18 08:50 Dose: 20 mg Docusate Sodium (Colace) 200 mg PO DAILY [facility] Stop: 03/05/18 08:59 Last Admin: 01/11/18 08:48 Dose: 200 mg Fluticasone Propionate (Flonase) 2 spr NS DAILY [facility] Stop: 03/05/18 08:59 Last Admin: 01/11/18 08:50 Dose: 2 spr Gabapentin (Neurontin) 400 mg PO TID [facility] Stop: 03/04/18 13:59 Last Admin: 01/11/18 08:49 Dose: 400 mg Gabapentin (Neurontin) 300 mg PO 1700 [facility] Stop: 03/04/18 16:59 Last Admin: 01/10/18 16:34 Dose: 300 mg Gabapentin (Neurontin) 600 mg PO HS [facility] Stop: 03/04/18 20:59 Last Admin: 01/10/18 20:35 Dose: 600 mg Guaifenesin (Robitussin) 200 mg PO Q4HR PRN PRN Reason: Cough or Congestion Stop: 03/04/18 11:11 Heparin Sodium (Porcine) (Heparin) 5,000 units SUBQ Q12HR [facility] Stop: 03/04/18 20:59 Last Admin: 01/11/18 08:50 Dose: 5,000 units Ibuprofen (Motrin) 800 mg PO Q6H PRN PRN Reason: Pain (Mild) Stop: 03/04/18 11:11 Last Admin: 01/09/18 17:02 Dose: 800 mg Lactulose (Cephulac) 20 gm PO Q4H PRN PRN Reason: Constipation Stop: 03/04/18 11:11 Lorazepam (Ativan) 0.5 mg PO Q6HR PRN; Protocol PRN Reason: Anxiety Stop: 03/10/18 11:20 Last Admin: 01/11/18 11:46 Dose: 0.5 mg Methocarbamol (Robaxin) 500 mg PO BID [facility] Stop: 03/04/18 16:59 Last Admin: 01/11/18 08:49 Dose: 500 mg Nitroglycerin (Nitrostat) 0.4 mg SL Q5MIN PRN PRN Reason: Chest Pain Stop: 03/04/18 11:11 Pantoprazole Sodium (Protonix) 40 mg PO QDAC [facility] Stop: 03/05/18 07:29 Last Admin: 01/11/18 06:35 Dose: 40 mg Quetiapine Fumarate (Seroquel) 25 mg PO HS [facility] PRN Reason: Protocol Stop: 03/08/18 13:26 Last Admin: 01/10/18 20:35 Dose: 25 mg General: congested HEENT: NC/AT, PERRLA, EOMI, thinning hair, poor dentition Neck: Supple, No JVD Lungs: congested, wheezing Cardiovascular: RRR, Normal S1, Normal S2 Abdomen: soft, non-tender, globular, non-distended Extremities: excoriation, deformity Neurological: no change, disorganized, unable to follow command - Procedures Procedures: Procedures Procedure Code Date ANESTH INJEC PERIPH NERV 04.81 12/04/10 ANESTH INJECT-SPIN CANAL 03.91 02/21/12 ASSISTANCE WITH RESPIRATORY VENTILATION, 24-96 HRS, CPAP [id number] 10/03/16 CERVICAL SPINE X-RAY NEC 87.22 02/28/11 EPIDUROGRAPHY 06244 02/21/12 INJ FORAMEN EPIDURAL L/S 33016 12/04/10 INJ PARAVERT F JNT C/T 1 LEV 60568 02/28/11 INJ PARAVERT F JNT C/T 2 LEV 31408 02/28/11 INJ PARAVERT F JNT C/T 3 LEV 68510 02/28/11 INJECT SPINE CERV/THORACIC 10870 05/30/11 INJECT SPINE LUMBAR/SACRAL 92344 02/21/12 INJECT STEROID 99.23 02/21/12 INJECT/INFUSE NEC 99.29 02/28/11 INJECTION INTO JOINT 81.92 02/28/11 LUMBOSAC SPINE X-RAY NEC 87.24 02/21/12 MYELOGRAPHY NECK SPINE 25632 05/30/11 PERIPH NERVE INJECT NEC 04.89 12/04/10 POS AIRWAY PRESSURE CPAP 26030 10/03/16 SPINAL CANAL INJECT NEC 03.92 02/21/12 Internal Medicine Assmt/Plan - Assessment Assessment: COPD MILD PROTEIN CALORIE MALNUTRITION HTN DEPRESSION PSYCHOSIS BIPOLAR - Plan Plan: PT EVAL inhalation treatments supplemental oxygen as needed continue current plan of care Nutritional Asmnt/Malnutr-PDOC - Dietary Evaluation Malnutrition Findings (Please click <Entered> for more info): Nutritional Asmnt/Malnutrition Start: 01/09/18 14: 02 Text: Status: Complete Freq: Document 01/09/18 14:02 HECTOR (Rec: 01/09/18 14:12 [facility] Nutritional Asmnt/Malnutrition Patient General Information Nutritional Screening Low Risk Diagnosis psychosis Pertinent Medical Hx/Surgical Hx HTN, COPD, migraine, constipation, anxiety, bipolar , depression, psychosis Subjective Information Per EMR, PO intake 75-100% of meals. Current Diet Order/ Nutrition Support [facility] soft chopped, low sodium Pertinent Medications colace, protonix, seroquel Pertinent Labs no labs Nutritional Hx/Data Height 5 ft 6 in Height (Calculated Centimeters) 167.6 Current Weight (lbs) 147 lb Weight (Calculated Kilograms) 66.7 Weight (Calculated Grams) 88460.1 [place] Body Weight 130 Body Mass Index (BMI) 23.7 Weight Status Approriate GI Symptoms GI Symptoms None Last BM 01/06 Difficult in: None Skin Integrity/Comment: intact Current %PO Good (75-100%) Estimated Nutritional Goals BEE in Kcals: Using Current wt Calories/Kcals/Kg 25-30 Kcals Calculated 0932-1487 Protein: Using Current wt Protein g/k Protein Calculated 67 Fluid: ml 1674-2009ml (1ml/kcal) Nutritional Problem No current Nutrition Prob Problem N/A Malnutrition Alert Protein-Calorie Malnutrition N/A Is there a minimum of two criteria No selected? Query Text:Check all the applicable criteria. A minimum of two criteria are recommended for diagnosis of either severe or non-severe malnutrition. Intervention/Recommendation Comments 1. Continue with [facility] soft chopped low sodium diet as ordered. 2. Monitor PO intake, wt, labs and skin integrity 3. F/U as low risk in 7 days, 5/10 Expected Outcomes/Goals Expected Outcomes/Goals 1. PO intake to meet at least 75% of nutritional needs. 2. Wt stability, skin to remain intact, labs to approach WNL.
--- NOTE | 2018-01-11 22:19 | Progress Notes ---
DATE: 01/11/2018 SUBJECTIVE: Staff was spoken to. The patient is interviewed. Mood is noted to be irritable. Affect is constricted. The patient has been having dysphoria and paranoid delusions. The patient is currently on 25 mg of the Seroquel at nighttime and has been able to tolerate the medications. The patient's major concern is pain at this time. The patient also has been having anxiety symptoms. The patient is still depressed. ASSESSMENT: The patient is depressed. PLAN: To continue the citalopram and Seroquel and follow the patient. JOB# [id number]
[2018-01-12] MEDS: Albuterol/Ipratropium Neb 3 ML AERS HHN SCH ×4 (01:30→20:24)
[2018-01-12] MEDS: Budesonide 0.5 Mg/2 mL Ud HHN SCH ×2 (06:39→20:24)
[2018-01-12] MEDS: Pantoprazole 40 mg EC Tab PO SCH (06:47)
[2018-01-12] MEDS: Fluticasone Propionate 0.05mg/Actuation 16gm Nasal Spray NS SCH (08:56)
--- NOTE | 2018-01-12 15:39 | Internal Medicine Prog Note ---
Internal Medicine Subjective - Subjective Service Date: 01/12/18 Patient is:: awake, verbal, interactive, in bed, denies any new complaints, agitated Patient Complaints of:: congestion Per staff patient has:: no adverse event, no episodes of fall, tolerating meds Internal Medicine Objective - Physical Exam Vitals and I&O: Vital Signs Temp 98.2 F 01/12/18 06:35 Pulse 73 01/12/18 12:06 Resp 16 01/12/18 12:06 BP 136/64 01/12/18 06:35 Pulse Ox 94 01/12/18 12:06 Intake & Output 01/11/18 01/12/18 01/12/18 18:59 06:59 18:59 Intake Total 2800 600 Balance 2800 600 Intake: Oral 2800 600 Other: # Voids 5 3 # Bowel Movements 2 Active Medications: Current Medications Acetaminophen/Hydrocodone Bitart ([place] 5mg/325mg) 1 tab PO Q6H PRN PRN Reason: Pain (Severe) Stop: 03/04/18 11:11 Last Admin: 01/10/18 21:31 Dose: 1 tab Al Hydrox/Mg Hydrox/Simethicone (Maalox) 30 ml PO Q4HR PRN PRN Reason: GI DISTRESS Stop: 03/04/18 11:08 Last Admin: 01/09/18 12:30 Dose: 30 ml Albuterol/Ipratropium (Duoneb Neb) 3 ml HHN Q6HRT [facility] Stop: 03/04/18 12:59 Last Admin: 01/12/18 12:05 Dose: 3 ml Albuterol/Ipratropium (Duoneb Neb) 3 ml HHN Q6HR PRN PRN Reason: Shortness of Breath Stop: 03/04/18 11:11 Budesonide (Pulmicort) 0.5 mg HHN Q12HRT [facility] Stop: 03/04/18 18:59 Last Admin: 01/12/18 06:39 Dose: 0.5 mg Citalopram Hydrobromide (Celexa) 20 mg PO DAILY [facility] PRN Reason: Protocol Stop: 03/05/18 08:59 Last Admin: 01/12/18 08:58 Dose: 20 mg Docusate Sodium (Colace) 200 mg PO DAILY [facility] Stop: 03/05/18 08:59 Last Admin: 01/12/18 08:59 Dose: 200 mg Fluticasone Propionate (Flonase) 2 spr NS DAILY [facility] Stop: 03/05/18 08:59 Last Admin: 01/12/18 08:56 Dose: 2 spr Gabapentin (Neurontin) 400 mg PO TID [facility] Stop: 03/04/18 13:59 Last Admin: 01/12/18 13:21 Dose: 400 mg Gabapentin (Neurontin) 300 mg PO 1700 [facility] Stop: 03/04/18 16:59 Last Admin: 01/11/18 16:36 Dose: 300 mg Gabapentin (Neurontin) 600 mg PO HS [facility] Stop: 03/04/18 20:59 Last Admin: 01/11/18 20:20 Dose: 600 mg Guaifenesin (Robitussin) 200 mg PO Q4HR PRN PRN Reason: Cough or Congestion Stop: 03/04/18 11:11 Heparin Sodium (Porcine) (Heparin) 5,000 units SUBQ Q12HR [facility] Stop: 03/04/18 20:59 Last Admin: 01/12/18 08:57 Dose: 5,000 units Ibuprofen (Motrin) 800 mg PO Q6H PRN PRN Reason: Pain (Mild) Stop: 03/04/18 11:11 Last Admin: 01/09/18 17:02 Dose: 800 mg Lactulose (Cephulac) 20 gm PO Q4H PRN PRN Reason: Constipation Stop: 03/04/18 11:11 Lorazepam (Ativan) 0.5 mg PO Q6HR PRN; Protocol PRN Reason: Anxiety Stop: 03/10/18 11:20 Last Admin: 01/12/18 10:32 Dose: 0.5 mg Methocarbamol (Robaxin) 500 mg PO BID [facility] Stop: 03/04/18 16:59 Last Admin: 01/12/18 08:57 Dose: 500 mg Nitroglycerin (Nitrostat) 0.4 mg SL Q5MIN PRN PRN Reason: Chest Pain Stop: 03/04/18 11:11 Pantoprazole Sodium (Protonix) 40 mg PO QDAC [facility] Stop: 03/05/18 07:29 Last Admin: 01/12/18 06:47 Dose: 40 mg Quetiapine Fumarate (Seroquel) 25 mg PO HS [facility] PRN Reason: Protocol Stop: 03/08/18 13:26 Last Admin: 01/11/18 20:19 Dose: 25 mg General: congested HEENT: NC/AT, PERRLA, EOMI, thinning hair, poor dentition Neck: Supple, No JVD Lungs: congested, wheezing Cardiovascular: RRR, Normal S1, Normal S2 Abdomen: soft, non-tender, globular, non-distended Extremities: excoriation, deformity Neurological: no change, disorganized, unable to follow command - Procedures Procedures: Procedures Procedure Code Date ANESTH INJEC PERIPH NERV 04.81 12/04/10 ANESTH INJECT-SPIN CANAL 03.91 02/21/12 ASSISTANCE WITH RESPIRATORY VENTILATION, 24-96 HRS, CPAP [id number] 10/03/16 CERVICAL SPINE X-RAY NEC 87.22 02/28/11 EPIDUROGRAPHY 18344 02/21/12 INJ FORAMEN EPIDURAL L/S 84140 12/04/10 INJ PARAVERT F JNT C/T 1 LEV 21883 02/28/11 INJ PARAVERT F JNT C/T 2 LEV 95281 02/28/11 INJ PARAVERT F JNT C/T 3 LEV 65716 02/28/11 INJECT SPINE CERV/THORACIC 22060 05/30/11 INJECT SPINE LUMBAR/SACRAL 46531 02/21/12 INJECT STEROID 99.23 02/21/12 INJECT/INFUSE NEC 99.29 02/28/11 INJECTION INTO JOINT 81.92 02/28/11 LUMBOSAC SPINE X-RAY NEC 87.24 02/21/12 MYELOGRAPHY NECK SPINE 19588 05/30/11 PERIPH NERVE INJECT NEC 04.89 12/04/10 POS AIRWAY PRESSURE CPAP [id number] 10/03/16 SPINAL CANAL INJECT NEC 03.92 02/21/12 Internal Medicine Assmt/Plan - Assessment Assessment: COPD MILD PROTEIN CALORIE MALNUTRITION HTN DEPRESSION PSYCHOSIS BIPOLAR - Plan Plan: PT EVAL inhalation treatments supplemental oxygen as needed continue current plan of care Nutritional Asmnt/Malnutr-PDOC - Dietary Evaluation Malnutrition Findings (Please click <Entered> for more info): Nutritional Asmnt/Malnutrition Start: 01/09/18 14: 02 Text: Status: Complete Freq: Document 01/09/18 14:02 ISAI (Rec: 01/09/18 14:12 ISAI [facility]) Nutritional Asmnt/Malnutrition Patient General Information Nutritional Screening Low Risk Diagnosis psychosis Pertinent Medical Hx/Surgical Hx HTN, COPD, migraine, constipation, anxiety, bipolar , depression, psychosis Subjective Information Per EMR, PO intake 75-100% of meals. Current Diet Order/ Nutrition Support [facility] soft chopped, low sodium Pertinent Medications colace, protonix, seroquel Pertinent Labs no labs Nutritional Hx/Data Height 5 ft 6 in Height (Calculated Centimeters) 167.6 Current Weight (lbs) 147 lb Weight (Calculated Kilograms) 66.7 Weight (Calculated Grams) 64652.1 [place] Body Weight 130 Body Mass Index (BMI) 23.7 Weight Status Approriate GI Symptoms GI Symptoms None Last BM 01/06 Difficult in: None Skin Integrity/Comment: intact Current %PO Good (75-100%) Estimated Nutritional Goals BEE in Kcals: Using Current wt Calories/Kcals/Kg 25-30 Kcals Calculated 3761-1992 Protein: Using Current wt Protein g/k Protein Calculated 67 Fluid: ml 1674-2009ml (1ml/kcal) Nutritional Problem No current Nutrition Prob Problem N/A Malnutrition Alert Protein-Calorie Malnutrition N/A Is there a minimum of two criteria No selected? Query Text:Check all the applicable criteria. A minimum of two criteria are recommended for diagnosis of either severe or non-severe malnutrition. Intervention/Recommendation Comments 1. Continue with [facility] soft chopped low sodium diet as ordered. 2. Monitor PO intake, wt, labs and skin integrity 3. F/U as low risk in 7 days, 5/10 Expected Outcomes/Goals Expected Outcomes/Goals 1. PO intake to meet at least 75% of nutritional needs. 2. Wt stability, skin to remain intact, labs to approach WNL.
--- NOTE | 2018-01-12 18:34 | Progress Notes ---
DATE: 01/12/2018 SUBJECTIVE: Staff was spoken to. The patient is interviewed. Mood is noted to be less irritable. Affect is appropriate. Paranoid delusions are resolving at this time. No side effects to medications are noted. The patient is currently on Seroquel 25 mg at bedtime and has been able to tolerate the medications. ASSESSMENT: The patient's psychosis, resolving. PLAN: To continue the patient on current medications and follow up with the supportive therapy. JOB# [id number]
[2018-01-12] MEDS: Hydrocodone/APAP 5mg/325mg Tab PO PRN (20:51)
[2018-01-13] MEDS: Albuterol/Ipratropium Neb 3 ML AERS HHN SCH ×4 (01:09→19:12)
[2018-01-13] MEDS: Pantoprazole 40 mg EC Tab PO SCH (06:42)
[2018-01-13] MEDS: Budesonide 0.5 Mg/2 mL Ud HHN SCH ×2 (07:22→19:12)
[2018-01-13] MEDS: Fluticasone Propionate 0.05mg/Actuation 16gm Nasal Spray NS SCH (08:22)
[2018-01-13] MEDS: Hydrocodone/APAP 5mg/325mg Tab PO PRN (12:20)
--- NOTE | 2018-01-13 15:31 | Internal Medicine Prog Note ---
Internal Medicine Subjective - Subjective Patient seen and examined:: with staff, chart reviewed Patient is:: awake, verbal, interactive, in bed, denies any new complaints, agitated Patient Complaints of:: congestion Per staff patient has:: no adverse event, no episodes of fall, tolerating meds Internal Medicine Objective - Physical Exam Vitals and I&O: Vital Signs Temp 98.5 F 01/13/18 06:33 Pulse 72 01/13/18 14:00 Resp 18 01/13/18 14:00 BP 129/66 01/13/18 06:33 Pulse Ox 98 01/13/18 14:00 Intake & Output 01/12/18 01/13/18 01/13/18 18:59 06:59 18:59 Intake Total 1000 360 Balance 1000 360 Intake: Oral 1000 360 Other: # Voids 4 3 # Bowel Movements 1 0 Active Medications: Current Medications Acetaminophen/Hydrocodone Bitart ([place] 5mg/325mg) 1 tab PO Q6H PRN PRN Reason: Pain (Severe) Stop: 03/04/18 11:11 Last Admin: 01/13/18 12:20 Dose: 1 tab Al Hydrox/Mg Hydrox/Simethicone (Maalox) 30 ml PO Q4HR PRN PRN Reason: GI DISTRESS Stop: 03/04/18 11:08 Last Admin: 01/09/18 12:30 Dose: 30 ml Albuterol/Ipratropium (Duoneb Neb) 3 ml HHN Q6HRT [facility] Stop: 03/04/18 12:59 Last Admin: 01/13/18 13:59 Dose: 3 ml Albuterol/Ipratropium (Duoneb Neb) 3 ml HHN Q6HR PRN PRN Reason: Shortness of Breath Stop: 03/04/18 11:11 Budesonide (Pulmicort) 0.5 mg HHN Q12HRT [facility] Stop: 03/04/18 18:59 Last Admin: 01/13/18 07:22 Dose: 0.5 mg Citalopram Hydrobromide (Celexa) 20 mg PO DAILY [facility] PRN Reason: Protocol Stop: 03/05/18 08:59 Last Admin: 01/13/18 08:21 Dose: 20 mg Docusate Sodium (Colace) 200 mg PO DAILY [facility] Stop: 03/05/18 08:59 Last Admin: 01/13/18 08:22 Dose: 200 mg Fluticasone Propionate (Flonase) 2 spr NS DAILY [facility] Stop: 03/05/18 08:59 Last Admin: 01/13/18 08:22 Dose: 2 spr Gabapentin (Neurontin) 400 mg PO TID [facility] Stop: 03/04/18 13:59 Last Admin: 01/13/18 14:04 Dose: 400 mg Gabapentin (Neurontin) 300 mg PO 1700 [facility] Stop: 03/04/18 16:59 Last Admin: 01/12/18 16:05 Dose: 300 mg Gabapentin (Neurontin) 600 mg PO HS [facility] Stop: 03/04/18 20:59 Last Admin: 01/12/18 20:21 Dose: 600 mg Guaifenesin (Robitussin) 200 mg PO Q4HR PRN PRN Reason: Cough or Congestion Stop: 03/04/18 11:11 Heparin Sodium (Porcine) (Heparin) 5,000 units SUBQ Q12HR [facility] Stop: 03/04/18 20:59 Last Admin: 01/13/18 08:22 Dose: 5,000 units Ibuprofen (Motrin) 800 mg PO Q6H PRN PRN Reason: Pain (Mild) Stop: 03/04/18 11:11 Last Admin: 01/09/18 17:02 Dose: 800 mg Lactulose (Cephulac) 20 gm PO Q4H PRN PRN Reason: Constipation Stop: 03/04/18 11:11 Lorazepam (Ativan) 0.5 mg PO Q6HR PRN; Protocol PRN Reason: Anxiety Stop: 03/10/18 11:20 Last Admin: 01/13/18 10:08 Dose: 0.5 mg Methocarbamol (Robaxin) 500 mg PO BID [facility] Stop: 03/04/18 16:59 Last Admin: 01/13/18 08:21 Dose: 500 mg Nitroglycerin (Nitrostat) 0.4 mg SL Q5MIN PRN PRN Reason: Chest Pain Stop: 03/04/18 11:11 Pantoprazole Sodium (Protonix) 40 mg PO QDAC [facility] Stop: 03/05/18 07:29 Last Admin: 01/13/18 06:42 Dose: 40 mg Quetiapine Fumarate (Seroquel) 25 mg PO HS [facility] PRN Reason: Protocol Stop: 03/08/18 13:26 Last Admin: 01/12/18 20:21 Dose: 25 mg General: congested HEENT: NC/AT, PERRLA, EOMI, thinning hair, poor dentition Neck: Supple, No JVD Lungs: congested, wheezing Cardiovascular: RRR, Normal S1, Normal S2 Abdomen: soft, non-tender, globular, non-distended Extremities: excoriation, deformity Neurological: no change, disorganized, unable to follow command - Procedures Procedures: Procedures Procedure Code Date ANESTH INJEC PERIPH NERV 04.81 12/04/10 ANESTH INJECT-SPIN CANAL 03.91 02/21/12 ASSISTANCE WITH RESPIRATORY VENTILATION, 24-96 HRS, CPAP [id number] 10/03/16 CERVICAL SPINE X-RAY NEC 87.22 02/28/11 EPIDUROGRAPHY 50987 02/21/12 INJ FORAMEN EPIDURAL L/S 38339 12/04/10 INJ PARAVERT F JNT C/T 1 LEV 81924 02/28/11 INJ PARAVERT F JNT C/T 2 LEV 20069 02/28/11 INJ PARAVERT F JNT C/T 3 LEV 86165 02/28/11 INJECT SPINE CERV/THORACIC 38162 05/30/11 INJECT SPINE LUMBAR/SACRAL 96960 02/21/12 INJECT STEROID 99.23 02/21/12 INJECT/INFUSE NEC 99.29 02/28/11 INJECTION INTO JOINT 81.92 02/28/11 LUMBOSAC SPINE X-RAY NEC 87.24 02/21/12 MYELOGRAPHY NECK SPINE 51651 05/30/11 PERIPH NERVE INJECT NEC 04.89 12/04/10 POS AIRWAY PRESSURE CPAP [id number] 10/03/16 SPINAL CANAL INJECT NEC 03.92 02/21/12 Internal Medicine Assmt/Plan - Assessment Assessment: - Assessment Assessment: ACUTE COPD EXACERBATION PNA MILD PROTEIN CALORIE MALNUTRITION HTN DEPRESSION PSYCHOSIS BIPOLAR - Plan Plan: continue with iv antibiotics inhalation treatments supplemental oxygen as needed continue current plan of care - Plan Plan: will review meds off bactrim Nutritional Asmnt/Malnutr-PDOC - Dietary Evaluation Malnutrition Findings (Please click <Entered> for more info): Nutritional Asmnt/Malnutrition Start: 01/09/18 14: 02 Text: Status: Complete Freq: Document 01/09/18 14:02 ISAI (Rec: 01/09/18 14:12 [email or web address]) Nutritional Asmnt/Malnutrition Patient General Information Nutritional Screening Low Risk Diagnosis psychosis Pertinent Medical Hx/Surgical Hx HTN, COPD, migraine, constipation, anxiety, bipolar , depression, psychosis Subjective Information Per EMR, PO intake 75-100% of meals. Current Diet Order/ Nutrition Support [facility] soft chopped, low sodium Pertinent Medications colace, protonix, seroquel Pertinent Labs no labs Nutritional Hx/Data Height 1.68 m Height (Calculated Centimeters) 167.6 Current Weight (lbs) 66.678 kg Weight (Calculated Kilograms) 66.7 Weight (Calculated Grams) 98816.1 [place] Body Weight 130 Body Mass Index (BMI) 23.7 Weight Status Approriate GI Symptoms GI Symptoms None Last BM 01/06 Difficult in: None Skin Integrity/Comment: intact Current %PO Good (75-100%) Estimated Nutritional Goals BEE in Kcals: Using Current wt Calories/Kcals/Kg 25-30 Kcals Calculated 4517-5029 Protein: Using Current wt Protein g/k Protein Calculated 67 Fluid: ml 5-2009ml (1ml/kcal) Nutritional Problem No current Nutrition Prob Problem N/A Malnutrition Alert Protein-Calorie Malnutrition N/A Is there a minimum of two criteria No selected? Query Text:Check all the applicable criteria. A minimum of two criteria are recommended for diagnosis of either severe or non-severe malnutrition. Intervention/Recommendation Comments 1. Continue with [facility] soft chopped low sodium diet as ordered. 2. Monitor PO intake, wt, labs and skin integrity 3. F/U as low risk in 7 days, 5/10 Expected Outcomes/Goals Expected Outcomes/Goals 1. PO intake to meet at least 75% of nutritional needs. 2. Wt stability, skin to remain intact, labs to approach WNL.
[2018-01-14] MEDS: Albuterol/Ipratropium Neb 3 ML AERS HHN SCH ×3 (00:33→13:18)
--- NOTE | 2018-01-14 01:25 | Progress Notes ---
DATE: 01/13/2018 PSYCHIATRIC PROGRESS NOTE SUBJECTIVE: Staff was spoken to. The patient is interviewed. Mood is noted to be irritable. Affect is constricted. Insight and judgment at this time are noted to be still impaired. Impulse control seems to be limited. No side effects to the medications are noted. The patient is asking for more and more of the pain medications. Sleep is noted to be poor. Appetite is noted to be fair at this time. ASSESSMENT: The patient is still impulsive. PLAN: To continue the patient with the supportive therapy. Encouraged the patient to verbalize the concerns rather than to act out. JOB# [id number]
[2018-01-14] MEDS: Pantoprazole 40 mg EC Tab PO SCH (06:32)
[2018-01-14] MEDS: Budesonide 0.5 Mg/2 mL Ud HHN SCH (07:08)
[2018-01-14] MEDS: Fluticasone Propionate 0.05mg/Actuation 16gm Nasal Spray NS SCH (10:14)
--- NOTE | 2018-01-14 10:48 | Internal Medicine Prog Note ---
Internal Medicine Subjective - Subjective Service Date: 01/14/18 Patient is:: awake, verbal, interactive, in bed, denies any new complaints, agitated Patient Complaints of:: congestion Per staff patient has:: no adverse event, no episodes of fall, tolerating meds Internal Medicine Objective - Physical Exam Vitals and I&O: Vital Signs Temp 97.2 F 01/14/18 06:09 Pulse 66 01/14/18 07:10 Resp 18 01/14/18 07:10 BP 111/58 01/14/18 06:09 Pulse Ox 98 01/14/18 07:10 Intake & Output 01/13/18 01/14/18 01/14/18 18:59 06:59 18:59 Intake Total 1580 520 Balance 1580 520 Intake: Oral 1580 520 Other: # Voids 9 3 # Bowel Movements 2 0 Active Medications: Current Medications Acetaminophen/Hydrocodone Bitart ([place] 5mg/325mg) 1 tab PO Q6H PRN PRN Reason: Pain (Severe) Stop: 03/04/18 11:11 Last Admin: 01/13/18 12:20 Dose: 1 tab Al Hydrox/Mg Hydrox/Simethicone (Maalox) 30 ml PO Q4HR PRN PRN Reason: GI DISTRESS Stop: 03/04/18 11:08 Last Admin: 01/09/18 12:30 Dose: 30 ml Albuterol/Ipratropium (Duoneb Neb) 3 ml HHN Q6HRT [facility] Stop: 03/04/18 12:59 Last Admin: 01/14/18 07:08 Dose: 3 ml Albuterol/Ipratropium (Duoneb Neb) 3 ml HHN Q6HR PRN PRN Reason: Shortness of Breath Stop: 03/04/18 11:11 Budesonide (Pulmicort) 0.5 mg HHN Q12HRT [facility] Stop: 03/04/18 18:59 Last Admin: 01/14/18 07:08 Dose: 0.5 mg Citalopram Hydrobromide (Celexa) 20 mg PO DAILY [facility] PRN Reason: Protocol Stop: 03/05/18 08:59 Last Admin: 01/14/18 09:43 Dose: 20 mg Docusate Sodium (Colace) 200 mg PO DAILY [facility] Stop: 03/05/18 08:59 Last Admin: 01/14/18 09:43 Dose: 200 mg Fluticasone Propionate (Flonase) 2 spr NS DAILY [facility] Stop: 03/05/18 08:59 Last Admin: 01/14/18 10:14 Dose: 2 spr Gabapentin (Neurontin) 400 mg PO TID [facility] Stop: 03/04/18 13:59 Last Admin: 01/14/18 09:43 Dose: 400 mg Gabapentin (Neurontin) 300 mg PO 1700 [facility] Stop: 03/04/18 16:59 Last Admin: 01/13/18 16:24 Dose: 300 mg Gabapentin (Neurontin) 600 mg PO HS [facility] Stop: 03/04/18 20:59 Last Admin: 01/13/18 20:36 Dose: 600 mg Guaifenesin (Robitussin) 200 mg PO Q4HR PRN PRN Reason: Cough or Congestion Stop: 03/04/18 11:11 Heparin Sodium (Porcine) (Heparin) 5,000 units SUBQ Q12HR [facility] Stop: 03/04/18 20:59 Last Admin: 01/14/18 09:43 Dose: 5,000 units Ibuprofen (Motrin) 800 mg PO Q6H PRN PRN Reason: Pain (Mild) Stop: 03/04/18 11:11 Last Admin: 01/14/18 06:32 Dose: 800 mg Lactulose (Cephulac) 20 gm PO Q4H PRN PRN Reason: Constipation Stop: 03/04/18 11:11 Lorazepam (Ativan) 0.5 mg PO Q6HR PRN; Protocol PRN Reason: Anxiety Stop: 03/10/18 11:20 Last Admin: 01/14/18 02:51 Dose: 0.5 mg Methocarbamol (Robaxin) 500 mg PO BID [facility] Stop: 03/04/18 16:59 Last Admin: 01/13/18 16:23 Dose: 500 mg Nitroglycerin (Nitrostat) 0.4 mg SL Q5MIN PRN PRN Reason: Chest Pain Stop: 03/04/18 11:11 Pantoprazole Sodium (Protonix) 40 mg PO QDAC [facility] Stop: 03/05/18 07:29 Last Admin: 01/14/18 06:32 Dose: 40 mg Quetiapine Fumarate (Seroquel) 25 mg PO HS [facility] PRN Reason: Protocol Stop: 03/08/18 13:26 Last Admin: 01/13/18 20:36 Dose: 25 mg General: congested HEENT: NC/AT, PERRLA, EOMI, thinning hair, poor dentition Neck: Supple, No JVD Lungs: congested, wheezing Cardiovascular: RRR, Normal S1, Normal S2 Abdomen: soft, non-tender, globular, non-distended Extremities: excoriation, deformity Neurological: no change, disorganized, unable to follow command - Procedures Procedures: Procedures Procedure Code Date ANESTH INJEC PERIPH NERV 04.81 12/04/10 ANESTH INJECT-SPIN CANAL 03.91 02/21/12 ASSISTANCE WITH RESPIRATORY VENTILATION, 24-96 HRS, CPAP [id number] 10/03/16 CERVICAL SPINE X-RAY NEC 87.22 02/28/11 EPIDUROGRAPHY 74707 02/21/12 INJ FORAMEN EPIDURAL L/S 71560 12/04/10 INJ PARAVERT F JNT C/T 1 LEV 29413 02/28/11 INJ PARAVERT F JNT C/T 2 LEV 46355 02/28/11 INJ PARAVERT F JNT C/T 3 LEV 44552 02/28/11 INJECT SPINE CERV/THORACIC 50111 05/30/11 INJECT SPINE LUMBAR/SACRAL 72251 02/21/12 INJECT STEROID 99.23 02/21/12 INJECT/INFUSE NEC 99.29 02/28/11 INJECTION INTO JOINT 81.92 02/28/11 LUMBOSAC SPINE X-RAY NEC 87.24 02/21/12 MYELOGRAPHY NECK SPINE 83515 05/30/11 PERIPH NERVE INJECT NEC 04.89 12/04/10 POS AIRWAY PRESSURE CPAP 96667 10/03/16 SPINAL CANAL INJECT NEC 03.92 02/21/12 Internal Medicine Assmt/Plan - Assessment Assessment: COPD MILD PROTEIN CALORIE MALNUTRITION HTN DEPRESSION PSYCHOSIS BIPOLAR - Plan Plan: PT EVAL inhalation treatments supplemental oxygen as needed continue current plan of care Nutritional Asmnt/Malnutr-PDOC - Dietary Evaluation Malnutrition Findings (Please click <Entered> for more info): Nutritional Asmnt/Malnutrition Start: 01/09/18 14: 02 Text: Status: Complete Freq: Document 01/09/18 14:02 ISAI (Rec: 01/09/18 14:12 ISAI [facility]) Nutritional Asmnt/Malnutrition Patient General Information Nutritional Screening Low Risk Diagnosis psychosis Pertinent Medical Hx/Surgical Hx HTN, COPD, migraine, constipation, anxiety, bipolar , depression, psychosis Subjective Information Per EMR, PO intake 75-100% of meals. Current Diet Order/ Nutrition Support [facility] soft chopped, low sodium Pertinent Medications colace, protonix, seroquel Pertinent Labs no labs Nutritional Hx/Data Height 5 ft 6 in Height (Calculated Centimeters) 167.6 Current Weight (lbs) 147 lb Weight (Calculated Kilograms) 66.7 Weight (Calculated Grams) 83945.1 [place] Body Weight 130 Body Mass Index (BMI) 23.7 Weight Status Approriate GI Symptoms GI Symptoms None Last BM 01/06 Difficult in: None Skin Integrity/Comment: intact Current %PO Good (75-100%) Estimated Nutritional Goals BEE in Kcals: Using Current wt Calories/Kcals/Kg 25-30 Kcals Calculated 1921-4182 Protein: Using Current wt Protein g/k Protein Calculated 67 Fluid: ml 1674-2009ml (1ml/kcal) Nutritional Problem No current Nutrition Prob Problem N/A Malnutrition Alert Protein-Calorie Malnutrition N/A Is there a minimum of two criteria No selected? Query Text:Check all the applicable criteria. A minimum of two criteria are recommended for diagnosis of either severe or non-severe malnutrition. Intervention/Recommendation Comments 1. Continue with [facility] soft chopped low sodium diet as ordered. 2. Monitor PO intake, wt, labs and skin integrity 3. F/U as low risk in 7 days, 5/10 Expected Outcomes/Goals Expected Outcomes/Goals 1. PO intake to meet at least 75% of nutritional needs. 2. Wt stability, skin to remain intact, labs to approach WNL.
--- NOTE | 2018-01-14 15:03 | Progress Notes ---
DATE: 01/14/2018 SUBJECTIVE: Staff was spoken to. The patient is interviewed. Mood is noted to be irritable. Affect is constricted. Insight is noted to be impaired. Impulse control is poor. Coping skills are noted to be poor. The patient has been having difficult time. The patient is still moaning and groaning. The patient has paranoid delusions. No side effects to the medications are noted. ASSESSMENT: The patient is still impulsive and paranoid. PLAN: To continue the patient with the current medications and followup. JOB# [id number]
== END 2018-01-14 14:30 | DRG 885 ==
LOC: GERO 10:17
DX: F31.64 Bipolar disorder, current episode mixed, severe, with psychotic features (principal); J18.9 Pneumonia, unspecified organism; J44.1 Chronic obstructive pulmonary disease with (acute) exacerbation; E44.1 Mild protein-calorie malnutrition; J44.0 Chronic obstructive pulmonary disease with (acute) lower respiratory infection; I10 Essential (primary) hypertension; Z68.23 Body mass index [BMI] 23.0-23.9, adult
CPT/HCPCS: 94760; 97530; J1644; X3904; Z7610

== ENCOUNTER 2018-02-24 14:53 | Inpatient (IN) | payer MEDICARE, MEDICAID ==
[2018-02-24] MEDS ORDERED: Morphine Sulfate 2 mg/mL 1mL Syr IV STA (15:55)
[2018-02-24 15:57] LABS: % BASOPHILS 0.8 % (0.0-2.0); % EOSINOPHILS 2.6 % (0.0-5.0); % LYMPHOCYTES 29.6 % (20.0-50.0); % MONOCYTES 8.8 % (2.0-10.0); % NEUTROPHILS 58.2 % (40.0-80.0); BASOPHILE ABSOLUTE 0.1 Th/cumm (0-0.2); EOSINOPHILE ABSOLUTE 0.2 Th/cmm (0.1-0.4); HEMATOCRIT 38.7 % (41.0-60); HEMOGLOBIN 13.3 gm/dL (12-16); LYMPHOCYTE ABSOLUTE 2.3 Th/cmm (1.5-3.0); MEAN CELL VOLUME 93.1 fl (81-100); MEAN CORPUSCULAR HGB CONC 34.4 pg (28.0-36.0); MEAN PLATELET VOLUME 7.2 fl; MONOCYTE ABSOLUTE 0.7 Th/cmm (0.3-1.0); NEUTROPHILE ABSOLUTE 4.6 Th/cmm (1.8-8.0); PLATELET COUNT 364 Th/cmm (150-400); RED BLOOD COUNT 4.16 Mil/cmm (3.80-5.20); RED CELL DISTRIBUTION WIDTH 12.6 % (11.5-20.0); WHITE BLOOD COUNT 7.9 Th/cmm (4.8-10.8)
[2018-02-24] MEDS ORDERED: Morphine Sulfate 2 mg/mL 1mL Syr ONE (16:01)
--- NOTE | 2018-02-24 16:02 | ED Physician Chart ---
ED Chief Complaint/HPI - Patient Information Date Seen:: 02/24/18 Time Seen:: 15:00 Chief Complaint:: Headaches History of Present Illness:: onset x 2 weeks of intermittent, throbbing type, diffuse H/As; no report of trauma, LOC, dizziness, weakness, E/As, S/T, visual or gait changes, neck pain, C/P, SOB, Abd. Pain, A/N/V/D/C, fever, chills, or urinary s/s; pt is 15 years post-menopausal Allergies:: Allergies Allergy/AdvReac Type Severity Reaction Status Date / Time levofloxacin [From Levaquin] Allergy Verified 12/30/17 14:44 NSAIDS (Non-Steroidal Allergy Verified 10/03/16 22:19 Anti-Inflamma Penicillins [PCN] Allergy Verified 12/30/17 14:44 prochlorperazine Allergy Verified 12/30/17 14:44 Quinolones Allergy Verified 12/30/17 14:44 Historian:: Patient, EMS Review:: Nurse's Note Reviewed, Old Chart Reviewed, EMS run form Reviewed ED Review of Systems - Review of Systems General/Constitutional: No fever, No chills, No weight loss, No weakness, No diaphoresis, No edema, No loss of appetite Skin: No skin lesions, No rash, No bruising Head: Headache, No light-headedness Eyes: No loss of vision, No pain, No diplopia ENT: No earache, No nasal drainage, No sore throat, No tinnitus Neck: No neck pain, No swelling, No thyromegaly, No stiffness, No mass noted Cardio Vascular: No chest pain, No palpitations, No PND, No orthopnea, No edema Pulmonary: No SOB, No cough, No sputum, No wheezing GI: No nausea, No vomiting, No diarrhea, No pain, No melena, No hematochezia, No constipation, No hematemesis G/U: No dysuria, No frequency, No hematuria, No nacturia Inspector Insulation: No vaginal discharge, No abnormal vaginal bleed, No contraction Musculoskeletal: No bone or joint pain, No back pain, No muscle pain Endocrine: No polyuria, No polydipsia Psychiatric: No prior psych history, No depression, No anxiety, No suicidal ideation, No homicidal ideation, No auditory hallucination, No visual hallucination Hematopoietic: No bruising, No lymphadenopathy Allergic/Immuno: No urticaria, No angioedema Neurological: No syncope, No focal symptoms, Weakness, No paresthesia, Headache , No seizure, Dizziness, No confusion, Vertigo ED Past Medical History - Past Medical History Obtainable: Yes Past Medical History: HTN, Dyslipidemia, PUD/GERD Family History: HTN Social History: Non Smoker, No Alcohol, No Drug Use, , Care Facility Surgical History: Appendectomy, Cholecystectomy, other (Spinal Surgery; BTL) Psychiatricy History: None Medication: Reviewed Family Medical History - Family Member Mother History Unknown: Yes Hx Family Cancer: No Hx Family Coronary Artery Disease: No Hx Family Congestive Heart Failure: No Hx Family Hypertension: No Hx Family Stroke: No Hx Family Diabetes: No Hx Family Seizures: No Hx Family Dementia: No Hx Family AIDS: No Hx Family HIV: No Hx Family COPD: No Hx Family Hepatitis: No Hx Family Psychiatric Problems: No ED Physical Exam - Physical Examination General/Constitutional: Awake, Well-developed, well-nourished, Alert, No distress, GCS 15, Non-toxic appearing, Ambulatory Head: Atraumatic Eyes: Lids, conjuctiva normal, PERRL, EOMI Skin: Nl inspection, No rash, No skin lesions, No ecchymosis, Well hydrated, No lymphadenopathy ENMT: External ears, nose nl, TM canals nl, Nasal exam nl, Lips, teeth, gums nl , Oropharynx nl, Tonsils nl Neck: Nontender, Full ROM w/o pain, No JVD, No nuchal rigidity, No bruit, No mass, No stridor Respiratory: Nl effort/Exclusion, Clear to Auscultation, No Wheeze/Rhonchi/Rales Cardio Vascular: RRR, No murmur, gallop, rubs, NL S1 S2, Carotid/Femoral/Distal pulses equal bilaterally GI: No tenderness/rebounding/guarding, No organomegaly, No hernia, Normal BS's, Nondistended, No mass/bruits, No McBurney tenderness : No CVA tenderness Extremities: No tenderness or effusion, Full ROM, normal strength in all extremities, No edema, Normal digits & nails Neuro/Psych: Alert/oriented, DTR's symmetric, Normal sensory exam, Normal motor strength, Judgement/insight normal, Mood normal, Normal gait, No focal deficits Misc: Normal back, No paraspinal tenderness ED Labs/Radiology/EKG Results - Lab Results Comments:: Na+: 128; U/A: + Leukocytes - Radiology Results Comments:: NAD - EKG Interpretations EKG Time:: 15:21 Rate & Rhythm: 101; ST Comments:: non-specific st-t changes ED Septic Shock - . Is Septic Shock (SBP<90, OR Lactate>4 mmol\L) present?: No ED Reassessment (Disposition) - Reassessment Reassessment Condition:: Improved - Diagnosis Diagnosis:: Dx: Intractable Headaches; Vascular Cephalgia; UTI; Hyponatremia - Aftercare/Follow up Instructions Aftercare/Follow-Up Instructions:: Counseled pt regarding lab results/diagnosis & need follow up, Counseled pt & family regarding lab results/diagnosis & need follow up - Patient Disposition Discharge/Transfer:: Acute Care w/in this hosp Accepting Physician:: Dr. Pate Time Called:: 6520 Time Responded:: 17:30 Admitted to:: Telemetry Spoke to:: Dr. Pate Admitting Medical Physician:: Dr. Pate Condition at Disposition:: Stable, Improved
[2018-02-24 16:15] LABS: ALB/GLOB RATIO 2.1 (1.0-1.8); ALBUMIN 4.3 gm/dL (3.7-5.3); ALKALINE PHOSPHATASE 63 U/L (34-104); BILIRUBIN,TOTAL 0.4 mg/dL (0.3-1.0); BUN - UREA NITROGEN 6 mg/dL (7-25); CALCIUM SERUM 8.7 mg/dL (8.6-10.3); CARBON DIOXIDE 22.7 mEq/L (21.0-31.0); CHLORIDE 95 mEq/L (98-107); CHOLESTEROL 160 mg/dL (<200); CREATININE - SERUM 0.7 mg/dL (0.6-1.2); CREATININE KINASE 58 U/L (30-223); GFR AFRICAN-AMERICAN > 60.0 ml/min (>90); GFR NON AFRICAN-AMERICAN > 60.0 ml/min; GLUCOSE 113 mg/dL (70-105); HDL -HIGH DENSITY LIPOPROTEIN 59 mg/dL (23-92); POTASSIUM SERUM 3.7 mEq/L (3.5-5.1); SGOT 15 U/L (13-39); SGPT/ALT 11 U/L (7-52); SODIUM SERUM 128 mEq/L (136-145); TOTAL PROTEIN,SERUM 6.4 gm/dL (6.0-8.3); TRIGLYCERIDES 148 mg/dL (<150)
[2018-02-24 16:19] LABS: INR 1.06 (0.5-1.4)
[2018-02-24 17:07] LABS: URINE MICROSCOPIC INDICATED? YES; URINE SOURCE CLEAN C
[2018-02-24 17:08] LABS: URINE BILIRUBIN NEGATIVE (NEGATIVE); URINE BLOOD NEGATIVE (NEGATIVE); URINE GLUCOSE (UA) NEGATIVE (NEGATIVE); URINE KETONE NEGATIVE (NEGATIVE); URINE LEUKOCYTE ESTERASE TRACE (NEGATIVE); URINE NITRATE NEGATIVE (NEGATIVE); URINE PH 5.5 (4.6 - 8.0); URINE PROTEIN NEGATIVE (NEGATIVE); URINE UROBILINOGEN 0.2 E.U./dL (0.2 - 1.0)
[2018-02-24 17:15] LABS: URINE CLARITY CLEAR (CLEAR); URINE COLOR YELLOW
[2018-02-24 17:16] LABS: URINE BACTERIA NONE SEEN /hpf (NONE SEEN); URINE EPITHELIAL CELLS NONE SEEN /lpf (FEW); URINE RBC NONE SEEN /hpf (0-5)
[2018-02-24] MEDS ORDERED: Levofloxacin 500mg/100mL 500 MG/100 ML BAG IV ONE ×2 (17:37→18:19)
[2018-02-24] MEDS ORDERED: guaiFENesin 200 MG/10 ML UDC PO PRN (17:48)
[2018-02-24] MEDS ORDERED: Maalox 30 mL Cup PO PRN (17:48)
[2018-02-24] MEDS ORDERED: APAP 325mg/Butalbital 50mg/Caff 40mg Tab PO STA (17:52)
[2018-02-24] MEDS ORDERED: APAP 325mg/Butalbital 50mg/Caff 40mg Tab ONE ×2 (18:14→18:16)
[2018-02-24] MEDS: D5-0.9%NS 1,000 ML IV SCH (18:25)
--- NOTE | 2018-02-24 19:34 | History & Physical ---
ADMIT DATE: 02/24/2018 CHIEF COMPLAINT: Severe headaches. HISTORY OF PRESENT ILLNESS: This is a 67-year-old female with history of COPD, hypertension, bipolar, schizoaffective disorder, chronic low back pain, admitted from nursing facility secondary to 1-2 weeks history of intractable headache, which she gets nauseated. The patient was evaluated in the ER. Initial head CT was negative. The patient admitted for further management. The patient also with a bladder infection, was given Levaquin. PAST MEDICAL HISTORY: As mentioned in history present illness. PAST SURGICAL HISTORY: Denies surgeries in the past. ALLERGIES: PENICILLIN WELL NSAIDS, BUT SHE CANNOT SAY THE REACTION, SOME UPSET STOMACH. MEDICATIONS: Morphine, Baker, previously was on Dilaudid, albuterol, Atrovent, psychotropic medication, Seroquel, trazodone. FAMILY HISTORY: Noncontributory. SOCIAL HISTORY: Avid smoker, nondrinker, no intravenous drug use. The patient resided in nursing facility. REVIEW OF SYSTEMS: GENERAL: Complains not feeling well. HEENT: The patient with some blurred vision. NECK: No neck pain. LUNGS: The patient with diagnosis of COPD. Denies asthma. HEART: The patient with hypertension. Denies coronary artery disease. ABDOMEN: Some nausea. No vomiting. GENITOURINARY: The patient denies increased frequency. NEUROLOGIC: The patient with a headache. No seizure or syncope. PSYCHIATRIC: Stable. PHYSICAL EXAMINATION: VITAL SIGNS: Blood pressure 135/64, respirations 18, pulse 80, temperature 98.6. GENERAL: Elderly female, chronically ill. NECK: Supple. No mass. LUNGS: Decreased breath sounds with few rhonchi. HEART: Regular rate and rhythm without appreciable murmurs. ABDOMEN: Soft, globular. EXTREMITIES: Positive excoriations. NEUROLOGIC: Limited, moving all 4 extremities. Gait not seen. LABORATORY DATA: Sodium 132. UA was noted. CBC is pending. ASSESSMENT AND PLAN: Acute intractable headaches, chronic obstructive pulmonary disease, hypertension, bipolar, elderly female smoker. Try to wean off the patient from narcotic medication. female with headache. We will refer the patient to Neurology. We will add calcium channel uvaldo, such as verapamil. We will provide the patient with allopurinol or Fioricet. We will try to avoid morphine or Dilaudid. We will adjust the patient's psychotropic medications. We will continue to monitor the patient. JOB# [id number]
[2018-02-24] MEDS ORDERED: Menthol/Zinc Oxide Oint 113gm Tube TP SCH (20:00)
[2018-02-24] MEDS: Albuterol/Ipratropium Neb 3 ML AERS HHN SCH ×2 (20:06→20:12)
[2018-02-24] MEDS: Budesonide 0.5 Mg/2 mL Ud HHN SCH ×2 (20:06→20:12)
[2018-02-25] MEDS: Albuterol/Ipratropium Neb 3 ML AERS HHN SCH ×4 (01:00→19:47)
[2018-02-25] MEDS: Pantoprazole 40 mg EC Tab PO SCH (06:40)
[2018-02-25] MEDS: Budesonide 0.5 Mg/2 mL Ud HHN SCH ×2 (07:02→19:47)
--- NOTE | 2018-02-25 07:46 | Diagnostic Imaging Report ---
Head CT without intravenous contrast Indication: Headache Comparison: Head CT on 04/02/2017 Technique: Axial images were obtained from the vertex to the skull base without IV contrast. Coronal reconstructions were made. Total DLP: 803, CTDI43 FINDINGS: Images of the brain obtained on contrast demonstrate no evidence of an acute hemorrhage. Atrophy is noted. Mild white matter disease is noted. The ventricles and basal cisterns are patent. No mass effect or midline shift. No evidence of a skull fracture or focal soft tissue swelling. Atherosclerosis of the carotid siphons is noted. IMPRESSION: No evidence of acute intracranial hemorrhage. Atrophy. Mild supratentorial white matter disease which is nonspecific and may be due to chronic microvessel ischemia. Atherosclerotic vascular disease.
--- NOTE | 2018-02-25 11:28 | Internal Medicine Prog Note ---
Internal Medicine Subjective - Subjective Patient seen and examined:: with staff, chart reviewed Patient is:: awake, verbal, interactive Patient Complaints of:: congestion, constipation, cough Per staff patient has:: no adverse event Internal Medicine Objective - Results Result Diagrams: 02/24/18 15:45 02/24/18 15:45 Recent Labs: Laboratory Last Values WBC 7.9 Th/cmm (4.8-10.8) 02/24/18 15:45 RBC 4.16 Mil/cmm (3.80-5.20) 02/24/18 15:45 Hgb 13.3 gm/dL (12-16) 02/24/18 15:45 Hct 38.7 % (41.0-60) L 02/24/18 15:45 MCV 93.1 fl (81-100) 02/24/18 15:45 MCH 32.0 pg (27.0-31.0) H 02/24/18 15:45 MCHC Differential 34.4 pg (28.0-36.0) 02/24/18 15:45 RDW 12.6 % (11.5-20.0) 02/24/18 15:45 Plt Count 364 Th/cmm (150-400) 02/24/18 15:45 MPV 7.2 fl 02/24/18 15:45 Neutrophils % 58.2 % (40.0-80.0) 02/24/18 15:45 Lymphocytes % 29.6 % (20.0-50.0) 02/24/18 15:45 Monocytes % 8.8 % (2.0-10.0) 02/24/18 15:45 Eosinophils % 2.6 % (0.0-5.0) 02/24/18 15:45 Basophils % 0.8 % (0.0-2.0) 02/24/18 15:45 PT 11.0 SECONDS (9.5-11.5) 02/24/18 15:45 INR 1.06 (0.5-1.4) 02/24/18 15:45 Sodium 128 mEq/L (136-145) L 02/24/18 15:45 Potassium 3.7 mEq/L (3.5-5.1) 02/24/18 15:45 Chloride 95 mEq/L (98-107) L 02/24/18 15:45 Carbon Dioxide 22.7 mEq/L (21.0-31.0) 02/24/18 15:45 Anion Gap 14.0 (7.0-16.0) 02/24/18 15:45 BUN 6 mg/dL (7-25) L 02/24/18 15:45 Creatinine 0.7 mg/dL (0.6-1.2) 02/24/18 15:45 Est GFR ( Amer) > 60.0 ml/min (>90) 02/24/18 15:45 Est GFR (Non-Af Amer) > 60.0 ml/min 02/24/18 15:45 BUN/Creatinine Ratio 8.6 02/24/18 15:45 Glucose 113 mg/dL (70-105) H 02/24/18 15:45 Calcium 8.7 mg/dL (8.6-10.3) 02/24/18 15:45 Total Bilirubin 0.4 mg/dL (0.3-1.0) 02/24/18 15:45 AST 15 U/L (13-39) 02/24/18 15:45 ALT 11 U/L (7-52) 02/24/18 15:45 Alkaline Phosphatase 63 U/L (34-104) 02/24/18 15:45 Creatine Kinase 58 U/L (30-223) 02/24/18 15:45 Troponin I 0.01 ng/mL (0.01-0.05) 02/24/18 15:45 B-Natriuretic Peptide 23.9 pg/mL (5.0-100.0) 02/24/18 15:45 Total Protein 6.4 gm/dL (6.0-8.3) 02/24/18 15:45 Albumin 4.3 gm/dL (3.7-5.3) 02/24/18 15:45 Globulin 2.1 gm/dL 02/24/18 15:45 Albumin/Globulin Ratio 2.1 (1.0-1.8) H 02/24/18 15:45 Triglycerides 148 mg/dL (<150) 02/24/18 15:45 Cholesterol 160 mg/dL (<200) 02/24/18 15:45 LDL Cholesterol Direct 65 mg/dL (75-193) L 02/24/18 15:45 HDL Cholesterol 59 mg/dL (23-92) 02/24/18 15:45 Urine Source CLEAN C 02/24/18 16:15 Urine Color YELLOW 02/24/18 16:15 Urine Clarity CLEAR (CLEAR) 02/24/18 16:15 Urine pH 5.5 (4.6 - 8.0) 02/24/18 16:15 Ur Specific [place] 1.015 (1.005-1.030) 02/24/18 16:15 Urine Protein NEGATIVE mg/dL (NEGATIVE) 02/24/18 16:15 Urine Glucose (UA) NEGATIVE mg/dL (NEGATIVE) 02/24/18 16:15 Urine Ketones NEGATIVE mg/dL (NEGATIVE) 02/24/18 16:15 Urine Blood NEGATIVE (NEGATIVE) 02/24/18 16:15 Urine Nitrate NEGATIVE (NEGATIVE) 02/24/18 16:15 Urine Bilirubin NEGATIVE (NEGATIVE) 02/24/18 16:15 Urine Urobilinogen 0.2 E.U./dL (0.2 - 1.0) 02/24/18 16:15 Ur Leukocyte Esterase TRACE (NEGATIVE) H 02/24/18 16:15 Urine RBC NONE SEEN /hpf (0-5) 02/24/18 16:15 Urine WBC 2-5 /hpf (0-5) 02/24/18 16:15 Ur Epithelial Cells NONE SEEN /lpf (FEW) 02/24/18 16:15 Urine Bacteria NONE SEEN /hpf (NONE SEEN) 02/24/18 16:15 - Physical Exam Vitals and I&O: Vital Signs Temp 96.3 F 02/25/18 10:00 Pulse 69 02/25/18 10:00 Resp 17 02/25/18 10:00 BP 141/74 02/25/18 10:00 Pulse Ox 94 02/25/18 10:00 Intake & Output 02/24/18 02/25/18 02/25/18 18:59 06:59 18:59 Intake Total 240 Balance 240 Weight (lbs) 58.513 kg 62.142 kg Intake: Oral 240 Other: # Voids 2 Stool Characteristics Soft Soft Formed Formed Weight Source Standing scale Bedscale Active Medications: Current Medications Acetaminophen (Tylenol) 650 mg PO Q4H PRN PRN Reason: Pain Or Fever above 101 Stop: 04/25/18 17:47 Al Hydrox/Mg Hydrox/Simethicone (Maalox) 30 ml PO Q6H PRN PRN Reason: Dyspepsia Stop: 04/25/18 17:47 Albuterol/Ipratropium (Duoneb Neb) 3 ml HHN Q6HRT [facility] Stop: 04/25/18 19:59 Last Admin: 02/25/18 07:01 Dose: Not Given Budesonide (Pulmicort) 0.5 mg HHN Q12HRT [facility] Stop: 04/25/18 19:59 Last Admin: 02/25/18 07:02 Dose: Not Given Calamine/Phenol (Calmoseptine) 1 appl TP QSHIFT [facility] Stop: 04/25/18 19:59 Citalopram Hydrobromide (Celexa) 20 mg PO DAILY [facility]; Protocol Stop: 04/26/18 08:59 Last Admin: 02/25/18 09:06 Dose: 20 mg Docusate Sodium (Colace) 200 mg PO DAILY [facility] Stop: 04/26/18 08:59 Last Admin: 02/25/18 09:05 Dose: 200 mg Gabapentin (Neurontin) 600 mg PO HS [facility] Stop: 04/25/18 20:59 Last Admin: 02/24/18 21:08 Dose: 300 mg Gabapentin (Neurontin) 300 mg PO BID [facility] Stop: 04/26/18 08:59 Last Admin: 02/25/18 09:05 Dose: 300 mg Guaifenesin (Robitussin) 200 mg PO Q4H PRN PRN Reason: Cough or Congestion Stop: 04/25/18 17:47 Dextrose/Sodium Chloride (D5-0.9%Ns) 1,000 mls @ 80 mls/hr IV .[id number] [facility] Stop: 04/25/18 17:59 Last Admin: 02/24/18 18:25 Dose: 80 mls/hr Lorazepam (Ativan) 0.5 mg PO Q6H PRN; Protocol PRN Reason: Anxiety Stop: 04/25/18 17:42 Last Admin: 02/25/18 00:15 Dose: 0.5 mg Methocarbamol (Robaxin) 500 mg PO BID [facility] Stop: 04/26/18 08:59 Last Admin: 02/25/18 09:05 Dose: 500 mg Nitroglycerin (Nitrostat) 0.4 mg SL Q5MIN PRN PRN Reason: Chest Pain Stop: 04/25/18 17:42 Ondansetron HCl (Zofran) 4 mg IV Q8H PRN PRN Reason: Nausea / Vomiting Stop: 04/25/18 17:47 Pantoprazole Sodium (Protonix) 40 mg PO QDAC [facility] Stop: 04/26/18 07:29 Last Admin: 02/25/18 06:40 Dose: 40 mg Quetiapine Fumarate (Seroquel) 25 mg PO HS [facility]; Protocol Stop: 04/25/18 20:59 Last Admin: 02/24/18 21:09 Dose: 25 mg Temazepam (Restoril) 15 mg PO HS PRN; Protocol PRN Reason: Insomnia Stop: 04/25/18 17:42 Tramadol HCl (Ultram) 50 mg PO Q8HR PRN PRN Reason: Pain (Moderate) Stop: 04/25/18 17:53 Last Admin: 02/24/18 21:08 Dose: 50 mg Verapamil HCl (Isoptin) 80 mg PO TID JO[facility] Stop: 04/25/18 20:59 Last Admin: 02/25/18 09:07 Dose: 80 mg Zolpidem Tartrate (Ambien) 10 mg PO HS PRN PRN Reason: Insomnia Stop: 04/25/18 17:47 Last Admin: 02/24/18 22:27 Dose: 10 mg General: congested, demented HEENT: NC/AT, PERRLA Neck: Supple, No JVD Lungs: congested Cardiovascular: RRR, Normal S1, Normal S2 Abdomen: soft, non-distended, positive bowel sound Extremities: excoriation, contracture - Procedures Procedures: Procedures Procedure Code Date ANESTH INJEC PERIPH NERV 04.81 12/04/10 ANESTH INJECT-SPIN CANAL 03.91 02/21/12 ASSISTANCE WITH RESPIRATORY VENTILATION, 24-96 HRS, CPAP [id number] 10/03/16 CERVICAL SPINE X-RAY NEC 87.22 02/28/11 EPIDUROGRAPHY 77709 02/21/12 INJ FORAMEN EPIDURAL L/S 16053 12/04/10 INJ PARAVERT F JNT C/T 1 LEV 04979 02/28/11 INJ PARAVERT F JNT C/T 2 LEV 19201 02/28/11 INJ PARAVERT F JNT C/T 3 LEV 16056 02/28/11 INJECT SPINE CERV/THORACIC 05848 05/30/11 INJECT SPINE LUMBAR/SACRAL 56634 02/21/12 INJECT STEROID 99.23 02/21/12 INJECT/INFUSE NEC 99.29 02/28/11 INJECTION INTO JOINT 81.92 02/28/11 LUMBOSAC SPINE X-RAY NEC 87.24 02/21/12 MYELOGRAPHY NECK SPINE 58635 05/30/11 PERIPH NERVE INJECT NEC 04.89 12/04/10 POS AIRWAY PRESSURE CPAP 00694 10/03/16 SPINAL CANAL INJECT NEC 03.92 02/21/12 Internal Medicine Assmt/Plan - Assessment Assessment: intractable headache copd clbp htn bipolar - Plan Plan: cont on ivf avoid narcotic o2 bronchodilator tx check labs dw rn follow up consults
[2018-02-26] MEDS: Albuterol/Ipratropium Neb 3 ML AERS HHN SCH ×3 (01:00→12:17)
[2018-02-26] MEDS: D5-0.9%NS 1,000 ML IV SCH (05:16)
[2018-02-26] MEDS: Budesonide 0.5 Mg/2 mL Ud HHN SCH (06:53)
[2018-02-26] MEDS: Pantoprazole 40 mg EC Tab PO SCH (07:03)
[2018-02-26] MEDS ORDERED: APAP 325mg/Butalbital 50mg/Caff 40mg Tab PO PRN (12:35)
[2018-02-26] MEDS ORDERED: APAP 325mg/Butalbital 50mg/Caff 40mg Tab PO ONE (12:36)
--- NOTE | 2018-02-26 14:47 | Internal Medicine Prog Note ---
Internal Medicine Subjective - Subjective Service Date: 02/26/18 Patient is:: awake, verbal, interactive Patient Complaints of:: congestion, constipation, cough Per staff patient has:: no adverse event Internal Medicine Objective - Results Result Diagrams: 02/24/18 15:45 02/24/18 15:45 Recent Labs: Laboratory Last Values WBC 7.9 Th/cmm (4.8-10.8) 02/24/18 15:45 RBC 4.16 Mil/cmm (3.80-5.20) 02/24/18 15:45 Hgb 13.3 gm/dL (12-16) 02/24/18 15:45 Hct 38.7 % (41.0-60) L 02/24/18 15:45 MCV 93.1 fl (81-100) 02/24/18 15:45 MCH 32.0 pg (27.0-31.0) H 02/24/18 15:45 MCHC Differential 34.4 pg (28.0-36.0) 02/24/18 15:45 RDW 12.6 % (11.5-20.0) 02/24/18 15:45 Plt Count 364 Th/cmm (150-400) 02/24/18 15:45 MPV 7.2 fl 02/24/18 15:45 Neutrophils % 58.2 % (40.0-80.0) 02/24/18 15:45 Lymphocytes % 29.6 % (20.0-50.0) 02/24/18 15:45 Monocytes % 8.8 % (2.0-10.0) 02/24/18 15:45 Eosinophils % 2.6 % (0.0-5.0) 02/24/18 15:45 Basophils % 0.8 % (0.0-2.0) 02/24/18 15:45 ESR 106 mm/hr (0-30) H 02/26/18 06:34 PT 11.0 SECONDS (9.5-11.5) 02/24/18 15:45 INR 1.06 (0.5-1.4) 02/24/18 15:45 Sodium 128 mEq/L (136-145) L 02/24/18 15:45 Potassium 3.7 mEq/L (3.5-5.1) 02/24/18 15:45 Chloride 95 mEq/L (98-107) L 02/24/18 15:45 Carbon Dioxide 22.7 mEq/L (21.0-31.0) 02/24/18 15:45 Anion Gap 14.0 (7.0-16.0) 02/24/18 15:45 BUN 6 mg/dL (7-25) L 02/24/18 15:45 Creatinine 0.7 mg/dL (0.6-1.2) 02/24/18 15:45 Est GFR ( Amer) > 60.0 ml/min (>90) 02/24/18 15:45 Est GFR (Non-Af Amer) > 60.0 ml/min 02/24/18 15:45 BUN/Creatinine Ratio 8.6 02/24/18 15:45 Glucose 113 mg/dL (70-105) H 02/24/18 15:45 Calcium 8.7 mg/dL (8.6-10.3) 02/24/18 15:45 Total Bilirubin 0.4 mg/dL (0.3-1.0) 02/24/18 15:45 AST 15 U/L (13-39) 02/24/18 15:45 ALT 11 U/L (7-52) 02/24/18 15:45 Alkaline Phosphatase 63 U/L (34-104) 02/24/18 15:45 Creatine Kinase 47 U/L (30-223) 02/26/18 06:34 Troponin I 0.01 ng/mL (0.01-0.05) 02/24/18 15:45 C-Reactive Protein < 0.2 mg/dL (0.0-0.9) 02/26/18 06:34 B-Natriuretic Peptide 23.9 pg/mL (5.0-100.0) 02/24/18 15:45 Total Protein 6.4 gm/dL (6.0-8.3) 02/24/18 15:45 Albumin 4.3 gm/dL (3.7-5.3) 02/24/18 15:45 Globulin 2.1 gm/dL 02/24/18 15:45 Albumin/Globulin Ratio 2.1 (1.0-1.8) H 02/24/18 15:45 Triglycerides 148 mg/dL (<150) 02/24/18 15:45 Cholesterol 160 mg/dL (<200) 02/24/18 15:45 LDL Cholesterol Direct 65 mg/dL (75-193) L 02/24/18 15:45 HDL Cholesterol 59 mg/dL (23-92) 02/24/18 15:45 Urine Source CLEAN C 02/24/18 16:15 Urine Color YELLOW 02/24/18 16:15 Urine Clarity CLEAR (CLEAR) 02/24/18 16:15 Urine pH 5.5 (4.6 - 8.0) 02/24/18 16:15 Ur Specific [place] 1.015 (1.005-1.030) 02/24/18 16:15 Urine Protein NEGATIVE mg/dL (NEGATIVE) 02/24/18 16:15 Urine Glucose (UA) NEGATIVE mg/dL (NEGATIVE) 02/24/18 16:15 Urine Ketones NEGATIVE mg/dL (NEGATIVE) 02/24/18 16:15 Urine Blood NEGATIVE (NEGATIVE) 02/24/18 16:15 Urine Nitrate NEGATIVE (NEGATIVE) 02/24/18 16:15 Urine Bilirubin NEGATIVE (NEGATIVE) 02/24/18 16:15 Urine Urobilinogen 0.2 E.U./dL (0.2 - 1.0) 02/24/18 16:15 Ur Leukocyte Esterase TRACE (NEGATIVE) H 02/24/18 16:15 Urine RBC NONE SEEN /hpf (0-5) 02/24/18 16:15 Urine WBC 2-5 /hpf (0-5) 02/24/18 16:15 Ur Epithelial Cells NONE SEEN /lpf (FEW) 02/24/18 16:15 Urine Bacteria NONE SEEN /hpf (NONE SEEN) 02/24/18 16:15 - Physical Exam Vitals and I&O: Vital Signs Temp 98.2 F 02/26/18 06:00 Pulse 88 02/26/18 13:24 Resp 18 02/26/18 06:00 BP 128/81 02/26/18 13:24 Pulse Ox 96 02/26/18 06:00 Intake & Output 02/25/18 02/26/18 02/26/18 18:59 06:59 18:59 Intake Total 200 480 Balance 200 480 Weight (lbs) 137 lb 144 lb 6.4 oz 144 lb Intake: Oral 200 480 Other: # Voids 3 3 # Bowel Movements 0 0 Stool Characteristics Soft Formed Weight Source Bedscale Bedscale Estimated Active Medications: Current Medications Acetaminophen (Tylenol) 650 mg PO Q4H PRN PRN Reason: Pain Or Fever above 101 Stop: 04/25/18 17:47 Acetaminophen/Butalbital/Caffeine (Fioricet) 2 tab PO Q6H PRN PRN Reason: Headache Stop: 04/27/18 12:34 Al Hydrox/Mg Hydrox/Simethicone (Maalox) 30 ml PO Q6H PRN PRN Reason: Dyspepsia Stop: 04/25/18 17:47 Albuterol/Ipratropium (Duoneb Neb) 3 ml HHN Q6HRT [facility] Stop: 04/25/18 19:59 Last Admin: 02/26/18 12:17 Dose: Not Given Budesonide (Pulmicort) 0.5 mg HHN Q12HRT [facility] Stop: 04/25/18 19:59 Last Admin: 02/26/18 06:53 Dose: Not Given Calamine/Phenol (Calmoseptine) 1 appl TP QSHIFT [facility] Stop: 04/25/18 19:59 Citalopram Hydrobromide (Celexa) 20 mg PO DAILY [facility]; Protocol Stop: 04/26/18 08:59 Last Admin: 02/26/18 08:55 Dose: 20 mg Docusate Sodium (Colace) 200 mg PO DAILY [facility] Stop: 04/26/18 08:59 Last Admin: 02/26/18 08:55 Dose: 200 mg Gabapentin (Neurontin) 600 mg PO HS [facility] Stop: 04/25/18 20:59 Last Admin: 02/25/18 20:18 Dose: 600 mg Gabapentin (Neurontin) 300 mg PO BID [facility] Stop: 04/26/18 08:59 Last Admin: 02/26/18 08:55 Dose: 300 mg Guaifenesin (Robitussin) 200 mg PO Q4H PRN PRN Reason: Cough or Congestion Stop: 04/25/18 17:47 Dextrose/Sodium Chloride (D5-0.9%Ns) 1,000 mls @ 80 mls/hr IV .[id number] [facility] Stop: 04/25/18 17:59 Last Admin: 02/26/18 05:16 Dose: 80 mls/hr Lorazepam (Ativan) 0.5 mg PO Q6H PRN; Protocol PRN Reason: Anxiety Stop: 04/25/18 17:42 Last Admin: 02/26/18 10:27 Dose: 0.5 mg Methocarbamol (Robaxin) 500 mg PO TID [facility] Stop: 04/27/18 13:59 Last Admin: 02/26/18 13:27 Dose: 500 mg Nitroglycerin (Nitrostat) 0.4 mg SL Q5MIN PRN PRN Reason: Chest Pain Stop: 04/25/18 17:42 Ondansetron HCl (Zofran) 4 mg IV Q8H PRN PRN Reason: Nausea / Vomiting Stop: 04/25/18 17:47 Pantoprazole Sodium (Protonix) 40 mg PO QDAC [facility] Stop: 04/26/18 07:29 Last Admin: 02/26/18 07:03 Dose: Not Given Quetiapine Fumarate (Seroquel) 25 mg PO HS [facility]; Protocol Stop: 04/25/18 20:59 Last Admin: 02/25/18 20:19 Dose: 25 mg Temazepam (Restoril) 15 mg PO HS PRN; Protocol PRN Reason: Insomnia Stop: 04/25/18 17:42 Topiramate (Topamax) 25 mg PO BID [facility] Stop: 04/27/18 12:33 Tramadol HCl (Ultram) 50 mg PO Q8HR PRN PRN Reason: Pain (Moderate) Stop: 04/25/18 17:53 Last Admin: 02/26/18 11:33 Dose: 50 mg Verapamil HCl (Isoptin) 80 mg PO TID [facility] Stop: 04/25/18 20:59 Last Admin: 02/26/18 13:24 Dose: 80 mg Zolpidem Tartrate (Ambien) 10 mg PO HS PRN PRN Reason: Insomnia Stop: 04/25/18 17:47 Last Admin: 02/24/18 22:27 Dose: 10 mg General: congested, demented HEENT: NC/AT, PERRLA Neck: Supple, No JVD Lungs: congested Cardiovascular: RRR, Normal S1, Normal S2 Abdomen: soft, non-distended, positive bowel sound Extremities: excoriation, contracture - Procedures Procedures: Procedures Procedure Code Date ANESTH INJEC PERIPH NERV 04.81 12/04/10 ANESTH INJECT-SPIN CANAL 03.02/21/12 ASSISTANCE WITH RESPIRATORY VENTILATION, 24-96 HRS, CPAP [id number] 10/03/16 CERVICAL SPINE X-RAY NEC 87.22 02/28/11 EPIDUROGRAPHY 94957 02/21/12 INJ FORAMEN EPIDURAL L/S 05057 12/04/10 INJ PARAVERT F JNT C/T 1 LEV 30387 02/28/11 INJ PARAVERT F JNT C/T 2 LEV 96771 02/28/11 INJ PARAVERT F JNT C/T 3 LEV 32156 02/28/11 INJECT SPINE CERV/THORACIC 58459 05/30/11 INJECT SPINE LUMBAR/SACRAL 60138 02/21/12 INJECT STEROID 99.23 02/21/12 INJECT/INFUSE NEC 99.29 02/28/11 INJECTION INTO JOINT 81.92 02/28/11 LUMBOSAC SPINE X-RAY NEC 87.24 02/21/12 MYELOGRAPHY NECK SPINE 01151 05/30/11 PERIPH NERVE INJECT NEC 04.89 12/04/10 POS AIRWAY PRESSURE CPAP 12505 10/03/16 SPINAL CANAL INJECT NEC 03.92 02/21/12 Internal Medicine Assmt/Plan - Assessment Assessment: intractable headache copd clbp htn bipolar - Plan Plan: cont on ivf o2 bronchodilator tx follow up labs in am follow up consults
--- NOTE | 2018-02-26 17:53 | Consultation ---
DATE OF CONSULTATION: 02/25/2018 NEUROLOGY CONSULTATION HISTORY OF PRESENT ILLNESS: The patient is 67-year-old. The patient says she has the headaches. She was sitting in chair. Prior to when I came, she was in the corridor shouting. At that time, she had complained of back pain. She also said that she wants medication for pain and also something to calm her down. Then, at the moment when I asked her she says I have headache and the only thing that helps is pain injections. The patient does not seem to be in any distress at the moment. Says she has a history of migraine in the past. Headaches all over. No nausea with it. No problem with vision. PAST MEDICAL HISTORY: Hypertension, bipolar schizoaffective disorder. The patient with chronic back pain. The patient with intractable headaches in the past. The patient has bladder infections. MEDICATIONS: As per reconciliation. Here, the patient is on Tylenol, Celexa, Colace, gabapentin 600 mg at bedtime and 300 mg b.i.d., lorazepam p.r.n., Robaxin, Zofran, Seroquel, temazepam, tramadol, verapamil, Ambien. REVIEW OF SYSTEMS: A 12-point negative except for above. PHYSICAL EXAMINATION: VITAL SIGNS: Temperature 99.4, blood pressure 125/70, pulse is 80. NECK: Supple, no bruits. HEART: Sounds S1, S2. LUNGS: Clear. NEUROLOGIC: The patient is awake, alert. She will answer questions. She gives me her name, her age. She tells me she lives in [place]. She is able to name simple objects. When I ask her what day, she said I do not know, but she knew the month. CRANIAL: Pupils react to light. Full eye movement, no nystagmus. No facial weakness. MOTOR: She will lift both arms up. Legs, she will lift them up, but she says weak. When I asked her to walk, she says she cannot walk. She complains of pain in the hip. Also, says legs will give out. The patient's reflexes 1 at upper extremity, -1 at the knees, absent at ankles. INVESTIGATIONS: CT scan of the head is negative. No acute process. IMPRESSION: 1. Headache which seems a combination of multiple factors with some history of migraine, may be the muscle contraction headaches. The patient clinically not in much distress compared to her complaints. The patient is on medication, I would continue with that. Avoid narcotics. I am going to check her sed rate, CRP to make sure no inflammatory process is going on. 2. The patient had gait difficulty. 3. Hypertension. 4. Bipolar disease. 5. Chronic obstructive pulmonary disease. JOB# [id number]
--- NOTE | 2018-02-26 20:32 | Consultation ---
DATE OF CONSULTATION: 02/26/2018 PSYCHIATRIC CONSULTATION PHYSICIAN REQUESTING CONSULTATION: Dr. Pate. REASON FOR CONSULTATION: Agitated behavior and acute mood swings. HISTORY OF PRESENT ILLNESS: This patient has been admitted here on 02/24/2018 to the medical floor because of intractable headaches and hypertension and agitated behavior. A psychiatric consultation is called to address the issue of the agitation. Chart is reviewed. The patient is interviewed. The patient is known to me from the previous psychiatric hospitalization treatment. The patient has been diagnosed to have bipolar disorder and is currently on Seroquel, trazodone, and Depakote. The patient is stating that the doctor has changed the medications from thereon she has been having difficult time. The patient has been going on a tangent and is not able to provide. The patient has been pacing most of the time on the unit. PAST PSYCHIATRIC HISTORY: Please refer to the above. MEDICAL HISTORY: Significant for the patient having hypertension and intractable headache and the Neurology consult has been requested. STRENGTHS AND ASSETS: The patient is motivated. MENTAL EXAMINATION: The patient is a 67-year-old woman looking her stated age, superficially cooperative. Eye contact is poor. Mood is irritable. Affect is constricted. The patient is wheeling herself in the wheelchair. The patient has been getting easily agitated. Coping skills are noted to be very poor. Insight and judgment also noted to be very poor. The patient has been having difficult time to cope with the stress. The patient has paranoia, but denies any command hallucinations. Short term memory is noted to be poor. Long-term memory seems to be fair. The patient continues to be perseverating. DIAGNOSTIC IMPRESSION: AXIS IA: Bipolar disorder mixed with psychotic symptoms. AXIS IB: Dementia and behavioral change, secondary trait. AXIS II: None. AXIS III: Secondary trait. IMMEDIATE TREATMENT PLAN. The patient is going to be closely monitored and encouraged to participate in the groups and verbalize the concerns and the patient is going to be transferred to the Geropsychiatric Unit. Until then, the patient is going to be continued on the Seroquel 25 mg at bedtime and Celexa 20 mg in the morning. The patient is going to be transferred to the Geropsychiatric Unit when she is medically cleared. JOB# [id number]
[2018-02-27 06:43] LABS: % BASOPHILS 0.8 % (0.0-2.0); % EOSINOPHILS 4.5 % (0.0-5.0); % LYMPHOCYTES 35.5 % (20.0-50.0); % MONOCYTES 8.8 % (2.0-10.0); % NEUTROPHILS 50.4 % (40.0-80.0); BASOPHILE ABSOLUTE 0.1 Th/cumm (0-0.2); EOSINOPHILE ABSOLUTE 0.3 Th/cmm (0.1-0.4); HEMATOCRIT 35.5 % (41.0-60); HEMOGLOBIN 12.5 gm/dL (12-16); LYMPHOCYTE ABSOLUTE 2.6 Th/cmm (1.5-3.0); MEAN CELL VOLUME 92.3 fl (81-100); MEAN CORPUSCULAR HEMOGLOBIN 32.5 pg (27.0-31.0); MEAN CORPUSCULAR HGB CONC 35.2 pg (28.0-36.0); MEAN PLATELET VOLUME 7.9 fl; MONOCYTE ABSOLUTE 0.6 Th/cmm (0.3-1.0); NEUTROPHILE ABSOLUTE 3.7 Th/cmm (1.8-8.0); PLATELET COUNT 287 Th/cmm (150-400); RED BLOOD COUNT 3.85 Mil/cmm (3.80-5.20); RED CELL DISTRIBUTION WIDTH 12.7 % (11.5-20.0); WHITE BLOOD COUNT 7.3 Th/cmm (4.8-10.8)
[2018-02-27 06:49] LABS: ANION GAP 11.9 (7.0-16.0); BUN - UREA NITROGEN 15 mg/dL (7-25); CALCIUM SERUM 9.1 mg/dL (8.6-10.3); CARBON DIOXIDE 22.6 mEq/L (21.0-31.0); CHLORIDE 102 mEq/L (98-107); CREATININE - SERUM 0.5 mg/dL (0.6-1.2); GFR AFRICAN-AMERICAN > 60.0 ml/min (>90); GFR NON AFRICAN-AMERICAN > 60.0 ml/min; GLUCOSE 81 mg/dL (70-105); POTASSIUM SERUM 3.5 mEq/L (3.5-5.1); SODIUM SERUM 133 mEq/L (136-145)
[2018-02-27] MEDS: Pantoprazole 40 mg EC Tab PO SCH (07:58)
[2018-02-27 11:10] LABS: FOLIC ACID 9.1 ng/mL (>3.0)
--- NOTE | 2018-03-01 14:33 | Internal Medicine Prog Note ---
Internal Medicine Subjective - Subjective Patient seen and examined:: with staff, chart reviewed Patient is:: awake, verbal, interactive Patient Complaints of:: congestion, constipation, cough Per staff patient has:: no adverse event, agitated, noncompliant Internal Medicine Objective - Results Result Diagrams: 02/27/18 05:52 02/27/18 05:52 Recent Labs: Laboratory Last Values WBC 7.3 Th/cmm (4.8-10.8) 02/27/18 05:52 RBC 3.85 Mil/cmm (3.80-5.20) 02/27/18 05:52 Hgb 12.5 gm/dL (12-16) 02/27/18 05:52 Hct 35.5 % (41.0-60) L 02/27/18 05:52 MCV 92.3 fl (81-100) 02/27/18 05:52 MCH 32.5 pg (27.0-31.0) H 02/27/18 05:52 MCHC Differential 35.2 pg (28.0-36.0) 02/27/18 05:52 RDW 12.7 % (11.5-20.0) 02/27/18 05:52 Plt Count 287 Th/cmm (150-400) 02/27/18 05:52 MPV 7.9 fl 02/27/18 05:52 Neutrophils % 50.4 % (40.0-80.0) 02/27/18 05:52 Lymphocytes % 35.5 % (20.0-50.0) 02/27/18 05:52 Monocytes % 8.8 % (2.0-10.0) 02/27/18 05:52 Eosinophils % 4.5 % (0.0-5.0) 02/27/18 05:52 Basophils % 0.8 % (0.0-2.0) 02/27/18 05:52 ESR 106 mm/hr (0-30) H 02/26/18 06:34 PT 11.0 SECONDS (9.5-11.5) 02/24/18 15:45 INR 1.06 (0.5-1.4) 02/24/18 15:45 Sodium 133 mEq/L (136-145) L 02/27/18 05:52 Potassium 3.5 mEq/L (3.5-5.1) 02/27/18 05:52 Chloride 102 mEq/L (98-107) 02/27/18 05:52 Carbon Dioxide 22.6 mEq/L (21.0-31.0) 02/27/18 05:52 Anion Gap 11.9 (7.0-16.0) 02/27/18 05:52 BUN 15 mg/dL (7-25) 02/27/18 05:52 Creatinine 0.5 mg/dL (0.6-1.2) L 02/27/18 05:52 Est GFR ( Amer) > 60.0 ml/min (>90) 02/27/18 05:52 Est GFR (Non-Af Amer) > 60.0 ml/min 02/27/18 05:52 BUN/Creatinine Ratio 30.0 02/27/18 05:52 Glucose 81 mg/dL (70-105) 02/27/18 05:52 Calcium 9.1 mg/dL (8.6-10.3) 02/27/18 05:52 Total Bilirubin 0.4 mg/dL (0.3-1.0) 02/24/18 15:45 AST 15 U/L (13-39) 02/24/18 15:45 ALT 11 U/L (7-52) 02/24/18 15:45 Alkaline Phosphatase 63 U/L (34-104) 02/24/18 15:45 Creatine Kinase 47 U/L (30-223) 02/26/18 06:34 Troponin I 0.01 ng/mL (0.01-0.05) 02/24/18 15:45 C-Reactive Protein < 0.2 mg/dL (0.0-0.9) 02/26/18 06:34 B-Natriuretic Peptide 23.9 pg/mL (5.0-100.0) 02/24/18 15:45 Total Protein 6.4 gm/dL (6.0-8.3) 02/24/18 15:45 Albumin 4.3 gm/dL (3.7-5.3) 02/24/18 15:45 Globulin 2.1 gm/dL 02/24/18 15:45 Albumin/Globulin Ratio 2.1 (1.0-1.8) H 02/24/18 15:45 Triglycerides 148 mg/dL (<150) 02/24/18 15:45 Cholesterol 160 mg/dL (<200) 02/24/18 15:45 LDL Cholesterol Direct 65 mg/dL (75-193) L 02/24/18 15:45 HDL Cholesterol 59 mg/dL (23-92) 02/24/18 15:45 Aldolase 5.0 U/L (3.3-10.3) 02/26/18 06:34 Vitamin B12 383 pg/mL (232-1245) 02/26/18 06:34 Folic Acid 9.1 ng/mL (>3.0) 02/26/18 06:34 Urine Source CLEAN C 02/24/18 16:15 Urine Color YELLOW 02/24/18 16:15 Urine Clarity CLEAR (CLEAR) 02/24/18 16:15 Urine pH 5.5 (4.6 - 8.0) 02/24/18 16:15 Ur Specific [place] 1.015 (1.005-1.030) 02/24/18 16:15 Urine Protein NEGATIVE mg/dL (NEGATIVE) 02/24/18 16:15 Urine Glucose (UA) NEGATIVE mg/dL (NEGATIVE) 02/24/18 16:15 Urine Ketones NEGATIVE mg/dL (NEGATIVE) 02/24/18 16:15 Urine Blood NEGATIVE (NEGATIVE) 02/24/18 16:15 Urine Nitrate NEGATIVE (NEGATIVE) 02/24/18 16:15 Urine Bilirubin NEGATIVE (NEGATIVE) 02/24/18 16:15 Urine Urobilinogen 0.2 E.U./dL (0.2 - 1.0) 02/24/18 16:15 Ur Leukocyte Esterase TRACE (NEGATIVE) H 02/24/18 16:15 Urine RBC NONE SEEN /hpf (0-5) 02/24/18 16:15 Urine WBC 2-5 /hpf (0-5) 02/24/18 16:15 Ur Epithelial Cells NONE SEEN /lpf (FEW) 02/24/18 16:15 Urine Bacteria NONE SEEN /hpf (NONE SEEN) 02/24/18 16:15 - Physical Exam Vitals and I&O: Vital Signs Temp 97.1 F 02/27/18 07:44 Pulse 91 02/27/18 09:12 Resp 18 02/27/18 07:44 BP 110/72 02/27/18 09:12 Pulse Ox 98 02/27/18 07:44 General: congested, demented HEENT: NC/AT, PERRLA Neck: Supple, No JVD Lungs: congested Cardiovascular: RRR, Normal S1, Normal S2 Abdomen: soft, non-distended, positive bowel sound Extremities: excoriation, contracture - Procedures Procedures: Procedures Procedure Code Date ANESTH INJEC PERIPH NERV 04.81 12/04/10 ANESTH INJECT-SPIN CANAL 03.91 02/21/12 ASSISTANCE WITH RESPIRATORY VENTILATION, 24-96 HRS, CPAP [id number] 10/03/16 CERVICAL SPINE X-RAY NEC 87.22 02/28/11 EPIDUROGRAPHY 18968 02/21/12 INJ FORAMEN EPIDURAL L/S 09119 12/04/10 INJ PARAVERT F JNT C/T 1 LEV 09926 02/28/11 INJ PARAVERT F JNT C/T 2 LEV 85966 02/28/11 INJ PARAVERT F JNT C/T 3 LEV 59834 02/28/11 INJECT SPINE CERV/THORACIC 12822 05/30/11 INJECT SPINE LUMBAR/SACRAL 16415 02/21/12 INJECT STEROID 99.23 02/21/12 INJECT/INFUSE NEC 99.29 02/28/11 INJECTION INTO JOINT 81.92 02/28/11 LUMBOSAC SPINE X-RAY NEC 87.24 02/21/12 MYELOGRAPHY NECK SPINE 08156 05/30/11 PERIPH NERVE INJECT NEC 04.89 12/04/10 POS AIRWAY PRESSURE CPAP [id number] 10/03/16 SPINAL CANAL INJECT NEC 03.92 02/21/12 Internal Medicine Assmt/Plan - Assessment Assessment: intractable headache copd clbp htn bipolar - Plan Plan: cont on nsaid avoid narcotic o2 bronchodilator tx check labs dw rn follow up consults
== END 2018-02-27 11:18 | DRG 103 ==
LOC: ER 14:53 → MSI 17:56
PROVIDERS: ADMIT Internal Medicine; ATTEND Internal Medicine
DX: G44.1 Vascular headache, not elsewhere classified (principal); E87.1 Hypo-osmolality and hyponatremia; N39.0 Urinary tract infection, site not specified; F31.64 Bipolar disorder, current episode mixed, severe, with psychotic features; F03.91 Unspecified dementia, unspecified severity, with behavioral disturbance; J44.9 Chronic obstructive pulmonary disease, unspecified; F17.210 Nicotine dependence, cigarettes, uncomplicated; I10 Essential (primary) hypertension; M54.5 Low back pain; E78.5 Hyperlipidemia, unspecified; K21.9 Gastro-esophageal reflux disease without esophagitis; G89.29 Other chronic pain; Z88.0 Allergy status to penicillin; Z88.8 Allergy status to other drugs, medicaments and biological substances; Z82.49 Family history of ischemic heart disease and other diseases of the circulatory system; Z90.49 Acquired absence of other specified parts of digestive tract
CPT/HCPCS: 36415-UA; 70450-TC; 7610; 80048-TC; 80053-TC; 80061-TC; 81001-TC; 82085-90; 82550-TC; 82607-90; 82746-90; 83880-TC; 84484-TC; 85025-TC; 85610-TC; 85652-TC; 86141-TC; 87086-90; 93005; 94640; 94760; 96375; J1956; J2270; J2405; J7042; Z7610

== ENCOUNTER 2018-02-27 11:19 | Inpatient (IN) | payer MEDICARE, MEDICAID ==
[2018-02-27 12:04] VITALS: BP 110/72
[2018-02-27] MEDS ORDERED: Magnesium Hydroxide (MOM) 30 mL UDC PO PRN (12:13)
[2018-02-27] MEDS ORDERED: Maalox 30 mL Cup PO PRN (12:13)
--- NOTE | 2018-02-27 12:36 | Internal Medicine Prog Note ---
Internal Medicine Subjective - Subjective Service Date: 02/27/18 Patient seen and examined:: with staff Patient is:: awake, verbal, agitated, confused Per staff patient has:: no adverse event, tolerating meds Internal Medicine Objective - Physical Exam Vitals and I&O: Vital Signs Temp Pulse Resp BP 110/72 02/27/18 12:04 Pulse Ox Intake & Output 02/26/18 02/27/18 02/27/18 18:59 06:59 18:59 Weight (lbs) 144 lb Other: Weight Source Bedscale Active Medications: Current Medications Acetaminophen (Tylenol) 650 mg PO Q4HR PRN PRN Reason: Mild Pain / Temp above 100 Stop: 04/28/18 12:12 Acetaminophen/Butalbital/Caffeine (Fioricet) 2 tab PO Q8H PRN PRN Reason: Headache Stop: 04/28/18 12:12 Acetaminophen/Hydrocodone Bitart ([place] 10 Mg/325 Mg) 1 tab PO TID PRN PRN Reason: PAIN Stop: 04/28/18 11:58 Al Hydrox/Mg Hydrox/Simethicone (Maalox) 30 ml PO Q4HR PRN PRN Reason: GI DISTRESS Stop: 04/28/18 12:12 Albuterol/Ipratropium (Duoneb Neb) 3 ml HHN Q6HRT [facility] Stop: 04/28/18 12:59 Budesonide (Pulmicort) 0.5 mg HHN Q12HRT [facility] Stop: 04/28/18 18:59 Citalopram Hydrobromide (Celexa) 20 mg PO DAILY [facility]; Protocol Stop: 04/29/18 08:59 Docusate Sodium (Colace) 200 mg PO DAILY [facility] Stop: 04/29/18 08:59 Fluticasone Propionate (Flonase) 2 spr NS DAILY [facility] Stop: 04/29/18 08:59 Gabapentin (Neurontin) 600 mg PO HS [facility] Stop: 04/28/18 20:59 Gabapentin (Neurontin) 300 mg PO BID [facility] Stop: 04/28/18 16:59 Lorazepam (Ativan) 0.5 mg PO Q6HR PRN; Protocol PRN Reason: Anxiety Stop: 04/28/18 11:58 Lorazepam (Ativan) 0.5 mg PO Q4HR PRN; Protocol PRN Reason: Agitation Stop: 03/29/18 12:12 Magnesium Hydroxide (Milk Of Magnesia) 30 ml PO HS PRN PRN Reason: Constipation Methocarbamol (Robaxin) 500 mg PO BID [facility] Stop: 04/28/18 16:59 Multivitamins/Vitamin C (Theragran) 1 tab PO DAILY [facility] Stop: 04/29/18 08:59 Nitroglycerin (Nitrostat) 0.4 mg SL Q5MIN PRN PRN Reason: Chest Pain Stop: 04/28/18 11:58 Pantoprazole Sodium (Protonix) 40 mg PO QDAC [facility] Stop: 04/29/18 07:29 Quetiapine Fumarate (Seroquel) 25 mg PO HS [facility]; Protocol Stop: 04/28/18 20:59 Temazepam (Restoril) 15 mg PO HS PRN; Protocol PRN Reason: Insomnia Stop: 04/28/18 11:58 Topiramate (Topamax) 25 mg PO BID [facility] Stop: 04/28/18 16:59 Tramadol HCl (Ultram) 50 mg PO Q4HR PRN PRN Reason: Pain (Severe) Stop: 04/28/18 12:03 Zolpidem Tartrate (Ambien) 5 mg PO HS PRN PRN Reason: Insomnia Stop: 04/28/18 12:12 General: alert HEENT: NC/AT, PERRLA Neck: Supple Lungs: CTAB Cardiovascular: RRR, Normal S1, Normal S2, without murmur Abdomen: soft, non-tender, non-distended, positive bowel sound Extremities: excoriation Neurological: alert - Procedures Procedures: Procedures Procedure Code Date ANESTH INJEC PERIPH NERV 04.81 12/04/10 ANESTH INJECT-SPIN CANAL 03.91 02/21/12 ASSISTANCE WITH RESPIRATORY VENTILATION, 24-96 HRS, CPAP [id number] 10/03/16 CERVICAL SPINE X-RAY NEC 87.22 02/28/11 EPIDUROGRAPHY 26717 02/21/12 INJ FORAMEN EPIDURAL L/S 81400 12/04/10 INJ PARAVERT F JNT C/T 1 LEV 21505 02/28/11 INJ PARAVERT F JNT C/T 2 LEV 65985 02/28/11 INJ PARAVERT F JNT C/T 3 LEV 94690 02/28/11 INJECT SPINE CERV/THORACIC 38252 05/30/11 INJECT SPINE LUMBAR/SACRAL 35332 02/21/12 INJECT STEROID 99.23 02/21/12 INJECT/INFUSE NEC 99.29 02/28/11 INJECTION INTO JOINT 81.92 02/28/11 LUMBOSAC SPINE X-RAY NEC 87.24 02/21/12 MYELOGRAPHY NECK SPINE 41631 05/30/11 PERIPH NERVE INJECT NEC 04.89 12/04/10 POS AIRWAY PRESSURE CPAP 88291 10/03/16 SPINAL CANAL INJECT NEC 03.92 02/21/12 Internal Medicine Assmt/Plan - Assessment Assessment: copd clbp htn bipolar - Plan Plan: fall precautions monitor bp continue current plan of care
[2018-02-27] MEDS: Albuterol/Ipratropium Neb 3 ML AERS HHN SCH ×2 (13:43→19:23)
[2018-02-27] MEDS: Budesonide 0.5 Mg/2 mL Ud HHN SCH (19:23)
[2018-02-27] MEDS: Hydrocodone/APAP 10 mg/325 mg Tab PO PRN (20:59)
[2018-02-28] MEDS: Albuterol/Ipratropium Neb 3 ML AERS HHN SCH ×4 (00:16→19:31)
--- NOTE | 2018-02-28 01:30 | Psychosocial Evaluation ---
DATE OF SERVICE: 02/27/2018 IDENTIFYING DATA: The patient is a 67-year-old woman, resident of [facility]. Information obtained by directly interviewing the patient as well as reviewing the admission papers and they are reliable. JUSTIFICATION OF HOSPITALIZATION: The patient is admitted on a 5150 for being gravely disabled and a danger to others. CHIEF COMPLAINT: "I don't know, this is a crazy place, I should not be in here." HISTORY OF PRESENT ILLNESS: This is one of multiple psychiatric hospitalizations for this patient, who has been seen by me for consultation on the medical floor. The patient is complaining that she has been having intractable headaches and getting easily upset. The patient is reported to have been getting agitated, and screaming and yelling and has been cursing the staff out there. The patient has been evaluated and has been placed on a 72-hour hold as being gravely disabled. Chart is reviewed. The patient is interviewed. The patient had been taking Seroquel and Celexa. The patient is stating that this is not helping her. She needs to be on medication to help her with the headaches. The patient has multiple somatic complaints. PAST PSYCHIATRIC HISTORY: Please refer to the above. MEDICAL HISTORY: Physical examination is requested to be done by Dr. Pate. SUBSTANCE ABUSE HISTORY: None. PHYSICAL OR SEXUAL ABUSE HISTORY: None. LEGAL PROBLEMS: None at this time. STRENGTH AND ASSETS: The patient seems to be motivated. MENTAL STATUS EXAMINATION: The patient is a 67-year-old, looking her stated age, superficially cooperative, very agitated, and screaming and yelling. Insight and judgment at this time are noted to be very much impaired. Impulse control is noted to be poor. Coping skills are also noted to be very poor. The patient has been having difficult time to cope with the stress. The patient is very paranoid and somatically preoccupied. The patient has been having acute mood swings. The patient is alert and aware that she is in the hospital, but the patient is screaming and yelling and stating that she should not be here in the hospital, has paranoid delusions and also has been having acute mood swings. The patient's behavior is likely a danger to self and others at this time. The patient is not able to care for self. DIAGNOSTIC IMPRESSION: AXIS IA. Bipolar disorder mixed with psychotic symptoms. AXIS IB. Dementia and behavioral change, secondary trait. AXIS II: None. AXIS III: As per Dr. Pate. IMMEDIATE TREATMENT PLAN: The patient is going to be observed on inpatient unit, provided with supportive psychotherapy. The patient is going to be restarted with citalopram 20 mg in the morning and the patient is going to be placed on Seroquel 25 mg at bedtime. If the patient continues to be having the mood swings, Depakote is going to be continued, but the patient is currently on gabapentin. We will continue the same. ESTIMATED LENGTH OF STAY: 3-5 days. DISCHARGE CRITERIA: When the patient is no longer a threat to self or others and be able to cope up with the stress. [facility]# [id number]
[2018-02-28] MEDS: Hydrocodone/APAP 10 mg/325 mg Tab PO PRN ×2 (06:23→16:53)
[2018-02-28] MEDS: Budesonide 0.5 Mg/2 mL Ud HHN SCH ×2 (06:59→19:31)
[2018-02-28] MEDS: Pantoprazole 40 mg EC Tab PO SCH (07:18)
--- NOTE | 2018-02-28 09:00 | Progress Notes ---
DATE: 02/28/2018 SUBJECTIVE: Staff was spoken to. The patient is irritable. Affect is constricted. Insight and judgment are noted to be still impaired. Impulse control is noted to be poor. The patient is screaming and yelling, stating that she does not belong in here and is stating that she should be out of the facility. The patient is not able to contract for her safety. No side effects to the medications are noted. The patient has been getting easily agitated, but this time more than the depression, the agitation is the major concern at this time. The patient is noted to be very disruptive on the unit. The patient has been placed on the gabapentin ____ 1200 mg a day. The patient has been placed on 25 mg of the Seroquel and we will be closely monitoring the patient and I encouraged the patient to verbalize the concerns rather than to act out. The Seroquel is going to be gradually increased to 25 mg twice a day and the patient is going to be monitored for any side effects from the medication. Please note that the patient is not ready to be discharged to a lower level of care in view of her acute agitation. JOB# [id number]
[2018-02-28] MEDS: Fluticasone Propionate 0.05mg/Actuation 16gm Nasal Spray NS SCH (09:32)
[2018-02-28] MEDS: Multivitamin Tab PO SCH (09:33)
--- NOTE | 2018-02-28 15:53 | Internal Medicine Prog Note ---
Internal Medicine Subjective - Subjective Service Date: 02/28/18 (c/o headache) Patient is:: awake, verbal, agitated, confused Patient Complaints of:: headache Per staff patient has:: no adverse event, tolerating meds Internal Medicine Objective - Physical Exam Vitals and I&O: Vital Signs Temp 97.4 F 02/28/18 14:00 Pulse 68 02/28/18 14:00 Resp 20 02/28/18 14:00 BP 124/72 02/28/18 14:00 Pulse Ox 95 02/28/18 14:00 Intake & Output 02/27/18 02/28/18 02/28/18 18:59 06:59 18:59 Intake Total 120 Balance 120 Intake: Oral 120 Other: # Voids 1 3 Weight Source Bedscale Active Medications: Current Medications Acetaminophen (Tylenol) 650 mg PO Q4HR PRN PRN Reason: Mild Pain / Temp above 100 Stop: 04/28/18 12:12 Acetaminophen/Butalbital/Caffeine (Fioricet) 2 tab PO Q8H PRN PRN Reason: Headache Stop: 04/28/18 12:12 Acetaminophen/Hydrocodone Bitart ([place] 10 Mg/325 Mg) 1 tab PO TID PRN PRN Reason: PAIN Stop: 04/28/18 11:58 Last Admin: 02/28/18 06:23 Dose: 1 tab Al Hydrox/Mg Hydrox/Simethicone (Maalox) 30 ml PO Q4HR PRN PRN Reason: GI DISTRESS Stop: 04/28/18 12:12 Albuterol/Ipratropium (Duoneb Neb) 3 ml HHN Q6HRT [facility] Stop: 04/28/18 12:59 Last Admin: 02/28/18 13:56 Dose: 3 ml Budesonide (Pulmicort) 0.5 mg HHN Q12HRT [facility] Stop: 04/28/18 18:59 Last Admin: 02/28/18 06:59 Dose: 0.5 mg Citalopram Hydrobromide (Celexa) 10 mg PO DAILY [facility]; Protocol Stop: 04/29/18 08:59 Last Admin: 02/28/18 08:43 Dose: Not Given Docusate Sodium (Colace) 200 mg PO DAILY [facility] Stop: 04/29/18 08:59 Last Admin: 02/28/18 09:32 Dose: Not Given Fluticasone Propionate (Flonase) 2 spr NS DAILY [facility] Stop: 04/29/18 08:59 Last Admin: 02/28/18 09:32 Dose: 2 spr Gabapentin (Neurontin) 600 mg PO HS [facility] Stop: 04/28/18 20:59 Last Admin: 02/27/18 20:15 Dose: 600 mg Gabapentin (Neurontin) 300 mg PO BID [facility] Stop: 04/28/18 16:59 Last Admin: 02/28/18 09:39 Dose: 300 mg Lorazepam (Ativan) 0.5 mg PO Q6HR PRN; Protocol PRN Reason: Anxiety Stop: 04/28/18 11:58 Magnesium Hydroxide (Milk Of Magnesia) 30 ml PO HS PRN PRN Reason: Constipation Methocarbamol (Robaxin) 500 mg PO BID [facility] Stop: 04/28/18 16:59 Last Admin: 02/28/18 09:39 Dose: 500 mg Multivitamins/Vitamin C (Theragran) 1 tab PO DAILY [facility] Stop: 04/29/18 08:59 Last Admin: 02/28/18 09:33 Dose: 1 tab Nitroglycerin (Nitrostat) 0.4 mg SL Q5MIN PRN PRN Reason: Chest Pain Stop: 04/28/18 11:58 Pantoprazole Sodium (Protonix) 40 mg PO QDAC [facility] Stop: 04/29/18 07:29 Last Admin: 02/28/18 07:18 Dose: 40 mg Quetiapine Fumarate (Seroquel) 25 mg PO BID [facility]; Protocol Stop: 04/29/18 08:59 Last Admin: 02/28/18 08:43 Dose: Not Given Topiramate (Topamax) 25 mg PO BID [facility] Stop: 04/28/18 16:59 Last Admin: 02/28/18 09:33 Dose: 25 mg Tramadol HCl (Ultram) 50 mg PO Q4HR PRN PRN Reason: Pain (Severe) Stop: 04/28/18 12:03 Last Admin: 02/28/18 13:07 Dose: 50 mg Zolpidem Tartrate (Ambien) 5 mg PO HS PRN PRN Reason: Insomnia Stop: 04/28/18 12:12 General: alert HEENT: NC/AT, PERRLA Neck: Supple Lungs: CTAB Cardiovascular: RRR, Normal S1, Normal S2, without murmur Abdomen: soft, non-tender, non-distended, positive bowel sound Extremities: excoriation Neurological: alert - Procedures Procedures: Procedures Procedure Code Date ANESTH INJEC PERIPH NERV 04.81 12/04/10 ANESTH INJECT-SPIN CANAL 03.91 02/21/12 ASSISTANCE WITH RESPIRATORY VENTILATION, 24-96 HRS, CPAP [id number] 10/03/16 CERVICAL SPINE X-RAY NEC 87.22 02/28/11 EPIDUROGRAPHY 79222 02/21/12 INJ FORAMEN EPIDURAL L/S 10784 12/04/10 INJ PARAVERT F JNT C/T 1 LEV 78645 02/28/11 INJ PARAVERT F JNT C/T 2 LEV 39120 02/28/11 INJ PARAVERT F JNT C/T 3 LEV 82835 02/28/11 INJECT SPINE CERV/THORACIC 08377 05/30/11 INJECT SPINE LUMBAR/SACRAL 09122 02/21/12 INJECT STEROID 99.23 02/21/12 INJECT/INFUSE NEC 99.29 02/28/11 INJECTION INTO JOINT 81.92 02/28/11 LUMBOSAC SPINE X-RAY NEC 87.24 02/21/12 MYELOGRAPHY NECK SPINE 19408 05/30/11 PERIPH NERVE INJECT NEC 04.89 12/04/10 POS AIRWAY PRESSURE CPAP 40134 10/03/16 SPINAL CANAL INJECT NEC 03.92 02/21/12 Internal Medicine Assmt/Plan - Assessment Assessment: copd clbp htn bipolar - Plan Plan: fall precautions monitor bp continue current plan of care
[2018-03-01] MEDS: Albuterol/Ipratropium Neb 3 ML AERS HHN SCH ×4 (00:07→19:17)
[2018-03-01] MEDS: Hydrocodone/APAP 10 mg/325 mg Tab PO PRN ×2 (04:21→12:39)
[2018-03-01] MEDS: Budesonide 0.5 Mg/2 mL Ud HHN SCH ×2 (06:29→19:17)
[2018-03-01] MEDS: Pantoprazole 40 mg EC Tab PO SCH (06:30)
[2018-03-01] MEDS: Fluticasone Propionate 0.05mg/Actuation 16gm Nasal Spray NS SCH (08:26)
[2018-03-01] MEDS: Multivitamin Tab PO SCH (08:52)
--- NOTE | 2018-03-01 14:36 | Internal Medicine Prog Note ---
Internal Medicine Subjective - Subjective Patient seen and examined:: with staff, chart reviewed Patient is:: awake, verbal, agitated, confused Patient Complaints of:: headache Per staff patient has:: no adverse event, no episodes of fall, agitated, tolerating meds Internal Medicine Objective - Physical Exam Vitals and I&O: Vital Signs Temp 97.8 F 03/01/18 11:53 Pulse 81 03/01/18 12:09 Resp 16 03/01/18 12:09 BP 126/55 03/01/18 11:53 Pulse Ox 96 03/01/18 12:09 Intake & Output 02/28/18 03/01/18 03/01/18 18:59 06:59 18:59 Intake Total 1400 Balance 1400 Intake: Oral 1400 Other: # Voids 3 # Bowel Movements 0 Active Medications: Current Medications Acetaminophen (Tylenol) 650 mg PO Q4HR PRN PRN Reason: Mild Pain / Temp above 100 Stop: 04/28/18 12:12 Acetaminophen/Butalbital/Caffeine (Fioricet) 2 tab PO Q8H PRN PRN Reason: Headache Stop: 04/28/18 12:12 Acetaminophen/Hydrocodone Bitart ([place] 10 Mg/325 Mg) 1 tab PO TID PRN PRN Reason: PAIN Stop: 04/28/18 11:58 Last Admin: 03/01/18 12:39 Dose: 1 tab Al Hydrox/Mg Hydrox/Simethicone (Maalox) 30 ml PO Q4HR PRN PRN Reason: GI DISTRESS Stop: 04/28/18 12:12 Albuterol/Ipratropium (Duoneb Neb) 3 ml HHN Q6HRT [facility] Stop: 04/28/18 12:59 Last Admin: 03/01/18 12:04 Dose: 3 ml Budesonide (Pulmicort) 0.5 mg HHN Q12HRT [facility] Stop: 04/28/18 18:59 Last Admin: 03/01/18 06:29 Dose: 0.5 mg Citalopram Hydrobromide (Celexa) 10 mg PO DAILY [facility]; Protocol Stop: 04/29/18 08:59 Last Admin: 03/01/18 08:24 Dose: 10 mg Docusate Sodium (Colace) 200 mg PO DAILY [facility] Stop: 04/29/18 08:59 Last Admin: 03/01/18 08:24 Dose: 200 mg Fluticasone Propionate (Flonase) 2 spr NS DAILY [facility] Stop: 04/29/18 08:59 Last Admin: 03/01/18 08:26 Dose: 2 spr Gabapentin (Neurontin) 600 mg PO HS [facility] Stop: 04/28/18 20:59 Last Admin: 02/28/18 21:27 Dose: 600 mg Gabapentin (Neurontin) 300 mg PO BID [facility] Stop: 04/28/18 16:59 Last Admin: 03/01/18 08:52 Dose: 300 mg Lorazepam (Ativan) 0.5 mg PO Q6HR PRN; Protocol PRN Reason: Anxiety Stop: 04/28/18 11:58 Last Admin: 03/01/18 05:23 Dose: 0.5 mg Magnesium Hydroxide (Milk Of Magnesia) 30 ml PO HS PRN PRN Reason: Constipation Methocarbamol (Robaxin) 500 mg PO BID [facility] Stop: 04/28/18 16:59 Last Admin: 03/01/18 08:50 Dose: 500 mg Multivitamins/Vitamin C (Theragran) 1 tab PO DAILY [facility] Stop: 04/29/18 08:59 Last Admin: 03/01/18 08:52 Dose: 1 tab Nitroglycerin (Nitrostat) 0.4 mg SL Q5MIN PRN PRN Reason: Chest Pain Stop: 04/28/18 11:58 Pantoprazole Sodium (Protonix) 40 mg PO QDAC [facility] Stop: 04/29/18 07:29 Last Admin: 03/01/18 06:30 Dose: 40 mg Quetiapine Fumarate (Seroquel) 25 mg PO BID [facility]; Protocol Stop: 04/29/18 08:59 Last Admin: 03/01/18 08:52 Dose: 25 mg Topiramate (Topamax) 25 mg PO BID [facility] Stop: 04/28/18 16:59 Last Admin: 03/01/18 08:53 Dose: 25 mg Tramadol HCl (Ultram) 50 mg PO Q4HR PRN PRN Reason: Pain (Severe) Stop: 04/28/18 12:03 Last Admin: 02/28/18 19:50 Dose: 50 mg Zolpidem Tartrate (Ambien) 5 mg PO HS PRN PRN Reason: Insomnia Stop: 04/28/18 12:12 Last Admin: 02/28/18 21:27 Dose: 5 mg General: alert HEENT: NC/AT, PERRLA Neck: Supple Lungs: CTAB Cardiovascular: RRR, Normal S1, Normal S2, without murmur Abdomen: soft, non-tender, non-distended, positive bowel sound Extremities: excoriation Neurological: alert - Procedures Procedures: Procedures Procedure Code Date ANESTH INJEC PERIPH NERV 04.81 12/04/10 ANESTH INJECT-SPIN CANAL 03.91 02/21/12 ASSISTANCE WITH RESPIRATORY VENTILATION, 24-96 HRS, CPAP [id number] 10/03/16 CERVICAL SPINE X-RAY NEC 87.22 02/28/11 EPIDUROGRAPHY 45487 02/21/12 INJ FORAMEN EPIDURAL L/S 97510 12/04/10 INJ PARAVERT F JNT C/T 1 LEV 27995 02/28/11 INJ PARAVERT F JNT C/T 2 LEV 01973 02/28/11 INJ PARAVERT F JNT C/T 3 LEV 51251 02/28/11 INJECT SPINE CERV/THORACIC 47837 05/30/11 INJECT SPINE LUMBAR/SACRAL 27069 02/21/12 INJECT STEROID 99.23 02/21/12 INJECT/INFUSE NEC 99.29 02/28/11 INJECTION INTO JOINT 81.92 02/28/11 LUMBOSAC SPINE X-RAY NEC 87.24 02/21/12 MYELOGRAPHY NECK SPINE 39430 05/30/11 PERIPH NERVE INJECT NEC 04.89 12/04/10 POS AIRWAY PRESSURE CPAP 98736 10/03/16 SPINAL CANAL INJECT NEC 03.92 02/21/12 Internal Medicine Assmt/Plan - Assessment Assessment: headache copd clbp htn bipolar - Plan Plan: fall precautions monitor bp continue current plan of care
--- NOTE | 2018-03-01 14:55 | Consultation ---
DATE OF CONSULTATION: 02/28/2018 REFERRING PHYSICIAN: Joon De Jesus MD TYPE OF CONSULTATION: Psychology. HISTORY OF PRESENT ILLNESS: The patient is a 67-year-old female. The patient is a resident of [facility]. The patient is known to this law writer from multiple previous hospitalizations. The following is by record review and by the patient's self-report. The patient is being admitted due to becoming a danger to others and apparently gravely disabled. The patient at the time of the interview states that she should not be hospitalized and sees no reason for this admission. The patient complained of headaches and becoming upset with her caregivers according to the staff at the patient's facility. The staff also reported screaming and yelling episodes and cursing at the staff. The patient denied any suicidal ideation, plan or intention. PAST MEDICAL HISTORY: Please see history and physical by Dr. Pate. PAST PSYCHIATRIC HISTORY: The patient has a history of bipolar disorder as well as dementia and is under the care of a psychiatrist at her halfway facility. The patient has multiple previous hospitalizations. SUBSTANCE ABUSE HISTORY: The patient denied any. PSYCHOSOCIAL HISTORY: The patient did not answer questions about occupational or educational history or christian affiliation. The patient denied any history of physical or sexual abuse. The patient denied any current legal problems. The patient is demanding to be discharged and return to her halfway facility at the time of this interview. MENTAL STATUS EXAMINATION: The patient appears to be her stated age. The patient's attitude is guarded and suspicious. Eye contact is poor. Speech is hyperverbal and pressured. Thought process shows perseveration on discharging the hospital. Also there is marked tangentiality. The patient is easily agitated with intermittent episodes of yelling. The patient seems to be somatically preoccupied. There is evidence of paranoid ideation. The patient is having acute mood swings. The patient denied any suicidal ideation, plan or intention. The patient did not answer questions about auditory or visual hallucinations. Impulse control is inadequate. Concentration is poor. The patient did not participate in the memory assessment. Sensorium is alert and oriented to person and place. The patient did not participate in the interpretation of proverbs. The patient's history includes a danger to self and others. The patient was unable to verbally contract for safety. Insight is impaired. Judgment is impaired. DIAGNOSTIC IMPRESSION: AXIS I: 1. Bipolar disorder mixed with psychotic symptoms by history. 2. Dementia with behavioral disturbance. AXIS II: Deferred. AXIS III: Per Dr. Pate. TREATMENT PLAN: The patient has been seen by Dr. De Jesus for psychiatric evaluation and for the management of the patient's psychotropic medications. The patient is being started on citalopram 20 mg in the morning and Seroquel 25 mg at bedtime according to the record. The patient will be monitored closely and medications adjusted according to the psychiatrist. We will provide supportive psychotherapy to include de-escalation and limit setting. We will provide reality orientation and reality differentiation and reality integration. We will provide coping strategies for chronic severe mental illness. We will provide motivational enhancement for the patient to become compliant and stay compliant with all aspects of her care and treatment. We will encourage the patient to be able to demonstrate emotional and self-regulation prior to discharge. We will continue with supportive therapy throughout the patient's stay. We will encourage the patient to verbally contract for safety to include no self-harm and no harm to others. We will encourage the patient to appropriately verbalize her concerns with staff versus acting out and verbal aggression. Thank you Dr. De Jesus for this consult and the opportunity to participate in this patient's care. [facility]# [id number] BINA
[2018-03-01 15:21] LABS: URINE MICROSCOPIC INDICATED? YES; URINE SOURCE RANDOM
[2018-03-01 15:22] LABS: URINE BILIRUBIN NEGATIVE (NEGATIVE); URINE BLOOD LARGE (NEGATIVE); URINE GLUCOSE (UA) NEGATIVE (NEGATIVE); URINE KETONE NEGATIVE (NEGATIVE); URINE LEUKOCYTE ESTERASE LARGE (NEGATIVE); URINE NITRATE NEGATIVE (NEGATIVE); URINE PROTEIN 100 mg/dL (NEGATIVE); URINE UROBILINOGEN 0.2 E.U./dL (0.2 - 1.0)
[2018-03-01 15:37] LABS: URINE CLARITY CLOUDY (CLEAR); URINE COLOR YELLOW
[2018-03-01 15:39] LABS: URINE BACTERIA MODERATE /hpf (NONE SEEN); URINE EPITHELIAL CELLS FEW /lpf (FEW); URINE WBC 50-100 /hpf (0-5)
--- NOTE | 2018-03-01 18:01 | Progress Notes ---
DATE: 03/01/2018 SUBJECTIVE: Staff was spoken to. The patient is interviewed. Mood is noted to be irritable. Affect is constricted. The patient is stating that she happened to see the neurologist and they could not figure it out what has been causing the extreme headache and she states that she has been given the morphine and she could not figure it out ____ taken out. The patient has been having difficult time to cope with the stress at this time. ASSESSMENT: The patient is still having difficult time to cope with the stress and is getting easily agitated. Plan to continue the patient with the current medications and start the patient on Cymbalta instead of the Celexa in view of constant complaining of pain. The patient is going to be followed up with the supportive therapy and encouraged her to verbalize the concerns rather than to act out. Please note that the patient has been having lot of somatic complaints and is not able to contract for safety at this time. ASSESSMENT: The patient is depressed and impulsive. PLAN: To continue the patient with Cymbalta and encouraged the patient to verbalize the concerns rather than to act out. JOB# [id number]
[2018-03-02] MEDS: Albuterol/Ipratropium Neb 3 ML AERS HHN SCH ×4 (00:05→18:43)
[2018-03-02] MEDS: Pantoprazole 40 mg EC Tab PO SCH (06:33)
[2018-03-02] MEDS: Budesonide 0.5 Mg/2 mL Ud HHN SCH ×2 (07:43→18:43)
[2018-03-02] MEDS: Multivitamin Tab PO SCH (08:03)
[2018-03-02] MEDS: Fluticasone Propionate 0.05mg/Actuation 16gm Nasal Spray NS SCH (08:13)
[2018-03-02] MEDS: APAP 325mg/Butalbital 50mg/Caff 40mg Tab PO PRN ×2 (12:04→20:43)
--- NOTE | 2018-03-02 12:04 | Internal Medicine Prog Note ---
Internal Medicine Subjective - Subjective Patient seen and examined:: with staff, chart reviewed Patient is:: awake, verbal, agitated, confused Patient Complaints of:: headache Per staff patient has:: no adverse event, no episodes of fall, agitated, tolerating meds Internal Medicine Objective - Results Recent Labs: Laboratory Last Values Urine Source RANDOM 03/01/18 09:50 Urine Color YELLOW 03/01/18 09:50 Urine Clarity CLOUDY (CLEAR) H 03/01/18 09:50 Urine pH 6.0 (4.6 - 8.0) 03/01/18 09:50 Ur Specific [place] 1.020 (1.005-1.030) 03/01/18 09:50 Urine Protein 100 mg/dL (NEGATIVE) H 03/01/18 09:50 Urine Glucose (UA) NEGATIVE mg/dL (NEGATIVE) 03/01/18 09:50 Urine Ketones NEGATIVE mg/dL (NEGATIVE) 03/01/18 09:50 Urine Blood LARGE (NEGATIVE) H 03/01/18 09:50 Urine Nitrate NEGATIVE (NEGATIVE) 03/01/18 09:50 Urine Bilirubin NEGATIVE (NEGATIVE) 03/01/18 09:50 Urine Urobilinogen 0.2 E.U./dL (0.2 - 1.0) 03/01/18 09:50 Ur Leukocyte Esterase LARGE (NEGATIVE) H 03/01/18 09:50 Urine RBC 10-25 /hpf (0-5) H 03/01/18 09:50 Urine WBC 50-100 /hpf (0-5) H 03/01/18 09:50 Ur Epithelial Cells FEW /lpf (FEW) 03/01/18 09:50 Urine Bacteria MODERATE /hpf (NONE SEEN) H 03/01/18 09:50 - Physical Exam Vitals and I&O: Vital Signs Temp 98 F 03/02/18 06:22 Pulse 78 03/02/18 07:43 Resp 18 03/02/18 07:43 BP 113/54 03/02/18 06:22 Pulse Ox 95 03/02/18 07:43 Intake & Output 03/01/18 03/02/18 03/02/18 18:59 06:59 18:59 Intake Total 950 480 Balance 950 480 Intake: Oral 950 480 Other: # Voids 4 1 # Bowel Movements 1 Active Medications: Current Medications Acetaminophen (Tylenol) 650 mg PO Q4HR PRN PRN Reason: Mild Pain / Temp above 100 Stop: 04/28/18 12:12 Acetaminophen/Butalbital/Caffeine (Fioricet) 2 tab PO Q8H PRN PRN Reason: Headache Stop: 04/28/18 12:12 Al Hydrox/Mg Hydrox/Simethicone (Maalox) 30 ml PO Q4HR PRN PRN Reason: GI DISTRESS Stop: 04/28/18 12:12 Albuterol/Ipratropium (Duoneb Neb) 3 ml HHN Q6HRT [facility] Stop: 04/28/18 12:59 Last Admin: 03/02/18 07:05 Dose: 3 ml Budesonide (Pulmicort) 0.5 mg HHN Q12HRT [facility] Stop: 04/28/18 18:59 Last Admin: 03/02/18 07:43 Dose: 0.5 mg Docusate Sodium (Colace) 200 mg PO DAILY [facility] Stop: 04/29/18 08:59 Last Admin: 03/02/18 08:05 Dose: 200 mg Duloxetine HCl (Cymbalta) 30 mg PO DAILY [facility]; Protocol Stop: 05/01/18 08:59 Last Admin: 03/02/18 08:12 Dose: 30 mg Fluticasone Propionate (Flonase) 2 spr NS DAILY [facility] Stop: 04/29/18 08:59 Last Admin: 03/02/18 08:13 Dose: 2 spr Gabapentin (Neurontin) 600 mg PO HS [facility] Stop: 04/28/18 20:59 Last Admin: 03/01/18 20:23 Dose: 600 mg Gabapentin (Neurontin) 300 mg PO BID [facility] Stop: 04/28/18 16:59 Last Admin: 03/02/18 08:04 Dose: 300 mg Lorazepam (Ativan) 0.5 mg PO Q6HR PRN; Protocol PRN Reason: Anxiety Stop: 04/28/18 11:58 Last Admin: 03/01/18 21:19 Dose: 0.5 mg Magnesium Hydroxide (Milk Of Magnesia) 30 ml PO HS PRN PRN Reason: Constipation Methocarbamol (Robaxin) 500 mg PO BID [facility] Stop: 04/28/18 16:59 Last Admin: 03/02/18 08:03 Dose: 500 mg Multivitamins/Vitamin C (Theragran) 1 tab PO DAILY [facility] Stop: 04/29/18 08:59 Last Admin: 03/02/18 08:03 Dose: 1 tab Nitroglycerin (Nitrostat) 0.4 mg SL Q5MIN PRN PRN Reason: Chest Pain Stop: 04/28/18 11:58 Pantoprazole Sodium (Protonix) 40 mg PO QDAC [facility] Stop: 04/29/18 07:29 Last Admin: 03/02/18 06:33 Dose: 40 mg Quetiapine Fumarate (Seroquel) 25 mg PO BID [facility]; Protocol Stop: 04/29/18 08:59 Last Admin: 03/02/18 08:03 Dose: 25 mg Topiramate (Topamax) 25 mg PO BID [facility] Stop: 04/28/18 16:59 Last Admin: 03/02/18 08:04 Dose: 25 mg Tramadol HCl (Ultram) 50 mg PO Q4HR PRN PRN Reason: Pain (Severe) Stop: 04/28/18 12:03 Last Admin: 03/02/18 06:38 Dose: 50 mg Zolpidem Tartrate (Ambien) 5 mg PO HS PRN PRN Reason: Insomnia Stop: 04/28/18 12:12 Last Admin: 02/28/18 21:27 Dose: 5 mg General: alert HEENT: NC/AT, PERRLA Neck: Supple Lungs: CTAB Cardiovascular: RRR, Normal S1, Normal S2, without murmur Abdomen: soft, non-tender, non-distended, positive bowel sound Extremities: excoriation Neurological: alert - Procedures Procedures: Procedures Procedure Code Date ANESTH INJEC PERIPH NERV 04.81 12/04/10 ANESTH INJECT-SPIN CANAL 03.91 02/21/12 ASSISTANCE WITH RESPIRATORY VENTILATION, 24-96 HRS, CPAP [id number] 10/03/16 CERVICAL SPINE X-RAY NEC 87.22 02/28/11 EPIDUROGRAPHY 75522 02/21/12 INJ FORAMEN EPIDURAL L/S 25617 12/04/10 INJ PARAVERT F JNT C/T 1 LEV 68677 02/28/11 INJ PARAVERT F JNT C/T 2 LEV 40284 02/28/11 INJ PARAVERT F JNT C/T 3 LEV 13084 02/28/11 INJECT SPINE CERV/THORACIC 49262 05/30/11 INJECT SPINE LUMBAR/SACRAL 35356 02/21/12 INJECT STEROID 99.23 02/21/12 INJECT/INFUSE NEC 99.29 02/28/11 INJECTION INTO JOINT 81.92 02/28/11 LUMBOSAC SPINE X-RAY NEC 87.24 02/21/12 MYELOGRAPHY NECK SPINE 46555 05/30/11 PERIPH NERVE INJECT NEC 04.89 12/04/10 POS AIRWAY PRESSURE CPAP 40354 10/03/16 SPINAL CANAL INJECT NEC 03.92 02/21/12 Internal Medicine Assmt/Plan - Assessment Assessment: headache copd clbp htn bipolar - Plan Plan: fall precautions monitor bp continue current plan of care - Plan Plan: dayday stearns pt and rn
--- NOTE | 2018-03-02 16:18 | Progress Notes ---
DATE: 03/02/2018 SUBJECTIVE: Staff was spoken to. The patient is interviewed. Mood is noted to be irritable. Affect is constricted. The patient is screaming and yelling and is stating that she needs to be at [facility]. The patient also has been stating constantly that she has been having headache. In view of this depression and the patient has been placed on the duloxetine 30 mg at bedtime, the patient's [place] has been discontinued. ASSESSMENT: The patient is still depressed and impulsive. PLAN: To continue the patient with the current medications. I encouraged the patient to verbalize the concerns rather than to act out. JOB# [id number]
[2018-03-02] MEDS: Sulfamethoxazole/TMP 800/160mg Tab PO SCH (16:23)
[2018-03-03] MEDS: Albuterol/Ipratropium Neb 3 ML AERS HHN SCH ×4 (01:56→18:37)
[2018-03-03] MEDS: Pantoprazole 40 mg EC Tab PO SCH (06:57)
[2018-03-03] MEDS: APAP 325mg/Butalbital 50mg/Caff 40mg Tab PO PRN ×2 (06:57→20:07)
[2018-03-03] MEDS: Budesonide 0.5 Mg/2 mL Ud HHN SCH ×2 (07:32→18:37)
[2018-03-03] MEDS: Sulfamethoxazole/TMP 800/160mg Tab PO SCH ×2 (08:46→16:46)
[2018-03-03] MEDS: Multivitamin Tab PO SCH (08:47)
[2018-03-03] MEDS: Fluticasone Propionate 0.05mg/Actuation 16gm Nasal Spray NS SCH (08:50)
--- NOTE | 2018-03-03 11:37 | Internal Medicine Prog Note ---
Internal Medicine Subjective - Subjective Service Date: 03/03/18 Patient is:: awake, verbal, agitated, confused Patient Complaints of:: headache Per staff patient has:: no adverse event, no episodes of fall, agitated, tolerating meds Internal Medicine Objective - Results Recent Labs: Laboratory Last Values Urine Source RANDOM 03/01/18 09:50 Urine Color YELLOW 03/01/18 09:50 Urine Clarity CLOUDY (CLEAR) H 03/01/18 09:50 Urine pH 6.0 (4.6 - 8.0) 03/01/18 09:50 Ur Specific [place] 1.020 (1.005-1.030) 03/01/18 09:50 Urine Protein 100 mg/dL (NEGATIVE) H 03/01/18 09:50 Urine Glucose (UA) NEGATIVE mg/dL (NEGATIVE) 03/01/18 09:50 Urine Ketones NEGATIVE mg/dL (NEGATIVE) 03/01/18 09:50 Urine Blood LARGE (NEGATIVE) H 03/01/18 09:50 Urine Nitrate NEGATIVE (NEGATIVE) 03/01/18 09:50 Urine Bilirubin NEGATIVE (NEGATIVE) 03/01/18 09:50 Urine Urobilinogen 0.2 E.U./dL (0.2 - 1.0) 03/01/18 09:50 Ur Leukocyte Esterase LARGE (NEGATIVE) H 03/01/18 09:50 Urine RBC 10-25 /hpf (0-5) H 03/01/18 09:50 Urine WBC 50-100 /hpf (0-5) H 03/01/18 09:50 Ur Epithelial Cells FEW /lpf (FEW) 03/01/18 09:50 Urine Bacteria MODERATE /hpf (NONE SEEN) H 03/01/18 09:50 - Physical Exam Vitals and I&O: Vital Signs Temp 97.9 F 03/03/18 06:09 Pulse 79 03/03/18 07:32 Resp 18 03/03/18 07:32 BP 134/69 03/03/18 06:09 Pulse Ox 96 03/03/18 07:32 Intake & Output 03/02/18 03/03/18 03/03/18 18:59 06:59 18:59 Intake Total 1400 360 Balance 1400 360 Intake: Oral 1400 360 Other: # Voids 3 2 # Bowel Movements 1 0 Active Medications: Current Medications Acetaminophen (Tylenol) 650 mg PO Q4HR PRN PRN Reason: Mild Pain / Temp above 100 Stop: 04/28/18 12:12 Acetaminophen/Butalbital/Caffeine (Fioricet) 2 tab PO Q8H PRN PRN Reason: Headache Stop: 04/28/18 12:12 Last Admin: 03/03/18 06:57 Dose: 2 tab Al Hydrox/Mg Hydrox/Simethicone (Maalox) 30 ml PO Q4HR PRN PRN Reason: GI DISTRESS Stop: 04/28/18 12:12 Albuterol/Ipratropium (Duoneb Neb) 3 ml HHN Q6HRT [facility] Stop: 04/28/18 12:59 Last Admin: 03/03/18 07:17 Dose: 3 ml Budesonide (Pulmicort) 0.5 mg HHN Q12HRT [facility] Stop: 04/28/18 18:59 Last Admin: 03/03/18 07:32 Dose: 0.5 mg Docusate Sodium (Colace) 200 mg PO DAILY [facility] Stop: 04/29/18 08:59 Last Admin: 03/03/18 08:47 Dose: 200 mg Duloxetine HCl (Cymbalta) 30 mg PO DAILY [facility]; Protocol Stop: 05/01/18 08:59 Last Admin: 03/03/18 08:49 Dose: 30 mg Fluticasone Propionate (Flonase) 2 spr NS DAILY [facility] Stop: 04/29/18 08:59 Last Admin: 03/03/18 08:50 Dose: 2 spr Gabapentin (Neurontin) 600 mg PO HS [facility] Stop: 04/28/18 20:59 Last Admin: 03/02/18 20:44 Dose: 600 mg Gabapentin (Neurontin) 300 mg PO BID [facility] Stop: 04/28/18 16:59 Last Admin: 03/03/18 08:49 Dose: 300 mg Lorazepam (Ativan) 0.5 mg PO Q6HR PRN; Protocol PRN Reason: Anxiety Stop: 04/28/18 11:58 Last Admin: 03/01/18 21:19 Dose: 0.5 mg Magnesium Hydroxide (Milk Of Magnesia) 30 ml PO HS PRN PRN Reason: Constipation Methocarbamol (Robaxin) 500 mg PO BID [facility] Stop: 04/28/18 16:59 Last Admin: 03/03/18 08:47 Dose: 500 mg Multivitamins/Vitamin C (Theragran) 1 tab PO DAILY [facility] Stop: 04/29/18 08:59 Last Admin: 03/03/18 08:47 Dose: 1 tab Nitroglycerin (Nitrostat) 0.4 mg SL Q5MIN PRN PRN Reason: Chest Pain Stop: 04/28/18 11:58 Pantoprazole Sodium (Protonix) 40 mg PO QDAC [facility] Stop: 04/29/18 07:29 Last Admin: 03/03/18 06:57 Dose: 40 mg Quetiapine Fumarate (Seroquel) 25 mg PO BID [facility]; Protocol Stop: 04/29/18 08:59 Last Admin: 03/03/18 08:50 Dose: 25 mg Topiramate (Topamax) 25 mg PO BID [facility] Stop: 04/28/18 16:59 Last Admin: 03/03/18 08:50 Dose: 25 mg Tramadol HCl (Ultram) 50 mg PO Q4HR PRN PRN Reason: Pain (Severe) Stop: 04/28/18 12:03 Last Admin: 03/02/18 06:38 Dose: 50 mg Trimethoprim/Sulfamethoxazole (Bactrim Ds) 1 tab PO BID [facility] Stop: 05/01/18 16:59 Last Admin: 03/03/18 08:46 Dose: 1 tab Zolpidem Tartrate (Ambien) 5 mg PO HS PRN PRN Reason: Insomnia Stop: 04/28/18 12:12 Last Admin: 03/02/18 20:44 Dose: 5 mg General: alert HEENT: NC/AT, PERRLA Neck: Supple Lungs: CTAB Cardiovascular: RRR, Normal S1, Normal S2, without murmur Abdomen: soft, non-tender, non-distended, positive bowel sound Extremities: excoriation Neurological: alert - Procedures Procedures: Procedures Procedure Code Date ANESTH INJEC PERIPH NERV 04.81 12/04/10 ANESTH INJECT-SPIN CANAL 03.91 02/21/12 ASSISTANCE WITH RESPIRATORY VENTILATION, 24-96 HRS, CPAP [id number] 10/03/16 CERVICAL SPINE X-RAY NEC 87.22 02/28/11 EPIDUROGRAPHY 05820 02/21/12 INJ FORAMEN EPIDURAL L/S 86519 12/04/10 INJ PARAVERT F JNT C/T 1 LEV 33341 02/28/11 INJ PARAVERT F JNT C/T 2 LEV 49412 02/28/11 INJ PARAVERT F JNT C/T 3 LEV 94518 02/28/11 INJECT SPINE CERV/THORACIC 34461 05/30/11 INJECT SPINE LUMBAR/SACRAL 97894 02/21/12 INJECT STEROID 99.23 02/21/12 INJECT/INFUSE NEC 99.29 02/28/11 INJECTION INTO JOINT 81.92 02/28/11 LUMBOSAC SPINE X-RAY NEC 87.24 02/21/12 MYELOGRAPHY NECK SPINE 66264 05/30/11 PERIPH NERVE INJECT NEC 04.89 12/04/10 POS AIRWAY PRESSURE CPAP 88192 10/03/16 SPINAL CANAL INJECT NEC 03.92 02/21/12 Internal Medicine Assmt/Plan - Assessment Assessment: copd clbp htn bipolar - Plan Plan: fall precautions monitor bp continue current plan of care
[2018-03-04] MEDS: Albuterol/Ipratropium Neb 3 ML AERS HHN SCH ×5 (00:31→23:59)
--- NOTE | 2018-03-04 04:20 | Progress Notes ---
DATE: 03/03/2018 SUBJECTIVE: Staff was spoken to. The patient is interviewed. Mood is noted to be very irritable. Affect is constricted. The patient is stating that she has been having too much of the headache and could not figure it out what she has to do. The patient is asking for more of the pain medications. The patient has been very impulsive and has been ____ with the comments that she is making with the other staff members. The patient has no insight into her illness. The patient needs to be redirected. ASSESSMENT: The patient is depressed. PLAN: To continue the patient with the Cymbalta. Encouraged the patient to verbalize the concerns rather than to act out. JOB# [id number]
[2018-03-04] MEDS: Pantoprazole 40 mg EC Tab PO SCH (06:48)
[2018-03-04] MEDS: Budesonide 0.5 Mg/2 mL Ud HHN SCH ×2 (07:24→19:30)
[2018-03-04] MEDS: Fluticasone Propionate 0.05mg/Actuation 16gm Nasal Spray NS SCH (08:31)
[2018-03-04] MEDS: Sulfamethoxazole/TMP 800/160mg Tab PO SCH ×2 (08:32→16:29)
[2018-03-04] MEDS: Multivitamin Tab PO SCH (08:34)
[2018-03-04] MEDS: Lactobacillus Rhamnosus GG 15 Billion CFU CAP.SPRINK PO SCH (09:00)
[2018-03-04] MEDS ORDERED: Probiotic Screen MC PRN (09:00)
--- NOTE | 2018-03-04 15:05 | Internal Medicine Prog Note ---
Internal Medicine Subjective - Subjective Service Date: 03/04/18 Patient is:: awake, verbal, agitated, confused Patient Complaints of:: headache Per staff patient has:: no adverse event, no episodes of fall, agitated, tolerating meds Internal Medicine Objective - Results Recent Labs: Laboratory Last Values Urine Source RANDOM 03/01/18 09:50 Urine Color YELLOW 03/01/18 09:50 Urine Clarity CLOUDY (CLEAR) H 03/01/18 09:50 Urine pH 6.0 (4.6 - 8.0) 03/01/18 09:50 Ur Specific [place] 1.020 (1.005-1.030) 03/01/18 09:50 Urine Protein 100 mg/dL (NEGATIVE) H 03/01/18 09:50 Urine Glucose (UA) NEGATIVE mg/dL (NEGATIVE) 03/01/18 09:50 Urine Ketones NEGATIVE mg/dL (NEGATIVE) 03/01/18 09:50 Urine Blood LARGE (NEGATIVE) H 03/01/18 09:50 Urine Nitrate NEGATIVE (NEGATIVE) 03/01/18 09:50 Urine Bilirubin NEGATIVE (NEGATIVE) 03/01/18 09:50 Urine Urobilinogen 0.2 E.U./dL (0.2 - 1.0) 03/01/18 09:50 Ur Leukocyte Esterase LARGE (NEGATIVE) H 03/01/18 09:50 Urine RBC 10-25 /hpf (0-5) H 03/01/18 09:50 Urine WBC 50-100 /hpf (0-5) H 03/01/18 09:50 Ur Epithelial Cells FEW /lpf (FEW) 03/01/18 09:50 Urine Bacteria MODERATE /hpf (NONE SEEN) H 03/01/18 09:50 - Physical Exam Vitals and I&O: Vital Signs Temp 98.4 F 03/04/18 15:03 Pulse 96 03/04/18 15:03 Resp 20 03/04/18 15:03 BP 109/46 03/04/18 15:03 Pulse Ox 95 03/04/18 15:03 Intake & Output 03/03/18 03/04/18 03/04/18 18:59 06:59 18:59 Intake Total 360 Balance 360 Intake: Oral 360 Other: # Voids 2 # Bowel Movements 0 Stool Characteristics Formed Formed Active Medications: Current Medications Acetaminophen (Tylenol) 650 mg PO Q4HR PRN PRN Reason: Mild Pain / Temp above 100 Stop: 04/28/18 12:12 Acetaminophen/Butalbital/Caffeine (Fioricet) 2 tab PO Q8H PRN PRN Reason: Headache Stop: 04/28/18 12:12 Last Admin: 03/03/18 20:07 Dose: 2 tab Al Hydrox/Mg Hydrox/Simethicone (Maalox) 30 ml PO Q4HR PRN PRN Reason: GI DISTRESS Stop: 04/28/18 12:12 Albuterol/Ipratropium (Duoneb Neb) 3 ml HHN Q6HRT [facility] Stop: 04/28/18 12:59 Last Admin: 03/04/18 14:01 Dose: 3 ml Budesonide (Pulmicort) 0.5 mg HHN Q12HRT [facility] Stop: 04/28/18 18:59 Last Admin: 03/04/18 07:24 Dose: 0.5 mg Docusate Sodium (Colace) 200 mg PO DAILY [facility] Stop: 04/29/18 08:59 Last Admin: 03/04/18 08:38 Dose: 200 mg Duloxetine HCl (Cymbalta) 30 mg PO DAILY [facility]; Protocol Stop: 05/01/18 08:59 Last Admin: 03/04/18 08:34 Dose: 30 mg Fluticasone Propionate (Flonase) 2 spr NS DAILY [facility] Stop: 04/29/18 08:59 Last Admin: 03/04/18 08:31 Dose: 2 spr Gabapentin (Neurontin) 600 mg PO HS [facility] Stop: 04/28/18 20:59 Last Admin: 03/03/18 20:06 Dose: 600 mg Gabapentin (Neurontin) 300 mg PO BID [facility] Stop: 04/28/18 16:59 Last Admin: 03/04/18 08:33 Dose: 300 mg Lactobacillus Rhamnosus (Culturelle 15b) 1 each PO DAILY [facility] Stop: 05/03/18 08:59 Last Admin: 03/04/18 09:00 Dose: Not Given Lorazepam (Ativan) 0.5 mg PO Q6HR PRN; Protocol PRN Reason: Anxiety Stop: 04/28/18 11:58 Last Admin: 03/04/18 06:47 Dose: 0.5 mg Magnesium Hydroxide (Milk Of Magnesia) 30 ml PO HS PRN PRN Reason: Constipation Methocarbamol (Robaxin) 500 mg PO BID [facility] Stop: 04/28/18 16:59 Last Admin: 03/04/18 08:33 Dose: 500 mg Miscellaneous (Probiotic Screen) 1 ea MC PRN PRN PRN Reason: PROTOCOL Stop: 05/03/18 08:59 Multivitamins/Vitamin C (Theragran) 1 tab PO DAILY [facility] Stop: 04/29/18 08:59 Last Admin: 03/04/18 08:34 Dose: 1 tab Nitroglycerin (Nitrostat) 0.4 mg SL Q5MIN PRN PRN Reason: Chest Pain Stop: 04/28/18 11:58 Pantoprazole Sodium (Protonix) 40 mg PO QDAC [facility] Stop: 04/29/18 07:29 Last Admin: 03/04/18 06:48 Dose: 40 mg Quetiapine Fumarate (Seroquel) 25 mg PO BID [facility]; Protocol Stop: 04/29/18 08:59 Last Admin: 03/04/18 08:32 Dose: 25 mg Topiramate (Topamax) 25 mg PO BID [facility] Stop: 04/28/18 16:59 Last Admin: 03/04/18 08:32 Dose: 25 mg Tramadol HCl (Ultram) 50 mg PO Q4HR PRN PRN Reason: Pain (Severe) Stop: 04/28/18 12:03 Last Admin: 03/04/18 06:48 Dose: 50 mg Trimethoprim/Sulfamethoxazole (Bactrim Ds) 1 tab PO BID [facility] Stop: 03/12/18 16:59 Last Admin: 03/04/18 08:32 Dose: 1 tab Zolpidem Tartrate (Ambien) 5 mg PO HS PRN PRN Reason: Insomnia Stop: 04/28/18 12:12 Last Admin: 03/03/18 20:07 Dose: 5 mg General: alert HEENT: NC/AT, PERRLA Neck: Supple Lungs: CTAB Cardiovascular: RRR, Normal S1, Normal S2, without murmur Abdomen: soft, non-tender, non-distended, positive bowel sound Extremities: excoriation Neurological: alert - Procedures Procedures: Procedures Procedure Code Date ANESTH INJEC PERIPH NERV 04.81 12/04/10 ANESTH INJECT-SPIN CANAL 0302/21/12 ASSISTANCE WITH RESPIRATORY VENTILATION, 24-96 HRS, CPAP [id number] 10/03/16 CERVICAL SPINE X-RAY NEC 87.22 02/28/11 EPIDUROGRAPHY 83016 02/21/12 INJ FORAMEN EPIDURAL L/S 73812 12/04/10 INJ PARAVERT F JNT C/T 1 LEV 76930 02/28/11 INJ PARAVERT F JNT C/T 2 LEV 18130 02/28/11 INJ PARAVERT F JNT C/T 3 LEV 67375 02/28/11 INJECT SPINE CERV/THORACIC 24585 05/30/11 INJECT SPINE LUMBAR/SACRAL 98947 02/21/12 INJECT STEROID 99.23 02/21/12 INJECT/INFUSE NEC 99.29 02/28/11 INJECTION INTO JOINT 81.92 02/28/11 LUMBOSAC SPINE X-RAY NEC 87.24 02/21/12 MYELOGRAPHY NECK SPINE 17831 05/30/11 PERIPH NERVE INJECT NEC 04.89 12/04/10 POS AIRWAY PRESSURE CPAP 43975 10/03/16 SPINAL CANAL INJECT NEC 03.92 02/21/12 Internal Medicine Assmt/Plan - Assessment Assessment: copd clbp htn bipolar - Plan Plan: fall precautions monitor bp continue current plan of care Nutritional Asmnt/Malnutr-PDOC - Dietary Evaluation Malnutrition Findings (Please click <Entered> for more info): Nutritional Asmnt/Malnutrition Start: 03/04/18 13: 42 Text: Status: Complete Freq: Protocol: Document 03/04/18 13:42 LCHENG (Rec: 03/04/18 13:52 [email or web address] [email or web address]) Nutritional Asmnt/Malnutrition Patient General Information Nutritional Screening Moderate Risk Diagnosis bipolar disorder Pertinent Medical Hx/Surgical Hx COPD, HTN, bipolar, schizoaffective disorder, chronic low back pain Subjective Information Pt seen eating lunch in dining room, alert. Pt reported excellet appetite. No question or concern about current diet . Per EMR PO intake 75-100%. Current Diet Order/ Nutrition Support [facility] soft chopped Pertinent Medications colace, culturelle, theragran, seroquel, protonix Pertinent Labs 02/27 Na 133, Cr 0.5 Nutritional Hx/Data Height 5 ft 5 in Height (Calculated Centimeters) 165.1 Current Weight (lbs) 144 lb Weight (Calculated Kilograms) 65.3 Weight (Calculated Grams) 91622.3 [place] Body Weight 120 Body Mass Index (BMI) 23.9 Weight Status Approriate GI Symptoms GI Symptoms None Last BM 03/02 Difficult in: None Skin Integrity/Comment: rash Current %PO Good (75-100%) Estimated Nutritional Goals BEE in Kcals: Using Current wt Calories/Kcals/Kg 25-30 Kcals Calculated 8960-8281 Protein: Using Current wt Protein g/k Protein Calculated 65 Fluid: ml 1625-1950ml (1ml/kcal) Nutritional Problem No current Nutrition Prob Problem N/A Malnutrition Alert Is there a minimum of two criteria No selected? Query Text:Check all the applicable criteria. A minimum of two criteria are recommended for diagnosis of either severe or non-severe malnutrition. Malnutrition Related to Morbid Obesity Malnutrition related to morbid obesity No Intervention/Recommendation Comments 1. [facility] soft [facility] diet as ordered. 2. Monitor PO intake, wt, labs and skin integrity 3. F/U as low risk in 7 days, 7/3 Expected Outcomes/Goals Expected Outcomes/Goals 1. PO intake to meet at least 75% of nutritional needs. 2. Wt stability, skin to remain intact, labs to approach WNL.
[2018-03-04] MEDS: APAP 325mg/Butalbital 50mg/Caff 40mg Tab PO PRN ×2 (15:19→23:51)
--- NOTE | 2018-03-05 02:45 | Progress Notes ---
DATE: 03/04/2018 PSYCHIATRIC PROGRESS NOTE SUBJECTIVE: Staff was spoken to. The patient is interviewed. Mood is noted to be irritable. Affect is constricted. The patient is claiming that she has been successfully beat the 14-day hold and then she should be discharged. On the other hand, the patient's 14-day hold has been upheld. The patient has been having difficult time to accept that. Insight and judgment at this time are noted to be still impaired. Impulse control is noted to be poor. The patient is very irritable and angry. ASSESSMENT: The patient is still impulsive. PLAN: To continue the patient with the supportive therapy and follow. JOB# [id number]
[2018-03-05] MEDS: Pantoprazole 40 mg EC Tab PO SCH (06:38)
[2018-03-05] MEDS: Albuterol/Ipratropium Neb 3 ML AERS HHN SCH ×3 (07:18→19:58)
[2018-03-05] MEDS: Budesonide 0.5 Mg/2 mL Ud HHN SCH ×2 (07:18→19:58)
[2018-03-05] MEDS: Lactobacillus Rhamnosus GG 15 Billion CFU CAP.SPRINK PO SCH (08:32)
[2018-03-05] MEDS: Sulfamethoxazole/TMP 800/160mg Tab PO SCH ×2 (08:33→16:22)
[2018-03-05] MEDS: Multivitamin Tab PO SCH (08:33)
[2018-03-05] MEDS: Fluticasone Propionate 0.05mg/Actuation 16gm Nasal Spray NS SCH (08:34)
[2018-03-05] MEDS: APAP 325mg/Butalbital 50mg/Caff 40mg Tab PO PRN ×2 (08:44→18:25)
--- NOTE | 2018-03-05 12:00 | Progress Notes ---
DATE: 03/05/2018 PSYCHIATRIC PROGRESS NOTE SUBJECTIVE: Staff was spoken to. The patient is interviewed. Mood is noted to be irritable. Affect is constricted. The patient has been very negative and sarcastic. The patient has been having difficult time to cope with the stress and is stating that she could not fare it out why she has to be here. The patient is more focused on her pain syndrome and the patient is constantly asking for medication for her headache and she states that the tramadol is not cutting it and she needs to be on Dilaudid. The patient is currently on 30 mg of Cymbalta and has been able to tolerate it, and hence the dose of the Cymbalta is going to be gradually increased to 60 mg and the patient is going to be followed up with the supportive therapy. ASSESSMENT: The patient is still depressed. PLAN: To continue the patient with supportive therapy and followup. JOB# [id number]
--- NOTE | 2018-03-05 18:12 | Internal Medicine Prog Note ---
Internal Medicine Subjective - Subjective Service Date: 03/05/18 Patient is:: awake, verbal, agitated, confused Patient Complaints of:: headache Per staff patient has:: no adverse event, no episodes of fall, agitated, tolerating meds Internal Medicine Objective - Results Recent Labs: Laboratory Last Values Urine Source RANDOM 03/01/18 09:50 Urine Color YELLOW 03/01/18 09:50 Urine Clarity CLOUDY (CLEAR) H 03/01/18 09:50 Urine pH 6.0 (4.6 - 8.0) 03/01/18 09:50 Ur Specific [place] 1.020 (1.005-1.030) 03/01/18 09:50 Urine Protein 100 mg/dL (NEGATIVE) H 03/01/18 09:50 Urine Glucose (UA) NEGATIVE mg/dL (NEGATIVE) 03/01/18 09:50 Urine Ketones NEGATIVE mg/dL (NEGATIVE) 03/01/18 09:50 Urine Blood LARGE (NEGATIVE) H 03/01/18 09:50 Urine Nitrate NEGATIVE (NEGATIVE) 03/01/18 09:50 Urine Bilirubin NEGATIVE (NEGATIVE) 03/01/18 09:50 Urine Urobilinogen 0.2 E.U./dL (0.2 - 1.0) 03/01/18 09:50 Ur Leukocyte Esterase LARGE (NEGATIVE) H 03/01/18 09:50 Urine RBC 10-25 /hpf (0-5) H 03/01/18 09:50 Urine WBC 50-100 /hpf (0-5) H 03/01/18 09:50 Ur Epithelial Cells FEW /lpf (FEW) 03/01/18 09:50 Urine Bacteria MODERATE /hpf (NONE SEEN) H 03/01/18 09:50 - Physical Exam Vitals and I&O: Vital Signs Temp 97.2 F 03/05/18 14:55 Pulse 87 03/05/18 14:55 Resp 20 03/05/18 14:55 BP 103/54 03/05/18 14:55 Pulse Ox 97 03/05/18 14:55 Intake & Output 03/04/18 03/05/18 03/05/18 18:59 06:59 18:59 Intake Total 900 120 Balance 900 120 Intake: Oral 900 120 Other: # Voids 5 3 # Bowel Movements 1 Stool Characteristics Formed Formed Active Medications: Current Medications Acetaminophen (Tylenol) 650 mg PO Q4HR PRN PRN Reason: Mild Pain / Temp above 100 Stop: 04/28/18 12:12 Acetaminophen/Butalbital/Caffeine (Fioricet) 2 tab PO Q8H PRN PRN Reason: Headache Stop: 04/28/18 12:12 Last Admin: 03/05/18 08:44 Dose: 2 tab Al Hydrox/Mg Hydrox/Simethicone (Maalox) 30 ml PO Q4HR PRN PRN Reason: GI DISTRESS Stop: 04/28/18 12:12 Albuterol/Ipratropium (Duoneb Neb) 3 ml HHN Q6HRT JOSEE Stop: 04/28/18 12:59 Last Admin: 03/05/18 14:01 Dose: 3 ml Budesonide (Pulmicort) 0.5 mg HHN Q12HRT JOSEE Stop: 04/28/18 18:59 Last Admin: 03/05/18 07:18 Dose: 0.5 mg Docusate Sodium (Colace) 200 mg PO DAILY JOSEE Stop: 04/29/18 08:59 Last Admin: 03/05/18 08:32 Dose: 200 mg Duloxetine HCl (Cymbalta) 60 mg PO DAILY JOSEE; Protocol Stop: 05/05/18 08:59 Fluticasone Propionate (Flonase) 2 spr NS DAILY JOSEE Stop: 04/29/18 08:59 Last Admin: 03/05/18 08:34 Dose: 2 spr Gabapentin (Neurontin) 600 mg PO HS JOSEE Stop: 04/28/18 20:59 Last Admin: 03/04/18 20:15 Dose: 600 mg Gabapentin (Neurontin) 300 mg PO BID JOSEE Stop: 04/28/18 16:59 Last Admin: 03/05/18 16:21 Dose: 300 mg Lactobacillus Rhamnosus (Culturelle 15b) 1 each PO DAILY JOSEE Stop: 05/03/18 08:59 Last Admin: 03/05/18 08:32 Dose: 1 each Lorazepam (Ativan) 0.5 mg PO Q6HR PRN; Protocol PRN Reason: Anxiety Stop: 04/28/18 11:58 Last Admin: 03/05/18 16:22 Dose: 0.5 mg Magnesium Hydroxide (Milk Of Magnesia) 30 ml PO HS PRN PRN Reason: Constipation Methocarbamol (Robaxin) 500 mg PO BID [facility] Stop: 04/28/18 16:59 Last Admin: 03/05/18 16:21 Dose: 500 mg Miscellaneous (Probiotic Screen) 1 ea MC PRN PRN PRN Reason: PROTOCOL Stop: 05/03/18 08:59 Multivitamins/Vitamin C (Theragran) 1 tab PO DAILY [facility] Stop: 04/29/18 08:59 Last Admin: 03/05/18 08:33 Dose: 1 tab Nitroglycerin (Nitrostat) 0.4 mg SL Q5MIN PRN PRN Reason: Chest Pain Stop: 04/28/18 11:58 Pantoprazole Sodium (Protonix) 40 mg PO QDAC [facility] Stop: 04/29/18 07:29 Last Admin: 03/05/18 06:38 Dose: 40 mg Quetiapine Fumarate (Seroquel) 25 mg PO BID [facility]; Protocol Stop: 04/29/18 08:59 Last Admin: 03/05/18 16:21 Dose: 25 mg Topiramate (Topamax) 25 mg PO BID [facility] Stop: 04/28/18 16:59 Last Admin: 03/05/18 16:21 Dose: 25 mg Tramadol HCl (Ultram) 50 mg PO Q4HR PRN PRN Reason: Pain (Severe) Stop: 04/28/18 12:03 Last Admin: 03/05/18 13:13 Dose: 50 mg Trimethoprim/Sulfamethoxazole (Bactrim Ds) 1 tab PO BID [facility] Stop: 03/12/18 16:59 Last Admin: 03/05/18 16:22 Dose: 1 tab Zolpidem Tartrate (Ambien) 5 mg PO HS PRN PRN Reason: Insomnia Stop: 04/28/18 12:12 Last Admin: 03/04/18 20:20 Dose: 5 mg General: alert HEENT: NC/AT, PERRLA Neck: Supple Lungs: CTAB Cardiovascular: RRR, Normal S1, Normal S2, without murmur Abdomen: soft, non-tender, non-distended, positive bowel sound Extremities: excoriation Neurological: alert - Procedures Procedures: Procedures Procedure Code Date ANESTH INJEC PERIPH NERV 04.81 12/04/10 ANESTH INJECT-SPIN CANAL 03.02/21/12 ASSISTANCE WITH RESPIRATORY VENTILATION, 24-96 HRS, CPAP [id number] 10/03/16 CERVICAL SPINE X-RAY NEC 87.22 02/28/11 EPIDUROGRAPHY 54409 02/21/12 INJ FORAMEN EPIDURAL L/S 78280 12/04/10 INJ PARAVERT F JNT C/T 1 LEV 02392 02/28/11 INJ PARAVERT F JNT C/T 2 LEV 02975 02/28/11 INJ PARAVERT F JNT C/T 3 LEV 12858 02/28/11 INJECT SPINE CERV/THORACIC 83176 05/30/11 INJECT SPINE LUMBAR/SACRAL 27037 02/21/12 INJECT STEROID 99.23 02/21/12 INJECT/INFUSE NEC 99.29 02/28/11 INJECTION INTO JOINT 81.92 02/28/11 LUMBOSAC SPINE X-RAY NEC 87.24 02/21/12 MYELOGRAPHY NECK SPINE 47312 05/30/11 PERIPH NERVE INJECT NEC 04.89 12/04/10 POS AIRWAY PRESSURE CPAP 25152 10/03/16 SPINAL CANAL INJECT NEC 03.92 02/21/12 Internal Medicine Assmt/Plan - Assessment Assessment: copd clbp htn bipolar - Plan Plan: fall precautions monitor bp continue current plan of care Nutritional Asmnt/Malnutr-PDOC - Dietary Evaluation Malnutrition Findings (Please click <Entered> for more info): Nutritional Asmnt/Malnutrition Start: 03/04/18 13: 42 Text: Status: Complete Freq: Protocol: Document 03/04/18 13:42 LCHENG (Rec: 03/04/18 13:52 LCHENG [email or web address]) Nutritional Asmnt/Malnutrition Patient General Information Nutritional Screening Moderate Risk Diagnosis bipolar disorder Pertinent Medical Hx/Surgical Hx COPD, HTN, bipolar, schizoaffective disorder, chronic low back pain Subjective Information Pt seen eating lunch in dining room, alert. Pt reported excellet appetite. No question or concern about current diet . Per EMR PO intake 75-100%. Current Diet Order/ Nutrition Support [facility] soft chopped Pertinent Medications colace, culturelle, theragran, seroquel, protonix Pertinent Labs 02/27 Na 133, Cr 0.5 Nutritional Hx/Data Height 5 ft 5 in Height (Calculated Centimeters) 165.1 Current Weight (lbs) 144 lb Weight (Calculated Kilograms) 65.3 Weight (Calculated Grams) 50786.3 [place] Body Weight 120 Body Mass Index (BMI) 23.9 Weight Status Approriate GI Symptoms GI Symptoms None Last BM 03/02 Difficult in: None Skin Integrity/Comment: rash Current %PO Good (75-100%) Estimated Nutritional Goals BEE in Kcals: Using Current wt Calories/Kcals/Kg 25-30 Kcals Calculated 3126-7645 Protein: Using Current wt Protein g/k Protein Calculated 65 Fluid: ml 1625-1950ml (1ml/kcal) Nutritional Problem No current Nutrition Prob Problem N/A Malnutrition Alert Is there a minimum of two criteria No selected? Query Text:Check all the applicable criteria. A minimum of two criteria are recommended for diagnosis of either severe or non-severe malnutrition. Malnutrition Related to Morbid Obesity Malnutrition related to morbid obesity No Intervention/Recommendation Comments 1. Continue with [facility] soft chopped diet as ordered. 2. Monitor PO intake, wt, labs and skin integrity 3. F/U as low risk in 7 days, 7/3 Expected Outcomes/Goals Expected Outcomes/Goals 1. PO intake to meet at least 75% of nutritional needs. 2. Wt stability, skin to remain intact, labs to approach WNL.
[2018-03-06] MEDS: APAP 325mg/Butalbital 50mg/Caff 40mg Tab PO PRN ×2 (06:10→14:36)
[2018-03-06] MEDS: Pantoprazole 40 mg EC Tab PO SCH (06:45)
[2018-03-06] MEDS: Budesonide 0.5 Mg/2 mL Ud HHN SCH ×2 (06:50→19:31)
[2018-03-06] MEDS: Albuterol/Ipratropium Neb 3 ML AERS HHN SCH ×4 (06:50→19:31)
[2018-03-06] MEDS: Sulfamethoxazole/TMP 800/160mg Tab PO SCH ×2 (08:49→17:22)
[2018-03-06] MEDS: Lactobacillus Rhamnosus GG 15 Billion CFU CAP.SPRINK PO SCH (08:49)
[2018-03-06] MEDS: Fluticasone Propionate 0.05mg/Actuation 16gm Nasal Spray NS SCH (08:50)
[2018-03-06] MEDS: Multivitamin Tab PO SCH (08:50)
--- NOTE | 2018-03-06 13:02 | Internal Medicine Prog Note ---
Internal Medicine Subjective - Subjective Patient seen and examined:: with staff, chart reviewed Patient is:: awake, verbal, agitated, confused Patient Complaints of:: headache Per staff patient has:: no adverse event, no episodes of fall, agitated, tolerating meds Internal Medicine Objective - Results Recent Labs: Laboratory Last Values Urine Source RANDOM 03/01/18 09:50 Urine Color YELLOW 03/01/18 09:50 Urine Clarity CLOUDY (CLEAR) H 03/01/18 09:50 Urine pH 6.0 (4.6 - 8.0) 03/01/18 09:50 Ur Specific [place] 1.020 (1.005-1.030) 03/01/18 09:50 Urine Protein 100 mg/dL (NEGATIVE) H 03/01/18 09:50 Urine Glucose (UA) NEGATIVE mg/dL (NEGATIVE) 03/01/18 09:50 Urine Ketones NEGATIVE mg/dL (NEGATIVE) 03/01/18 09:50 Urine Blood LARGE (NEGATIVE) H 03/01/18 09:50 Urine Nitrate NEGATIVE (NEGATIVE) 03/01/18 09:50 Urine Bilirubin NEGATIVE (NEGATIVE) 03/01/18 09:50 Urine Urobilinogen 0.2 E.U./dL (0.2 - 1.0) 03/01/18 09:50 Ur Leukocyte Esterase LARGE (NEGATIVE) H 03/01/18 09:50 Urine RBC 10-25 /hpf (0-5) H 03/01/18 09:50 Urine WBC 50-100 /hpf (0-5) H 03/01/18 09:50 Ur Epithelial Cells FEW /lpf (FEW) 03/01/18 09:50 Urine Bacteria MODERATE /hpf (NONE SEEN) H 03/01/18 09:50 - Physical Exam Vitals and I&O: Vital Signs Temp 97.9 F 03/06/18 06:44 Pulse 92 03/06/18 12:59 Resp 18 03/06/18 12:59 BP 118/69 03/06/18 06:44 Pulse Ox 99 03/06/18 12:59 Intake & Output 03/05/18 03/06/18 03/06/18 18:59 06:59 18:59 Intake Total 120 Balance 120 Intake: Oral 120 Other: # Voids 3 Active Medications: Current Medications Acetaminophen (Tylenol) 650 mg PO Q4HR PRN PRN Reason: Mild Pain / Temp above 100 Stop: 04/28/18 12:12 Acetaminophen/Butalbital/Caffeine (Fioricet) 2 tab PO Q8H PRN PRN Reason: Headache Stop: 04/28/18 12:12 Last Admin: 03/06/18 06:10 Dose: 2 tab Al Hydrox/Mg Hydrox/Simethicone (Maalox) 30 ml PO Q4HR PRN PRN Reason: GI DISTRESS Stop: 04/28/18 12:12 Albuterol/Ipratropium (Duoneb Neb) 3 ml HHN Q6HRT JOSEE Stop: 04/28/18 12:59 Last Admin: 03/06/18 12:55 Dose: 3 ml Budesonide (Pulmicort) 0.5 mg HHN Q12HRT JOSEE Stop: 04/28/18 18:59 Last Admin: 03/06/18 06:50 Dose: 0.5 mg Docusate Sodium (Colace) 200 mg PO DAILY JOSEE Stop: 04/29/18 08:59 Last Admin: 03/06/18 08:47 Dose: 200 mg Duloxetine HCl (Cymbalta) 60 mg PO DAILY JOSEE; Protocol Stop: 05/05/18 08:59 Last Admin: 03/06/18 08:45 Dose: Not Given Fluticasone Propionate (Flonase) 2 spr NS DAILY JOSEE Stop: 04/29/18 08:59 Last Admin: 03/06/18 08:50 Dose: 2 spr Gabapentin (Neurontin) 600 mg PO HS JOSEE Stop: 04/28/18 20:59 Last Admin: 03/05/18 20:45 Dose: 600 mg Gabapentin (Neurontin) 300 mg PO BID JO[facility] Stop: 04/28/18 16:59 Last Admin: 03/06/18 08:46 Dose: 300 mg Lactobacillus Rhamnosus (Culturelle 15b) 1 each PO DAILY JOSEE Stop: 05/03/18 08:59 Last Admin: 03/06/18 08:49 Dose: 1 each Lorazepam (Ativan) 0.5 mg PO Q6HR PRN; Protocol PRN Reason: Anxiety Stop: 04/28/18 11:58 Last Admin: 03/06/18 09:46 Dose: 0.5 mg Magnesium Hydroxide (Milk Of Magnesia) 30 ml PO HS PRN PRN Reason: Constipation Methocarbamol (Robaxin) 500 mg PO BID [facility] Stop: 04/28/18 16:59 Last Admin: 03/06/18 08:49 Dose: 500 mg Miscellaneous (Probiotic Screen) 1 ea MC PRN PRN PRN Reason: PROTOCOL Stop: 05/03/18 08:59 Multivitamins/Vitamin C (Theragran) 1 tab PO DAILY JOSEE Stop: 04/29/18 08:59 Last Admin: 03/06/18 08:50 Dose: 1 tab Nitroglycerin (Nitrostat) 0.4 mg SL Q5MIN PRN PRN Reason: Chest Pain Stop: 04/28/18 11:58 Pantoprazole Sodium (Protonix) 40 mg PO QDAC [facility] Stop: 04/29/18 07:29 Last Admin: 03/06/18 06:45 Dose: 40 mg Quetiapine Fumarate (Seroquel) 25 mg PO BID [facility]; Protocol Stop: 04/29/18 08:59 Last Admin: 03/06/18 08:51 Dose: 25 mg Topiramate (Topamax) 25 mg PO BID [facility] Stop: 04/28/18 16:59 Last Admin: 03/06/18 08:49 Dose: 25 mg Tramadol HCl (Ultram) 50 mg PO Q4HR PRN PRN Reason: Pain (Severe) Stop: 04/28/18 12:03 Last Admin: 03/06/18 09:35 Dose: 50 mg Trimethoprim/Sulfamethoxazole (Bactrim Ds) 1 tab PO BID [facility] Stop: 03/12/18 16:59 Last Admin: 03/06/18 08:49 Dose: 1 tab Zolpidem Tartrate (Ambien) 5 mg PO HS PRN PRN Reason: Insomnia Stop: 04/28/18 12:12 Last Admin: 03/05/18 20:47 Dose: 5 mg General: alert HEENT: NC/AT, PERRLA Neck: Supple Lungs: CTAB Cardiovascular: RRR, Normal S1, Normal S2, without murmur Abdomen: soft, non-tender, non-distended, positive bowel sound Extremities: excoriation Neurological: alert - Procedures Procedures: Procedures Procedure Code Date ANESTH INJEC PERIPH NERV 04.81 12/04/10 ANESTH INJECT-SPIN CANAL 0302/21/12 ASSISTANCE WITH RESPIRATORY VENTILATION, 24-96 HRS, CPAP [id number] 10/03/16 CERVICAL SPINE X-RAY NEC 87.22 02/28/11 EPIDUROGRAPHY 37073 02/21/12 INJ FORAMEN EPIDURAL L/S 26008 12/04/10 INJ PARAVERT F JNT C/T 1 LEV 07084 02/28/11 INJ PARAVERT F JNT C/T 2 LEV 43388 02/28/11 INJ PARAVERT F JNT C/T 3 LEV 16536 02/28/11 INJECT SPINE CERV/THORACIC 99182 05/30/11 INJECT SPINE LUMBAR/SACRAL 44633 02/21/12 INJECT STEROID 99.23 02/21/12 INJECT/INFUSE NEC 99.29 02/28/11 INJECTION INTO JOINT 81.92 02/28/11 LUMBOSAC SPINE X-RAY NEC 87.24 02/21/12 MYELOGRAPHY NECK SPINE 38265 05/30/11 PERIPH NERVE INJECT NEC 04.89 12/04/10 POS AIRWAY PRESSURE CPAP 42039 10/03/16 SPINAL CANAL INJECT NEC 03.92 02/21/12 Internal Medicine Assmt/Plan - Assessment Assessment: headache copd clbp htn bipolar - Plan Plan: fall precautions monitor bp continue current plan of care - Plan Plan: d w pt and rn on bactrim Nutritional Asmnt/Malnutr-PDOC - Dietary Evaluation Malnutrition Findings (Please click <Entered> for more info): Nutritional Asmnt/Malnutrition Start: 03/04/18 13: 42 Text: Status: Complete Freq: Protocol: Document 03/04/18 13:42 LCCAMILOG (Rec: 03/04/18 13:52 LCCAMILOG [email or web address]) Nutritional Asmnt/Malnutrition Patient General Information Nutritional Screening Moderate Risk Diagnosis bipolar disorder Pertinent Medical Hx/Surgical Hx COPD, HTN, bipolar, schizoaffective disorder, chronic low back pain Subjective Information Pt seen eating lunch in dining room, alert. Pt reported excellet appetite. No question or concern about current diet . Per EMR PO intake 75-100%. Current Diet Order/ Nutrition Support [facility] soft chopped Pertinent Medications colace, culturelle, theragran, seroquel, protonix Pertinent Labs 02/27 Na 133, Cr 0.5 Nutritional Hx/Data Height 1.65 m Height (Calculated Centimeters) 165.1 Current Weight (lbs) 65.317 kg Weight (Calculated Kilograms) 65.3 Weight (Calculated Grams) 68164.3 [place] Body Weight 120 Body Mass Index (BMI) 23.9 Weight Status Approriate GI Symptoms GI Symptoms None Last BM 03/02 Difficult in: None Skin Integrity/Comment: rash Current %PO Good (75-100%) Estimated Nutritional Goals BEE in Kcals: Using Current wt Calories/Kcals/Kg 25-30 Kcals Calculated 1316-9899 Protein: Using Current wt Protein g/k Protein Calculated 65 Fluid: ml 1625-1950ml (1ml/kcal) Nutritional Problem No current Nutrition Prob Problem N/A Malnutrition Alert Is there a minimum of two criteria No selected? Query Text:Check all the applicable criteria. A minimum of two criteria are recommended for diagnosis of either severe or non-severe malnutrition. Malnutrition Related to Morbid Obesity Malnutrition related to morbid obesity No Intervention/Recommendation Comments 1. Continue with [facility] soft chopped diet as ordered. 2. Monitor PO intake, wt, labs and skin integrity 3. F/U as low risk in 7 days, 03/11 Expected Outcomes/Goals Expected Outcomes/Goals 1. PO intake to meet at least 75% of nutritional needs. 2. Wt stability, skin to remain intact, labs to approach WNL.
[2018-03-07] MEDS: Albuterol/Ipratropium Neb 3 ML AERS HHN SCH ×3 (00:17→14:15)
[2018-03-07] MEDS: APAP 325mg/Butalbital 50mg/Caff 40mg Tab PO PRN ×2 (00:24→09:55)
--- NOTE | 2018-03-07 02:47 | Progress Notes ---
DATE: 03/06/2018 SUBJECTIVE: Staff was spoken to. The patient is interviewed. Mood is noted to be irritable. Affect is constricted. The patient is getting easily upset. The patient is stating that she is not getting her pain medications and she is in excruciating pain. The patient continues to be depressed. The patient has been placed on Cymbalta and has been able to tolerate the medications. No side effects to the medications are noted at this time. ASSESSMENT: The patient is still impulsive. PLAN: To continue the patient with the supportive therapy. I encouraged the patient to verbalize the concerns. Since the patient has been screaming and yelling, it is decided to increase the dose of the Seroquel to 50 mg twice a day and closely monitor the patient's behavior and follow up. JOB# [id number]
[2018-03-07] MEDS: Pantoprazole 40 mg EC Tab PO SCH (06:53)
[2018-03-07] MEDS: Budesonide 0.5 Mg/2 mL Ud HHN SCH (07:01)
[2018-03-07] MEDS: Lactobacillus Rhamnosus GG 15 Billion CFU CAP.SPRINK PO SCH (08:29)
[2018-03-07] MEDS: Fluticasone Propionate 0.05mg/Actuation 16gm Nasal Spray NS SCH (08:29)
[2018-03-07] MEDS: Multivitamin Tab PO SCH (08:30)
[2018-03-07] MEDS: Sulfamethoxazole/TMP 800/160mg Tab PO SCH ×2 (08:31→16:40)
--- NOTE | 2018-03-07 11:44 | Internal Medicine Prog Note ---
Internal Medicine Subjective - Subjective Patient seen and examined:: with staff, chart reviewed Patient is:: awake, verbal, agitated, confused Patient Complaints of:: headache Per staff patient has:: no adverse event, no episodes of fall, agitated, tolerating meds Internal Medicine Objective - Results Recent Labs: Laboratory Last Values Urine Source RANDOM 03/01/18 09:50 Urine Color YELLOW 03/01/18 09:50 Urine Clarity CLOUDY (CLEAR) H 03/01/18 09:50 Urine pH 6.0 (4.6 - 8.0) 03/01/18 09:50 Ur Specific [place] 1.020 (1.005-1.030) 03/01/18 09:50 Urine Protein 100 mg/dL (NEGATIVE) H 03/01/18 09:50 Urine Glucose (UA) NEGATIVE mg/dL (NEGATIVE) 03/01/18 09:50 Urine Ketones NEGATIVE mg/dL (NEGATIVE) 03/01/18 09:50 Urine Blood LARGE (NEGATIVE) H 03/01/18 09:50 Urine Nitrate NEGATIVE (NEGATIVE) 03/01/18 09:50 Urine Bilirubin NEGATIVE (NEGATIVE) 03/01/18 09:50 Urine Urobilinogen 0.2 E.U./dL (0.2 - 1.0) 03/01/18 09:50 Ur Leukocyte Esterase LARGE (NEGATIVE) H 03/01/18 09:50 Urine RBC 10-25 /hpf (0-5) H 03/01/18 09:50 Urine WBC 50-100 /hpf (0-5) H 03/01/18 09:50 Ur Epithelial Cells FEW /lpf (FEW) 03/01/18 09:50 Urine Bacteria MODERATE /hpf (NONE SEEN) H 03/01/18 09:50 - Physical Exam Vitals and I&O: Vital Signs Temp 97.5 F 03/06/18 14:00 Pulse 88 03/07/18 07:16 Resp 20 03/07/18 08:00 BP 107/50 03/06/18 14:00 Pulse Ox 95 03/07/18 07:16 Intake & Output 03/06/18 03/07/18 03/07/18 18:59 06:59 18:59 Intake Total 1000 Balance 1000 Intake: Oral 1000 Other: # Voids 3 # Bowel Movements 1 Active Medications: Current Medications Acetaminophen (Tylenol) 650 mg PO Q4HR PRN PRN Reason: Mild Pain / Temp above 100 Stop: 04/28/18 12:12 Acetaminophen/Butalbital/Caffeine (Fioricet) 2 tab PO Q8H PRN PRN Reason: Headache Stop: 04/28/18 12:12 Last Admin: 03/07/18 09:55 Dose: 2 tab Al Hydrox/Mg Hydrox/Simethicone (Maalox) 30 ml PO Q4HR PRN PRN Reason: GI DISTRESS Stop: 04/28/18 12:12 Albuterol/Ipratropium (Duoneb Neb) 3 ml HHN Q6HRT JOSEE Stop: 04/28/18 12:59 Last Admin: 03/07/18 07:01 Dose: 3 ml Budesonide (Pulmicort) 0.5 mg HHN Q12HRT JOSEE Stop: 04/28/18 18:59 Last Admin: 03/07/18 07:01 Dose: 0.5 mg Docusate Sodium (Colace) 200 mg PO DAILY JOSEE Stop: 04/29/18 08:59 Last Admin: 03/07/18 08:30 Dose: 200 mg Duloxetine HCl (Cymbalta) 60 mg PO DAILY JOSEE; Protocol Stop: 05/05/18 08:59 Last Admin: 03/07/18 08:31 Dose: 60 mg Fluticasone Propionate (Flonase) 2 spr NS DAILY JOSEE Stop: 04/29/18 08:59 Last Admin: 03/07/18 08:29 Dose: 2 spr Gabapentin (Neurontin) 600 mg PO HS JOSEE Stop: 04/28/18 20:59 Last Admin: 03/06/18 20:34 Dose: 600 mg Gabapentin (Neurontin) 300 mg PO BID JOSEE Stop: 04/28/18 16:59 Last Admin: 03/07/18 08:30 Dose: 300 mg Lactobacillus Rhamnosus (Culturelle 15b) 1 each PO DAILY JOSEE Stop: 05/03/18 08:59 Last Admin: 03/07/18 08:29 Dose: 1 each Lorazepam (Ativan) 0.5 mg PO Q6HR PRN; Protocol PRN Reason: Anxiety Stop: 04/28/18 11:58 Last Admin: 03/07/18 11:15 Dose: 0.5 mg Magnesium Hydroxide (Milk Of Magnesia) 30 ml PO HS PRN PRN Reason: Constipation Methocarbamol (Robaxin) 500 mg PO BID [facility] Stop: 04/28/18 16:59 Last Admin: 03/07/18 08:30 Dose: 500 mg Miscellaneous (Probiotic Screen) 1 ea MC PRN PRN PRN Reason: PROTOCOL Stop: 05/03/18 08:59 Multivitamins/Vitamin C (Theragran) 1 tab PO DAILY JOSEE Stop: 04/29/18 08:59 Last Admin: 03/07/18 08:30 Dose: 1 tab Nitroglycerin (Nitrostat) 0.4 mg SL Q5MIN PRN PRN Reason: Chest Pain Stop: 04/28/18 11:58 Pantoprazole Sodium (Protonix) 40 mg PO QDAC [facility] Stop: 04/29/18 07:29 Last Admin: 03/07/18 06:53 Dose: 40 mg Quetiapine Fumarate (Seroquel) 50 mg PO BID [facility]; Protocol Stop: 05/06/18 08:59 Topiramate (Topamax) 25 mg PO BID [facility] Stop: 04/28/18 16:59 Last Admin: 03/07/18 08:31 Dose: 25 mg Tramadol HCl (Ultram) 50 mg PO Q4HR PRN PRN Reason: Pain (Severe) Stop: 04/28/18 12:03 Last Admin: 03/07/18 06:11 Dose: 50 mg Trimethoprim/Sulfamethoxazole (Bactrim Ds) 1 tab PO BID [facility] Stop: 03/12/18 16:59 Last Admin: 03/07/18 08:31 Dose: 1 tab Zolpidem Tartrate (Ambien) 5 mg PO HS PRN PRN Reason: Insomnia Stop: 04/28/18 12:12 Last Admin: 03/06/18 20:32 Dose: 5 mg General: alert HEENT: NC/AT, PERRLA Neck: Supple Lungs: CTAB Cardiovascular: RRR, Normal S1, Normal S2, without murmur Abdomen: soft, non-tender, non-distended, positive bowel sound Extremities: excoriation Neurological: alert - Procedures Procedures: Procedures Procedure Code Date ANESTH INJEC PERIPH NERV 04.81 12/04/10 ANESTH INJECT-SPIN CANAL 03.91 02/21/12 ASSISTANCE WITH RESPIRATORY VENTILATION, 24-96 HRS, CPAP [id number] 10/03/16 CERVICAL SPINE X-RAY NEC 87.22 02/28/11 EPIDUROGRAPHY 90045 02/21/12 INJ FORAMEN EPIDURAL L/S 08358 12/04/10 INJ PARAVERT F JNT C/T 1 LEV 80414 02/28/11 INJ PARAVERT F JNT C/T 2 LEV 21853 02/28/11 INJ PARAVERT F JNT C/T 3 LEV 24898 02/28/11 INJECT SPINE CERV/THORACIC 21717 05/30/11 INJECT SPINE LUMBAR/SACRAL 60480 02/21/12 INJECT STEROID 99.23 02/21/12 INJECT/INFUSE NEC 99.29 02/28/11 INJECTION INTO JOINT 81.92 02/28/11 LUMBOSAC SPINE X-RAY NEC 87.24 02/21/12 MYELOGRAPHY NECK SPINE 82956 05/30/11 PERIPH NERVE INJECT NEC 04.89 12/04/10 POS AIRWAY PRESSURE CPAP 05962 10/03/16 SPINAL CANAL INJECT NEC 03.92 02/21/12 Internal Medicine Assmt/Plan - Assessment Assessment: headache copd clbp htn bipolar - Plan Plan: fall precautions monitor bp continue current plan of care - Plan Plan: d w pt and rn on bactrim Nutritional Asmnt/Malnutr-PDOC - Dietary Evaluation Malnutrition Findings (Please click <Entered> for more info): Nutritional Asmnt/Malnutrition Start: 03/04/18 13: 42 Text: Status: Complete Freq: Protocol: Document 03/04/18 13:42 LCHENG (Rec: 03/04/18 13:52 LCHENG [email or web address]) Nutritional Asmnt/Malnutrition Patient General Information Nutritional Screening Moderate Risk Diagnosis bipolar disorder Pertinent Medical Hx/Surgical Hx COPD, HTN, bipolar, schizoaffective disorder, chronic low back pain Subjective Information Pt seen eating lunch in dining room, alert. Pt reported excellet appetite. No question or concern about current diet . Per EMR PO intake 75-100%. Current Diet Order/ Nutrition Support [facility] soft chopped Pertinent Medications colace, culturelle, theragran, seroquel, protonix Pertinent Labs 02/27 Na 133, Cr 0.5 Nutritional Hx/Data Height 1.65 m Height (Calculated Centimeters) 165.1 Current Weight (lbs) 65.317 kg Weight (Calculated Kilograms) 65.3 Weight (Calculated Grams) 68034.3 [place] Body Weight 120 Body Mass Index (BMI) 23.9 Weight Status Approriate GI Symptoms GI Symptoms None Last BM 03/02 Difficult in: None Skin Integrity/Comment: rash Current %PO Good (75-100%) Estimated Nutritional Goals BEE in Kcals: Using Current wt Calories/Kcals/Kg 25-30 Kcals Calculated 7319-0146 Protein: Using Current wt Protein g/k Protein Calculated 65 Fluid: ml 1625-1950ml (1ml/kcal) Nutritional Problem No current Nutrition Prob Problem N/A Malnutrition Alert Is there a minimum of two criteria No selected? Query Text:Check all the applicable criteria. A minimum of two criteria are recommended for diagnosis of either severe or non-severe malnutrition. Malnutrition Related to Morbid Obesity Malnutrition related to morbid obesity No Intervention/Recommendation Comments 1. [facility] as ordered. 2. Monitor PO intake, wt, labs and skin integrity 3. F/U as low risk in 7 days, 7/3 Expected Outcomes/Goals Expected Outcomes/Goals 1. PO intake to meet at least 75% of nutritional needs. 2. Wt stability, skin to remain intact, labs to approach WNL.
[2018-03-07] MEDS ORDERED: Menthol/Zinc Oxide Oint 113gm Tube TP SCH (17:00)
--- NOTE | 2018-03-08 04:56 | Progress Notes ---
DATE: 03/07/2018 PSYCHIATRIC PROGRESS NOTE SUBJECTIVE: Staff was spoken to. The patient is interviewed. Mood is noted to be anxious. The patient's coping skills are noted to be fair. Insight and judgment are noted to be improving. Impulse control seems to be fair ____ preoccupied. No side effects to the medications are noted. The patient is willing to comply with the treatment on outpatient basis. ASSESSMENT: The patient is stabilizing. PLAN: To discharge the patient today for followup on outpatient basis. JOB# [id number]
--- NOTE | 2018-03-08 09:38 | Discharge Summary ---
DATE OF DISCHARGE: 03/07/2018 IDENTIFYING DATA: The patient is a 67-year-old woman, resident of [facility]. JUSTIFICATION OF HOSPITALIZATION: The patient is admitted on 5150 for being gravely disabled and a danger to others. CHIEF COMPLAINT: "I don't know, this is a crazy place, I should not be here." DIAGNOSES AT THE TIME OF ADMISSION: AXIS I: 1. Bipolar disorder mixed with psychotic symptoms. 2. Dementia. AXIS II: None. AXIS III: As per Dr. Pate. HISTORY OF PRESENT ILLNESS: Please refer to 02/27/2018 dictation done by me. Physical examination was done by Dr. Pate and is noted to be significant for pain and the patient has been constantly asking for pain medications. HOSPITAL COURSE AND RESPONSE TO TREATMENT: The patient has been observed on the inpatient unit, provided with supportive psychotherapy. The patient has been placed on the escitalopram 20 mg, which was increased to 20 mg. The patient also has been placed on Seroquel, which was increased to 25 mg twice a day. With these medications, the patient has been observed and the patient continued to be very demanding and is stating that she has been having too much of migraine headaches. She wants to be on Dilaudid. The patient has been placed on Cymbalta, which was gradually increased to 60 mg and Seroquel was continued at 50 mg twice a day. With these medications, the patient was observed and was discharged finally to be followed up at [facility] by Dr. Haro. MENTAL STATUS EXAMINATION: At the time of discharge, the patient's mood is noted to be irritable. Affect is constricted. The patient's mood swings are coming under control. The patient has paranoia, but denies any command hallucinations. The patient is fixated on her ____ and is asking for more and more of the pain medications. The patient is very med seeking. No psychotic symptoms are noted at the time of the discharge. The patient's behavior is not noted to be a danger to self or others. DIAGNOSES AT THE TIME OF DISCHARGE: AXIS I: Bipolar disorder mixed with psychotic symptoms. AXIS II: None. AXIS III: As per Dr. Pate. AFTERCARE PLAN: The patient is discharged to [facility] for further followup. JOB# [id number]
== END 2018-03-07 18:00 | DRG 885 ==
LOC: GERO 11:19
PROVIDERS: ADMIT Psychiatry & Neurology Psychiatry; ATTEND Psychiatry & Neurology Psychiatry
DX: F31.64 Bipolar disorder, current episode mixed, severe, with psychotic features (principal); F03.91 Unspecified dementia, unspecified severity, with behavioral disturbance; M54.5 Low back pain; J44.9 Chronic obstructive pulmonary disease, unspecified; G89.29 Other chronic pain; R51 Headache
CPT/HCPCS: 7610; 81001-TC; 87086-90; 94640; 94760; G0410; Z7610

== ENCOUNTER 2018-04-15 17:30 | Inpatient (IN) | payer MEDICARE, MEDICAID ==
--- NOTE | 2018-04-15 17:46 | ED Physician Chart ---
ED Chief Complaint/HPI - Patient Information Date Seen:: 04/15/18 Time Seen:: 17:30 Chief Complaint:: Agitation History of Present Illness:: onset x 2 days of agitation and aggressive behavior; no report of trauma, SIs, H /As, S/T, ALOC, AMS, neck pain, C/P, SOB, Abd. Pain, A/N/V/D/C, fever, chills, or urinary s/s Allergies:: Allergies Allergy/AdvReac Type Severity Reaction Status Date / Time levofloxacin [From Levaquin] Allergy Verified 12/30/17 14:44 NSAIDS (Non-Steroidal Allergy Verified 10/03/16 22:19 Anti-Inflamma Penicillins [PCN] Allergy Verified 12/30/17 14:44 prochlorperazine Allergy Verified 12/30/17 14:44 Quinolones Allergy Verified 12/30/17 14:44 Historian:: Patient, EMS Review:: Nurse's Note Reviewed, Old Chart Reviewed, EMS run form Reviewed <Sy Tucker - Last Filed: 04/15/18 18:18> - Patient Information Allergies:: Allergies Allergy/AdvReac Type Severity Reaction Status Date / Time levofloxacin [From Levaquin] Allergy Verified 12/30/17 14:44 NSAIDS (Non-Steroidal Allergy Verified 10/03/16 22:19 Anti-Inflamma Penicillins [PCN] Allergy Verified 12/30/17 14:44 prochlorperazine Allergy Verified 12/30/17 14:44 Quinolones Allergy Verified 12/30/17 14:44 <Corky Lopez - Last Filed: 04/18/18 20:18> ED Review of Systems - Review of Systems General/Constitutional: No fever, No chills, No weight loss, No weakness, No diaphoresis, No edema, No loss of appetite Skin: No skin lesions, No rash, No bruising Head: No headache, No light-headedness Eyes: No loss of vision, No pain, No diplopia ENT: No earache, No nasal drainage, No sore throat, No tinnitus Neck: No neck pain, No swelling, No thyromegaly, No stiffness, No mass noted Cardio Vascular: No chest pain, No palpitations, No PND, No orthopnea, No edema Pulmonary: No SOB, No cough, No sputum, No wheezing GI: No nausea, No vomiting, No diarrhea, No pain, No melena, No hematochezia, No constipation, No hematemesis G/U: No dysuria, No frequency, No hematuria, No nacturia Ultrasound Tech: No vaginal discharge, No abnormal vaginal bleed, No contraction Musculoskeletal: No bone or joint pain, No back pain, No muscle pain Endocrine: No polyuria, No polydipsia Psychiatric: Prior psych history, Depression, Anxiety, No suicidal ideation, No homicidal ideation, No auditory hallucination, No visual hallucination Hematopoietic: No bruising, No lymphadenopathy Allergic/Immuno: No urticaria, No angioedema Neurological: No syncope, No focal symptoms, No weakness, No paresthesia, No headache, No seizure, No dizziness, No confusion, No vertigo <Sy Tucker [facility] Filed: 04/15/18 18:18> ED Past Medical History - Past Medical History Obtainable: Yes Past Medical History: HTN, Dyslipidemia Family History: HTN Social History: Non Smoker, No Alcohol, No Drug Use, Single, Care Facility Surgical History: None Psychiatricy History: Depression, Bipolar Medication: Reviewed <KerrySonia alvesil [facility] Filed: 04/15/18 18:18> Family Medical History - Family Member Mother History Unknown: Yes Hx Family Cancer: No Hx Family Coronary Artery Disease: No Hx Family Congestive Heart Failure: No Hx Family Hypertension: No Hx Family Stroke: No Hx Family Diabetes: No Hx Family Seizures: No Hx Family Dementia: No Hx Family AIDS: No Hx Family HIV: No Hx Family COPD: No Hx Family Hepatitis: No Hx Family Psychiatric Problems: No <Sy Tucker [employer] [facility] Filed: 04/15/18 18:18> ED Physical Exam - Physical Examination General/Constitutional: Awake, Well-developed, well-nourished, Alert, No distress, GCS 15, Non-toxic appearing, Ambulatory Head: Atraumatic Eyes: Lids, conjuctiva normal, PERRL, EOMI Skin: Nl inspection, No rash, No skin lesions, No ecchymosis, Well hydrated, No lymphadenopathy ENMT: External ears, nose nl, TM canals nl, Nasal exam nl, Lips, teeth, gums nl , Oropharynx nl, Tonsils nl Neck: Nontender, Full ROM w/o pain, No JVD, No nuchal rigidity, No bruit, No mass, No stridor Respiratory: Nl effort/Exclusion, Clear to Auscultation, No Wheeze/Rhonchi/Rales Cardio Vascular: RRR, No murmur, gallop, rubs, NL S1 S2, Carotid/Femoral/Distal pulses equal bilaterally GI: No tenderness/rebounding/guarding, No organomegaly, No hernia, Normal BS's, Nondistended, No mass/bruits, No McBurney tenderness : No CVA tenderness Extremities: No tenderness or effusion, Full ROM, normal strength in all extremities, No edema, Normal digits & nails Neuro/Psych: Alert/oriented, DTR's symmetric, Normal sensory exam, Normal motor strength, Judgement/insight normal, Mood normal, Normal gait, No focal deficits Other Neuro/Psych comments:: + Psychomotor Agitation; no SIs; Mood/Affect: Labile Misc: Normal back, No paraspinal tenderness <Sy Tucker - Last Filed: 04/15/18 18:18> ED Labs/Radiology/EKG Results - EKG Interpretations EKG Time:: 17:58 Rate & Rhythm: 97; NSR Comments:: T-Wave Inversions; non-specific st-t changes <Sy Tucker - Last Filed: 04/15/18 18:18> - Lab Results Results: Laboratory Tests 04/15/18 04/15/18 04/15/18 18:15 18:15 18:15 WBC 8.7 RBC 3.93 Hgb 12.0 Hct 36.0 L MCV 91.8 MCH 30.6 MCHC Differential 33.4 RDW 13.6 Plt Count 378 MPV 7.1 Neutrophils % 62.0 Lymphocytes % 29.9 Monocytes % 6.4 Eosinophils % 1.7 Basophils % 0.0 Sodium 136 Potassium 3.7 Chloride 101 Carbon Dioxide 24.2 Anion Gap 14.5 BUN 23 Creatinine 0.9 Est GFR ( Amer) > 60.0 Est GFR (Non-Af Amer) > 60.0 BUN/Creatinine Ratio 25.6 Glucose 98 Hemoglobin A1c % 4.9 Calcium 9.3 Total Bilirubin 0.4 AST 11 L ALT 9 Alkaline Phosphatase 119 H Total Protein 6.5 Albumin 4.2 Globulin 2.3 Albumin/Globulin Ratio 1.8 Triglycerides 66 Cholesterol 189 LDL Cholesterol Direct 102 HDL Cholesterol 65 TSH Salicylates < 25.0 L Acetaminophen < 10.0 L Ethyl Alcohol < 10 04/15/18 18:15 WBC RBC Hgb Hct MCV MCH MCHC Differential RDW Plt Count MPV Neutrophils % Lymphocytes % Monocytes % Eosinophils % Basophils % Sodium Potassium Chloride Carbon Dioxide Anion Gap BUN Creatinine Est GFR ( Amer) Est GFR (Non-Af Amer) BUN/Creatinine Ratio Glucose Hemoglobin A1c % Calcium Total Bilirubin AST ALT Alkaline Phosphatase Total Protein Albumin Globulin Albumin/Globulin Ratio Triglycerides Cholesterol LDL Cholesterol Direct HDL Cholesterol TSH 1.56 Salicylates Acetaminophen Ethyl Alcohol <Corky Lopez - Last Filed: 04/18/18 20:18> ED Septic Shock - . Is Septic Shock (SBP<90, OR Lactate>4 mmol\L) present?: No <Sy Tucker - Last Filed: 04/15/18 18:18> - . Is Septic Shock (SBP<90, OR Lactate>4 mmol\L) present?: No <Corky Lopez - Last Filed: 04/18/18 20:18> ED Reassessment (Disposition) - Reassessment Reassessment Condition:: Improved - Diagnosis Diagnosis:: Agitation; Psychosis; Medical Clearance <Sy Tucker - Last Filed: 04/15/18 18:18> - Reassessment Reassessment Condition:: Improved - Patient Disposition Discharge/Transfer:: Annabel stearns/in this hosp Admitting Medical Physician:: Ollie Pate Admitting Psych Physician:: Joon De Jesus <Corky Lopez - Last Filed: 04/18/18 20:18>
[2018-04-15 18:23] LABS: % EOSINOPHILS 1.7 % (0.0-5.0); % LYMPHOCYTES 29.9 % (20.0-50.0); % MONOCYTES 6.4 % (2.0-10.0); EOSINOPHILE ABSOLUTE 0.1 Th/cmm (0.1-0.4); LYMPHOCYTE ABSOLUTE 2.6 Th/cmm (1.5-3.0); MEAN CELL VOLUME 91.8 fl (81-100); MEAN CORPUSCULAR HEMOGLOBIN 30.6 pg (27.0-31.0); MEAN CORPUSCULAR HGB CONC 33.4 pg (28.0-36.0); MEAN PLATELET VOLUME 7.1 fl; MONOCYTE ABSOLUTE 0.6 Th/cmm (0.3-1.0); NEUTROPHILE ABSOLUTE 5.4 Th/cmm (1.8-8.0); PLATELET COUNT 378 Th/cmm (150-400); RED BLOOD COUNT 3.93 Mil/cmm (3.80-5.20); RED CELL DISTRIBUTION WIDTH 13.6 % (11.5-20.0); WHITE BLOOD COUNT 8.7 Th/cmm (4.8-10.8)
[2018-04-15 18:44] LABS: ACETAMINOPHEN < 10.0 ug/mL (10.0-30.0); ALB/GLOB RATIO 1.8 (1.0-1.8); ALBUMIN 4.2 gm/dL (3.7-5.3); ALKALINE PHOSPHATASE 119 U/L (34-104); ANION GAP 14.5 (7.0-16.0); BILIRUBIN,TOTAL 0.4 mg/dL (0.3-1.0); BUN - UREA NITROGEN 23 mg/dL (7-25); CALCIUM SERUM 9.3 mg/dL (8.6-10.3); CARBON DIOXIDE 24.2 mEq/L (21.0-31.0); CHLORIDE 101 mEq/L (98-107); CHOLESTEROL 189 mg/dL (<200); CREATININE - SERUM 0.9 mg/dL (0.6-1.2); GFR AFRICAN-AMERICAN > 60.0 ml/min (>90); GFR NON AFRICAN-AMERICAN > 60.0 ml/min; GLUCOSE 98 mg/dL (70-105); HDL -HIGH DENSITY LIPOPROTEIN 65 mg/dL (23-92); POTASSIUM SERUM 3.7 mEq/L (3.5-5.1); SALICYLATES (ASPIRIN) < 25.0 mg/L (30.0-100.0); SGOT 11 U/L (13-39); SGPT/ALT 9 U/L (7-52); SODIUM SERUM 136 mEq/L (136-145); TOTAL PROTEIN,SERUM 6.5 gm/dL (6.0-8.3); TRIGLYCERIDES 66 mg/dL (<150)
[2018-04-15 19:28] LABS: A1C % 4.9 % (4.0-6.0)
[2018-04-15] MEDS ORDERED: Hydrocodone/APAP 5mg/325mg Tab PO PRN (22:06)
[2018-04-15] MEDS: Budesonide 0.5 Mg/2 mL Ud HHN SCH (22:22)
[2018-04-15 22:33] VITALS: BP 135/72
[2018-04-15] MEDS ORDERED: Maalox 30 mL Cup PO PRN (23:11)
[2018-04-15] MEDS ORDERED: Magnesium Hydroxide (MOM) 30 mL UDC PO PRN (23:11)
[2018-04-16] MEDS: Budesonide 0.5 Mg/2 mL Ud HHN SCH ×2 (08:04→19:16)
[2018-04-16] MEDS ORDERED: Haloperidol Lactate 5 mg/mL 1mL Vial ONE (08:04)
[2018-04-16] MEDS ORDERED: Haloperidol Lactate 5 mg/mL 1mL Vial IM ONE (08:05)
--- NOTE | 2018-04-16 08:33 | Diagnostic Imaging Report ---
CHEST X-RAY: AP view INDICATION: Shortness of breath COMPARISON: 01/02/2018 FINDINGS: Skin fold are seen along the left lower hemithorax. No evidence of pneumothorax. Chronic lung changes are noted with no focal consolidation or effusions. Heart size is normal. There is probable minimal atherosclerosis of the aortic arch. Partially visualized postsurgical changes of lower cervical spine are noted. IMPRESSION: Chronic lung changes of probable COPD. No focal consolidation identified.
[2018-04-16] MEDS ORDERED: NALOXEGOL OXALATE 25 MG PO SCH (09:00)
[2018-04-16] MEDS: Fluticasone Propionate 0.05mg/Actuation 16gm Nasal Spray NS SCH (09:18)
[2018-04-16] MEDS: Multivitamin Tab PO SCH (09:19)
[2018-04-16] MEDS: Pantoprazole 40 mg EC Tab PO SCH (09:19)
--- NOTE | 2018-04-16 13:41 | Internal Medicine Prog Note ---
Internal Medicine Subjective - Subjective Service Date: 04/16/18 ([id number]) Internal Medicine Objective - Results Result Diagrams: 04/15/18 18:15 04/15/18 18:15 Recent Labs: Laboratory Last Values WBC 8.7 Th/cmm (4.8-10.8) 04/15/18 18:15 RBC 3.93 Mil/cmm (3.80-5.20) 04/15/18 18:15 Hgb 12.0 gm/dL (12-16) 04/15/18 18:15 Hct 36.0 % (41.0-60) L 04/15/18 18:15 MCV 91.8 fl (81-100) 04/15/18 18:15 MCH 30.6 pg (27.0-31.0) 04/15/18 18:15 MCHC Differential 33.4 pg (28.0-36.0) 04/15/18 18:15 RDW 13.6 % (11.5-20.0) 04/15/18 18:15 Plt Count 378 Th/cmm (150-400) 04/15/18 18:15 MPV 7.1 fl 04/15/18 18:15 Neutrophils % 62.0 % (40.0-80.0) 04/15/18 18:15 Lymphocytes % 29.9 % (20.0-50.0) 04/15/18 18:15 Monocytes % 6.4 % (2.0-10.0) 04/15/18 18:15 Eosinophils % 1.7 % (0.0-5.0) 04/15/18 18:15 Basophils % 0.0 % (0.0-2.0) 04/15/18 18:15 Sodium 136 mEq/L (136-145) 04/15/18 18:15 Potassium 3.7 mEq/L (3.5-5.1) 04/15/18 18:15 Chloride 101 mEq/L (98-107) 04/15/18 18:15 Carbon Dioxide 24.2 mEq/L (21.0-31.0) 04/15/18 18:15 Anion Gap 14.5 (7.0-16.0) 04/15/18 18:15 BUN 23 mg/dL (7-25) 04/15/18 18:15 Creatinine 0.9 mg/dL (0.6-1.2) 04/15/18 18:15 Est GFR ( Amer) > 60.0 ml/min (>90) 04/15/18 18:15 Est GFR (Non-Af Amer) > 60.0 ml/min 04/15/18 18:15 BUN/Creatinine Ratio 25.6 04/15/18 18:15 Glucose 98 mg/dL (70-105) 04/15/18 18:15 Hemoglobin A1c % 4.9 % (4.0-6.0) 04/15/18 18:15 Calcium 9.3 mg/dL (8.6-10.3) 04/15/18 18:15 Total Bilirubin 0.4 mg/dL (0.3-1.0) 04/15/18 18:15 AST 11 U/L (13-39) L 04/15/18 18:15 ALT 9 U/L (7-52) 04/15/18 18:15 Alkaline Phosphatase 119 U/L (34-104) H 04/15/18 18:15 Total Protein 6.5 gm/dL (6.0-8.3) 04/15/18 18:15 Albumin 4.2 gm/dL (3.7-5.3) 04/15/18 18:15 Globulin 2.3 gm/dL 04/15/18 18:15 Albumin/Globulin Ratio 1.8 (1.0-1.8) 04/15/18 18:15 Triglycerides 66 mg/dL (<150) 04/15/18 18:15 Cholesterol 189 mg/dL (<200) 04/15/18 18:15 LDL Cholesterol Direct 102 mg/dL (75-193) 04/15/18 18:15 HDL Cholesterol 65 mg/dL (23-92) 04/15/18 18:15 TSH 1.56 uIU/ml (0.34-5.60) 04/15/18 18:15 Salicylates < 25.0 mg/L (30.0-100.0) L 04/15/18 18:15 Acetaminophen < 10.0 ug/mL (10.0-30.0) L 04/15/18 18:15 Ethyl Alcohol < 10 mg/dL (0-10) 04/15/18 18:15 - Physical Exam Vitals and I&O: Vital Signs Temp 99.2 F 04/16/18 05:06 Pulse 90 04/16/18 05:06 Resp 20 04/16/18 08:04 BP 128/70 04/16/18 05:06 Pulse Ox 96 04/16/18 05:06 Intake & Output 04/15/18 04/16/18 04/16/18 18:59 06:59 18:59 Intake Total 500 Balance 500 Weight (lbs) 150 lb Intake: Oral 500 Other: # Voids 4 # Bowel Movements 0 Weight Source Estimated Active Medications: Current Medications Acetaminophen (Tylenol) 650 mg PO Q4HR PRN PRN Reason: Mild Pain / Temp above 100 Stop: 06/14/18 23:10 Acetaminophen/Hydrocodone Bitart ([place] 5mg/325mg) 1 tab PO Q6H PRN PRN Reason: Pain (Severe) Stop: 06/14/18 22:05 Al Hydrox/Mg Hydrox/Simethicone (Maalox) 30 ml PO Q4HR PRN PRN Reason: GI DISTRESS Stop: 06/14/18 23:10 Albuterol/Ipratropium (Duoneb Neb) 3 ml HHN Q6HRT PRN PRN Reason: Shortness of Breath Stop: 06/14/18 22:05 Budesonide (Pulmicort) 0.5 mg HHN Q12HRT JOSEE Stop: 06/14/18 22:14 Last Admin: 04/16/18 08:04 Dose: Not Given Citalopram Hydrobromide (Celexa) 20 mg PO DAILY JOSEE; Protocol Stop: 06/15/18 08:59 Last Admin: 04/16/18 09:18 Dose: Not Given Diphenhydramine HCl (Benadryl 50 Mg/Ml) 50 mg IM Q4HR PRN PRN Reason: Agitation Stop: 06/15/18 08:04 Last Admin: 04/16/18 08:05 Dose: 50 mg Docusate Sodium (Colace) 200 mg PO DAILY JOSEE Stop: 06/15/18 08:59 Last Admin: 04/16/18 09:18 Dose: Not Given Fluticasone Propionate (Flonase) 1 spr NS DAILY JOSEE Stop: 06/15/18 08:59 Last Admin: 04/16/18 09:18 Dose: Not Given Gabapentin (Neurontin) 300 mg PO BID [facility] Stop: 06/15/18 08:59 Last Admin: 04/16/18 09:18 Dose: Not Given Gabapentin (Neurontin) 600 mg PO HS [facility] Stop: 06/15/18 20:59 Ibuprofen (Motrin) 600 mg PO BID PRN PRN Reason: Pain (Mild) Stop: 06/14/18 22:05 Lorazepam (Ativan) 0.5 mg PO Q4HR PRN; Protocol PRN Reason: Anxiety Stop: 05/15/18 23:10 Magnesium Hydroxide (Milk Of Magnesia) 30 ml PO HS PRN PRN Reason: Constipation Methocarbamol (Robaxin) 500 mg PO BID [facility] Stop: 06/15/18 08:59 Last Admin: 04/16/18 09:18 Dose: Not Given Miscellaneous (Naloxegol Oxalate [Movantik]) 25 mg PO DAILY [facility] Stop: 06/15/18 08:59 Multivitamins/Vitamin C (Theragran) 1 tab PO DAILY [facility] Stop: 06/15/18 08:59 Last Admin: 04/16/18 09:19 Dose: Not Given Nitroglycerin (Nitrostat) 0.4 mg SL Q5MIN PRN PRN Reason: Chest Pain Stop: 06/14/18 22:05 Pantoprazole Sodium (Protonix) 40 mg PO DAILY [facility] Stop: 06/15/18 08:59 Last Admin: 04/16/18 09:19 Dose: Not Given Quetiapine Fumarate (Seroquel) 75 mg PO BID [facility]; Protocol Stop: 06/15/18 08:59 Last Admin: 04/16/18 09:19 Dose: Not Given Tramadol HCl (Ultram) 50 mg PO Q6H PRN PRN Reason: Pain (Moderate) Stop: 06/14/18 22:05 Last Admin: 04/16/18 10:23 Dose: 50 mg Zolpidem Tartrate (Ambien) 5 mg PO HS PRN PRN Reason: Insomnia Stop: 06/14/18 23:10 - Procedures Procedures: Procedures Procedure Code Date ANESTH INJEC PERIPH NERV 04.81 12/04/10 ANESTH INJECT-SPIN CANAL 03.91 02/21/12 ASSISTANCE WITH RESPIRATORY VENTILATION, 24-96 HRS, CPAP [id number] 10/03/16 CERVICAL SPINE X-RAY NEC 87.22 02/28/11 EPIDUROGRAPHY 94125 02/21/12 INJ FORAMEN EPIDURAL L/S 99504 12/04/10 INJ PARAVERT F JNT C/T 1 LEV 30534 02/28/11 INJ PARAVERT F JNT C/T 2 LEV 39962 02/28/11 INJ PARAVERT F JNT C/T 3 LEV 18516 02/28/11 INJECT SPINE CERV/THORACIC 80239 05/30/11 INJECT SPINE LUMBAR/SACRAL 37566 02/21/12 INJECT STEROID 99.23 02/21/12 INJECT/INFUSE NEC 99.29 02/28/11 INJECTION INTO JOINT 81.92 02/28/11 LUMBOSAC SPINE X-RAY NEC 87.24 02/21/12 MYELOGRAPHY NECK SPINE 82273 05/30/11 PERIPH NERVE INJECT NEC 04.89 12/04/10 POS AIRWAY PRESSURE CPAP 11250 10/03/16 SPINAL CANAL INJECT NEC 03.92 02/21/12
--- NOTE | 2018-04-16 16:15 | History & Physical ---
ADMIT DATE: 04/16/2018 CHIEF COMPLAINT: Agitation. HISTORY OF PRESENT ILLNESS: This is a 67-year-old female who is well known to me, who is also a jail resident who is admitted to the Geropsych Unit due to a 2-day history of agitation and aggressive behavior towards nursing staff. PAST MEDICAL HISTORY: Hypertension, dyslipidemia. FAMILY HISTORY: Noncontributory. SOCIAL HISTORY: The patient is a jail resident requiring 24-hour nursing care. PAST SURGICAL HISTORY: Unknown. MEDICATIONS: See medication list. REVIEW OF SYSTEMS: Unable to obtain, the patient refuses to speak. PHYSICAL EXAMINATION: GENERAL: The patient is well developed, well-nourished agitated, in no apparent distress. VITAL SIGNS: Temperature 99.2, heart rate 90, blood pressure 128/70, respirations 19, O2 96%. HEENT: Head; normocephalic, atraumatic. NECK: Supple. No mass. LUNGS: Clear bilaterally. HEART: Regular rate and rhythm. ABDOMEN: Soft, nontender. LABORATORY DATA: WBC 8.7, H and H 12.0 and 36.0, platelet of 378. Sodium 136, potassium __.7, chloride 101, BUN 22, creatinine 0.9. ASSESSMENT: Agitation, hypertension, dyslipidemia. PLAN: The patient to continue same medications from the jail. We will continue to follow this patient. [facility]# [id number]
--- NOTE | 2018-04-17 02:12 | Psychiatric Evaluation ---
DATE OF SERVICE: 04/16/2018 IDENTIFYING DATA: The patient is a 67-year-old woman, resident of [facility]. Information obtained by directly interviewing the patient as well as reviewing the admission papers. JUSTIFICATION FOR HOSPITALIZATION: The patient is admitted here for acute agitation. CHIEF COMPLAINT: "I should not be here. I should be on a medical unit." HISTORY OF PRESENT ILLNESS: This is one of multiple psychiatric hospitalizations for this patient, who was in the hospital in February of this year and has been diagnosed to have bipolar disorder mixed with psychotic symptoms and dementia. The patient has been stabilized and was discharged to be followed up on an outpatient basis by Dr. Haro. However, on the day of the hospitalization, the patient has been getting easily irritable, angry, screaming, and yelling. The patient could not be contained and hence the patient has been brought back in here for stabilization. PAST PSYCHIATRIC HISTORY: Please refer to the above. MEDICAL HISTORY: Physical examination is requested to be done by Dr. Pate. SUBSTANCE ABUSE HISTORY: None. PHYSICAL OR SEXUAL ABUSE HISTORY: None. LEGAL PROBLEMS: None at this time. STRENGTH AND ASSETS: The patient is motivated. MENTAL STATUS EXAMINATION: The patient is a 67-year-old woman looking her stated age, superficially cooperative. Eye contact is poor. Mood is noted to be irritable. Affect is constricted. The patient is focused on her pain medications. The patient has no insight into her illness. The patient is very paranoid and is stating that she should be on pain medications rather on the psychiatric unit. The patient has been very aggressive and has been verbally abusive. The patient is alert and aware that she is in the hospital. The patient has paranoia, but denies any command hallucinations. Attention span and concentration are noted to be fair at this time, but the patient's short term is noted to be poor. 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 DIAGNOSTIC IMPRESSION: AXIS I: Bipolar disorder mixed with psychotic symptoms. AXIS II: None. AXIS III: As per Dr. Pate. IMMEDIATE TREATMENT PLAN: The patient is going to be observed on the inpatient unit, provided with supportive psychotherapy. The patient is going to be continued on the current medications, Seroquel and Depakote. ESTIMATED LENGTH OF STAY: 3-5 days. DISCHARGE CRITERIA: When she no longer is a threat to self or others and be able to cope up with the stress. PSYCHIATRIC# [id number]
[2018-04-17] MEDS: Budesonide 0.5 Mg/2 mL Ud HHN SCH ×2 (07:10→18:52)
[2018-04-17] MEDS: Fluticasone Propionate 0.05mg/Actuation 16gm Nasal Spray NS SCH (08:57)
[2018-04-17] MEDS: Pantoprazole 40 mg EC Tab PO SCH (08:57)
[2018-04-17] MEDS: Multivitamin Tab PO SCH (08:57)
--- NOTE | 2018-04-17 13:13 | Internal Medicine Prog Note ---
Internal Medicine Subjective - Subjective Service Date: 04/17/18 Patient seen and examined:: with staff Patient is:: awake Per staff patient has:: tolerating meds Internal Medicine Objective - Results Result Diagrams: 04/15/18 18:15 04/15/18 18:15 Recent Labs: Laboratory Last Values WBC 8.7 Th/cmm (4.8-10.8) 04/15/18 18:15 RBC 3.93 Mil/cmm (3.80-5.20) 04/15/18 18:15 Hgb 12.0 gm/dL (12-16) 04/15/18 18:15 Hct 36.0 % (41.0-60) L 04/15/18 18:15 MCV 91.8 fl (81-100) 04/15/18 18:15 MCH 30.6 pg (27.0-31.0) 04/15/18 18:15 MCHC Differential 33.4 pg (28.0-36.0) 04/15/18 18:15 RDW 13.6 % (11.5-20.0) 04/15/18 18:15 Plt Count 378 Th/cmm (150-400) 04/15/18 18:15 MPV 7.1 fl 04/15/18 18:15 Neutrophils % 62.0 % (40.0-80.0) 04/15/18 18:15 Lymphocytes % 29.9 % (20.0-50.0) 04/15/18 18:15 Monocytes % 6.4 % (2.0-10.0) 04/15/18 18:15 Eosinophils % 1.7 % (0.0-5.0) 04/15/18 18:15 Basophils % 0.0 % (0.0-2.0) 04/15/18 18:15 Sodium 136 mEq/L (136-145) 04/15/18 18:15 Potassium 3.7 mEq/L (3.5-5.1) 04/15/18 18:15 Chloride 101 mEq/L (98-107) 04/15/18 18:15 Carbon Dioxide 24.2 mEq/L (21.0-31.0) 04/15/18 18:15 Anion Gap 14.5 (7.0-16.0) 04/15/18 18:15 BUN 23 mg/dL (7-25) 04/15/18 18:15 Creatinine 0.9 mg/dL (0.6-1.2) 04/15/18 18:15 Est GFR ( Amer) > 60.0 ml/min (>90) 04/15/18 18:15 Est GFR (Non-Af Amer) > 60.0 ml/min 04/15/18 18:15 BUN/Creatinine Ratio 25.6 04/15/18 18:15 Glucose 98 mg/dL (70-105) 04/15/18 18:15 Hemoglobin A1c % 4.9 % (4.0-6.0) 04/15/18 18:15 Calcium 9.3 mg/dL (8.6-10.3) 04/15/18 18:15 Total Bilirubin 0.4 mg/dL (0.3-1.0) 04/15/18 18:15 AST 11 U/L (13-39) L 04/15/18 18:15 ALT 9 U/L (7-52) 04/15/18 18:15 Alkaline Phosphatase 119 U/L (34-104) H 04/15/18 18:15 Total Protein 6.5 gm/dL (6.0-8.3) 04/15/18 18:15 Albumin 4.2 gm/dL (3.7-5.3) 04/15/18 18:15 Globulin 2.3 gm/dL 04/15/18 18:15 Albumin/Globulin Ratio 1.8 (1.0-1.8) 04/15/18 18:15 Triglycerides 66 mg/dL (<150) 04/15/18 18:15 Cholesterol 189 mg/dL (<200) 04/15/18 18:15 LDL Cholesterol Direct 102 mg/dL (75-193) 04/15/18 18:15 HDL Cholesterol 65 mg/dL (23-92) 04/15/18 18:15 TSH 1.56 uIU/ml (0.34-5.60) 04/15/18 18:15 Salicylates < 25.0 mg/L (30.0-100.0) L 04/15/18 18:15 Acetaminophen < 10.0 ug/mL (10.0-30.0) L 04/15/18 18:15 Ethyl Alcohol < 10 mg/dL (0-10) 04/15/18 18:15 - Physical Exam Vitals and I&O: Vital Signs Temp 98.7 F 04/17/18 06:01 Pulse 92 04/17/18 07:11 Resp 18 04/17/18 07:11 BP 150/77 04/17/18 06:01 Pulse Ox 94 04/17/18 07:11 Intake & Output 04/16/18 04/17/18 04/17/18 18:59 06:59 18:59 Intake Total 120 Balance 120 Intake: Oral 120 Other: # Voids 3 # Bowel Movements 1 Active Medications: Current Medications Acetaminophen (Tylenol) 650 mg PO Q4HR PRN PRN Reason: Mild Pain / Temp above 100 Stop: 06/14/18 23:10 Acetaminophen/Hydrocodone Bitart ([place] 5mg/325mg) 1 tab PO Q6H PRN PRN Reason: Pain (Severe) Stop: 06/14/18 22:05 Al Hydrox/Mg Hydrox/Simethicone (Maalox) 30 ml PO Q4HR PRN PRN Reason: GI DISTRESS Stop: 06/14/18 23:10 Albuterol/Ipratropium (Duoneb Neb) 3 ml HHN Q6HRT PRN PRN Reason: Shortness of Breath Stop: 06/14/18 22:05 Budesonide (Pulmicort) 0.5 mg HHN Q12HRT JO[facility] Stop: 06/14/18 22:14 Last Admin: 04/17/18 07:10 Dose: Not Given Citalopram Hydrobromide (Celexa) 20 mg PO DAILY [facility]; Protocol Stop: 06/15/18 08:59 Last Admin: 04/17/18 08:57 Dose: 20 mg Diphenhydramine HCl (Benadryl 50 Mg/Ml) 50 mg IM Q4HR PRN PRN Reason: Agitation Stop: 06/15/18 08:04 Last Admin: 04/16/18 08:05 Dose: 50 mg Docusate Sodium (Colace) 200 mg PO DAILY [facility] Stop: 06/15/18 08:59 Last Admin: 04/17/18 08:57 Dose: 200 mg Fluticasone Propionate (Flonase) 1 spr NS DAILY [facility] Stop: 06/15/18 08:59 Last Admin: 04/17/18 08:57 Dose: 1 spr Gabapentin (Neurontin) 300 mg PO BID [facility] Stop: 06/15/18 08:59 Last Admin: 04/17/18 08:58 Dose: 300 mg Gabapentin (Neurontin) 600 mg PO HS [facility] Stop: 06/15/18 20:59 Last Admin: 04/16/18 21:10 Dose: 600 mg Ibuprofen (Motrin) 600 mg PO BID PRN PRN Reason: Pain (Mild) Stop: 06/14/18 22:05 Lorazepam (Ativan) 0.5 mg PO Q4HR PRN; Protocol PRN Reason: Anxiety Stop: 05/15/18 23:10 Magnesium Hydroxide (Milk Of Magnesia) 30 ml PO HS PRN PRN Reason: Constipation Methocarbamol (Robaxin) 500 mg PO BID [facility] Stop: 06/15/18 08:59 Last Admin: 04/17/18 08:57 Dose: 500 mg Miscellaneous (Naloxegol Oxalate [Movantik]) 25 mg PO DAILY [facility] Stop: 06/15/18 08:59 Multivitamins/Vitamin C (Theragran) 1 tab PO DAILY [facility] Stop: 06/15/18 08:59 Last Admin: 04/17/18 08:57 Dose: 1 tab Nitroglycerin (Nitrostat) 0.4 mg SL Q5MIN PRN PRN Reason: Chest Pain Stop: 06/14/18 22:05 Pantoprazole Sodium (Protonix) 40 mg PO DAILY [facility] Stop: 06/15/18 08:59 Last Admin: 04/17/18 08:57 Dose: 40 mg Quetiapine Fumarate (Seroquel) 75 mg PO BID [facility]; Protocol Stop: 06/15/18 08:59 Last Admin: 04/17/18 08:57 Dose: 75 mg Tramadol HCl (Ultram) 50 mg PO Q6H PRN PRN Reason: Pain (Moderate) Stop: 06/14/18 22:05 Last Admin: 04/16/18 10:23 Dose: 50 mg Zolpidem Tartrate (Ambien) 5 mg PO HS PRN PRN Reason: Insomnia Stop: 06/14/18 23:10 General: alert HEENT: NC/AT, PERRLA Neck: Supple Lungs: CTAB - Procedures Procedures: Procedures Procedure Code Date ANESTH INJEC PERIPH NERV 04.81 12/04/10 ANESTH INJECT-SPIN CANAL 03.91 02/21/12 ASSISTANCE WITH RESPIRATORY VENTILATION, 24-96 HRS, CPAP [id number] 10/03/16 CERVICAL SPINE X-RAY NEC 87.22 02/28/11 EPIDUROGRAPHY 67107 02/21/12 INJ FORAMEN EPIDURAL L/S 42105 12/04/10 INJ PARAVERT F JNT C/T 1 LEV 03002 02/28/11 INJ PARAVERT F JNT C/T 2 LEV 18716 02/28/11 INJ PARAVERT F JNT C/T 3 LEV 65731 02/28/11 INJECT SPINE CERV/THORACIC 76442 05/30/11 INJECT SPINE LUMBAR/SACRAL 74008 02/21/12 INJECT STEROID 99.23 02/21/12 INJECT/INFUSE NEC 99.29 02/28/11 INJECTION INTO JOINT 81.92 02/28/11 LUMBOSAC SPINE X-RAY NEC 87.24 02/21/12 MYELOGRAPHY NECK SPINE 80390 05/30/11 PERIPH NERVE INJECT NEC 04.89 12/04/10 POS AIRWAY PRESSURE CPAP 66712 10/03/16 SPINAL CANAL INJECT NEC 03.92 02/21/12 Internal Medicine Assmt/Plan - Assessment Assessment: agitation htn dementia - Plan Plan: fall precautions continue current plan of care
--- NOTE | 2018-04-18 00:40 | Progress Notes ---
DATE: 04/17/2018 SUBJECTIVE: Staff was spoken to. The patient is interviewed. Mood is noted to be irritable. Affect is constricted. Coping skills are noted to be poor. Sleep and appetite also noted to very poor. The patient has been having difficult time to cope with the stress. Continues to be very paranoid and is focused on her pain. The patient is very depressed at this time and is not able to contract for safety, easily getting agitated. ASSESSMENT: The patient is paranoid and agitated. PLAN: To continue the patient with the supportive therapy and followup. JOB# [id number]
[2018-04-18] MEDS: Budesonide 0.5 Mg/2 mL Ud HHN SCH ×2 (07:01→18:43)
[2018-04-18] MEDS: Pantoprazole 40 mg EC Tab PO SCH (09:30)
[2018-04-18] MEDS: Multivitamin Tab PO SCH (09:30)
[2018-04-18] MEDS: Fluticasone Propionate 0.05mg/Actuation 16gm Nasal Spray NS SCH (09:31)
--- NOTE | 2018-04-18 13:13 | Internal Medicine Prog Note ---
Internal Medicine Subjective - Subjective Service Date: 04/18/18 Patient is:: awake Per staff patient has:: tolerating meds Internal Medicine Objective - Results Result Diagrams: 04/15/18 18:15 04/15/18 18:15 Recent Labs: Laboratory Last Values WBC 8.7 Th/cmm (4.8-10.8) 04/15/18 18:15 RBC 3.93 Mil/cmm (3.80-5.20) 04/15/18 18:15 Hgb 12.0 gm/dL (12-16) 04/15/18 18:15 Hct 36.0 % (41.0-60) L 04/15/18 18:15 MCV 91.8 fl (81-100) 04/15/18 18:15 MCH 30.6 pg (27.0-31.0) 04/15/18 18:15 MCHC Differential 33.4 pg (28.0-36.0) 04/15/18 18:15 RDW 13.6 % (11.5-20.0) 04/15/18 18:15 Plt Count 378 Th/cmm (150-400) 04/15/18 18:15 MPV 7.1 fl 04/15/18 18:15 Neutrophils % 62.0 % (40.0-80.0) 04/15/18 18:15 Lymphocytes % 29.9 % (20.0-50.0) 04/15/18 18:15 Monocytes % 6.4 % (2.0-10.0) 04/15/18 18:15 Eosinophils % 1.7 % (0.0-5.0) 04/15/18 18:15 Basophils % 0.0 % (0.0-2.0) 04/15/18 18:15 Sodium 136 mEq/L (136-145) 04/15/18 18:15 Potassium 3.7 mEq/L (3.5-5.1) 04/15/18 18:15 Chloride 101 mEq/L (98-107) 04/15/18 18:15 Carbon Dioxide 24.2 mEq/L (21.0-31.0) 04/15/18 18:15 Anion Gap 14.5 (7.0-16.0) 04/15/18 18:15 BUN 23 mg/dL (7-25) 04/15/18 18:15 Creatinine 0.9 mg/dL (0.6-1.2) 04/15/18 18:15 Est GFR ( Amer) > 60.0 ml/min (>90) 04/15/18 18:15 Est GFR (Non-Af Amer) > 60.0 ml/min 04/15/18 18:15 BUN/Creatinine Ratio 25.6 04/15/18 18:15 Glucose 98 mg/dL (70-105) 04/15/18 18:15 Hemoglobin A1c % 4.9 % (4.0-6.0) 04/15/18 18:15 Calcium 9.3 mg/dL (8.6-10.3) 04/15/18 18:15 Total Bilirubin 0.4 mg/dL (0.3-1.0) 04/15/18 18:15 AST 11 U/L (13-39) L 04/15/18 18:15 ALT 9 U/L (7-52) 04/15/18 18:15 Alkaline Phosphatase 119 U/L (34-104) H 04/15/18 18:15 Total Protein 6.5 gm/dL (6.0-8.3) 04/15/18 18:15 Albumin 4.2 gm/dL (3.7-5.3) 04/15/18 18:15 Globulin 2.3 gm/dL 04/15/18 18:15 Albumin/Globulin Ratio 1.8 (1.0-1.8) 04/15/18 18:15 Triglycerides 66 mg/dL (<150) 04/15/18 18:15 Cholesterol 189 mg/dL (<200) 04/15/18 18:15 LDL Cholesterol Direct 102 mg/dL (75-193) 04/15/18 18:15 HDL Cholesterol 65 mg/dL (23-92) 04/15/18 18:15 TSH 1.56 uIU/ml (0.34-5.60) 04/15/18 18:15 Salicylates < 25.0 mg/L (30.0-100.0) L 04/15/18 18:15 Acetaminophen < 10.0 ug/mL (10.0-30.0) L 04/15/18 18:15 Ethyl Alcohol < 10 mg/dL (0-10) 04/15/18 18:15 - Physical Exam Vitals and I&O: Vital Signs Temp 97.3 F 04/18/18 05:57 Pulse 88 04/18/18 07:02 Resp 18 04/18/18 07:02 BP 108/60 04/18/18 05:57 Pulse Ox 94 04/18/18 07:02 Intake & Output 04/17/18 04/18/18 04/18/18 18:59 06:59 18:59 Intake Total 100 Balance 100 Intake: Oral 100 Other: # Voids 1 Active Medications: Current Medications Acetaminophen (Tylenol) 650 mg PO Q4HR PRN PRN Reason: Mild Pain / Temp above 100 Stop: 06/14/18 23:10 Acetaminophen/Hydrocodone Bitart ([place] 5mg/325mg) 1 tab PO Q6H PRN PRN Reason: Pain (Severe) Stop: 06/14/18 22:05 Al Hydrox/Mg Hydrox/Simethicone (Maalox) 30 ml PO Q4HR PRN PRN Reason: GI DISTRESS Stop: 06/14/18 23:10 Albuterol/Ipratropium (Duoneb Neb) 3 ml HHN Q6HRT PRN PRN Reason: Shortness of Breath Stop: 06/14/18 22:05 Budesonide (Pulmicort) 0.5 mg HHN Q12HRT [facility] Stop: 06/14/18 22:14 Last Admin: 04/18/18 07:01 Dose: Not Given Citalopram Hydrobromide (Celexa) 20 mg PO DAILY [facility]; Protocol Stop: 06/15/18 08:59 Last Admin: 04/18/18 09:31 Dose: 20 mg Diphenhydramine HCl (Benadryl 50 Mg/Ml) 50 mg IM Q4HR PRN PRN Reason: Agitation Stop: 06/15/18 08:04 Last Admin: 04/16/18 08:05 Dose: 50 mg Docusate Sodium (Colace) 200 mg PO DAILY [facility] Stop: 06/15/18 08:59 Last Admin: 04/18/18 09:30 Dose: 200 mg Fluticasone Propionate (Flonase) 1 spr NS DAILY [facility] Stop: 06/15/18 08:59 Last Admin: 04/18/18 09:31 Dose: 1 spr Gabapentin (Neurontin) 300 mg PO BID [facility] Stop: 06/15/18 08:59 Last Admin: 04/18/18 09:30 Dose: 300 mg Gabapentin (Neurontin) 600 mg PO HS [facility] Stop: 06/15/18 20:59 Last Admin: 04/17/18 21:14 Dose: 600 mg Ibuprofen (Motrin) 600 mg PO BID PRN PRN Reason: Pain (Mild) Stop: 06/14/18 22:05 Lorazepam (Ativan) 0.5 mg PO Q4HR PRN; Protocol PRN Reason: Anxiety Stop: 05/15/18 23:10 Last Admin: 04/18/18 09:30 Dose: 0.5 mg Magnesium Hydroxide (Milk Of Magnesia) 30 ml PO HS PRN PRN Reason: Constipation Methocarbamol (Robaxin) 500 mg PO BID [facility] Stop: 06/15/18 08:59 Last Admin: 04/18/18 09:29 Dose: 500 mg Miscellaneous (Naloxegol Oxalate [Movantik]) 25 mg PO DAILY [facility] Stop: 06/15/18 08:59 Multivitamins/Vitamin C (Theragran) 1 tab PO DAILY [facility] Stop: 06/15/18 08:59 Last Admin: 04/18/18 09:30 Dose: 1 tab Nitroglycerin (Nitrostat) 0.4 mg SL Q5MIN PRN PRN Reason: Chest Pain Stop: 06/14/18 22:05 Pantoprazole Sodium (Protonix) 40 mg PO DAILY [facility] Stop: 06/15/18 08:59 Last Admin: 04/17/18 08:57 Dose: 40 mg Quetiapine Fumarate (Seroquel) 75 mg PO BID [facility]; Protocol Stop: 06/15/18 08:59 Last Admin: 04/18/18 09:30 Dose: 75 mg Tramadol HCl (Ultram) 50 mg PO Q6H PRN PRN Reason: Pain (Moderate) Stop: 06/14/18 22:05 Last Admin: 04/17/18 13:28 Dose: 50 mg Zolpidem Tartrate (Ambien) 5 mg PO HS PRN PRN Reason: Insomnia Stop: 06/14/18 23:10 General: alert HEENT: NC/AT, PERRLA Neck: Supple Lungs: CTAB - Procedures Procedures: Procedures Procedure Code Date ANESTH INJEC PERIPH NERV 04.81 12/04/10 ANESTH INJECT-SPIN CANAL 03.91 02/21/12 ASSISTANCE WITH RESPIRATORY VENTILATION, 24-96 HRS, CPAP [id number] 10/03/16 CERVICAL SPINE X-RAY NEC 87.22 02/28/11 EPIDUROGRAPHY 71829 02/21/12 INJ FORAMEN EPIDURAL L/S 53157 12/04/10 INJ PARAVERT F JNT C/T 1 LEV 95309 02/28/11 INJ PARAVERT F JNT C/T 2 LEV 32417 02/28/11 INJ PARAVERT F JNT C/T 3 LEV 21425 02/28/11 INJECT SPINE CERV/THORACIC 00975 05/30/11 INJECT SPINE LUMBAR/SACRAL 52278 02/21/12 INJECT STEROID 99.23 02/21/12 INJECT/INFUSE NEC 99.29 02/28/11 INJECTION INTO JOINT 81.92 02/28/11 LUMBOSAC SPINE X-RAY NEC 87.24 02/21/12 MYELOGRAPHY NECK SPINE 69233 05/30/11 PERIPH NERVE INJECT NEC 04.89 12/04/10 POS AIRWAY PRESSURE CPAP 24619 10/03/16 SPINAL CANAL INJECT NEC 03.92 02/21/12 Internal Medicine Assmt/Plan - Assessment Assessment: agitation htn dementia - Plan Plan: fall precautions continue current plan of care
[2018-04-18] MEDS: Nystatin Cream 100,000 u/gm Cream 15 gm TP PRN (16:19)
[2018-04-18] MEDS: Hydrocodone/APAP 10 mg/325 mg Tab PO PRN (16:20)
--- NOTE | 2018-04-18 23:59 | Progress Notes ---
DATE: 04/18/2018 PSYCHIATRIC PROGRESS NOTE SUBJECTIVE: Staff was spoken to. The patient is interviewed. Mood is noted to be irritable. Affect is constricted. Coping skills are noted to be still poor. Sleep and appetite also noted to be very poor. The patient has been focused on her pain. Insight and judgment at this time are noted to be very much impaired. The patient has been screaming and yelling. ASSESSMENT: The patient is still having acute mood swings. PLAN: To continue the patient with the supportive therapy and followup. JOB# [id number]
[2018-04-19] MEDS: Hydrocodone/APAP 10 mg/325 mg Tab PO PRN (06:31)
[2018-04-19] MEDS: Budesonide 0.5 Mg/2 mL Ud HHN SCH ×2 (07:28→19:19)
[2018-04-19] MEDS: Multivitamin Tab PO SCH (09:49)
[2018-04-19] MEDS: Pantoprazole 40 mg EC Tab PO SCH (09:49)
[2018-04-19] MEDS: Fluticasone Propionate 0.05mg/Actuation 16gm Nasal Spray NS SCH (09:49)
--- NOTE | 2018-04-19 16:38 | Internal Medicine Prog Note ---
Internal Medicine Subjective - Subjective Service Date: 04/19/18 Patient is:: awake Per staff patient has:: tolerating meds Internal Medicine Objective - Results Result Diagrams: 04/15/18 18:15 04/15/18 18:15 Recent Labs: Laboratory Last Values WBC 8.7 Th/cmm (4.8-10.8) 04/15/18 18:15 RBC 3.93 Mil/cmm (3.80-5.20) 04/15/18 18:15 Hgb 12.0 gm/dL (12-16) 04/15/18 18:15 Hct 36.0 % (41.0-60) L 04/15/18 18:15 MCV 91.8 fl (81-100) 04/15/18 18:15 MCH 30.6 pg (27.0-31.0) 04/15/18 18:15 MCHC Differential 33.4 pg (28.0-36.0) 04/15/18 18:15 RDW 13.6 % (11.5-20.0) 04/15/18 18:15 Plt Count 378 Th/cmm (150-400) 04/15/18 18:15 MPV 7.1 fl 04/15/18 18:15 Neutrophils % 62.0 % (40.0-80.0) 04/15/18 18:15 Lymphocytes % 29.9 % (20.0-50.0) 04/15/18 18:15 Monocytes % 6.4 % (2.0-10.0) 04/15/18 18:15 Eosinophils % 1.7 % (0.0-5.0) 04/15/18 18:15 Basophils % 0.0 % (0.0-2.0) 04/15/18 18:15 Sodium 136 mEq/L (136-145) 04/15/18 18:15 Potassium 3.7 mEq/L (3.5-5.1) 04/15/18 18:15 Chloride 101 mEq/L (98-107) 04/15/18 18:15 Carbon Dioxide 24.2 mEq/L (21.0-31.0) 04/15/18 18:15 Anion Gap 14.5 (7.0-16.0) 04/15/18 18:15 BUN 23 mg/dL (7-25) 04/15/18 18:15 Creatinine 0.9 mg/dL (0.6-1.2) 04/15/18 18:15 Est GFR ( Amer) > 60.0 ml/min (>90) 04/15/18 18:15 Est GFR (Non-Af Amer) > 60.0 ml/min 04/15/18 18:15 BUN/Creatinine Ratio 25.6 04/15/18 18:15 Glucose 98 mg/dL (70-105) 04/15/18 18:15 Hemoglobin A1c % 4.9 % (4.0-6.0) 04/15/18 18:15 Calcium 9.3 mg/dL (8.6-10.3) 04/15/18 18:15 Total Bilirubin 0.4 mg/dL (0.3-1.0) 04/15/18 18:15 AST 11 U/L (13-39) L 04/15/18 18:15 ALT 9 U/L (7-52) 04/15/18 18:15 Alkaline Phosphatase 119 U/L (34-104) H 04/15/18 18:15 Total Protein 6.5 gm/dL (6.0-8.3) 04/15/18 18:15 Albumin 4.2 gm/dL (3.7-5.3) 04/15/18 18:15 Globulin 2.3 gm/dL 04/15/18 18:15 Albumin/Globulin Ratio 1.8 (1.0-1.8) 04/15/18 18:15 Triglycerides 66 mg/dL (<150) 04/15/18 18:15 Cholesterol 189 mg/dL (<200) 04/15/18 18:15 LDL Cholesterol Direct 102 mg/dL (75-193) 04/15/18 18:15 HDL Cholesterol 65 mg/dL (23-92) 04/15/18 18:15 TSH 1.56 uIU/ml (0.34-5.60) 04/15/18 18:15 Salicylates < 25.0 mg/L (30.0-100.0) L 04/15/18 18:15 Acetaminophen < 10.0 ug/mL (10.0-30.0) L 04/15/18 18:15 Ethyl Alcohol < 10 mg/dL (0-10) 04/15/18 18:15 RPR NONREACTIVE (NONREACTIVE) 04/15/18 18:15 - Physical Exam Vitals and I&O: Vital Signs Temp 97.6 F 04/19/18 14:00 Pulse 76 04/19/18 14:00 Resp 18 04/19/18 14:00 BP 148/72 04/19/18 14:00 Pulse Ox 98 04/19/18 14:00 Active Medications: Current Medications Acetaminophen (Tylenol) 650 mg PO Q4HR PRN PRN Reason: Mild Pain / Temp above 100 Stop: 06/14/18 23:10 Acetaminophen/Hydrocodone Bitart ([place] 10 Mg/325 Mg) 1 tab PO Q6H PRN PRN Reason: Pain Severe Stop: 06/17/18 13:29 Last Admin: 04/19/18 06:31 Dose: 1 tab Al Hydrox/Mg Hydrox/Simethicone (Maalox) 30 ml PO Q4HR PRN PRN Reason: GI DISTRESS Stop: 06/14/18 23:10 Albuterol/Ipratropium (Duoneb Neb) 3 ml HHN Q6HRT PRN PRN Reason: Shortness of Breath Stop: 06/14/18 22:05 Budesonide (Pulmicort) 0.5 mg HHN Q12HRT [facility] Stop: 06/14/18 22:14 Last Admin: 04/19/18 07:28 Dose: 0.5 mg Citalopram Hydrobromide (Celexa) 20 mg PO DAILY [facility]; Protocol Stop: 06/15/18 08:59 Last Admin: 04/19/18 09:49 Dose: 20 mg Diphenhydramine HCl (Benadryl) 50 mg PO Q4HR PRN PRN Reason: Agitation Stop: 06/18/18 07:59 Last Admin: 04/19/18 08:25 Dose: 50 mg Docusate Sodium (Colace) 200 mg PO DAILY [facility] Stop: 06/15/18 08:59 Last Admin: 04/19/18 09:49 Dose: 200 mg Fluticasone Propionate (Flonase) 1 spr NS DAILY [facility] Stop: 06/15/18 08:59 Last Admin: 04/19/18 09:49 Dose: 1 spr Gabapentin (Neurontin) 300 mg PO BID [facility] Stop: 06/15/18 08:59 Last Admin: 08/11/18 09:49 Dose: 300 mg Gabapentin (Neurontin) 600 mg PO HS [facility] Stop: 06/15/18 20:59 Last Admin: 04/18/18 21:34 Dose: 600 mg Ibuprofen (Motrin) 600 mg PO BID PRN PRN Reason: Pain (Mild) Stop: 06/14/18 22:05 Lorazepam (Ativan) 1 mg PO Q4HR PRN; Protocol PRN Reason: Anxiety Stop: 05/15/18 23:10 Last Admin: 04/19/18 07:51 Dose: 1 mg Magnesium Hydroxide (Milk Of Magnesia) 30 ml PO HS PRN PRN Reason: Constipation Methocarbamol (Robaxin) 500 mg PO BID [facility] Stop: 06/15/18 08:59 Last Admin: 04/19/18 09:48 Dose: 500 mg Multivitamins/Vitamin C (Theragran) 1 tab PO DAILY [facility] Stop: 06/15/18 08:59 Last Admin: 04/19/18 09:49 Dose: 1 tab Nitroglycerin (Nitrostat) 0.4 mg SL Q5MIN PRN PRN Reason: Chest Pain Stop: 06/14/18 22:05 Nystatin (Mycostatin Cream) 1 appl TP DAILY PRN PRN Reason: Rash on [place] area Stop: 06/17/18 13:59 Last Admin: 04/18/18 16:19 Dose: 1 appl Pantoprazole Sodium (Protonix) 40 mg PO DAILY [facility] Stop: 06/15/18 08:59 Last Admin: 04/19/18 09:49 Dose: 40 mg Quetiapine Fumarate (Seroquel) 75 mg PO BID [facility]; Protocol Stop: 06/15/18 08:59 Last Admin: 04/19/18 09:49 Dose: 75 mg Zolpidem Tartrate (Ambien) 5 mg PO HS PRN PRN Reason: Insomnia Stop: 06/14/18 23:10 Last Admin: 04/18/18 21:35 Dose: 5 mg General: alert HEENT: NC/AT, PERRLA Neck: Supple Lungs: CTAB - Procedures Procedures: Procedures Procedure Code Date ANESTH INJEC PERIPH NERV 04.81 12/04/10 ANESTH INJECT-SPIN CANAL 03.91 02/21/12 ASSISTANCE WITH RESPIRATORY VENTILATION, 24-96 HRS, CPAP [id number] 10/03/16 CERVICAL SPINE X-RAY NEC 87.22 02/28/11 EPIDUROGRAPHY 30992 02/21/12 INJ FORAMEN EPIDURAL L/S 55795 12/04/10 INJ PARAVERT F JNT C/T 1 LEV 50995 02/28/11 INJ PARAVERT F JNT C/T 2 LEV 75595 02/28/11 INJ PARAVERT F JNT C/T 3 LEV 88299 02/28/11 INJECT SPINE CERV/THORACIC 78023 05/30/11 INJECT SPINE LUMBAR/SACRAL 63037 02/21/12 INJECT STEROID 99.23 02/21/12 INJECT/INFUSE NEC 99.29 02/28/11 INJECTION INTO JOINT 81.92 02/28/11 LUMBOSAC SPINE X-RAY NEC 87.24 02/21/12 MYELOGRAPHY NECK SPINE 68754 05/30/11 PERIPH NERVE INJECT NEC 04.89 12/04/10 POS AIRWAY PRESSURE CPAP 76084 10/03/16 SPINAL CANAL INJECT NEC 03.92 02/21/12 Internal Medicine Assmt/Plan - Assessment Assessment: agitation htn dementia - Plan Plan: fall precautions continue current plan of care Nutritional Asmnt/Malnutr-PDOC - Dietary Evaluation Malnutrition Findings (Please click <Entered> for more info): Nutritional Asmnt/Malnutrition Start: 04/18/18 16: 19 Text: Status: Complete Freq: Protocol: Document 04/18/18 16:19 LCHENG (Rec: 04/18/18 16:25 LCHENG [email or web address]) Nutritional Asmnt/Malnutrition Patient General Information Nutritional Screening Moderate Risk Diagnosis psychosis Pertinent Medical Hx/Surgical Hx HTN, dyslipidemia Subjective Information Pt seen sitting in mj-chair in dining room, awake and alert. Per EMR, PO intake 50- 100%. Pt complained of current [facility] soft chopped diet. Explain diet to pt. Per RN, pt was also on [facility] diet at [facility]. Current Diet Order/ Nutrition Support [facility] soft chopped Pertinent Medications colace, theragran, protonix, seroquel Pertinent Labs 04/15 nutrition labs WNL Nutritional Hx/Data Height 5 ft 5 in Height (Calculated Centimeters) 165.1 Current Weight (lbs) 150 lb Weight (Calculated Kilograms) 68.0 Weight (Calculated Grams) 18985.9 [place] Body Weight 125 Body Mass Index (BMI) 25.0 Weight Status Overweight GI Symptoms GI Symptoms None Last BM 89 Difficult in: None Skin Integrity/Comment: rash Estimated Nutritional Goals BEE in Kcals: Using Current wt Calories/Kcals/Kg 23-27 Kcals Calculated 9137-8937 Protein: Using Current wt Protein g/k.8-1 Protein Calculated 54-68 Fluid: ml 1564-1836ml (1ml/kcal) Nutritional Problem No current Nutrition Prob Problem N/A Malnutrition Alert Is there a minimum of two criteria No selected? Query Text:Check all the applicable criteria. A minimum of two criteria are recommended for diagnosis of either severe or non-severe malnutrition. Malnutrition Related to Morbid Obesity Malnutrition related to morbid obesity No Intervention/Recommendation Comments 1. Continue with [facility] soft chopped diet as ordered. diet preference updated. 2. Monitor PO intake, wt, labs and skin integrity 3. F/U as low risk in 7 days, 04/25 Expected Outcomes/Goals Expected Outcomes/Goals 1. PO intake to meet at least 75% of nutritional needs. 2. Wt stability, skin to remain intact, labs to approach WNL.
[2018-04-19] MEDS: Nystatin Cream 100,000 u/gm Cream 15 gm TP PRN (18:41)
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
--- NOTE | 2018-04-20 01:37 | Progress Notes ---
DATE: 04/19/2018 PSYCHIATRIC PROGRESS NOTE Staff was spoken to. The patient is interviewed. Mood is noted to be less irritable. The patient is very drowsy today. The patient has been closely monitored for any dehydration. Insight and judgment at this time are noted to be still impaired. Impulse control is noted to be poor. Coping skills are also noted to be very poor. The patient has been having difficult time to cope with the stress. No side effects to the medications are noted. The patient has been less irritable, but the patient is noted to be very drowsy. Paranoia is noted, but denies any command hallucinations, and hence it is decided to decrease the Seroquel to 50 mg twice a day. Discontinued the Benadryl. Follow the patient up with supportive therapy. JOB# [id number]
[2018-04-20] MEDS: Albuterol/Ipratropium Neb 3 ML AERS HHN PRN ×2 (07:01→18:38)
[2018-04-20] MEDS: Budesonide 0.5 Mg/2 mL Ud HHN SCH ×2 (07:01→18:38)
[2018-04-20] MEDS: Multivitamin Tab PO SCH (09:09)
[2018-04-20] MEDS: Pantoprazole 40 mg EC Tab PO SCH (09:09)
[2018-04-20] MEDS: Fluticasone Propionate 0.05mg/Actuation 16gm Nasal Spray NS SCH (09:10)
[2018-04-20] MEDS: Hydrocodone/APAP 10 mg/325 mg Tab PO PRN (12:28)
--- NOTE | 2018-04-20 14:05 | Progress Notes ---
DATE: 04/20/2018 SUBJECTIVE: Staff was spoken to. The patient is interviewed. Mood is noted to be irritable. Affect is constricted. The patient is screaming and yelling this morning. The patient has no insight into her illness. Paranoid delusions are noted. The patient is starting to tearful and crying spells. ASSESSMENT: The patient is still having difficult time to cope with the stress. Plan to continue the patient with the supportive therapy, I encouraged the patient to verbalize the concerns rather than to act out. The patient is currently on the citalopram 20 mg in the morning. The patient is also getting the Seroquel 75 mg twice a day and in view of her screaming and yelling, I have decided to change the Seroquel to 100 mg twice a day and follow the patient with supportive therapy. Please note that the patient is still psychotic and is not ready to be discharged to a lower level of care. [facility]# [id number]
--- NOTE | 2018-04-20 14:52 | Internal Medicine Prog Note ---
Internal Medicine Subjective - Subjective Service Date: 04/20/18 Patient is:: awake Per staff patient has:: tolerating meds Internal Medicine Objective - Results Result Diagrams: 04/15/18 18:15 04/15/18 18:15 Recent Labs: Laboratory Last Values WBC 8.7 Th/cmm (4.8-10.8) 04/15/18 18:15 RBC 3.93 Mil/cmm (3.80-5.20) 04/15/18 18:15 Hgb 12.0 gm/dL (12-16) 04/15/18 18:15 Hct 36.0 % (41.0-60) L 04/15/18 18:15 MCV 91.8 fl (81-100) 04/15/18 18:15 MCH 30.6 pg (27.0-31.0) 04/15/18 18:15 MCHC Differential 33.4 pg (28.0-36.0) 04/15/18 18:15 RDW 13.6 % (11.5-20.0) 04/15/18 18:15 Plt Count 378 Th/cmm (150-400) 04/15/18 18:15 MPV 7.1 fl 04/15/18 18:15 Neutrophils % 62.0 % (40.0-80.0) 04/15/18 18:15 Lymphocytes % 29.9 % (20.0-50.0) 04/15/18 18:15 Monocytes % 6.4 % (2.0-10.0) 04/15/18 18:15 Eosinophils % 1.7 % (0.0-5.0) 04/15/18 18:15 Basophils % 0.0 % (0.0-2.0) 04/15/18 18:15 Sodium 136 mEq/L (136-145) 04/15/18 18:15 Potassium 3.7 mEq/L (3.5-5.1) 04/15/18 18:15 Chloride 101 mEq/L (98-107) 04/15/18 18:15 Carbon Dioxide 24.2 mEq/L (21.0-31.0) 04/15/18 18:15 Anion Gap 14.5 (7.0-16.0) 04/15/18 18:15 BUN 23 mg/dL (7-25) 04/15/18 18:15 Creatinine 0.9 mg/dL (0.6-1.2) 04/15/18 18:15 Est GFR ( Amer) > 60.0 ml/min (>90) 04/15/18 18:15 Est GFR (Non-Af Amer) > 60.0 ml/min 04/15/18 18:15 BUN/Creatinine Ratio 25.6 04/15/18 18:15 Glucose 98 mg/dL (70-105) 04/15/18 18:15 Hemoglobin A1c % 4.9 % (4.0-6.0) 04/15/18 18:15 Calcium 9.3 mg/dL (8.6-10.3) 04/15/18 18:15 Total Bilirubin 0.4 mg/dL (0.3-1.0) 04/15/18 18:15 AST 11 U/L (13-39) L 04/15/18 18:15 ALT 9 U/L (7-52) 04/15/18 18:15 Alkaline Phosphatase 119 U/L (34-104) H 04/15/18 18:15 Total Protein 6.5 gm/dL (6.0-8.3) 04/15/18 18:15 Albumin 4.2 gm/dL (3.7-5.3) 04/15/18 18:15 Globulin 2.3 gm/dL 04/15/18 18:15 Albumin/Globulin Ratio 1.8 (1.0-1.8) 04/15/18 18:15 Triglycerides 66 mg/dL (<150) 04/15/18 18:15 Cholesterol 189 mg/dL (<200) 04/15/18 18:15 LDL Cholesterol Direct 102 mg/dL (75-193) 04/15/18 18:15 HDL Cholesterol 65 mg/dL (23-92) 04/15/18 18:15 TSH 1.56 uIU/ml (0.34-5.60) 04/15/18 18:15 Salicylates < 25.0 mg/L (30.0-100.0) L 04/15/18 18:15 Acetaminophen < 10.0 ug/mL (10.0-30.0) L 04/15/18 18:15 Ethyl Alcohol < 10 mg/dL (0-10) 04/15/18 18:15 RPR NONREACTIVE (NONREACTIVE) 04/15/18 18:15 - Physical Exam Vitals and I&O: Vital Signs Temp 97.7 F 04/20/18 07:45 Pulse 94 04/20/18 07:45 Resp 19 04/20/18 07:45 BP 143/75 04/20/18 07:45 Pulse Ox 97 04/20/18 07:45 Intake & Output 04/19/18 04/20/18 04/20/18 18:59 06:59 18:59 Intake Total 500 Balance 500 Intake: Oral 500 Other: # Voids 4 # Bowel Movements 0 Active Medications: Current Medications Acetaminophen (Tylenol) 650 mg PO Q4HR PRN PRN Reason: Mild Pain / Temp above 100 Stop: 06/14/18 23:10 Acetaminophen/Hydrocodone Bitart ([place] 10 Mg/325 Mg) 1 tab PO Q6H PRN PRN Reason: Pain Severe Stop: 06/17/18 13:29 Last Admin: 04/20/18 12:28 Dose: 1 tab Al Hydrox/Mg Hydrox/Simethicone (Maalox) 30 ml PO Q4HR PRN PRN Reason: GI DISTRESS Stop: 06/14/18 23:10 Albuterol/Ipratropium (Duoneb Neb) 3 ml HHN Q6HRT PRN PRN Reason: Shortness of Breath Stop: 06/14/18 22:05 Last Admin: 04/20/18 07:01 Dose: 3 ml Budesonide (Pulmicort) 0.5 mg HHN Q12HRT JOSEE Stop: 06/14/18 22:14 Last Admin: 04/20/18 07:01 Dose: 0.5 mg Citalopram Hydrobromide (Celexa) 20 mg PO DAILY [facility]; Protocol Stop: 06/15/18 08:59 Last Admin: 04/20/18 09:09 Dose: 20 mg Docusate Sodium (Colace) 200 mg PO DAILY [facility] Stop: 06/15/18 08:59 Last Admin: 04/20/18 09:07 Dose: 200 mg Fluticasone Propionate (Flonase) 1 spr NS DAILY JOSEE Stop: 06/15/18 08:59 Last Admin: 04/20/18 09:10 Dose: 1 spr Gabapentin (Neurontin) 300 mg PO BID [facility] Stop: 06/15/18 08:59 Last Admin: 04/20/18 09:07 Dose: 300 mg Gabapentin (Neurontin) 600 mg PO HS JOSEE Stop: 06/15/18 20:59 Last Admin: 04/19/18 21:34 Dose: 600 mg Ibuprofen (Motrin) 600 mg PO BID PRN PRN Reason: Pain (Mild) Stop: 06/14/18 22:05 Lorazepam (Ativan) 1 mg PO Q4HR PRN; Protocol PRN Reason: Anxiety Stop: 05/15/18 23:10 Last Admin: 04/19/18 21:35 Dose: 1 mg Magnesium Hydroxide (Milk Of Magnesia) 30 ml PO HS PRN PRN Reason: Constipation Methocarbamol (Robaxin) 500 mg PO BID JOSEE Stop: 06/15/18 08:59 Last Admin: 04/20/18 09:09 Dose: 500 mg Multivitamins/Vitamin C (Theragran) 1 tab PO DAILY JOSEE Stop: 06/15/18 08:59 Last Admin: 04/20/18 09:09 Dose: 1 tab Nitroglycerin (Nitrostat) 0.4 mg SL Q5MIN PRN PRN Reason: Chest Pain Stop: 06/14/18 22:05 Nystatin (Mycostatin Cream) 1 appl TP DAILY PRN PRN Reason: Rash on [place]zzie area Stop: 06/17/18 13:59 Last Admin: 04/19/18 18:41 Dose: 1 appl Pantoprazole Sodium (Protonix) 40 mg PO DAILY JOSEE Stop: 06/15/18 08:59 Last Admin: 04/20/18 09:09 Dose: 40 mg Quetiapine Fumarate (Seroquel) 50 mg PO BID JOSEE; Protocol Stop: 06/19/18 08:59 Last Admin: 04/20/18 09:08 Dose: 50 mg Quetiapine Fumarate (Seroquel) 100 mg PO BID [facility]; Protocol Stop: 06/19/18 16:59 Zolpidem Tartrate (Ambien) 5 mg PO HS PRN PRN Reason: Insomnia Stop: 06/14/18 23:10 Last Admin: 04/19/18 21:34 Dose: 5 mg General: alert HEENT: NC/AT, PERRLA Neck: Supple Lungs: CTAB - Procedures Procedures: Procedures Procedure Code Date ANESTH INJEC PERIPH NERV 0481 12/04/10 ANESTH INJECT-SPIN CANAL 03.91 02/21/12 ASSISTANCE WITH RESPIRATORY VENTILATION, 24-96 HRS, CPAP [id number] 10/03/16 CERVICAL SPINE X-RAY NEC 87.22 02/28/11 EPIDUROGRAPHY 43414 02/21/12 INJ FORAMEN EPIDURAL L/S 89226 12/04/10 INJ PARAVERT F JNT C/T 1 LEV 17622 02/28/11 INJ PARAVERT F JNT C/T 2 LEV 46361 02/28/11 INJ PARAVERT F JNT C/T 3 LEV 39141 02/28/11 INJECT SPINE CERV/THORACIC 53418 05/30/11 INJECT SPINE LUMBAR/SACRAL 53579 02/21/12 INJECT STEROID 99.23 02/21/12 INJECT/INFUSE NEC 99.29 02/28/11 INJECTION INTO JOINT 81.92 02/28/11 LUMBOSAC SPINE X-RAY NEC 87.24 02/21/12 MYELOGRAPHY NECK SPINE 06778 05/30/11 PERIPH NERVE INJECT NEC 04.89 12/04/10 POS AIRWAY PRESSURE CPAP 65612 10/03/16 SPINAL CANAL INJECT NEC 03.92 02/21/12 Internal Medicine Assmt/Plan - Assessment Assessment: agitation htn dementia - Plan Plan: fall precautions continue current plan of care Nutritional Asmnt/Malnutr-PDOC - Dietary Evaluation Malnutrition Findings (Please click <Entered> for more info): Nutritional Asmnt/Malnutrition Start: 04/18/18 16: 19 Text: Status: Complete Freq: Protocol: Document 04/18/18 16:19 LCHENG (Rec: 04/18/18 16:25 LCHENG [email or web address]) Nutritional Asmnt/Malnutrition Patient General Information Nutritional Screening Moderate Risk Diagnosis psychosis Pertinent Medical Hx/Surgical Hx HTN, dyslipidemia Subjective Information Pt seen sitting in mj-chair in dining room, awake and alert. Per EMR, PO intake 50- 100%. Pt complained of current [facility] soft chopped diet. Explain diet to pt. Per RN, pt was also on [facility] soft chopped diet at SNF. Current Diet Order/ Nutrition Support [facility] soft chopped Pertinent Medications colace, theragran, protonix, seroquel Pertinent Labs 04/15 nutrition labs WNL Nutritional Hx/Data Height 5 ft 5 in Height (Calculated Centimeters) 165.1 Current Weight (lbs) 150 lb Weight (Calculated Kilograms) 68.0 Weight (Calculated Grams) 76646.9 [place] Body Weight 125 Body Mass Index (BMI) 25.0 Weight Status Overweight GI Symptoms GI Symptoms None Last BM 04/17 Difficult in: None Skin Integrity/Comment: rash Estimated Nutritional Goals BEE in Kcals: Using Current wt Calories/Kcals/Kg 23-27 Kcals Calculated 7987-7537 Protein: Using Current wt Protein g/k.8-1 Protein Calculated 54-68 Fluid: ml 1564-1836ml (1ml/kcal) Nutritional Problem No current Nutrition Prob Problem N/A Malnutrition Alert Is there a minimum of two criteria No selected? Query Text:Check all the applicable criteria. A minimum of two criteria are recommended for diagnosis of either severe or non-severe malnutrition. Malnutrition Related to Morbid Obesity Malnutrition related to morbid obesity No Intervention/Recommendation Comments 1. Continue with [facility] soft chopped diet as ordered. diet preference updated. 2. Monitor PO intake, wt, labs and skin integrity 3. F/U as low risk in 7 days, 04/25 Expected Outcomes/Goals Expected Outcomes/Goals 1. PO intake to meet at least 75% of nutritional needs. 2. Wt stability, skin to remain intact, labs to approach WNL.
[2018-04-21] MEDS: Budesonide 0.5 Mg/2 mL Ud HHN SCH ×2 (06:21→19:38)
[2018-04-21] MEDS: Pantoprazole 40 mg EC Tab PO SCH (08:21)
[2018-04-21] MEDS: Multivitamin Tab PO SCH (08:21)
[2018-04-21] MEDS: Fluticasone Propionate 0.05mg/Actuation 16gm Nasal Spray NS SCH (08:38)
[2018-04-21] MEDS: Hydrocodone/APAP 10 mg/325 mg Tab PO PRN (09:39)
[2018-04-21] MEDS ORDERED: Haloperidol Lactate 5 mg/mL 1mL Vial IM ONE (13:24)
[2018-04-21] MEDS ORDERED: Haloperidol Lactate 5 mg/mL 1mL Vial ONE (13:28)
--- NOTE | 2018-04-21 13:32 | Internal Medicine Prog Note ---
Internal Medicine Subjective - Subjective Service Date: 04/21/18 Patient is:: awake Per staff patient has:: tolerating meds Internal Medicine Objective - Results Result Diagrams: 04/15/18 18:15 04/15/18 18:15 Recent Labs: Laboratory Last Values WBC 8.7 Th/cmm (4.8-10.8) 04/15/18 18:15 RBC 3.93 Mil/cmm (3.80-5.20) 04/15/18 18:15 Hgb 12.0 gm/dL (12-16) 04/15/18 18:15 Hct 36.0 % (41.0-60) L 04/15/18 18:15 MCV 91.8 fl (81-100) 04/15/18 18:15 MCH 30.6 pg (27.0-31.0) 04/15/18 18:15 MCHC Differential 33.4 pg (28.0-36.0) 04/15/18 18:15 RDW 13.6 % (11.5-20.0) 04/15/18 18:15 Plt Count 378 Th/cmm (150-400) 04/15/18 18:15 MPV 7.1 fl 04/15/18 18:15 Neutrophils % 62.0 % (40.0-80.0) 04/15/18 18:15 Lymphocytes % 29.9 % (20.0-50.0) 04/15/18 18:15 Monocytes % 6.4 % (2.0-10.0) 04/15/18 18:15 Eosinophils % 1.7 % (0.0-5.0) 04/15/18 18:15 Basophils % 0.0 % (0.0-2.0) 04/15/18 18:15 Sodium 136 mEq/L (136-145) 04/15/18 18:15 Potassium 3.7 mEq/L (3.5-5.1) 04/15/18 18:15 Chloride 101 mEq/L (98-107) 04/15/18 18:15 Carbon Dioxide 24.2 mEq/L (21.0-31.0) 04/15/18 18:15 Anion Gap 14.5 (7.0-16.0) 04/15/18 18:15 BUN 23 mg/dL (7-25) 04/15/18 18:15 Creatinine 0.9 mg/dL (0.6-1.2) 04/15/18 18:15 Est GFR ( Amer) > 60.0 ml/min (>90) 04/15/18 18:15 Est GFR (Non-Af Amer) > 60.0 ml/min 04/15/18 18:15 BUN/Creatinine Ratio 25.6 04/15/18 18:15 Glucose 98 mg/dL (70-105) 04/15/18 18:15 Hemoglobin A1c % 4.9 % (4.0-6.0) 04/15/18 18:15 Calcium 9.3 mg/dL (8.6-10.3) 04/15/18 18:15 Total Bilirubin 0.4 mg/dL (0.3-1.0) 04/15/18 18:15 AST 11 U/L (13-39) L 04/15/18 18:15 ALT 9 U/L (7-52) 04/15/18 18:15 Alkaline Phosphatase 119 U/L (34-104) H 04/15/18 18:15 Total Protein 6.5 gm/dL (6.0-8.3) 04/15/18 18:15 Albumin 4.2 gm/dL (3.7-5.3) 04/15/18 18:15 Globulin 2.3 gm/dL 04/15/18 18:15 Albumin/Globulin Ratio 1.8 (1.0-1.8) 04/15/18 18:15 Triglycerides 66 mg/dL (<150) 04/15/18 18:15 Cholesterol 189 mg/dL (<200) 04/15/18 18:15 LDL Cholesterol Direct 102 mg/dL (75-193) 04/15/18 18:15 HDL Cholesterol 65 mg/dL (23-92) 04/15/18 18:15 TSH 1.56 uIU/ml (0.34-5.60) 04/15/18 18:15 Salicylates < 25.0 mg/L (30.0-100.0) L 04/15/18 18:15 Acetaminophen < 10.0 ug/mL (10.0-30.0) L 04/15/18 18:15 Ethyl Alcohol < 10 mg/dL (0-10) 04/15/18 18:15 RPR NONREACTIVE (NONREACTIVE) 04/15/18 18:15 - Physical Exam Vitals and I&O: Vital Signs Temp 98.2 F 04/21/18 05:35 Pulse 87 04/21/18 06:26 Resp 18 04/21/18 08:26 BP 107/55 04/21/18 05:35 Pulse Ox 96 04/21/18 06:26 Intake & Output 04/20/18 04/21/18 04/21/18 18:59 06:59 18:59 Intake Total 850 180 Balance 850 180 Intake: Oral 850 180 Other: # Voids 4 3 # Bowel Movements 1 0 Active Medications: Current Medications Acetaminophen (Tylenol) 650 mg PO Q4HR PRN PRN Reason: Mild Pain / Temp above 100 Stop: 06/14/18 23:10 Acetaminophen/Hydrocodone Bitart ([place] 10 Mg/325 Mg) 1 tab PO Q6H PRN PRN Reason: Pain Severe Stop: 06/17/18 13:29 Last Admin: 04/21/18 09:39 Dose: 1 tab Al Hydrox/Mg Hydrox/Simethicone (Maalox) 30 ml PO Q4HR PRN PRN Reason: GI DISTRESS Stop: 06/14/18 23:10 Albuterol/Ipratropium (Duoneb Neb) 3 ml HHN Q6HRT PRN PRN Reason: Shortness of Breath Stop: 06/14/18 22:05 Last Admin: 04/20/18 18:38 Dose: 3 ml Budesonide (Pulmicort) 0.5 mg HHN Q12HRT JOSEE Stop: 06/14/18 22:14 Last Admin: 04/21/18 06:21 Dose: Not Given Citalopram Hydrobromide (Celexa) 20 mg PO DAILY JOSEE; Protocol Stop: 06/15/18 08:59 Last Admin: 04/21/18 08:21 Dose: 20 mg Diphenhydramine HCl (Benadryl 50 Mg/Ml) 25 mg IM X1 ONE Stop: 04/21/18 13:26 Docusate Sodium (Colace) 200 mg PO DAILY JOSEE Stop: 06/15/18 08:59 Last Admin: 04/21/18 08:20 Dose: 200 mg Fluticasone Propionate (Flonase) 1 spr NS DAILY [facility] Stop: 06/15/18 08:59 Last Admin: 04/21/18 08:38 Dose: 1 spr Gabapentin (Neurontin) 300 mg PO BID JOSEE Stop: 06/15/18 08:59 Last Admin: 04/21/18 08:20 Dose: 300 mg Gabapentin (Neurontin) 600 mg PO HS JOSEE Stop: 06/15/18 20:59 Last Admin: 04/20/18 21:33 Dose: 600 mg Haloperidol Lactate (Haldol) 2 mg IM X1 ONE Stop: 04/21/18 13:25 Ibuprofen (Motrin) 600 mg PO BID PRN PRN Reason: Pain (Mild) Stop: 06/14/18 22:05 Lorazepam (Ativan) 1 mg PO Q4HR PRN; Protocol PRN Reason: Anxiety Stop: 05/15/18 23:10 Last Admin: 04/21/18 08:20 Dose: 1 mg Magnesium Hydroxide (Milk Of Magnesia) 30 ml PO HS PRN PRN Reason: Constipation Methocarbamol (Robaxin) 500 mg PO BID JOSEE Stop: 06/15/18 08:59 Last Admin: 04/21/18 08:20 Dose: 500 mg Multivitamins/Vitamin C (Theragran) 1 tab PO DAILY JOSEE Stop: 06/15/18 08:59 Last Admin: 04/21/18 08:21 Dose: 1 tab Nitroglycerin (Nitrostat) 0.4 mg SL Q5MIN PRN PRN Reason: Chest Pain Stop: 06/14/18 22:05 Nystatin (Mycostatin Cream) 1 appl TP DAILY PRN PRN Reason: Rash on [place]zzie area Stop: 06/17/18 13:59 Last Admin: 04/19/18 18:41 Dose: 1 appl Pantoprazole Sodium (Protonix) 40 mg PO DAILY JOSEE Stop: 06/15/18 08:59 Last Admin: 04/21/18 08:21 Dose: 40 mg Quetiapine Fumarate (Seroquel) 50 mg PO BID JOSEE; Protocol Stop: 06/19/18 08:59 Last Admin: 04/21/18 08:21 Dose: 50 mg Quetiapine Fumarate (Seroquel) 100 mg PO BID JOSEE; Protocol Stop: 06/19/18 16:59 Last Admin: 04/21/18 08:20 Dose: 100 mg Zolpidem Tartrate (Ambien) 5 mg PO HS PRN PRN Reason: Insomnia Stop: 06/14/18 23:10 Last Admin: 04/21/18 01:18 Dose: 5 mg General: alert HEENT: NC/AT, PERRLA Neck: Supple Lungs: CTAB - Procedures Procedures: Procedures Procedure Code Date ANESTH INJEC PERIPH NERV 04.81 12/04/10 ANESTH INJECT-SPIN CANAL 03.91 02/21/12 ASSISTANCE WITH RESPIRATORY VENTILATION, 24-96 HRS, CPAP [id number] 10/03/16 CERVICAL SPINE X-RAY NEC 87.22 02/28/11 EPIDUROGRAPHY 79512 02/21/12 INJ FORAMEN EPIDURAL L/S 28767 12/04/10 INJ PARAVERT F JNT C/T 1 LEV 77496 02/28/11 INJ PARAVERT F JNT C/T 2 LEV 09744 02/28/11 INJ PARAVERT F JNT C/T 3 LEV 51296 02/28/11 INJECT SPINE CERV/THORACIC 95375 05/30/11 INJECT SPINE LUMBAR/SACRAL 81039 02/21/12 INJECT STEROID 99.23 02/21/12 INJECT/INFUSE NEC 99.29 02/28/11 INJECTION INTO JOINT 81.92 02/28/11 LUMBOSAC SPINE X-RAY NEC 87.24 02/21/12 MYELOGRAPHY NECK SPINE 95540 05/30/11 PERIPH NERVE INJECT NEC 04.89 12/04/10 POS AIRWAY PRESSURE CPAP 08781 10/03/16 SPINAL CANAL INJECT NEC 03.92 02/21/12 Internal Medicine Assmt/Plan - Assessment Assessment: agitation htn dementia - Plan Plan: fall precautions continue current plan of care Nutritional Asmnt/Malnutr-PDOC - Dietary Evaluation Malnutrition Findings (Please click <Entered> for more info): Nutritional Asmnt/Malnutrition Start: 04/18/18 16: 19 Text: Status: Complete Freq: Protocol: Document 04/18/18 16:19 LCHENG (Rec: 04/18/18 16:25 LCHENG [email or web address]) Nutritional Asmnt/Malnutrition Patient General Information Nutritional Screening Moderate Risk Diagnosis psychosis Pertinent Medical Hx/Surgical Hx HTN, dyslipidemia Subjective Information Pt seen sitting in mj-chair in dining room, awake and alert. Per EMR, PO intake 50- 100%. Pt complained of current [facility] soft chopped diet. Explain diet to pt. Per RN, pt was also on [facility] soft chopped diet at [facility]. Current Diet Order/ Nutrition Support [facility] soft chopped Pertinent Medications colace, theragran, protonix, seroquel Pertinent Labs 04/15 nutrition labs WNL Nutritional Hx/Data Height 5 ft 5 in Height (Calculated Centimeters) 165.1 Current Weight (lbs) 150 lb Weight (Calculated Kilograms) 68.0 Weight (Calculated Grams) 94980.9 [place] Body Weight 125 Body Mass Index (BMI) 25.0 Weight Status Overweight GI Symptoms GI Symptoms None Last BM 04/17 Difficult in: None Skin Integrity/Comment: rash Estimated Nutritional Goals BEE in Kcals: Using Current wt Calories/Kcals/Kg 23-27 Kcals Calculated 3558-8508 Protein: Using Current wt Protein g/k.8-1 Protein Calculated 54-68 Fluid: ml 1564-1836ml (1ml/kcal) Nutritional Problem No current Nutrition Prob Problem N/A Malnutrition Alert Is there a minimum of two criteria No selected? Query Text:Check all the applicable criteria. A minimum of two criteria are recommended for diagnosis of either severe or non-severe malnutrition. Malnutrition Related to Morbid Obesity Malnutrition related to morbid obesity No Intervention/Recommendation Comments 1. Continue with [facility] soft chopped diet as ordered. diet preference updated. 2. Monitor PO intake, wt, labs and skin integrity 3. F/U as low risk in 7 days, 04/25 Expected Outcomes/Goals Expected Outcomes/Goals 1. PO intake to meet at least 75% of nutritional needs. 2. Wt stability, skin to remain intact, labs to approach WNL.
--- NOTE | 2018-04-21 20:58 | Progress Notes ---
DATE: 04/21/2018 PSYCHIATRIC PROGRESS NOTE SUBJECTIVE: Staff was spoken to. The patient is interviewed. Mood is noted to be irritable. Affect is constricted. The patient has poor coping skills. The patient is getting easily irritable and angry. The patient is insisting that she should be on the pain medication. The patient has no insight into her illness. ASSESSMENT: The patient is still grossly psychotic and impulsive. PLAN: To continue the patient with the supportive therapy and followup. [facility]# [id number]
[2018-04-22] MEDS: Hydrocodone/APAP 10 mg/325 mg Tab PO PRN ×2 (01:31→10:56)
[2018-04-22] MEDS: Budesonide 0.5 Mg/2 mL Ud HHN SCH ×2 (07:28→18:51)
[2018-04-22] MEDS: Fluticasone Propionate 0.05mg/Actuation 16gm Nasal Spray NS SCH (09:17)
[2018-04-22] MEDS: Pantoprazole 40 mg EC Tab PO SCH (09:20)
[2018-04-22] MEDS: Multivitamin Tab PO SCH (09:21)
--- NOTE | 2018-04-22 14:26 | Internal Medicine Prog Note ---
Internal Medicine Subjective - Subjective Service Date: 04/22/18 Patient is:: awake Per staff patient has:: tolerating meds Internal Medicine Objective - Results Result Diagrams: 04/15/18 18:15 04/15/18 18:15 Recent Labs: Laboratory Last Values WBC 8.7 Th/cmm (4.8-10.8) 04/15/18 18:15 RBC 3.93 Mil/cmm (3.80-5.20) 04/15/18 18:15 Hgb 12.0 gm/dL (12-16) 04/15/18 18:15 Hct 36.0 % (41.0-60) L 04/15/18 18:15 MCV 91.8 fl (81-100) 04/15/18 18:15 MCH 30.6 pg (27.0-31.0) 04/15/18 18:15 MCHC Differential 33.4 pg (28.0-36.0) 04/15/18 18:15 RDW 13.6 % (11.5-20.0) 04/15/18 18:15 Plt Count 378 Th/cmm (150-400) 04/15/18 18:15 MPV 7.1 fl 04/15/18 18:15 Neutrophils % 62.0 % (40.0-80.0) 04/15/18 18:15 Lymphocytes % 29.9 % (20.0-50.0) 04/15/18 18:15 Monocytes % 6.4 % (2.0-10.0) 04/15/18 18:15 Eosinophils % 1.7 % (0.0-5.0) 04/15/18 18:15 Basophils % 0.0 % (0.0-2.0) 04/15/18 18:15 Sodium 136 mEq/L (136-145) 04/15/18 18:15 Potassium 3.7 mEq/L (3.5-5.1) 04/15/18 18:15 Chloride 101 mEq/L (98-107) 04/15/18 18:15 Carbon Dioxide 24.2 mEq/L (21.0-31.0) 04/15/18 18:15 Anion Gap 14.5 (7.0-16.0) 04/15/18 18:15 BUN 23 mg/dL (7-25) 04/15/18 18:15 Creatinine 0.9 mg/dL (0.6-1.2) 04/15/18 18:15 Est GFR ( Amer) > 60.0 ml/min (>90) 04/15/18 18:15 Est GFR (Non-Af Amer) > 60.0 ml/min 04/15/18 18:15 BUN/Creatinine Ratio 25.6 04/15/18 18:15 Glucose 98 mg/dL (70-105) 04/15/18 18:15 Hemoglobin A1c % 4.9 % (4.0-6.0) 04/15/18 18:15 Calcium 9.3 mg/dL (8.6-10.3) 04/15/18 18:15 Total Bilirubin 0.4 mg/dL (0.3-1.0) 04/15/18 18:15 AST 11 U/L (13-39) L 04/15/18 18:15 ALT 9 U/L (7-52) 04/15/18 18:15 Alkaline Phosphatase 119 U/L (34-104) H 04/15/18 18:15 Total Protein 6.5 gm/dL (6.0-8.3) 04/15/18 18:15 Albumin 4.2 gm/dL (3.7-5.3) 04/15/18 18:15 Globulin 2.3 gm/dL 04/15/18 18:15 Albumin/Globulin Ratio 1.8 (1.0-1.8) 04/15/18 18:15 Triglycerides 66 mg/dL (<150) 04/15/18 18:15 Cholesterol 189 mg/dL (<200) 04/15/18 18:15 LDL Cholesterol Direct 102 mg/dL (75-193) 04/15/18 18:15 HDL Cholesterol 65 mg/dL (23-92) 04/15/18 18:15 TSH 1.56 uIU/ml (0.34-5.60) 04/15/18 18:15 Salicylates < 25.0 mg/L (30.0-100.0) L 04/15/18 18:15 Acetaminophen < 10.0 ug/mL (10.0-30.0) L 04/15/18 18:15 Ethyl Alcohol < 10 mg/dL (0-10) 04/15/18 18:15 RPR NONREACTIVE (NONREACTIVE) 04/15/18 18:15 - Physical Exam Vitals and I&O: Vital Signs Temp 97.4 F 04/22/18 14:01 Pulse 95 04/22/18 14:01 Resp 19 04/22/18 14:01 BP 131/64 04/22/18 05:58 Pulse Ox 96 04/22/18 14:01 Intake & Output 04/21/18 04/22/18 04/22/18 18:59 06:59 18:59 Intake Total 2300 120 Balance 2300 120 Intake: Oral 2300 120 Other: # Voids 3 3 # Bowel Movements 1 1 Active Medications: Current Medications Acetaminophen (Tylenol) 650 mg PO Q4HR PRN PRN Reason: Mild Pain / Temp above 100 Stop: 06/14/18 23:10 Acetaminophen/Hydrocodone Bitart ([place] 10 Mg/325 Mg) 1 tab PO Q6H PRN PRN Reason: Pain Severe Stop: 06/17/18 13:29 Last Admin: 04/22/18 10:56 Dose: 1 tab Al Hydrox/Mg Hydrox/Simethicone (Maalox) 30 ml PO Q4HR PRN PRN Reason: GI DISTRESS Stop: 06/14/18 23:10 Albuterol/Ipratropium (Duoneb Neb) 3 ml HHN Q6HRT PRN PRN Reason: Shortness of Breath Stop: 06/14/18 22:05 Last Admin: 04/20/18 18:38 Dose: 3 ml Budesonide (Pulmicort) 0.5 mg HHN Q12HRT JOSEE Stop: 06/14/18 22:14 Last Admin: 04/22/18 07:28 Dose: 0.5 mg Citalopram Hydrobromide (Celexa) 20 mg PO DAILY JOSEE; Protocol Stop: 06/15/18 08:59 Last Admin: 04/22/18 09:17 Dose: 20 mg Docusate Sodium (Colace) 200 mg PO DAILY JOSEE Stop: 06/15/18 08:59 Last Admin: 04/22/18 09:20 Dose: 200 mg Fluticasone Propionate (Flonase) 1 spr NS DAILY JOSEE Stop: 06/15/18 08:59 Last Admin: 04/22/18 09:17 Dose: 1 spr Gabapentin (Neurontin) 300 mg PO BID JOSEE Stop: 06/15/18 08:59 Last Admin: 04/22/18 09:21 Dose: 300 mg Gabapentin (Neurontin) 600 mg PO HS JOSEE Stop: 06/15/18 20:59 Last Admin: 04/21/18 21:15 Dose: 600 mg Ibuprofen (Motrin) 600 mg PO BID PRN PRN Reason: Pain (Mild) Stop: 06/14/18 22:05 Last Admin: 04/21/18 14:13 Dose: 600 mg Lorazepam (Ativan) 1 mg PO Q4HR PRN; Protocol PRN Reason: Anxiety Stop: 05/15/18 23:10 Last Admin: 04/21/18 21:14 Dose: 1 mg Magnesium Hydroxide (Milk Of Magnesia) 30 ml PO HS PRN PRN Reason: Constipation Methocarbamol (Robaxin) 500 mg PO BID JOSEE Stop: 06/15/18 08:59 Last Admin: 04/22/18 09:20 Dose: 500 mg Multivitamins/Vitamin C (Theragran) 1 tab PO DAILY JOSEE Stop: 06/15/18 08:59 Last Admin: 04/22/18 09:21 Dose: 1 tab Nitroglycerin (Nitrostat) 0.4 mg SL Q5MIN PRN PRN Reason: Chest Pain Stop: 06/14/18 22:05 Nystatin (Mycostatin Cream) 1 appl TP DAILY PRN PRN Reason: Rash on [place] area Stop: 06/17/18 13:59 Last Admin: 04/19/18 18:41 Dose: 1 appl Pantoprazole Sodium (Protonix) 40 mg PO DAILY JOSEE Stop: 06/15/18 08:59 Last Admin: 04/22/18 09:20 Dose: 40 mg Quetiapine Fumarate (Seroquel) 100 mg PO BID JOSEE; Protocol Stop: 06/19/18 16:59 Last Admin: 04/22/18 09:20 Dose: 100 mg Quetiapine Fumarate (Seroquel) 50 mg PO BID JOSEE; Protocol Stop: 06/19/18 16:59 Zolpidem Tartrate (Ambien) 5 mg PO HS PRN PRN Reason: Insomnia Stop: 06/14/18 23:10 Last Admin: 04/22/18 01:31 Dose: 5 mg General: alert HEENT: NC/AT, PERRLA Neck: Supple Lungs: CTAB - Procedures Procedures: Procedures Procedure Code Date ANESTH INJEC PERIPH NERV 04.81 12/04/10 ANESTH INJECT-SPIN CANAL 03.91 02/21/12 ASSISTANCE WITH RESPIRATORY VENTILATION, 24-96 HRS, CPAP [id number] 10/03/16 CERVICAL SPINE X-RAY NEC 87.22 02/28/11 EPIDUROGRAPHY 26096 02/21/12 INJ FORAMEN EPIDURAL L/S 69178 12/04/10 INJ PARAVERT F JNT C/T 1 LEV 79434 02/28/11 INJ PARAVERT F JNT C/T 2 LEV 28772 02/28/11 INJ PARAVERT F JNT C/T 3 LEV 45985 02/28/11 INJECT SPINE CERV/THORACIC 00997 05/30/11 INJECT SPINE LUMBAR/SACRAL 64862 02/21/12 INJECT STEROID 99.23 02/21/12 INJECT/INFUSE NEC 99.29 02/28/11 INJECTION INTO JOINT 81.92 02/28/11 LUMBOSAC SPINE X-RAY NEC 87.24 02/21/12 MYELOGRAPHY NECK SPINE 10490 05/30/11 PERIPH NERVE INJECT NEC 04.89 12/04/10 POS AIRWAY PRESSURE CPAP 53654 10/03/16 SPINAL CANAL INJECT NEC 03.92 02/21/12 Internal Medicine Assmt/Plan - Assessment Assessment: agitation htn dementia - Plan Plan: fall precautions continue current plan of care Nutritional Asmnt/Malnutr-PDOC - Dietary Evaluation Malnutrition Findings (Please click <Entered> for more info): Nutritional Asmnt/Malnutrition Start: 04/18/18 16: 19 Text: Status: Complete Freq: Protocol: Document 04/18/18 16:19 LCHENG (Rec: 04/18/18 16:25 [email or web address] [email or web address]) Nutritional Asmnt/Malnutrition Patient General Information Nutritional Screening Moderate Risk Diagnosis psychosis Pertinent Medical Hx/Surgical Hx HTN, dyslipidemia Subjective Information Pt seen sitting in mj-chair in dining room, awake and alert. Per EMR, PO intake 50- 100%. Pt complained of current [facility] soft chopped diet. Explain diet to pt. Per RN, pt was also on [facility] soft chopped diet at SNF. Current Diet Order/ Nutrition Support [facility] soft chopped Pertinent Medications colace, theragran, protonix, seroquel Pertinent Labs 04/15 nutrition labs WNL Nutritional Hx/Data Height 5 ft 5 in Height (Calculated Centimeters) 165.1 Current Weight (lbs) 150 lb Weight (Calculated Kilograms) 68.0 Weight (Calculated Grams) 41687.9 [place] Body Weight 125 Body Mass Index (BMI) 25.0 Weight Status Overweight GI Symptoms GI Symptoms None Last BM 04/17 Difficult in: None Skin Integrity/Comment: rash Estimated Nutritional Goals BEE in Kcals: Using Current wt Calories/Kcals/Kg 23-27 Kcals Calculated 4909-3017 Protein: Using Current wt Protein g/k.8-1 Protein Calculated 54-68 Fluid: ml 1564-1836ml (1ml/kcal) Nutritional Problem No current Nutrition Prob Problem N/A Malnutrition Alert Is there a minimum of two criteria No selected? Query Text:Check all the applicable criteria. A minimum of two criteria are recommended for diagnosis of either severe or non-severe malnutrition. Malnutrition Related to Morbid Obesity Malnutrition related to morbid obesity No Intervention/Recommendation Comments 1. Continue with [facility] soft chopped diet as ordered. diet preference updated. 2. Monitor PO intake, wt, labs and skin integrity 3. F/U as low risk in 7 days, 04/25 Expected Outcomes/Goals Expected Outcomes/Goals 1. PO intake to meet at least 75% of nutritional needs. 2. Wt stability, skin to remain intact, labs to approach WNL.
--- NOTE | 2018-04-22 21:10 | Progress Notes ---
DATE: 04/22/2018 PSYCHIATRIC PROGRESS NOTE SUBJECTIVE: Staff was spoken to. The patient is interviewed. Mood is noted to be irritable. Affect is constricted. The patient has been going on a tangent. The patient has paranoia and is stating that she should be on the pain medications. The patient's coping skills are noted to be very poor. The patient has to be given a dose of the Haldol yesterday. ASSESSMENT: The patient is still impulsive. PLAN: To continue the patient with the current medications and followup. JOB# [id number]
[2018-04-23] MEDS: Budesonide 0.5 Mg/2 mL Ud HHN SCH ×2 (07:08→19:05)
[2018-04-23] MEDS: Fluticasone Propionate 0.05mg/Actuation 16gm Nasal Spray NS SCH (08:35)
[2018-04-23] MEDS: Multivitamin Tab PO SCH (08:37)
[2018-04-23] MEDS: Pantoprazole 40 mg EC Tab PO SCH (08:37)
[2018-04-23] MEDS: Nystatin Cream 100,000 u/gm Cream 15 gm TP PRN (10:08)
--- NOTE | 2018-04-23 14:28 | Internal Medicine Prog Note ---
Internal Medicine Subjective - Subjective Service Date: 04/23/18 Patient seen and examined:: with staff Patient is:: awake Per staff patient has:: tolerating meds Internal Medicine Objective - Results Result Diagrams: 04/15/18 18:15 04/15/18 18:15 Recent Labs: Laboratory Last Values WBC 8.7 Th/cmm (4.8-10.8) 04/15/18 18:15 RBC 3.93 Mil/cmm (3.80-5.20) 04/15/18 18:15 Hgb 12.0 gm/dL (12-16) 04/15/18 18:15 Hct 36.0 % (41.0-60) L 04/15/18 18:15 MCV 91.8 fl (81-100) 04/15/18 18:15 MCH 30.6 pg (27.0-31.0) 04/15/18 18:15 MCHC Differential 33.4 pg (28.0-36.0) 04/15/18 18:15 RDW 13.6 % (11.5-20.0) 04/15/18 18:15 Plt Count 378 Th/cmm (150-400) 04/15/18 18:15 MPV 7.1 fl 04/15/18 18:15 Neutrophils % 62.0 % (40.0-80.0) 04/15/18 18:15 Lymphocytes % 29.9 % (20.0-50.0) 04/15/18 18:15 Monocytes % 6.4 % (2.0-10.0) 04/15/18 18:15 Eosinophils % 1.7 % (0.0-5.0) 04/15/18 18:15 Basophils % 0.0 % (0.0-2.0) 04/15/18 18:15 Sodium 136 mEq/L (136-145) 04/15/18 18:15 Potassium 3.7 mEq/L (3.5-5.1) 04/15/18 18:15 Chloride 101 mEq/L (98-107) 04/15/18 18:15 Carbon Dioxide 24.2 mEq/L (21.0-31.0) 04/15/18 18:15 Anion Gap 14.5 (7.0-16.0) 04/15/18 18:15 BUN 23 mg/dL (7-25) 04/15/18 18:15 Creatinine 0.9 mg/dL (0.6-1.2) 04/15/18 18:15 Est GFR ( Amer) > 60.0 ml/min (>90) 04/15/18 18:15 Est GFR (Non-Af Amer) > 60.0 ml/min 04/15/18 18:15 BUN/Creatinine Ratio 25.6 04/15/18 18:15 Glucose 98 mg/dL (70-105) 04/15/18 18:15 Hemoglobin A1c % 4.9 % (4.0-6.0) 04/15/18 18:15 Calcium 9.3 mg/dL (8.6-10.3) 04/15/18 18:15 Total Bilirubin 0.4 mg/dL (0.3-1.0) 04/15/18 18:15 AST 11 U/L (13-39) L 04/15/18 18:15 ALT 9 U/L (7-52) 04/15/18 18:15 Alkaline Phosphatase 119 U/L (34-104) H 04/15/18 18:15 Total Protein 6.5 gm/dL (6.0-8.3) 04/15/18 18:15 Albumin 4.2 gm/dL (3.7-5.3) 04/15/18 18:15 Globulin 2.3 gm/dL 04/15/18 18:15 Albumin/Globulin Ratio 1.8 (1.0-1.8) 04/15/18 18:15 Triglycerides 66 mg/dL (<150) 04/15/18 18:15 Cholesterol 189 mg/dL (<200) 04/15/18 18:15 LDL Cholesterol Direct 102 mg/dL (75-193) 04/15/18 18:15 HDL Cholesterol 65 mg/dL (23-92) 04/15/18 18:15 TSH 1.56 uIU/ml (0.34-5.60) 04/15/18 18:15 Salicylates < 25.0 mg/L (30.0-100.0) L 04/15/18 18:15 Acetaminophen < 10.0 ug/mL (10.0-30.0) L 04/15/18 18:15 Ethyl Alcohol < 10 mg/dL (0-10) 04/15/18 18:15 RPR NONREACTIVE (NONREACTIVE) 04/15/18 18:15 - Physical Exam Vitals and I&O: Vital Signs Temp 98 F 04/23/18 13:58 Pulse 89 04/23/18 13:58 Resp 20 04/23/18 13:58 BP 103/50 04/23/18 13:58 Pulse Ox 96 04/23/18 13:58 Intake & Output 04/22/18 04/23/18 04/23/18 18:59 06:59 18:59 Intake Total 500 Balance 500 Intake: Oral 500 Other: # Voids 4 # Bowel Movements 0 Active Medications: Current Medications Acetaminophen (Tylenol) 650 mg PO Q4HR PRN PRN Reason: Mild Pain / Temp above 100 Stop: 06/14/18 23:10 Last Admin: 04/23/18 10:23 Dose: 650 mg Acetaminophen/Hydrocodone Bitart ([place] 10 Mg/325 Mg) 1 tab PO Q6H PRN PRN Reason: Pain Severe Stop: 06/17/18 13:29 Last Admin: 04/22/18 10:56 Dose: 1 tab Al Hydrox/Mg Hydrox/Simethicone (Maalox) 30 ml PO Q4HR PRN PRN Reason: GI DISTRESS Stop: 06/14/18 23:10 Albuterol/Ipratropium (Duoneb Neb) 3 ml HHN Q6HRT PRN PRN Reason: Shortness of Breath Stop: 06/14/18 22:05 Last Admin: 04/20/18 18:38 Dose: 3 ml Budesonide (Pulmicort) 0.5 mg HHN Q12HRT JOSEE Stop: 06/14/18 22:14 Last Admin: 04/23/18 07:08 Dose: 0.5 mg Divalproex Sodium (Depakote Dr) 125 mg PO Q12HR JOSEE; Protocol Stop: 06/22/18 20:59 Docusate Sodium (Colace) 200 mg PO DAILY JOSEE Stop: 06/15/18 08:59 Last Admin: 04/23/18 08:41 Dose: 200 mg Fluticasone Propionate (Flonase) 1 spr NS DAILY JOSEE Stop: 06/15/18 08:59 Last Admin: 04/23/18 08:35 Dose: 1 spr Gabapentin (Neurontin) 300 mg PO BID JOSEE Stop: 06/15/18 08:59 Last Admin: 04/23/18 09:50 Dose: 300 mg Gabapentin (Neurontin) 600 mg PO HS JOSEE Stop: 06/15/18 20:59 Last Admin: 04/22/18 21:31 Dose: 600 mg Ibuprofen (Motrin) 600 mg PO BID PRN PRN Reason: Pain (Mild) Stop: 06/14/18 22:05 Last Admin: 04/21/18 14:13 Dose: 600 mg Lorazepam (Ativan) 1 mg PO Q4HR PRN; Protocol PRN Reason: Anxiety Stop: 05/15/18 23:10 Last Admin: 04/22/18 21:31 Dose: 1 mg Magnesium Hydroxide (Milk Of Magnesia) 30 ml PO HS PRN PRN Reason: Constipation Methocarbamol (Robaxin) 500 mg PO BID [facility] Stop: 06/15/18 08:59 Last Admin: 04/23/18 08:37 Dose: 500 mg Multivitamins/Vitamin C (Theragran) 1 tab PO DAILY JOSEE Stop: 06/15/18 08:59 Last Admin: 04/23/18 08:37 Dose: 1 tab Nitroglycerin (Nitrostat) 0.4 mg SL Q5MIN PRN PRN Reason: Chest Pain Stop: 06/14/18 22:05 Nystatin (Mycostatin Cream) 1 appl TP DAILY PRN PRN Reason: Rash on [place] area Stop: 06/17/18 13:59 Last Admin: 04/23/18 10:08 Dose: 1 appl Pantoprazole Sodium (Protonix) 40 mg PO DAILY [facility] Stop: 06/15/18 08:59 Last Admin: 04/23/18 08:37 Dose: 40 mg Quetiapine Fumarate (Seroquel) 100 mg PO BID [facility]; Protocol Stop: 06/19/18 16:59 Last Admin: 04/23/18 10:45 Dose: 50 mg Zolpidem Tartrate (Ambien) 5 mg PO HS PRN PRN Reason: Insomnia Stop: 06/14/18 23:10 Last Admin: 04/23/18 01:00 Dose: 5 mg General: alert HEENT: NC/AT, PERRLA Neck: Supple Lungs: CTAB - Procedures Procedures: Procedures Procedure Code Date ANESTH INJEC PERIPH NERV 04.81 12/04/10 ANESTH INJECT-SPIN CANAL 03.91 02/21/12 ASSISTANCE WITH RESPIRATORY VENTILATION, 24-96 HRS, CPAP [id number] 10/03/16 CERVICAL SPINE X-RAY NEC 87.22 02/28/11 EPIDUROGRAPHY 08511 02/21/12 INJ FORAMEN EPIDURAL L/S 96454 12/04/10 INJ PARAVERT F JNT C/T 1 LEV 40801 02/28/11 INJ PARAVERT F JNT C/T 2 LEV 11725 02/28/11 INJ PARAVERT F JNT C/T 3 LEV 57801 02/28/11 INJECT SPINE CERV/THORACIC 76044 05/30/11 INJECT SPINE LUMBAR/SACRAL 28651 02/21/12 INJECT STEROID 99.23 02/21/12 INJECT/INFUSE NEC 99.29 02/28/11 INJECTION INTO JOINT 81.92 02/28/11 LUMBOSAC SPINE X-RAY NEC 87.24 02/21/12 MYELOGRAPHY NECK SPINE 48572 05/30/11 PERIPH NERVE INJECT NEC 04.89 12/04/10 POS AIRWAY PRESSURE CPAP 77579 10/03/16 SPINAL CANAL INJECT NEC 03.92 02/21/12 Internal Medicine Assmt/Plan - Assessment Assessment: agitation htn dementia - Plan Plan: fall precautions continue current plan of care Nutritional Asmnt/Malnutr-PDOC - Dietary Evaluation Malnutrition Findings (Please click <Entered> for more info): Nutritional Asmnt/Malnutrition Start: 04/18/18 16: 19 Text: Status: Complete Freq: Protocol: Document 04/18/18 16:19 LCHENG (Rec: 04/18/18 16:25 LCHENG [email or web address]) Nutritional Asmnt/Malnutrition Patient General Information Nutritional Screening Moderate Risk Diagnosis psychosis Pertinent Medical Hx/Surgical Hx HTN, dyslipidemia Subjective Information Pt seen sitting in mj-chair in dining room, awake and alert. Per EMR, PO intake 50- 100%. Pt complained of current [facility] soft chopped diet. Explain diet to pt. Per RN, pt was also on [facility] soft chopped diet at SNF. Current Diet Order/ Nutrition Support [facility] soft chopped Pertinent Medications colace, theragran, protonix, seroquel Pertinent Labs 04/15 nutrition labs WNL Nutritional Hx/Data Height 5 ft 5 in Height (Calculated Centimeters) 165.1 Current Weight (lbs) 150 lb Weight (Calculated Kilograms) 68.0 Weight (Calculated Grams) 22965.9 [place] Body Weight 125 Body Mass Index (BMI) 25.0 Weight Status Overweight GI Symptoms GI Symptoms None Last BM 04/17 Difficult in: None Skin Integrity/Comment: rash Estimated Nutritional Goals BEE in Kcals: Using Current wt Calories/Kcals/Kg 23-27 Kcals Calculated 7592-1009 Protein: Using Current wt Protein g/k.8-1 Protein Calculated 54-68 Fluid: ml 1564-1836ml (1ml/kcal) Nutritional Problem No current Nutrition Prob Problem N/A Malnutrition Alert Is there a minimum of two criteria No selected? Query Text:Check all the applicable criteria. A minimum of two criteria are recommended for diagnosis of either severe or non-severe malnutrition. Malnutrition Related to Morbid Obesity Malnutrition related to morbid obesity No Intervention/Recommendation Comments 1. Continue with [facility] soft chopped diet as ordered. diet preference updated. 2. Monitor PO intake, wt, labs and skin integrity 3. F/U as low risk in 7 days, 04/25 Expected Outcomes/Goals Expected Outcomes/Goals 1. PO intake to meet at least 75% of nutritional needs. 2. Wt stability, skin to remain intact, labs to approach WNL.
--- NOTE | 2018-04-23 15:23 | Progress Notes ---
DATE: 04/23/2018 SUBJECTIVE: Staff was spoken to. The patient is interviewed. Mood is noted to be irritable. Affect is constricted. The patient is screaming and yelling at the top of her lungs. The patient is very disruptive. Coping skills are noted to be extremely poor. ASSESSMENT: The patient is still grossly psychotic. PLAN: To continue the patient with the supportive therapy and increase the dose on the Seroquel 200 mg twice a day, add the Depakote and discontinue the Celexa. JOB# [id number]
[2018-04-24] MEDS: Budesonide 0.5 Mg/2 mL Ud HHN SCH (07:13)
[2018-04-24] MEDS: Fluticasone Propionate 0.05mg/Actuation 16gm Nasal Spray NS SCH (08:23)
[2018-04-24] MEDS: Multivitamin Tab PO SCH (08:23)
[2018-04-24] MEDS: Pantoprazole 40 mg EC Tab PO SCH (08:24)
--- NOTE | 2018-04-24 14:19 | Internal Medicine Prog Note ---
Internal Medicine Subjective - Subjective Service Date: 04/24/18 Patient is:: awake Per staff patient has:: tolerating meds Internal Medicine Objective - Results Result Diagrams: 04/15/18 18:15 04/15/18 18:15 Recent Labs: Laboratory Last Values WBC 8.7 Th/cmm (4.8-10.8) 04/15/18 18:15 RBC 3.93 Mil/cmm (3.80-5.20) 04/15/18 18:15 Hgb 12.0 gm/dL (12-16) 04/15/18 18:15 Hct 36.0 % (41.0-60) L 04/15/18 18:15 MCV 91.8 fl (81-100) 04/15/18 18:15 MCH 30.6 pg (27.0-31.0) 04/15/18 18:15 MCHC Differential 33.4 pg (28.0-36.0) 04/15/18 18:15 RDW 13.6 % (11.5-20.0) 04/15/18 18:15 Plt Count 378 Th/cmm (150-400) 04/15/18 18:15 MPV 7.1 fl 04/15/18 18:15 Neutrophils % 62.0 % (40.0-80.0) 04/15/18 18:15 Lymphocytes % 29.9 % (20.0-50.0) 04/15/18 18:15 Monocytes % 6.4 % (2.0-10.0) 04/15/18 18:15 Eosinophils % 1.7 % (0.0-5.0) 04/15/18 18:15 Basophils % 0.0 % (0.0-2.0) 04/15/18 18:15 Sodium 136 mEq/L (136-145) 04/15/18 18:15 Potassium 3.7 mEq/L (3.5-5.1) 04/15/18 18:15 Chloride 101 mEq/L (98-107) 04/15/18 18:15 Carbon Dioxide 24.2 mEq/L (21.0-31.0) 04/15/18 18:15 Anion Gap 14.5 (7.0-16.0) 04/15/18 18:15 BUN 23 mg/dL (7-25) 04/15/18 18:15 Creatinine 0.9 mg/dL (0.6-1.2) 04/15/18 18:15 Est GFR ( Amer) > 60.0 ml/min (>90) 04/15/18 18:15 Est GFR (Non-Af Amer) > 60.0 ml/min 04/15/18 18:15 BUN/Creatinine Ratio 25.6 04/15/18 18:15 Glucose 98 mg/dL (70-105) 04/15/18 18:15 Hemoglobin A1c % 4.9 % (4.0-6.0) 04/15/18 18:15 Calcium 9.3 mg/dL (8.6-10.3) 04/15/18 18:15 Total Bilirubin 0.4 mg/dL (0.3-1.0) 04/15/18 18:15 AST 11 U/L (13-39) L 04/15/18 18:15 ALT 9 U/L (7-52) 04/15/18 18:15 Alkaline Phosphatase 119 U/L (34-104) H 04/15/18 18:15 Total Protein 6.5 gm/dL (6.0-8.3) 04/15/18 18:15 Albumin 4.2 gm/dL (3.7-5.3) 04/15/18 18:15 Globulin 2.3 gm/dL 04/15/18 18:15 Albumin/Globulin Ratio 1.8 (1.0-1.8) 04/15/18 18:15 Triglycerides 66 mg/dL (<150) 04/15/18 18:15 Cholesterol 189 mg/dL (<200) 04/15/18 18:15 LDL Cholesterol Direct 102 mg/dL (75-193) 04/15/18 18:15 HDL Cholesterol 65 mg/dL (23-92) 04/15/18 18:15 TSH 1.56 uIU/ml (0.34-5.60) 04/15/18 18:15 Salicylates < 25.0 mg/L (30.0-100.0) L 04/15/18 18:15 Acetaminophen < 10.0 ug/mL (10.0-30.0) L 04/15/18 18:15 Ethyl Alcohol < 10 mg/dL (0-10) 04/15/18 18:15 RPR NONREACTIVE (NONREACTIVE) 04/15/18 18:15 - Physical Exam Vitals and I&O: Vital Signs Temp 97.6 F 04/24/18 14:00 Pulse 90 04/24/18 14:00 Resp 18 04/24/18 14:00 BP 100/58 04/24/18 14:00 Pulse Ox 95 04/24/18 14:00 Intake & Output 04/23/18 04/24/18 04/24/18 18:59 06:59 18:59 Intake Total 240 Balance 240 Intake: Oral 240 Other: # Voids 2 # Bowel Movements 1 Active Medications: Current Medications Acetaminophen (Tylenol) 650 mg PO Q4HR PRN PRN Reason: Mild Pain / Temp above 100 Stop: 06/14/18 23:10 Last Admin: 04/23/18 10:23 Dose: 650 mg Acetaminophen/Hydrocodone Bitart ([place] 10 Mg/325 Mg) 1 tab PO Q6H PRN PRN Reason: Pain Severe Stop: 06/17/18 13:29 Last Admin: 04/22/18 10:56 Dose: 1 tab Al Hydrox/Mg Hydrox/Simethicone (Maalox) 30 ml PO Q4HR PRN PRN Reason: GI DISTRESS Stop: 06/14/18 23:10 Albuterol/Ipratropium (Duoneb Neb) 3 ml HHN Q6HRT PRN PRN Reason: Shortness of Breath Stop: 06/14/18 22:05 Last Admin: 04/20/18 18:38 Dose: 3 ml Budesonide (Pulmicort) 0.5 mg HHN Q12HRT JOSEE Stop: 06/14/18 22:14 Last Admin: 04/24/18 07:13 Dose: Not Given Divalproex Sodium (Depakote Dr) 125 mg PO Q12HR JOSEE; Protocol Stop: 06/22/18 20:59 Last Admin: 04/24/18 08:34 Dose: 125 mg Docusate Sodium (Colace) 200 mg PO DAILY JOSEE Stop: 06/15/18 08:59 Last Admin: 04/24/18 08:33 Dose: 200 mg Fluticasone Propionate (Flonase) 1 spr NS DAILY JOSEE Stop: 06/15/18 08:59 Last Admin: 04/24/18 08:23 Dose: 1 spr Gabapentin (Neurontin) 300 mg PO BID [facility] Stop: 06/15/18 08:59 Last Admin: 04/24/18 08:34 Dose: 300 mg Gabapentin (Neurontin) 600 mg PO HS [facility] Stop: 06/15/18 20:59 Last Admin: 04/23/18 21:01 Dose: 600 mg Lorazepam (Ativan) 1 mg PO Q4HR PRN; Protocol PRN Reason: Anxiety Stop: 05/15/18 23:10 Last Admin: 04/24/18 09:21 Dose: 1 mg Magnesium Hydroxide (Milk Of Magnesia) 30 ml PO HS PRN PRN Reason: Constipation Methocarbamol (Robaxin) 500 mg PO BID [facility] Stop: 06/15/18 08:59 Last Admin: 04/24/18 08:24 Dose: 500 mg Multivitamins/Vitamin C (Theragran) 1 tab PO DAILY [facility] Stop: 06/15/18 08:59 Last Admin: 04/24/18 08:23 Dose: 1 tab Nitroglycerin (Nitrostat) 0.4 mg SL Q5MIN PRN PRN Reason: Chest Pain Stop: 06/14/18 22:05 Nystatin (Mycostatin Cream) 1 appl TP DAILY PRN PRN Reason: Rash on [place] area Stop: 06/17/18 13:59 Last Admin: 04/23/18 10:08 Dose: 1 appl Pantoprazole Sodium (Protonix) 40 mg PO DAILY [facility] Stop: 06/15/18 08:59 Last Admin: 04/24/18 08:24 Dose: 40 mg Quetiapine Fumarate (Seroquel) 100 mg PO BID [facility]; Protocol Stop: 06/19/18 16:59 Last Admin: 04/24/18 08:24 Dose: 100 mg Zolpidem Tartrate (Ambien) 5 mg PO HS PRN PRN Reason: Insomnia Stop: 06/14/18 23:10 Last Admin: 04/23/18 21:01 Dose: 5 mg General: alert HEENT: NC/AT, PERRLA Neck: Supple Lungs: CTAB - Procedures Procedures: Procedures Procedure Code Date ANESTH INJEC PERIPH NERV 04.81 12/04/10 ANESTH INJECT-SPIN CANAL 03.91 02/21/12 ASSISTANCE WITH RESPIRATORY VENTILATION, 24-96 HRS, CPAP [id number] 10/03/16 CERVICAL SPINE X-RAY NEC 87.22 02/28/11 EPIDUROGRAPHY 55023 02/21/12 INJ FORAMEN EPIDURAL L/S 31266 12/04/10 INJ PARAVERT F JNT C/T 1 LEV 43936 02/28/11 INJ PARAVERT F JNT C/T 2 LEV 51500 02/28/11 INJ PARAVERT F JNT C/T 3 LEV 50280 02/28/11 INJECT SPINE CERV/THORACIC 59580 05/30/11 INJECT SPINE LUMBAR/SACRAL 01521 02/21/12 INJECT STEROID 99.23 02/21/12 INJECT/INFUSE NEC 99.29 02/28/11 INJECTION INTO JOINT 81.92 02/28/11 LUMBOSAC SPINE X-RAY NEC 87.24 02/21/12 MYELOGRAPHY NECK SPINE 55715 05/30/11 PERIPH NERVE INJECT NEC 04.89 12/04/10 POS AIRWAY PRESSURE CPAP 53875 10/03/16 SPINAL CANAL INJECT NEC 03.92 02/21/12 Internal Medicine Assmt/Plan - Assessment Assessment: agitation htn dementia - Plan Plan: fall precautions continue current plan of care Nutritional Asmnt/Malnutr-PDOC - Dietary Evaluation Malnutrition Findings (Please click <Entered> for more info): Nutritional Asmnt/Malnutrition Start: 04/18/18 16: 19 Text: Status: Complete Freq: Protocol: Document 04/18/18 16:19 LCHENG (Rec: 04/18/18 16:25 LCHENG [id number]) Nutritional Asmnt/Malnutrition Patient General Information Nutritional Screening Moderate Risk Diagnosis psychosis Pertinent Medical Hx/Surgical Hx HTN, dyslipidemia Subjective Information Pt seen sitting in mj-chair in dining room, awake and alert. Per EMR, PO intake 50- 100%. Pt complained of current [facility] soft chopped diet. Explain diet to pt. Per RN, pt was also on [facility] soft chopped diet at SNF. Current Diet Order/ Nutrition Support [facility] soft chopped Pertinent Medications colace, theragran, protonix, seroquel Pertinent Labs 04/15 nutrition labs WNL Nutritional Hx/Data Height 5 ft 5 in Height (Calculated Centimeters) 165.1 Current Weight (lbs) 150 lb Weight (Calculated Kilograms) 68.0 Weight (Calculated Grams) 51753.9 [place] Body Weight 125 Body Mass Index (BMI) 25.0 Weight Status Overweight GI Symptoms GI Symptoms None Last BM 8 Difficult in: None Skin Integrity/Comment: rash Estimated Nutritional Goals BEE in Kcals: Using Current wt Calories/Kcals/Kg 23-27 Kcals Calculated 6879-0268 Protein: Using Current wt Protein g/k.8-1 Protein Calculated 54-68 Fluid: ml 1564-1836ml (1ml/kcal) Nutritional Problem No current Nutrition Prob Problem N/A Malnutrition Alert Is there a minimum of two criteria No selected? Query Text:Check all the applicable criteria. A minimum of two criteria are recommended for diagnosis of either severe or non-severe malnutrition. Malnutrition Related to Morbid Obesity Malnutrition related to morbid obesity No Intervention/Recommendation Comments 1. Continue with [facility] soft chopped diet as ordered. diet preference updated. 2. Monitor PO intake, wt, labs and skin integrity 3. F/U as low risk in 7 days, 04/25 Expected Outcomes/Goals Expected Outcomes/Goals 1. PO intake to meet at least 75% of nutritional needs. 2. Wt stability, skin to remain intact, labs to approach WNL.
--- NOTE | 2018-04-24 15:21 | Progress Notes ---
DATE: 04/24/2018 SUBJECTIVE: Staff was spoken to. The patient is interviewed. Mood is noted to be less irritable. Affect is appropriate. Screaming and yelling has been going down. No major behavioral problems are noted today. ASSESSMENT: The patient is stabilizing. PLAN: To discharge the patient today for followup on outpatient basis. JOB# [id number]
--- NOTE | 2018-04-26 14:41 | Discharge Summary ---
DATE OF DISCHARGE: 04/24/2018 IDENTIFYING DATA: The patient is a 67-year-old woman, resident of [facility]. Information obtained by directly interviewing the patient as well as reviewing the admission papers. JUSTIFICATION OF HOSPITALIZATION: The patient is admitted here for acute agitation. CHIEF COMPLAINT: "I should not be here, I should be on a medical unit." DIAGNOSES AT THE TIME OF ADMISSION: AXIS I: Bipolar disorder mixed with psychotic symptoms. AXIS II: None. AXIS III: As per Dr. Pate. HISTORY OF PRESENT ILLNESS: Please refer to the 04/16/2018 dictation done by me. Physical examination was done by Dr. Pate and the labs during the hospitalization have been reviewed by Dr. Pate. HOSPITAL COURSE AND RESPONSE TO TREATMENT: The patient has been closely monitored on inpatient unit, provided with supportive psychotherapy. The patient has been encouraged to verbalize the concerns rather than to act out. The patient has been screaming and yelling for most of the time in the beginning and the patient has been placed on the valproic acid, which was given at 125 mg twice a day. Seroquel was given at 50 mg. The patient was noted to be too groggy and drowsy. The patient has been also placed on 20 mg of the citalopram. With these medications, the patient has been observed and was encouraged to participate in the groups and verbalize the concerns. The patient's insight and judgment started to improve, the aggression started to resolve, and the patient was discharged on 04/24/2018 with recommendation that she is going to be seeking treatment on an outpatient basis. MENTAL STATUS EXAMINATION: At the time of discharge, patient's mood is noted to be less irritable. Affect is appropriate. Insight and judgment at this time are noted to be improving. Impulse control seems to be fair. No side effects to the medications are noted at the time of discharge. CONDITION: At the time of discharge noted to be stable. DIAGNOSES: AXISI: Bipolar disorder mixed with psychotic symptoms. AXIS II: None. AXIS III: As per Dr. Pate. AFTERCARE PLAN: The patient is discharged to [facility] to be followed up on an outpatient basis at [facility] by Dr. Haro. JOB# [id number]
== END 2018-04-24 17:40 | DRG 885 ==
LOC: ER 17:30 → GERO2 20:10 → MSI 04-18 10:02 → GERO2 04-18 10:08
PROVIDERS: ADMIT Psychiatry & Neurology Psychiatry; ATTEND Psychiatry & Neurology Psychiatry
DX: F31.64 Bipolar disorder, current episode mixed, severe, with psychotic features (principal); F03.91 Unspecified dementia, unspecified severity, with behavioral disturbance; I10 Essential (primary) hypertension; E78.5 Hyperlipidemia, unspecified; Z88.1 Allergy status to other antibiotic agents; Z88.0 Allergy status to penicillin; Z88.8 Allergy status to other drugs, medicaments and biological substances
CPT/HCPCS: 36415-UA; 71045-TC; 80053-TC; 80061-TC; 80320-TC; 80329-TC; 83036-90; 84443-TC; 85025-TC; 86592-TC; 93005; 94640; 94760; 97530; J1200; J1630; J2060; X3904; Z7610